=== PATIENT | female | born 1950 | race Caucasian/White ===

== ENCOUNTER → 2018-01-17 10:44 | Outpatient (CLI) | payer MEDICARE, SELFPAY | PROVIDERS: Family Provider Family Medicine; PCP Family Medicine; Visit Provider Family Medicine | DX: R30.0 Dysuria (principal) | CPT/HCPCS: 87086; 87088 ==

== ENCOUNTER → 2018-02-11 16:10 | Outpatient (CLI) | payer MEDICARE, SELFPAY ==
[2018-02-18 12:17] LABS: HPV APTIMA, High Risk Negative (Negative)
== END ==
PROVIDERS: Family Provider Family Medicine; PCP Family Medicine; Visit Provider Obstetrics & Gynecology
DX: Z12.4 Encounter for screening for malignant neoplasm of cervix (principal)
CPT/HCPCS: 88175; G0145

== ENCOUNTER 2018-02-24 09:36 | Emergency (ER) | payer MEDICARE, SELFPAY ==
[2018-02-24 09:37] VITALS: BP 155/86; PULSE 50; RESP 18; TEMP 36.2; O2SAT 97; BMI 33.0
--- NOTE | 2018-02-24 09:58 | ED.DCSUM_ITS ---
- ER Visit Summary Date of Service: 02/24/18 Chief Complaint: Left breast abscess History of Present Illness: The patient is a 67 F presents with abscess to the left breast. First episode occurred November. She states she was able to treat the infection on her own. She states there is been no improvement with this episode. This is the third incident. She has had prior abscesses of the breast requiring I&D. She denies fever, chills night sweats. Denies weight gain or weight loss. She denies elevated blood sugar. She states her last A1c was less than 6. She denies polyuria, polydipsia, polyphagia or nocturia. There is no history of trauma. She has no other complaints please read written note. Physical Examination: Vital signs are noted. HEENT exam is unremarkable. Heart is regular without murmur, gallop or rub. S1 and S2 are normal. Lungs are clear to auscultation with good movement of air bilaterally. There is erythema with fluctuance and spontaneous drainage of brown thick purulent fluid inferior outer quadrant of the left breast. There is no lymphangitis. There is no axillary lymphadenopathy. There is no dimpling of the areola or nipple. Test Results: None were obtained Emergency Department Course and Treatment: Since this is a recurrent problem concerned she may have MRSA. And the fact that she is diabetic we will treat with cephalexin and Bactrim DS. The abscess will require incision and drainage. Since he has never seen a surgeon she was referred to Dr. Norm Red. Treatment Plan: Patient was referred to Dr. Red for wound check and wick removal in 2-3 days. She was placed on Bactrim DS and cephalexin. She received her first dose in the emergency department. Disposition: Discharged home with appropriate home-going instructions Impression: Left breast abscess with cellulitis This note was generated with [employer] dictation software. It may contain incorrect words, spelling, and punctuation that were not noted in review of the chart prior to signing ED Disposition - Plan for ED Patient: Disposition: Home or Assisted Living Chief Complaint: Abscess Instructions: ED Abscess IandD, ED Infec Skin Cellulitis Prescriptions: Smz/Tmp Ds [Bactrim Ds] 1 tab PO BID #14 tab Cephalexin 500 mg PO 4X/DAY #30 cap Referrals: Rolf Cook MD [Primary Care Provider] - Sergey Red MD [STAFF PHYSICIAN] - 2 Days for wound check
[2018-02-24] MEDS: Smz/Tmp Ds Tablet 1 TABLET PO (11:28)
[2018-02-24] MEDS: Cephalexin 250 MG Capsule 500 MG PO (11:28)
[2018-02-24 11:33] VITALS: BP 142/79; PULSE 84; RESP 22; O2SAT 97
--- NOTE | 2018-02-24 11:33 | ED.RN ---
THIS NURSE REVIEWED D/C INSTRUCTIONS WITH PT. PT VERBALIZED UNDERSTANDING OF INSTRUCTIONS. PT DENIES FURTHER NEEDS OR QUESTIONS AT THIS TIME. PT AMBULATES FROM ROOM ON OWN WITHOUT ASSISTANCE FROM STAFF
== END 2018-02-24 11:35 | disposition home or self-care (01) ==
PROVIDERS: Emergency Provider Emergency Medicine; Family Provider Family Medicine; PCP Family Medicine
DX: N61.1 Abscess of the breast and nipple (principal); E11.9 Type 2 diabetes mellitus without complications; I10 Essential (primary) hypertension; E78.00 Pure hypercholesterolemia, unspecified; E03.9 Hypothyroidism, unspecified; Z72.0 Tobacco use; Z79.84 Long term (current) use of oral hypoglycemic drugs; Z79.891 Long term (current) use of opiate analgesic; Z79.899 Other long term (current) drug therapy
CPT/HCPCS: 10060; 99283

== ENCOUNTER → 2018-05-05 12:36 | Outpatient (CLI) | payer MEDICARE, SELFPAY ==
--- NOTE | 2018-05-05 12:47 | BI_ITS ---
MAMMOGRAPHY - BILATERAL SCREENING REASON FOR EXAM: Female, 67 years old. Routine annual screening examination. PERTINENT HISTORY: Mother with breast cancer. TECHNIQUE: Digital bilateral breast boni (3D mammographic acquisition) in the CC and MLO projections. 2-D mediolateral oblique (MLO) and craniocaudad (CC) views of both breasts were obtained. CAD: Full Field Digital Mammography with Computer Added Detection was performed. COMPARISON: Comparison is made with prior study dated May 02, 2017. FINDINGS: Breast Composition: There are scattered areas of fibroglandular density. There are no dominant masses or suspicious calcifications. Stable appearance of the benign-appearing bilateral axillary lymph nodes. No other significant abnormalities are identified. There has been no significant change since the prior study. BI/SCREENING MAMM (CAD), BILAT IMPRESSION: Stable bilateral screening mammogram. Yearly follow-up mammogram recommended. (A) ASSESSMENT CATEGORY: BIRADS Category 1: Negative. A letter regarding these results will be sent to the patient by the facility within 30 days. Approximately 10% of breast cancers are not detected by mammography. A normal mammogram should not delay biopsy of a clinically suspicious abnormality. [id number] Electronically Signed: Erik Tavera MD at 8:00 EDT Tel [phone], Service support ,
== END ==
PROVIDERS: Family Provider Family Medicine; PCP Family Medicine; Visit Provider Obstetrics & Gynecology
DX: Z12.31 Encounter for screening mammogram for malignant neoplasm of breast (principal)
CPT/HCPCS: 77063; 77067

== ENCOUNTER → 2018-05-27 11:37 | Outpatient (CLI) | payer OTHER, MEDICARE, SELFPAY ==
--- NOTE | 2018-05-27 11:44 | RAD_ITS ---
STUDY: X-RAY - LUMBAR SPINE REASON FOR EXAM: Female, 67 years old. Low back pain. TECHNIQUE: 4 view(s) of the lumbar spine were obtained. COMPARISON: None FINDINGS: The patient has undergone prior L5 laminectomies, L5-S1 discectomy, and posterior lumbosacral fusion with metal hardware. A disc prosthesis is present. Bilateral transpedicular screws at L5-S1 are connected on either side but longitudinal metal rods. The generator of an epidural stimulator is seen in the soft tissues of the right buttock. Its leads enter the spinal canal at T11-12, the lead tips residing at T9-10. Normal lumbar lordosis. There is a 7.65 degree there is a scoliosis centered at L1, and 4.85 degree levoscoliosis centered at L4. There is slight spondylolisthesis of L3 on L4. There is multilevel endplate spondylosis of the visualized thoracolumbar vertebrae. There is multi-level degenerative disc disease with multi-level disc space narrowing. There is no demonstrated osseous destructive lesion or fracture. There are multilevel degenerative arthroses of the facet articulations. The soft tissue structures are unremarkable. RAD/L/S Spine Min 4 Views IMPRESSION: 1. Prior L5 laminectomies, L5-S1 discectomy with placement of disc prosthesis, and posterior bilateral lumbar sacral fusion with metal hardware. 2. Degenerative changes of the spine, as detailed above. 3. Epidural stimulator leads entering the T11-12, the tips residing at T9-10. Electronically Signed: Stephen Mclaughlin MD at 12:23 EDT , Service support ,
== END ==
PROVIDERS: Family Provider Family Medicine; PCP Family Medicine; Visit Provider Nurse Practitioner Family
DX: M51.36 Other intervertebral disc degeneration, lumbar region (principal); M53.80 Other specified dorsopathies, site unspecified
CPT/HCPCS: 72110

== ENCOUNTER → 2018-09-15 12:29 | Outpatient (CLI) | payer MEDICARE, SELFPAY ==
--- NOTE | 2018-09-21 21:59 | LEAS ---
Arterial Study - Arterial Study Arterial Study: This is a 67-year-old female with a history of diabetes mellitus, hyperlipidemia, and smoking. She presents with physical findings consistent with peripheral arterial occlusive disease. She is brought to the noninvasive vascular laboratory at this time for the purpose of bilateral noninvasive lower extremity arterial assessment. Doppler signal assessment was used to evaluate the pulses at ankle level bilaterally. The posterior tibial and dorsalis pedis pulses were triphasic bilaterally. Segmental limb pressures were obtained bilaterally. The right ankle pressure, as determined by posterior tibial pulse, was measured at 182 mmHg. The right ankle pressure, as determined by dorsalis pedis pulse, was measured at 152 mmHg. The right digital pressure was measured at 116 mmHg. The left ankle pressure, as determined by posterior tibial pulse, was measured at 165 mmHg. The left ankle pressure, as determined by dorsalis pedis pulse, was measured at 159 mmHg. The left digital pressure was measured at 119 mmHg. Pulse?volume recordings were obtained bilaterally and segmentally. Waveform amplitudes appeared to be satisfactory at low thigh, calf, and ankle levels bilaterally, though slightly diminished at digital levels bilaterally. Resting ankle?brachial indices were calculated bilaterally. The resting right ankle?brachial index was calculated to be 1.31. The resting left ankle?brachial index was calculated to be 1.19. Digital?brachial indices were calculated bilaterally. The right digital-brachial index was calculated to be 0.83. The left digital-brachial index was calculated to be 0.86. Impression: Based upon the findings of this resting noninvasive lower extremity arterial study, there is no evidence of significant atherosclerotic peripheral arterial occlusive disease in the lower extremities bilaterally. Triphasic waveforms are noted at ankle level bilaterally. Resting ankle?brachial indices were bilaterally normal. Digital-brachial indices were also normal bilaterally. In summary, this represents a normal resting noninvasive lower extremity arterial study bilaterally.
--- NOTE | 2018-09-21 22:04 | LEAS_ITS ---
Arterial Study - Arterial Study Arterial Study: This is a 67-year-old female with a history of diabetes mellitus, hyper lipidemia, and smoking. She presents with physical findings consistent with peripheral arterial occlusive disease. She is brought to the noninvasive vascular laboratory at this time for the purpose of bilateral noninvasive lower extremity arterial assessment. Doppler signal assessment was used to evaluate the pulses at ankle level bilaterally. The posterior tibial and dorsalis pedis pulses were triphasic bilaterally. Segmental limb pressures were obtained bilaterally. The right ankle pressure, as determined by posterior tibial pulse, was measured at 182 mmHg. The right ankle pressure, as determined by dorsalis pedis pulse, was measured at 152 mmHg. The right digital pressure was measured at 116 mmHg. The left ankle pressure, as determined by posterior tibial pulse, was measured at 165 mmHg. The left ankle pressure, as determined by dorsalis pedis pulse, was measured at 159 mmHg. The left digital pressure was measured at 119 mmHg. Pulse?volume recordings were obtained bilaterally and segmentally. Waveform amplitudes appeared to be satisfactory at low thigh, calf, and ankle levels bilaterally, though slightly diminished at digital levels bilaterally. Resting ankle?brachial indices were calculated bilaterally. The resting right ankle?brachial index was calculated to be 1.31. The resting left ankle?brachial index was calculated to be 1.19. Digital?brachial indices were calculated bilaterally. The right digital- brachial index was calculated to be 0.83. The left digital-brachial index was calculated to be 0.86. Impression: Based upon the findings of this resting noninvasive lower extremity arterial study, there is no evidence of significant atherosclerotic peripheral arterial occlusive disease in the lower extremities bilaterally. Triphasic waveforms are noted at ankle level bilaterally. Resting ankle?brachial indices were bilaterally normal. Digital-brachial indices were also normal bilaterally. In summary, this represents a normal resting noninvasive lower extremity arterial study bilaterally.
== END ==
PROVIDERS: Family Provider Family Medicine; PCP Family Medicine; Referring Provider Family Medicine; Visit Provider Family Medicine
DX: R09.89 Other specified symptoms and signs involving the circulatory and respiratory systems (principal); R20.9 Unspecified disturbances of skin sensation
CPT/HCPCS: 93923

== ENCOUNTER 2018-10-22 14:13 | Emergency (ER) | payer MEDICARE, SELFPAY ==
[2018-10-22 14:15] VITALS: BP 143/105; PULSE 72; RESP 18; TEMP 36.7; O2SAT 95; BMI 32.5
--- NOTE | 2018-10-22 14:37 | VDLE_ITS ---
Reason For Study: LLE pain RIGHT LEFT CFV is compressible, spontaneous, phasic, GSV is normal. competent and demonstrates normal CFV is compressible, spontaneous, phasic, augmentation. competent, and demonstrates normal Procedure augmentation. Exam performed portable in ED. FV is compressible, spontaneous, phasic, The exam was diagnostic. competent and demonstrates normal A preliminary report was called and/or faxed augmentation. to ED. POP V is compressible, spontaneous, phasic, competent and demonstrates normal augmentation. T/P Trunk is compressible. PTV is compressible. LT PerV is compressible. Interpretation Summary Deep veins of the left lower extremity are patent and compressible segmentally. There is no evidence of left lower extremity deep vein thrombosis. Valvular competence appears intact within the proximal deep venous system on the left . The left greater saphenous vein appears patent and compressible segmentally. Ordering Physician: Sergey Weir Referring Physician: Rolf Cook Performed By: Ingrid Morales, KELLI, RVT
[2018-10-22] MEDS: HYDROcodone Bitartrate/Apap 5/325 Tablet PO (14:54)
--- NOTE | 2018-10-22 15:14 | ED.VISSUMM ---
- ER Visit Summary Date of Service: 10/22/18 Chief Complaint: Left leg pain History of Present Illness: The patient is a 67 F with left leg pain that started yesterday and was worse today. Worse with weightbearing. She has a hard time ambulating and called EMS to bring her to the hospital. She said she never had this pain before. Nothing seemed to bring it on. The pain starts in her left foot and ankle and radiates up her lateral left leg up into her thigh. Denies back pain or back injury. Denies any history of regular pain in this leg. Denies any history of circulatory issues. Denies any history of DVT. Denies trauma. Physical Examination: Afebrile and vital signs unremarkable. Patient is tearful and appears uncomfortable. Heart regular. Lungs clear. Abdomen soft. Back is nontender. Left leg is diffusely tender with light touch. No focal tenderness. No deformities. Good range of motion. Strength is limited by pain. Normal sensation. Good pulses. Good capillary refill. Skin appears normal. Test Results: Ultrasound is pending. Emergency Department Course and Treatment: Patient has atraumatic leg pain. Ultrasound was ordered. Arterial circulation seems to be normal. Her exam is unremarkable except for tenderness. She denies trauma. No focal tenderness. Good range of motion. Back unremarkable. Patient treated with [place] while awaiting results. After the ultrasound, the patient notified nursing that she had not been truthful. Her pain started after sexual intercourse with her ex-. Patient denies dislocation or joint pain or problems. Denies any specific injury. I reexamined the patient. She has diffuse tenderness. Good range of motion. No laxity or deformity. Pain is all over and I cannot find a focal location of pain to x-ray. Ultrasound was negative. Patient treated with a walker and pain medicine. Rest ice and elevate the leg. Treatment Plan: As above Disposition: Discharge Impression: 1. Left leg pain This note was generated with [employer] dictation software. It may contain incorrect words, spelling, and punctuation that were not noted in review of the chart prior to signing ED Disposition - Plan for ED Patient: Chief Complaint: Lower Extremity Injury Instructions: ED RICE Prescriptions: Hydrocodone Bitart/Apap 5-325 [[place] 5MG-325MG] 1 tab PO Q6H PRN PRN 3 Days #10 tab PRN Reason: Pain Referrals: Rolf Cook MD [Primary Care Provider] -
--- NOTE | 2018-10-22 15:18 | ED.DCSUM_ITS ---
- ER Visit Summary Date of Service: 10/22/18 Chief Complaint: Left leg pain History of Present Illness: The patient is a 67 F with left leg pain that started yesterday and was worse today. Worse with weightbearing. She has a hard time ambulating and called EMS to bring her to the hospital. She said she never had this pain before. Nothing seemed to bring it on. The pain starts in her left foot and ankle and radiates up her lateral left leg up into her thigh. Denies back pain or back injury. Denies any history of regular pain in this leg. Denies any history of circulatory issues. Denies any history of DVT. Denies trauma. Physical Examination: Afebrile and vital signs unremarkable. Patient is tearful and appears uncomfortable. Heart regular. Lungs clear. Abdomen soft. Back is nontender. Left leg is diffusely tender with light touch. No focal tenderness. No deformities. Good range of motion. Strength is limited by pain. Normal sensation. Good pulses. Good capillary refill. Skin appears normal. Test Results: Ultrasound is pending. Emergency Department Course and Treatment: Patient has atraumatic leg pain. Ultrasound was ordered. Arterial circulation seems to be normal. Her exam is unremarkable except for tenderness. She denies trauma. No focal tenderness. Good range of motion. Back unremarkable. Patient treated with [place] while awaiting results. After the ultrasound, the patient notified nursing that she had not been truthful. Her pain started after sexual intercourse with her ex-. Patient denies dislocation or joint pain or problems. Denies any specific in jury. I reexamined the patient. She has diffuse tenderness. Good range of motion. No laxity or deformity. Pain is all over and I cannot find a focal location of pain to x-ray. Ultrasound was negative. Patient treated with a walker and pain medicine. Rest ice and elevate the leg. Treatment Plan: As above Disposition: Discharge Impression: 1. Left leg pain This note was generated with [employer] dictation software. It may contain incorrect words, spelling, and punctuation that were not noted in review of the chart prior to signing ED Disposition - Plan for ED Patient: Chief Complaint: Lower Extremity Injury Instructions: ED RICE Prescriptions: Hydrocodone Bitart/Apap 5-325 [[place] 5MG-325MG] 1 tab PO Q6H PRN PRN 3 Days #10 tab PRN Reason: Pain Referrals: Rolf Cook MD [Primary Care Provider] -
--- NOTE | 2018-10-22 15:20 | ED.DEP ---
ED Disposition - Plan for ED Patient: Chief Complaint: Lower Extremity Injury Instructions: ED RICE Prescriptions: Hydrocodone Bitart/Apap 5-325 [[place] 5MG-325MG] 1 tab PO Q6H PRN PRN 3 Days #10 tab PRN Reason: Pain Referrals: Rolf Cook MD [Primary Care Provider] -
[2018-10-22 15:34] VITALS: BP 153/74; PULSE 71; RESP 16; O2SAT 97
== END 2018-10-22 16:09 | disposition home or self-care (01) ==
PROVIDERS: Emergency Provider Emergency Medicine; Family Provider Family Medicine; PCP Family Medicine
DX: M79.605 Pain in left leg (principal); E11.9 Type 2 diabetes mellitus without complications; I10 Essential (primary) hypertension; E78.00 Pure hypercholesterolemia, unspecified; Z72.0 Tobacco use; Z79.84 Long term (current) use of oral hypoglycemic drugs; Z79.2 Long term (current) use of antibiotics; Z79.891 Long term (current) use of opiate analgesic; Z79.899 Other long term (current) drug therapy
CPT/HCPCS: 93971; 99284

== ENCOUNTER → 2018-12-03 15:18 | Outpatient (CLI) | payer MEDICARE, SELFPAY ==
--- NOTE | 2018-12-03 15:24 | CT_ITS ---
STUDY: CT LEFT KNEE WITHOUT CONTRAST REASON FOR EXAM: Female, 67 years old. Left knee pain. Nondisplaced fracture lateral tibial condyle on office x-ray. History of osteoarthritis. History of hypertension and diabetes controlled with medication. RADIATION DOSAGE (If Supplied By Facility): CTDIvol = ( 15.35 ) mGy, DLP = ( 392.14 ) mGycm TECHNIQUE: Transaxial CT imaging of the knee was performed. Coronal and sagittal images were reformatted. Individualized dose optimization techniques were used for this CT. COMPARISON: None. FINDINGS: There is mixed lucent and sclerotic density in the posterior subarticular margin of the medial femoral condyle that raises question of avascular necrotic change or other chronic injury without associated fracture. Mild degenerative subcortical sclerosis of the medial femoral condyle and medial tibial plateau. There is spurring of the medial tibial spine. There is moderate narrowing of the articular joint space of the medial knee compartment. There is mixed lucent and sclerotic density in the posterior subarticular margin of the lateral femoral condyle raises question of avascular necrotic change or other chronic injury without associated fracture. Normal lateral tibial plateau. There is preservation of the articular joint space of the lateral knee compartment. Normal proximal tibiofibular articulation. Normal visualized proximal fibula. There is a minimal suprapatellar joint effusion. The quadriceps tendon is grossly normal. There is mild cortical spurring at the patellar insertion of the quadriceps tendon. The patellar tendon is grossly normal. Normal Hoffa's fat pad. The soft tissues are unremarkable. CT/Extremity Lower without Contra IMPRESSION: 1. No acute fracture of the left knee. 2. Subcortical mixed density in the posterior margins of the bilateral femoral condyles raising question of avascular necrotic change or other chronic injury without associated fracture. 3. Moderate degenerative narrowing of the medial femorotibial joint compartment. 4. Very small suprapatellar joint effusion. Electronically Signed: Stephen Mclaughlin MD at 20:04 EST , Service support ,
== END ==
PROVIDERS: Family Provider Family Medicine; PCP Family Medicine; Referring Provider Specialist; Visit Provider Specialist
DX: S82.125A Nondisplaced fracture of lateral condyle of left tibia, initial encounter for closed fracture (principal)
CPT/HCPCS: 73700

== ENCOUNTER → 2019-04-24 | Outpatient (CLI) | payer MEDICARE, SELFPAY | END | disposition home or self-care (01) | LOC: BFHLAB 13:00 | PROVIDERS: Family Provider Family Medicine; PCP Family Medicine; Visit Provider Family Medicine | DX: R31.9 Hematuria, unspecified (principal) | CPT/HCPCS: 87077; 87086; 87088 ==

== ENCOUNTER → 2019-05-01 | Outpatient (CLI) | payer MEDICARE, SELFPAY ==
--- NOTE | 2019-05-01 13:40 | US_ITS ---
STUDY: RENAL ULTRASOUND - COMPLETE REASON FOR EXAM: Female, 68 years old. Hematuria. TECHNIQUE: Ultrasound evaluation of the kidneys was performed with real-time and static paige-scale imaging. COMPARISON: None available. FINDINGS: RIGHT KIDNEY: Normal location of the right kidney, which is normal in size. The right kidney measures 10.4 cm. There is a normal cortex of the right kidney. There is no right renal mass or cyst. There are no right renal calculi. There is no right hydronephrosis. DISTAL RIGHT URETER: There is non-visualization of the distal right ureter. There is no demonstrated right ureterovesical junction calculus. There is a visualized right ureteral jet. LEFT KIDNEY: Normal location of the left kidney, which is normal in size. The left kidney measures 11.5 cm. There is a normal cortex of the left kidney. There is no left renal mass or cyst. There are no left renal calculi. There is no left hydronephrosis. DISTAL LEFT URETER: There is non-visualization of the distal left ureter. There is no demonstrated left ureterovesical junction calculus. There is a visualized left ureteral jet. BLADDER: The urinary bladder is partially distended and appears unremarkable. There is a postvoid residual of 60 cc. US/Kidney and Bladder IMPRESSION: Normal kidneys. No hydronephrosis. Postvoid residual of 60 cc. Electronically Signed: Rene Cook, at 20:39 EDT Tel , Service support ,
== END | disposition home or self-care (01) ==
LOC: US 13:36
PROVIDERS: Family Provider Family Medicine; PCP Family Medicine; Referring Provider Family Medicine; Visit Provider Family Medicine
DX: R31.9 Hematuria, unspecified (principal); Z72.0 Tobacco use
CPT/HCPCS: 76770

== ENCOUNTER 2019-05-04 06:53 | Day surgery (SDC) | payer MEDICARE, SELFPAY ==
[2019-05-04 07:26] VITALS: BP 129/64; PULSE 64; RESP 16; TEMP 36.8; O2SAT 94; BMI 32.3
[2019-05-04 07:46] LABS: Bedside Glucose 146 mg/dL (70-110)
[2019-05-04] MEDS: Bupivacaine 0.25% 30 ML Vial (08:21)
[2019-05-04] MEDS: MethylPREDNISolone Acetate 80 MG/ML Vial (08:21)
[2019-05-04 08:30] VITALS: BP 124/70; BP 129/64; PULSE 63; RESP 16; TEMP 36.3; O2SAT 92
--- NOTE | 2019-05-04 08:30 | RAD_ITS ---
STUDY: X-RAY - RIGHT KNEE REASON FOR EXAM: Female, 68 years old. RIGHT KNEE NERVE BLOCK TECHNIQUE: 3 C-arm views, 10.2 seconds fluoroscopy time. COMPARISON: None. FINDINGS: 3 C-arm views show needle placements along the medial and lateral aspects of the distal femoral metaphysis and the medial tibial metaphysis. Correlate with procedure note. Electronically Signed: Saad Vines MD at 22:29 EDT , Service support , RAD/Fluoro Guided Needle Placement
--- NOTE | 2019-05-04 08:33 | PCM.OPRPT ---
Problem List (1) Primary osteoarthritis of right knee Status: Chronic (2) Chronic post-operative pain Status: Chronic Report of Operation Date of Procedure: 05/04/19 Pre-Operative Diagnosis: Chronic postoperative knee pain, osteoarthritis of the right knee Post-Operative Diagnosis: Chronic postoperative knee pain, osteoarthritis of the right knee Surgery/Procedure Performed:: Right knee superior medial, superior lateral, inferior medial genicular nerve steroid injection under fluoroscopic guidance Description of Surgical Findings:: PROCEDURE: Right knee superior medial, superior lateral, inferior medial genicular nerve steroid injection under fluoroscopic guidance PREOPERATIVE DIAGNOSIS: Osteoarthritis of the right knee, chronic postoperative knee pain status post right total knee arthroplasty POSTOPERATIVE DIAGNOSIS: Osteoarthritis of the right knee, chronic postoperative knee pain status post right total knee arthroplasty ANESTHESIA: MAC COMPLICATIONS: None BLOOD LOSS: Minimal PROCEDURE IN DETAIL: History and physical today was reviewed. Risks and benefits of the procedure were explained. The patient understood, agreed to our procedure, and informed consent was obtained. IV inserted per routine protocol. The patient was taken to the operating room, placed in a supine position the right knee area was prepped and draped in a sterile fashion using iodine x3 under fluoroscopy guidance AP view the right knee joint was visualized skin and subcutaneous tissue were anesthetized with approximately 5 cc of 1% lidocaine using a 25-gauge regular needle at the facility of the superior medial superior lateral inferior medial genicular nerves. Starting on the right superior medial ending on the right inferior medial passing through the right superior lateral genicular nerves the needle passed through the skin the tip of the needle was maneuvered and directed towards the diaphyseal junction of each corresponding once the tip of the needle was at the vicinity of the each corresponding nerve after confirmation of AP as well as lateral view and repeated negative aspiration a total of 11 cc of preservative-free 0.25% Marcaine with 80 mg of Depo-Medrol were injected in divided doses between those 3 levels, the needles were then removed intact. The patient experienced no signs or symptoms intravascular injection. The patient experienced no paraesthesia. The procedure was completed without any apparent difficult, any complication. The patient appeared to tolerate well. ASSESSMENT AND PLAN: This is a 68-year-old female with osteoarthritis of the right knee, chronic postoperative knee pain status post right total knee arthroplasty status post right knee superior medial, superior lateral, inferior medial, genicular nerve steroid injection under fluoroscopic guidance the patient will continue her current medications. The patient will follow in approximately 2 weeks for reevaluation.
[2019-05-04 08:35] VITALS: BP 116/72; BP 129/64; PULSE 62; RESP 18; O2SAT 92
[2019-05-04 08:39] VITALS: BP 119/74; BP 129/64; PULSE 61; RESP 18; O2SAT 94
[2019-05-04 09:17] VITALS: BP 129/64
== END 2019-05-04 09:18 | disposition home or self-care (01) ==
LOC: SDC 06:53 → AC 06:54
PROVIDERS: Family Provider Family Medicine; PCP Family Medicine; Referring Provider Anesthesiology Pain Medicine; Visit Provider Anesthesiology Pain Medicine
PROC: 3E0U3GC Introduction of Other Therapeutic Substance into Joints, Percutaneous Approach (ICD-10-PCS; CPT 20610; principal; 2019-05-04 08:25)
DX: M17.11 Unilateral primary osteoarthritis, right knee (principal); G89.28 Other chronic postprocedural pain; I10 Essential (primary) hypertension; E11.9 Type 2 diabetes mellitus without complications; F17.210 Nicotine dependence, cigarettes, uncomplicated; E78.00 Pure hypercholesterolemia, unspecified; E07.9 Disorder of thyroid, unspecified; K21.9 Gastro-esophageal reflux disease without esophagitis; F41.9 Anxiety disorder, unspecified; F32.9 Major depressive disorder, single episode, unspecified; Z96.651 Presence of right artificial knee joint; Z79.84 Long term (current) use of oral hypoglycemic drugs; Z79.899 Other long term (current) drug therapy; Z79.891 Long term (current) use of opiate analgesic
CPT/HCPCS: 20610; 76000; 77002; 82962; J7120

== ENCOUNTER → 2019-05-11 | Outpatient (CLI) | payer MEDICARE, SELFPAY ==
[2019-05-04 07:26] VITALS: BMI 32.3
--- NOTE | 2019-05-11 13:19 | BI_ITS ---
MAMMOGRAPHY - BILATERAL SCREENING REASON FOR EXAM: Female, 68 years old. Routine annual screening examination. PERTINENT HISTORY: Mother with breast cancer. TECHNIQUE: Digital bilateral breast alcon (3D mammographic acquisition) in the CC and MLO projections. 2-D mediolateral oblique (MLO) and craniocaudad (CC) views of both breasts were obtained. CAD: Full Field Digital Mammography with Computer Added Detection was performed. COMPARISON: Comparison is made with prior study dated May 05, 2018 and May 02, 2017. FINDINGS: Breast Composition: There are scattered areas of fibroglandular density. New 8.4 mm well-defined nodule in the medial aspect of the right breast. This is not well-seen on the medial lateral oblique view. I suspect this to be inferior. This may represent a skin lesion. Clinical correlation is recommended. Stable appearance of the bilateral axillary lymph nodes. No other significant abnormalities are identified. BI/SCREEN MAMM (CAD) W/ALCON BILAT IMPRESSION: 8.4 mm well-defined nodule seen in the medial aspect of the right breast inferiorly. This may represent a skin lesion. Clinical correlation is recommended. If there is no skin lesion, ultrasound is recommended. ASSESSMENT CATEGORY: BIRADS Category 2: Benign. A letter regarding these results will be sent to the patient by the facility within 30 days. Approximately 10% of breast cancers are not detected by mammography. A normal mammogram should not delay biopsy of a clinically suspicious abnormality. [id number] Electronically Signed: Erik Tavera, at 15:52 EDT , Service support ,
== END | disposition home or self-care (01) ==
LOC: OPBI 13:16
PROVIDERS: Family Provider Family Medicine; PCP Family Medicine; Referring Provider Obstetrics & Gynecology; Visit Provider Obstetrics & Gynecology
DX: Z12.31 Encounter for screening mammogram for malignant neoplasm of breast (principal)
CPT/HCPCS: 77063; 77067

== ENCOUNTER 2019-07-02 05:45 | Emergency (ER) | payer MEDICARE, SELFPAY ==
[2019-07-02 05:46] VITALS: PULSE 65; RESP 16; TEMP 36.7; O2SAT 99; BMI 34.2
[2019-07-02 05:49] VITALS: BP 167/78; PULSE 63; RESP 16; O2SAT 98
[2019-07-02 06:08] LABS: Bacteria 0 SEEN /hpf (None Seen); Mucous, Urine 0 SEEN /hpf (<or=2+)
[2019-07-02 06:09] LABS: Color, Urine Yellow (Yellow); Glucose, Dipstick Normal (Normal); Ketone-Dipstick Negative (Negative); Leukocyte Esterase-Dipstick 500 /ul (Negative); Nitrite-Dipstick Negative (Negative); Occult Blood-Urine 250 /ul (Negative); Protein-Dipstick 15 mg/dl (Negative); Urine Bilirubin Dipstick Negative (Negative); Urine Clarity Sl. Cloudy (Clear); Urine Urobilinogen Normal (Normal); Urine pH 6.5 (5.0 - 8.0)
[2019-07-02 06:18] LABS: Red Blood Cells-Urine 5-10 SEEN /hpf (0-5); Squamous Epithelial Cells - UA 5-10 SEEN /hpf (5-10); White Blood Cells >100 SEEN /hpf (0-5)
[2019-07-02] MEDS: HYDROcodone Bitartrate/Apap 5/325 Tablet PO (06:25)
--- NOTE | 2019-07-02 06:25 | ED.VISSUMM ---
- ER Visit Summary Date of Service: 07/02/19 Chief Complaint: Pelvic pain History of Present Illness: The patient is a 68 F the pain started after vaginal intercourse with sex toy insertion. Patient also reports vaginal spotting and dysuria. Denies fever or other associated symptoms. Physical Examination: Afebrile and vital signs are unremarkable. Alert and oriented. Appears uncomfortable but in no acute distress. Normal gait. Abdomen soft and nontender. No distention. No guarding or rebound. Pelvic exam was chaperoned by Socorro Bronson RN. This showed scant discharge at the cervix. She had diffuse tenderness. She had 2 spots, one on each lateral vaginal wall that appeared to be slightly friable and were oozing blood after speculum exam. I did not appreciate any laceration, fistula, or other pathology. External exam was normal. No lesions. Test Results: Urinalysis showed signs of infection. Culture is pending. Gonorrhea and Chlamydia testing is pending. Wet prep was negative. Emergency Department Course and Treatment: Patient treated with [place] while awaiting results. She had findings concerning for UTI. She had scant discharge. STD is thought to be less likely, but gonorrhea and Chlamydia testing are pending. Wet prep was negative. Patient was treated with Rocephin and doxycycline to cover for STDs as well as UTIs. It appears that she does have some vaginal wall trauma. This appears to be minor. I do not appreciate any perforations or more serious injuries. Abdominal exam is reassuring. Vital signs are reassuring. I believe this will heal well without any further intervention. I do recommend that she follows up with her PRODUCE INSPECTOR to make sure she is healing well and not having any problems. She will call this morning for a follow-up appointment. She will also be able to follow-up with her test results. Patient can continue her home pain medication. Return for any new or worsening issues. Treatment Plan: As above Disposition: Discharge Impression: 1. UTI 2. Vaginal abrasions This note was generated with [employer] dictation software. It may contain incorrect words, spelling, and punctuation that were not noted in review of the chart prior to signing ED Disposition - Plan for ED Patient: Instructions: Understanding Urinary Tract Infections (UTIs) Prescriptions: Doxycycline 100 mg PO BID #28 cap Prescription Printed Referrals: Kitty Berrios MD [STAFF PHYSICIAN] -
[2019-07-02] MEDS: Doxycycline 100 MG CAPSULE PO (06:28)
[2019-07-02] MEDS: Ceftriaxone 500 MG Vial 250 MG IM (06:47)
[2019-07-02 06:50] VITALS: BP 148/77; PULSE 81; RESP 16; O2SAT 98
[2019-07-02 07:46] LABS: Chlamydia Trachomatis by PCR Negative (Negative); Neisserai gonorrhoeae by PCR Negative (Negative); Probe Check PASS; Sample Adequacy Control PASS; Specimen Processing Control PASS
== END 2019-07-02 07:01 | disposition home or self-care (01) ==
LOC: ED 06:25
PROVIDERS: Emergency Provider Emergency Medicine; Family Provider Family Medicine; PCP Family Medicine
DX: N39.0 Urinary tract infection, site not specified (principal); S30.814A Abrasion of vagina and vulva, initial encounter; R10.2 Pelvic and perineal pain; E11.9 Type 2 diabetes mellitus without complications; I10 Essential (primary) hypertension; E03.9 Hypothyroidism, unspecified; E78.00 Pure hypercholesterolemia, unspecified; Z72.0 Tobacco use; Z79.84 Long term (current) use of oral hypoglycemic drugs; Z79.899 Other long term (current) drug therapy; X58.XXXA Exposure to other specified factors, initial encounter; Y93.89 Activity, other specified; Y92.009 Unspecified place in unspecified non-institutional (private) residence as the place of occurrence of the external cause; Y99.8 Other external cause status
CPT/HCPCS: 81001; 87077; 87086; 87088; 87186; 87210; 87491; 87591; 96372; 99283

== ENCOUNTER 2019-09-21 07:59 | Day surgery (SDC) | payer MEDICARE, SELFPAY ==
[2019-09-21 08:18] VITALS: BP 132/62; PULSE 62; RESP 16; TEMP 36.7; O2SAT 97; BMI 34.1
[2019-09-21] MEDS: Lactated Ringers 1,000 ML 100 ML IV (08:37)
[2019-09-21 08:45] LABS: Bedside Glucose 155 mg/dL (70-110)
--- NOTE | 2019-09-21 09:00 | RAD_ITS ---
STUDY: Fluoroscopically guided right knee steroid injection/genicular nerve. REASON FOR EXAM: Female, 68 years old. Pain. COMPARISON: None. FINDINGS: Fluoroscopically guided right knee injection performed for right genicular nerve. The radiologist was not present in the room. Fluoroscopy time is unavailable. 3 images were obtained during the exam. The total knee prostheses is seen in place with visualization of radiopaque needles. RAD/Fluoro Guided Needle Placement IMPRESSION: Fluoroscopically guided steroid injection of the right knee as described above. For details see operative report. Electronically Signed: Nallely Portillo MD at 2:04 EST , Service support ,
[2019-09-21] MEDS: Bupivacaine 0.25% 30 ML Vial (09:37)
[2019-09-21] MEDS: MethylPREDNISolone Acetate 80 MG/ML Vial (09:37)
[2019-09-21 09:46] VITALS: BP 109/74; BP 132/62; PULSE 64; RESP 16; TEMP 36.6; O2SAT 95
[2019-09-21 09:50] VITALS: BP 132/62; BP 95/75; PULSE 58; RESP 16; O2SAT 94
[2019-09-21 09:55] VITALS: BP 116/63; BP 132/62; PULSE 58; RESP 16; O2SAT 95
[2019-09-21 10:00] VITALS: BP 104/65; BP 132/62; PULSE 59; RESP 16; TEMP 36.7; O2SAT 95
--- NOTE | 2019-09-21 10:01 | PCM.OPRPT ---
Report of Operation Date of Procedure: 09/21/19 Description of Surgical Findings:: PROCEDURE: Right knee superior medial, superior lateral, inferior medial genicular nerve steroid injection under fluoroscopic guidance PREOPERATIVE DIAGNOSIS: Osteoarthritis of the right knee, chronic postoperative knee pain status post right total knee arthroplasty POSTOPERATIVE DIAGNOSIS: Osteoarthritis of the right knee, chronic postoperative knee pain status post right total knee arthroplasty ANESTHESIA: MAC COMPLICATIONS: None BLOOD LOSS: Minimal PROCEDURE IN DETAIL: History and physical today was reviewed. Risks and benefits of the procedure were explained. The patient understood, agreed to our procedure, and informed consent was obtained. IV inserted per routine protocol. The patient was taken to the operating room, placed in a supine position the right knee area was prepped and draped in a sterile fashion using iodine x3 under fluoroscopy guidance AP view the right knee joint was visualized skin and subcutaneous tissue were anesthetized with approximately 5 cc of 1% lidocaine using a 25-gauge regular needle at the facility of the superior medial superior lateral inferior medial genicular nerves. Starting on the right superior medial ending on the right inferior medial passing through the right superior lateral genicular nerves the needle passed through the skin the tip of the needle was maneuvered and directed towards the diaphyseal junction of each corresponding once the tip of the needle was at the vicinity of the each corresponding nerve after confirmation of AP as well as lateral view and repeated negative aspiration a total of 11 cc of preservative-free 0.25% Marcaine with 80 mg of Depo-Medrol were injected in divided doses between those 3 levels, the needles were then removed intact. The patient experienced no signs or symptoms intravascular injection. The patient experienced no paraesthesia. The procedure was completed without any apparent difficult, any complication. The patient appeared to tolerate well. ASSESSMENT AND PLAN: This is a 68-year-old female with osteoarthritis of the right knee, chronic postoperative knee pain status post right total knee arthroplasty status post right knee superior medial, superior lateral, inferior medial, genicular nerve steroid injection under fluoroscopic guidance the patient will continue her current medications. The patient will follow in approximately 2 weeks for reevaluation.
[2019-09-21 10:20] VITALS: BP 132/62
== END 2019-09-21 10:31 | disposition home or self-care (01) ==
LOC: SDC 08:00 → AC 08:01
PROVIDERS: Family Provider Family Medicine; PCP Family Medicine; Referring Provider Anesthesiology Pain Medicine; Visit Provider Anesthesiology Pain Medicine
PROC: 3E0U3GC Introduction of Other Therapeutic Substance into Joints, Percutaneous Approach (ICD-10-PCS; CPT 20610; principal; 2019-09-21 09:35)
DX: M17.11 Unilateral primary osteoarthritis, right knee (principal); G89.28 Other chronic postprocedural pain; I10 Essential (primary) hypertension; F17.200 Nicotine dependence, unspecified, uncomplicated; E78.00 Pure hypercholesterolemia, unspecified; E11.9 Type 2 diabetes mellitus without complications; F41.9 Anxiety disorder, unspecified; F32.9 Major depressive disorder, single episode, unspecified; E06.9 Thyroiditis, unspecified; Z96.651 Presence of right artificial knee joint; Z79.84 Long term (current) use of oral hypoglycemic drugs; Z79.899 Other long term (current) drug therapy; Z79.891 Long term (current) use of opiate analgesic
CPT/HCPCS: 64450; 76000; 77002; 82962; J7120

== ENCOUNTER → 2019-10-19 08:03 | Outpatient (CLI) | payer MEDICARE, SELFPAY ==
[2019-09-21 08:18] VITALS: BMI 34.1
--- NOTE | 2019-10-19 08:06 | CT_ITS ---
STUDY: CT BRAIN WITH AND WITHOUT CONTRAST REASON FOR EXAM: Female, 68 years old. Headaches. Hypertension. RADIATION DOSAGE (If Supplied By Facility): CTDIvol = ( 44.99 ) mGy, DLP = ( 1547.23 ) mGycm TECHNIQUE: Transaxial CT imaging of the brain was performed pre and post contrast administration. The examination was performed with intravenous administration of [id number] 50ML. Individualized dose optimization techniques were used for this CT. COMPARISON: None. FINDINGS: Normal soft tissue structures. Normal calvarium. Normal size ventricles and extra-axial spaces for the patient''s age. Normal white matter tracts of the cerebral hemispheres. Normal basal ganglia and thalami. Normal brainstem. Normal cerebellum. There is no intracranial hemorrhage. There are no findings of an acute ischemic infarction. Normal visualized paranasal sinuses. CT/Brain/Head W/WO Contrast IMPRESSION: Normal unenhanced and enhanced CT scan of the brain. Electronically Signed: Erik Tavera, at 15:39 EST , Service support ,
[2019-10-19 08:36] LABS: CREATININE FINGERSTICK 1.3 mg/dL (0.55-1.02)
== END ==
PROVIDERS: Family Provider Family Medicine; PCP Family Medicine; Referring Provider Psychiatry & Neurology Neurology; Visit Provider Psychiatry & Neurology Neurology
DX: Z01.812 Encounter for preprocedural laboratory examination (principal); R27.0 Ataxia, unspecified
CPT/HCPCS: 70470; Q9967

== ENCOUNTER 2019-11-09 05:50 | Day surgery (SDC) | payer MEDICARE, SELFPAY ==
[2019-11-09 06:15] VITALS: BP 130/55; PULSE 65; RESP 18; TEMP 36.6; O2SAT 95; BMI 34.7
[2019-11-09] MEDS: Lactated Ringers 1,000 ML 100 ML IV (06:22)
[2019-11-09 06:35] LABS: Bedside Glucose 167 mg/dL (70-110)
--- NOTE | 2019-11-09 07:30 | RAD_ITS ---
STUDY: X-RAY - RIGHT KNEE REASON FOR EXAM: Female, 68 years old. RADIO FREQ ABLATION TECHNIQUE: For coned-down intraoperative view(s) of the knee. COMPARISON: None. FINDINGS: Intraoperative imaging provided for radiofrequency ablation. RAD/Knee 1 or 2 Views IMPRESSION: Intraoperative imaging provided for radiofrequency ablation. Electronically Signed: Erik Tavera, at 9:29 EST , Service support ,
[2019-11-09] MEDS: MethylPREDNISolone Acetate 80 MG/ML Vial (07:41)
[2019-11-09] MEDS: Bupivacaine 0.25% 30 ML Vial (07:41)
[2019-11-09 07:55] VITALS: BP 105/65; BP 130/55; PULSE 58; RESP 16; TEMP 37.4; O2SAT 92
[2019-11-09 08:00] VITALS: BP 113/77; BP 130/55; PULSE 62; RESP 16; O2SAT 93
[2019-11-09 08:05] VITALS: BP 115/73; BP 130/55; PULSE 58; RESP 16; O2SAT 93
[2019-11-09 08:11] VITALS: BP 116/69; BP 130/55; PULSE 56; RESP 16; TEMP 37.4; O2SAT 94
[2019-11-09 08:28] VITALS: BP 130/55
--- NOTE | 2019-11-09 08:36 | OP.PCM_ITS ---
Report of Operation Date of Procedure: 11/09/19 Description of Surgical Findings:: PREOPERATIVE DIAGNOSIS: Osteoarthritis of the right knee, chronic postoperative knee pain POSTOPERATIVE DIAGNOSIS: Osteoarthritis of the right knee, chronic postoperative knee pain PROCEDURE PERFORMED: Right knee radiofrequency ablation of superomedial, superolateral, and inferomedial genicular nerves under fluoroscopy guidance. ANESTHESIA: MAC. BLOOD LOSS: Minimal. COMPLICATIONS: None. DESCRIPTION OF PROCEDURE: History and physical of today was reviewed. Risks and benefits of the procedure were explained. The patient understood and agreed to proceed. Informed consent was obtained. IV inserted per routine protocol. The patient was taken to the operating room and placed in the supine position. The right knee was prepped and draped in a sterile fashion using iodine x3. Under fluoroscopy guidance on AP view, the right knee was visualized. The skin and subcutaneous tissue was anesthetized with approximately 15 mL of 1% li docaine using a 22-gauge 10 cm with a 10 mm curved active tip radiofrequency ablation needle at the vicinity of the superomedial, superolateral, and inferomedial genicular nerves. Under direct visualization of fluoroscopy on AP view as well as lateral view, starting on the right superomedial, ending on the right inferomedial, passing through the right superolateral genicular nerves, the needle was passed through the skin. The tip of the needle was maneuvered and directed towards the diaphyseal junction of each corresponding nerve. Once tip of the needle was in the vicinity of the diaphysis and in contact with the bone, after confirmation on AP as well as lateral view and repeated negative aspiration for blood the radiofrequency ablation probe was inserted at each level impedance was recorded at the superior medial 326 oh at the superior lateral 249 at the inferior medial 342, motor evoked potential was then initiated to 1.5 V without any motor response at each corresponding level the probes were then removed intact and after negative aspiration for blood a total of 6 cc of preservative-free 1% lidocaine were injected in divided doses between those 3 levels the radiofrequency ablation probe was then reinserted after repeated confirmation AP as well as lateral view radiofrequency ablation was then initiated to 80 ?C for 90 seconds at each level, a total of 3 mL of preservative-free 0.25% Marcaine with 40 mg of Depo-Medrol was injected in divided doses between those three levels. The needles were then removed intact. The patient experienced no sign or symptoms of intravascular injection. The patient experienced no paresthesia. The procedure was completed without any apparent difficulty or any complications. The patient appeared to tolerate it well. ASSESSMENT AND PLAN: This is a 68-year-old female with osteoarthritis of the right knee, chronic postoperative knee pain status post right knee radiofrequency ablation of the superior medial, superior lateral, inferior medial genicular nerve under fluoroscopic guidance patient will continue her current medications patient found approximately 2 weeks for reevaluation.
== END 2019-11-09 08:41 | disposition home or self-care (01) ==
LOC: SDC 05:50 → AC 05:51
PROVIDERS: Family Provider Family Medicine; PCP Family Medicine; Referring Provider Anesthesiology Pain Medicine; Visit Provider Anesthesiology Pain Medicine
PROC: (CPT 64624; principal; 2019-11-09 07:15)
DX: M17.11 Unilateral primary osteoarthritis, right knee (principal); G89.28 Other chronic postprocedural pain; I10 Essential (primary) hypertension; E03.9 Hypothyroidism, unspecified; E78.00 Pure hypercholesterolemia, unspecified; E11.9 Type 2 diabetes mellitus without complications; F17.200 Nicotine dependence, unspecified, uncomplicated; Z96.651 Presence of right artificial knee joint; Z79.84 Long term (current) use of oral hypoglycemic drugs; Z79.891 Long term (current) use of opiate analgesic; Z79.899 Other long term (current) drug therapy
CPT/HCPCS: 01991; 64624; 73560; 76000; 82962; J7120

== ENCOUNTER → 2020-08-24 15:45 | Outpatient (CLI) | payer MEDICARE, SELFPAY ==
[2020-07-27 13:35] VITALS: BMI 34.7
== END ==
PROVIDERS: PCP Family Medicine; Referring Provider Dermatology; Visit Provider Dermatology
DX: N61.1 Abscess of the breast and nipple (principal); L73.2 Hidradenitis suppurativa
CPT/HCPCS: 87070; 87186; 87205

== ENCOUNTER 2021-03-21 15:43 | Outpatient (RCR) | payer OTHER, MEDICARE, SELFPAY ==
[2020-07-27 13:35] VITALS: BMI 34.7
--- NOTE | 2021-03-21 16:50 | HP.PTEVAL ---
Patient's Visit Information TISHA HOFFMANN is a 70 year old F referred to Physical Therapy by KRISTINE Cordero with a diagnosis of IDD, DDD. Date of Evaluation: 03/21/21 Physical Therapist: Luther Contreras, KARLYT, OCS, CSCS - Visit Plan Frequency: 2x /Week Duration: 4-6 Weeks Plan: 2x/week for 4-6 weeks for ...(only 3 visits approved right now). 1. sart with quad, IT rollout and teach stretches. 2. NS strength Mat. 3. progress to leg press, back extension, pull down, row and HSC in gym based on tolerance. - Subjective Sees Dr. Cox in pain management for back pain. Told her that her hips start burning when she walks short distances. Get intermittent epidurals. Has h/o 3 back surgeries and has spinal cord stimulator. 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 Has had burning in hips for a while, that is in the side of the hips when she walks. Pain in LB up to 7-9/10 with on feet alot, dishes, vaccuum. Ok sitting for the most part. Burning in hips is 10/10 burning on fire after about 300+feet. It calms down when she sits down. Nothing further down leg but has tingling down R leg and has for long time. Has had TKA R. Is diabetic and has some neuropathy. Sleep is not interrupted. Not employed. Not since 2002 due to back, total disability. Spends day not doing much this past year. Has friends that she talks to on phone. No exercises. Enjoys knitting adn crocheting. Basic aDLs are gettign done slowly, lives alone without steps. - Pain LBP Pain Intensity (Out of 10): 1 Pain Intensity Range: 0, 9 Burning hips Pain Intensity (Out of 10): 0 Pain Intensity Range: 0, 10 - Objective Walks slow and labored, short steps, hesitant. Fair balance. Has walker and cane but does nto need them, No falls. Tender on GT B, tightness in quads and ITB B. l/S AROM ext mod limited and painful centrally, flexion slow and mod limtied, SB mod limited. reflexes 2/3 B patella and achilles. Sensation WNL to gross light touch B LE. - slump and SLR. Hip IR painful otherwise WNL PROM, weakness in hip rotators and abductors and extensors at 3+. , hip flexion 3+ shaky. Knee ext 3+ adn HSC 4- B. shaky with ext. Ankles 4- B. - Balance Scores Functional Gait Assessment Score: 22 % Disability: 26.6700 - Goals Goal 1:: LB AROM increased to min deficits and painfree. Goal Time Frame: 4-6 Weeks Goal 2:: Pt hip burning abolished and LBP to 5.10 at worst, 50% better overall. Goal Time Frame: 4-6 Weeks Goal 3:: LB oswestry 15 or less Goal Time Frame: 4-6 Weeks Goal 4:: I approp HEP to minimze future problems Goal Time Frame: 4-6 Weeks - Rehabilitation Potential Physical Therapy Diagnosis: LBP and hip burning likely from LB degeneration Rehabilitation Potential: Fair - Anticipated Interventions Thank you for the opportunity to evaluate your patient. For Medicare and Medicare HMO plans, please review the plan of care and approve it. It will need to be FAXED BACK to us at [phone] for Medicare purposes. For Medicare only, by signing this I certify the plan of care. Please let me know if there are questions or concerns regarding this plan of care. Physician Signature: Date:
--- NOTE | 2021-05-30 11:13 | HP.PT.NRP ---
TISHA HOFFMANN was seen in my office for initial evaluation on 03/21/21. The following Plan of Care was established for this patient: Initial Frequency: 2x /Week Initial Duration: 4-6 Weeks This patient was last seen in our office 03/21/21. Pertinent comments regarding their Physical therapy will appear below: Pt seen for evaluationa dn POC established. She neglected to schedule or attend any further visits. at this point, it has been over two months and I will discontinue due to nonattendance. At this point I will be discontinuing this patient from physical therapy. I would be happy to see this patient again in the future if found appropriate by the physician. Thank you! Luther Contreras, DPT, OCS, CSCS Balance/Gait/Functional tests - Balance/Special Test Scores Functional Gait Assessment Score: 22 % Disability: 26.6700 Oswestry Low Back Score: 20
== END 2021-03-21 19:00 | disposition home or self-care (01) ==
LOC: PT 15:43
PROVIDERS: PCP Family Medicine; Referring Provider Nurse Practitioner Family; Visit Provider Nurse Practitioner Family
DX: M53.80 Other specified dorsopathies, site unspecified (principal); M51.36 Other intervertebral disc degeneration, lumbar region; M51.37 Other intervertebral disc degeneration, lumbosacral region
CPT/HCPCS: 97110; 97162

== ENCOUNTER → 2021-07-25 08:49 | Outpatient (CLI) | payer MEDICARE, SELFPAY ==
--- NOTE | 2021-07-25 08:53 | RAD_ITS ---
STUDY: X-RAY CHEST REASON FOR EXAM: Female, 70 years old. Chest pain, history of smoking TECHNIQUE: PA and lateral views of the chest. COMPARISON: None. FINDINGS: Neurostimulator leads noted over the lower thoracic spine. The lungs are clear and expanded. There is no demonstrated pleural abnormality. Normal size heart. Normal mediastinum and jose. Normal visualized pulmonary arteries. Normal visualized aortic arch and descending thoracic aorta. There are diffuse degenerative changes of the visualized thoracic spine. Normal visualized ribs, clavicles, and shoulders. There is no demonstrated abnormality of the visualized soft tissue structures of the upper abdomen. RAD/Chest PA and Lateral IMPRESSION: No acute pulmonary process Electronically Signed: Stephen Chapman MD at 17:12 EDT , Service support ,
== END ==
PROVIDERS: PCP Family Medicine; Referring Provider Family Medicine; Visit Provider Family Medicine
DX: R60.0 Localized edema (principal)
CPT/HCPCS: 71046

== ENCOUNTER → 2021-08-22 12:59 | Outpatient (CLI) | payer MEDICARE, SELFPAY ==
--- NOTE | 2021-08-22 13:01 | BI_ITS ---
MAMMOGRAPHY - BILATERAL SCREENING REASON FOR EXAM: Female, 70 years old. Routine annual screening examination. PERTINENT HISTORY: Mother with breast cancer. TECHNIQUE: Digital bilateral breast alcon (3D mammographic acquisition) in the CC and MLO projections. 2-D mediolateral oblique (MLO) and craniocaudad (CC) views of both breasts were obtained. CAD: Full Field Digital Mammography with Computer Added Detection was performed. COMPARISON: Comparison is made with prior study dated 05/11/2019 and 05/05/2008. FINDINGS: Breast Composition: There are scattered areas of fibroglandular density. There are no dominant masses or suspicious calcifications. Stable benign-appearing bilateral axillary lymph nodes. No other significant abnormalities are identified. There has been no significant change since the prior study. BI/SCRN MAMM (CAD)W/ALCON BILAT IMPRESSION: Stable bilateral screening mammogram. Yearly follow-up mammogram recommended. (A) ASSESSMENT CATEGORY: BIRADS Category 2: Benign. A letter regarding these results will be sent to the patient by the facility within 30 days. Approximately 10% of breast cancers are not detected by mammography. A normal mammogram should not delay biopsy of a clinically suspicious abnormality. [id number] Electronically Signed: Erik Tavera MD at 14:54 EDT , Service support ,
== END ==
PROVIDERS: PCP Family Medicine; Referring Provider Obstetrics & Gynecology; Visit Provider Obstetrics & Gynecology
DX: Z12.31 Encounter for screening mammogram for malignant neoplasm of breast (principal)
CPT/HCPCS: 77063; 77067

== ENCOUNTER 2021-10-15 07:11 | Inpatient (IN) | payer MEDICARE, SELFPAY ==
[2021-10-15] VITALS (16 sets, daily range): BP systolic 109–154; BP diastolic 62–83; PULSE 61–80; RESP 14–20; TEMP 36.6–37.1; O2SAT 90–99; BMI 34.0; BMI 34.2
--- NOTE | 2021-10-15 07:12 | RAD_ITS ---
STUDY: X-RAY CHEST REASON FOR EXAM: Female, 70 years old. Neuro deficit, acute, stroke suspected TECHNIQUE: Single AP portable view of the chest. COMPARISON: 07/25/2021 FINDINGS: Dorsal column spinal stimulator in the lower thoracic spine. The lungs are clear and expanded. There is no demonstrated pleural abnormality. Normal size heart. Normal mediastinum and jose. Normal visualized pulmonary arteries. Normal visualized aortic arch and descending thoracic aorta. Normal visualized thoracic spine. Normal visualized ribs, clavicles, and shoulders. There is no demonstrated abnormality of the visualized soft tissue structures of the upper abdomen. RAD/Chest 1 View IMPRESSION: No active disease. Electronically Signed: John Maria MD at 8:15 EST Tel , Service support ,
--- NOTE | 2021-10-15 07:12 | CT_ITS ---
We are attempting to reach an attending provider to discuss findings. An addendum with communication details will be sent when the communication is complete. STUDY: CT HEAD STROKE PROTOCOL W/O CONTRAST INJECTION REASON FOR EXAM: Female, 70 years old. Neuro deficit, acute, stroke suspected RADIATION DOSAGE (If Supplied By Facility): CTDIvol = ( ) mGy, DLP = ( ) mGycm TECHNIQUE: Transaxial CT imaging of the brain was performed without administration of intravenous contrast material. Individualized dose optimization techniques were used for this CT. COMPARISON: 10/19/2019 FINDINGS: Normal soft tissue structures. Normal calvarium. Normal size ventricles and extra-axial spaces for the patient''s age. Normal white matter tracts of the cerebral hemispheres. Normal basal ganglia and thalami. Normal brainstem. Normal cerebellum. There is no intracranial hemorrhage. There are no findings of an acute ischemic infarction. Normal visualized paranasal sinuses. ASPECT score: CT/STROKE Brain/Head without Cont IMPRESSION: Normal unenhanced CT scan of the brain. Electronically Signed: John Maria MD at 7:31 EST Tel , Service support ,
--- NOTE | 2021-10-15 07:12 | EKG12_ITS ---
Test Reason : STROKE Blood Pressure : / mmHG Vent. Rate : 077 BPM Atrial Rate : 077 BPM P-R Int : 162 ms QRS Dur : 088 ms QT Int : 400 ms P-R-T Axes : 079 010 148 degrees QTc Int : 452 ms Normal sinus rhythm ST & T wave abnormality, consider lateral ischemia Low voltage QRS Abnormal ECG Confirmed by JANE SPENCER, TYLER ([id number]), editor magazine JUAN DUNCAN ([id number]) on 10/18/2021 10:37:42 AM Referred By: MALLORY Confirmed By:TYLER LARA MD
--- NOTE | 2021-10-15 07:13 | CT_ITS ---
STUDY: CTA HEAD AND NECK WITH CONTRAST REASON FOR EXAM: Female, 70 years old. Neuro deficit, acute, stroke suspected RADIATION DOSAGE (If Supplied By Facility): CTDIvol = ( 16.67 ) mGy, DLP = ( 561.95 ) mGycm TECHNIQUE: CT angiography was performed with a multi-detector CT scanner. Data acquisition was obtained from the skull base through the vertex following intravenous administration of IV 100mL [id number]-370. MIP images were reconstructed from the axial data set. Post-processing of the angiographic images was performed, with multiplanar reformation and 3D reconstruction. Individualized dose optimization techniques were used for this CT. COMPARISON: No relevant priors. FINDINGS: Normal bilateral petrous carotid arteries. Normal right cavernous carotid artery with a normal supraclinoid bifurcation. Normal left cavernous carotid artery with a normal supraclinoid bifurcation. Normal right A1 segments of the anterior cerebral artery. Normal left A1 segments of the anterior cerebral artery. Normal intact anterior communicating artery (ACOM). Normal bilateral A2 segments of the anterior cerebral arteries. Normal right M1 and M2 segments of the middle cerebral arteries, with a normal M1 bifurcation. Normal left M1 and M2 segments of the middle cerebral arteries, with a normal M1 bifurcation. Normal right posterior communicating artery (PCOM). Normal left posterior communicating artery (PCOM). There is a small atretic right vertebral artery with a dominant left vertebral artery. Normal basilar artery with a normal basilar bifurcation. The visualized bilateral superior cerebellar (SCA) arteries are normal. Normal bilateral P1, P2 and visualized P3 segments of the posterior cerebral arteries. There is no demonstrated aneurysm of the [place]. There is no demonstrated abnormality of the visualized brain. AORTIC ARCH: Normal visualized aortic arch. Normal origins of the brachiocephalic, left common carotid, and left subclavian arteries. RIGHT CAROTID ARTERIES: Normal right common carotid artery (CCA). Normal right common carotid bulb. Normal origin of the right internal carotid (ICA) artery without a hemodynamically significant stenosis. Normal visualized cervical portion of the right internal carotid artery. Normal origin of the right external carotid artery (ECA). LEFT CAROTID ARTERIES: Normal left common carotid artery (CCA). There is mild atherosclerotic plaque formation with minimal narrowing of the left carotid bulb. There is mild atherosclerotic plaque formation of the origin of the left internal carotid artery with less than 50% cross sectional diameter stenosis. Normal visualized cervical portion of the left internal carotid artery. Normal origin of the left external carotid artery (ECA). VERTEBRAL ARTERIES: There is enhancement within the bilateral vertebral arteries with a small right vertebral artery, and a dominant left vertebral artery. CT/STROKE CTA Head AND Neck W/Con IMPRESSION: 1. Normal CTA Head with contrast. 2. No right carotid stenosis. 3. Mild (20%) (left carotid stenosis. 4. Patent vertebral arteries bilaterally. The left vertebral artery dominant. N.B. : The above Results were Read Back by John Maria MD to Kash Daniel DO, and understanding confirmed on 10/15/2021 08:01:00 (ET). Electronically Signed: John Maria MD at 8:02 EST Tel , Service support ,
--- NOTE | 2021-10-15 07:14 | EDS_ITS ---
HPI History of Present Illness Chief Complaint: Neuro S/Sx Narrative Narrative: 70-year-old female presenting with strokelike symptoms. Patient denies history of TIA or stroke. Patient states that yesterday about [id number] she noticed that she had some slurred speech and some numbness and tingling in her left arm and fingers as well as left leg. She felt as if she was falling to the left. Patient has not fallen or hit her head. She is not on any blood thinners. The patient's neighbor states that she is not a drinker and that she definitely has slurred speech. She appears to have a facial droop as well. Patient denies headache or visual complaints. She denies chest pain, p alpitations, shortness of breath. Is not had fever or chills. No nausea or vomiting. Patient with significant history of hypertension, hypothyroidism, diabetes, hyperlipidemia. [facility] Medical History Abscess of left breast Arthritis Constipation Depression Diabetes Epigastric fullness Fatigue Hypertension Screen for colon cancer Thyroid disease Home Medications clonidine HCl 0.1 mg PO QHS 01/11/17 [History Last Taken Unknown] gabapentin 300 mg PO BID 01/11/17 [History Last Taken Unknown] levothyroxine 100 mcg PO DAILY 01/11/17 [History Last Taken 11/09/19] melatonin 5 mg PO QHS 01/11/17 [History Last Taken Unknown] metformin 500 mg PO BIDCM 01/11/17 [History Last Taken Unknown] pravastatin 40 mg PO QHS 01/11/17 [History Last Taken Unknown] venlafaxine 187.5 mg PO DAILY 01/11/17 [History Last Taken Unknown] acetaminophen 1,000 mg PO Q8 PRN 05/20/17 [History Last Taken Unknown] hydrocodone-acetaminophen 1 ea PO BID PRN PRN 05/01/19 [History Last Taken Unknown] primidone 2 tab PO BID 05/01/19 [History Last Taken Unknown] doxycycline monohydrate 100 mg PO BID #28 cap 07/02/19 [Rx Last Taken Unknown] famotidine 20 mg PO DAILY 09/21/19 [History Last Taken Unknown] Allergy/AdvReac Type Severity Reaction Status Date / Time bupropion [From Wellbutrin] Allergy Other Verified 10/15/21 07:29 celecoxib [From Celebrex] Allergy Hives Verified 10/15/21 07:29 erythromycin lactobionate AdvReac Nausea/Vom/ Verified 10/15/21 07:29 [From Erythrocin] Diarrhea rosuvastatin calcium AdvReac Other Verified 10/15/21 07:29 [From Crestor] zolpidem [From Ambien] AdvReac Other Verified 10/15/21 07:29 Family History Mother Breast cancer Brother Diabetes Father Heart disease Surgical History History of back surgery History of carpal tunnel release of both wrists Hx of section Hx of colonoscopy Hx of tonsillectomy S/P insertion of spinal cord stimulator S/P tubal ligation Status post right knee replacement Social History Smoking Status: Current every day smoker tobacco type: cigarettes quit status: has quit before alcohol intake: never substance use type: does not use caffeine: No seatbelt use: always ROS ROS ED Constitutional Constitutional ED: Denies chills or fever(s) Eyes Eyes: Denies blurry vision or diplopia ENT ENT ED: Denies rhinorrhea or sore throat Cardiovascular Cardiovascular: Denies chest pain or palpitations Respiratory/Chest Respiratory/Chest: Denies cough, dyspnea or sputum Gastrointestinal Gastrointestinal: Denies abdominal pain, nausea or vomiting Genitourinary Genitourinary ED: Denies dysuria or hematuria Musculoskeletal Musculoskeletal: Denies arthralgias or myalgias Integumentary Denies Abrasions or rash Neurologic Neurologic: Reports paresthesias LUE and LLE and other Details: Weakness of the left arm and left leg. ; Denies headache(s) Psychiatric Psychiatric: Denies anxiety or depression EXAM Physical Exam Const Vital Signs: 10/15/21 07:12 10/15/21 07:19 10/15/21 07:27 Temperature 98.1 F 98.1 F 98.1 F Temperature Source Temporal Temporal Temporal Pulse Rate 66 80 80 Respiratory Rate 20 H 16 16 Blood Pressure 130/63 H 154/70 H 154/70 H Blood Pressure Mean 85 98 98 Pulse Ox 98 96 96 Oxygen Delivery Method Nasal Cannula Room Air Room Air Oxygen Flow Rate (L/min) 2 10/15/21 07:30 10/15/21 07:42 10/15/21 08:12 Temperature Temperature Source Pulse Rate 71 63 Respiratory Rate 16 18 Blood Pressure 134/68 H 122/72 H Blood Pressure Mean 90 88 Pulse Ox 90 98 Oxygen Delivery Method Room Air Room Air Nasal Cannula Oxygen Flow Rate (L/min) 10/15/21 08:30 Temperature 98.1 F Temperature Source Temporal Pulse Rate 61 Respiratory Rate 20 H Blood Pressure 140/67 H Blood Pressure Mean 91 Pulse Ox 99 Oxygen Delivery Method Nasal Cannula Oxygen Flow Rate (L/min) 2 Positive obese General Appearance ED: NAD Nutritional Appearance: obese HEENT Reports moist mucous membranes atraumatic Eyes PERRL and EOMs intact bilaterally Neck no lymphadenopathy and supple Resp normal respiratory effort and clear to auscultation bilaterally Cardio Rate: regular rate Rhythm: regular rhythm Extremity normal to inspection General Extremety ED: Negative for deformity, edema or tenderness General Extremity: Negative for deformity or edema Neuro oriented x3 Neuro Narrative: NIH Stroke Scale Score=6 Sensorium / Orientation: alert; Negative for confused Psych mental status grossly normal Skin No no wounds General Skin Exam: Negative for jaundice STROKE Vital Signs/Narrative: Vital Signs Temp Pulse Resp BP Pulse Ox 10/15/21 08:30 98.1 F 61 20 H 140/67 H 99 10/15/21 08:12 63 18 122/72 H 98 10/15/21 07:42 71 16 134/68 H 90 10/15/21 07:27 98.1 F 80 16 154/70 H 96 10/15/21 07:19 98.1 F 80 16 154/70 H 96 10/15/21 07:12 98.1 F 66 20 H 130/63 H 98 Inital Vital Signs reviewed: Yes MDM MDM MDM Narrative Medical decision making narrative: Patient presenting with strokelike symptoms. On examination she has a facial droop which is slight at the nasolabial fold, slight drift of the left arm and left leg but does not hit the bed, slurred speech which is mild. There is a partial gaze deficit upward without visual disturbance. And limb ataxia on the left arm and leg. This gives urinary stroke scale score of 7. Patient outside the window for TPA. CT brain and CTA of the head and neck are negative. 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 She has a CBC shows a slight leukocytosis of 12.5. Hemoglobin hematocrit are stable. Platelets are elevated at 489. PT/INR normal. Renal function electrolytes are normal. Glucose slightly elevated at 186. TSH is 6.62 he has with a free T4 1.26. Eyes patient will be admitted for further treatment. She is having some swallowing issues but states that she has had these long-term and they do not appear to be new. Patient was given aspirin 25 mg. Impression: 1. Posterior circulation CVA Lab Data Labs: Laboratory Results - last 24 hr 10/15/21 10/15/21 10/15/21 07:20 07:20 07:20 WBC 12.5 H RBC 3.96 L Hgb 13.6 Hct 39.4 MCV 99.5 H MCH 34.3 H MCHC 34.5 RDW Std Deviation 51.3 H RDW Coeff of Zafar 14.0 Plt Count 489 H MPV 8.8 Immature Gran % (Auto) 1.000 H Neut % (Auto) 70.6 H Lymph % (Auto) 18.6 L [place] % (Auto) 8.8 Eos % (Auto) 0.6 Baso % (Auto) 0.4 Absolute Neuts (auto) 8.8 H Absolute Lymphs (auto) 2.32 Nucleated RBC % 0 PT 11.7 INR 0.9 APTT 25.0 Sodium 141 Potassium 3.5 Chloride 104 Carbon Dioxide 30.0 Anion Gap 7 BUN 7 Creatinine 0.93 Estim Creat Clear Calc 45.15 Est GFR (MDRD) Af Amer 76 Est GFR (MDRD) Non-Af 63 BUN/Creatinine Ratio 7.5 L Glucose 186 H Calcium 9.0 Troponin I High Sens 4 TSH 6.62 H Free T4 1.26 Radiography Diagnostic Testing: Clinical Impression(s) from Imaging Studies Brain CT 10/15/21 07:12 IMPRESSION: Normal unenhanced CT scan of the brain. Electronically Signed: John Maria MD at 7:31 EST Tel , Service support , ADDENDUM: 10/15/21 [id number] IMPRESSION: Normal unenhanced CT scan of the brain. N.B. : The above Results were Read Back by John Maria MD to Dr. Fredy DO, and understanding confirmed on 10/15/2021 07:32:40 (ET). Electronically Signed: John Maria MD at 7:31 EST Tel , Service support , Chest X-Ray 10/15/21 07:12 IMPRESSION: No active disease. Electronically Signed: John Maria MD at 8:15 EST Tel , Service support , Head/Neck CTA 10/15/21 07:13 IMPRESSION: 1. Normal CTA Head with contrast. 2. No right carotid stenosis. 3. Mild (20%) (left carotid stenosis. 4. Patent vertebral arteries bilaterally. The left vertebral artery dominant. N.B. : The above Results were Read Back by John Maria MD to Kash Daniel DO, and understanding confirmed on 10/15/2021 08:01:00 (ET). Electronically Signed: John Maria MD at 8:02 EST Tel , Service support , ADDENDUM: 10/15/21 [id number] IMPRESSION: 1. Normal CTA Head with contrast. 2. No right carotid stenosis. 3. Mild (20%) (left carotid stenosis. 4. Patent vertebral arteries bilaterally. The left vertebral artery dominant. N.B. : The above Results were Read Back by John Maria MD to Kash Daniel DO, and understanding confirmed on 10/15/2021 08:01:00 (ET). Electronically Signed: John Maria MD at 8:02 EST Tel , Service support , Discharge Plan Triage Chief Complaint: Neuro S/Sx ED Provider: Kash Daniel Dx/Rx/DC Orders Prescriptions: No Action metformin 500 MG tablet 500 mg PO BIDCM RF: 0 clonidine HCl 0.1 MG tablet 0.1 mg PO QHS RF: 0 pravastatin 40 MG tablet 40 mg PO QHS RF: 0 gabapentin 300 MG capsule 300 mg PO BID RF: 0 levothyroxine 112 MCG tablet 100 mcg PO DAILY RF: 0 melatonin 5 MG tablet 5 mg PO QHS RF: 0 venlafaxine 150 MG tablet extended release 24hr 187.5 mg PO DAILY RF: 0 acetaminophen 500 MG tablet 1,000 mg PO Q8 PRN (Reason: Pain) RF: 0 primidone 50 MG tablet 2 tab PO BID RF: 0 hydrocodone-acetaminophen 1 EACH tablet 1 ea PO BID PRN PRN (Reason: Pain) RF: 0 doxycycline monohydrate 100 MG capsule 100 mg PO BID Qty: 28 RF: 0 famotidine 20 MG tablet 20 mg PO DAILY RF: 0 Primary Care Provider: Rolf Cook
[2021-10-15 07:47] LABS: Absolute Lymphocyte Count 2.32 X10^3/uL (0.83-4.51); Absolute Neutrophil Count 8.8 X10^3/uL (2.0-7.7); Basophil# 0.05 X10^3/uL; Basophil% 0.4 % (0-1); Eosinophil# 0.07 X10^3/uL; Eosinophils% 0.6 % (0-5); Hematocrit 39.4 % (37-47); Hemoglobin 13.6 g/dL (12.0-15.0); Lymphocyte # 2.32 X10^3/ul (0.83-4.51); Lymphocyte % 18.6 % (19-41); Mean Corp Hgb Conc 34.5 g/dL (32-36); Mean Corpuscular Hgb 34.3 pg (27.0-32.0); Mean Corpuscular Volume 99.5 fL (81-99); Mean Platelet Vol. 8.8 fl (6.2-12.0); Monocyte% 8.8 % (0-10); NRBC Flagged by Analyzer 0 % (0-5); Neutrophil # 8.84 X10^3/uL (2.7-7.7); Neutrophil % 70.6 % (47-70); Platelet Count 489 K/mm3 (150-450); RBC Distribution Width SD 51.3 fl (35.1-43.9); Red Blood Count 3.96 M/mm3 (4.2-5.4); White Blood Count 12.5 K/mm3 (4.4-11.0)
[2021-10-15 08:00] LABS: International Normalized Ratio 0.9; Prothrombin Time (Protime)PT. 11.7 SECONDS (11.7-14.9)
[2021-10-15 08:06] LABS: Anion Gap 7 (5-15); BUN 7 mg/dL (7-18); BUN/Creat Ratio 7.5 RATIO (10-20); Chloride 104 mmol/L (98-107); Creatinine, Serum 0.93 mg/dL (0.55-1.02); EST Glomerular Filtration Rate 63 mL/min (>60); Est Glom Filt Rate - Afr Amer 76 mL/min (>60); Estimated Creatinine Clearance 45.15 ml/min; Glucose 186 mg/dL (74-106); Potassium 3.5 mmol/L (3.5-5.1); Sodium Level 141 mmol/L (136-145); T4 Free Direct 1.26 ng/dL (0.76-1.46); Thyroid Stim Hormone (TSH) 6.62 uIU/mL (0.358-3.74); Troponin-I HS 4 pg/mL (3.0-54.0)
--- NOTE | 2021-10-15 08:09 | ED.RN ---
TALKED WITH DR SAMAYOA. PT REPORTS HAVING DIFFICULTY SWALLOWING FOR PAST 2 MONTHS. STATES IT ALWAYS FEEL LIKE IT GOES DOWN THE WRONG WAY. PT STATES DOES BETTER WITH THICK. PER , 1 TEASPOON APPLESAUCE GIVEN. PT TOLERATED WELL. WILL ATTEMPT ASPIRIN IN APPLESAUCE
[2021-10-15] MEDS: Aspirin 325 MG Tablet PO (08:13)
--- NOTE | 2021-10-15 08:13 | ED.RN ---
PT ABLE TO TAKE ASPIRIN WITHOUT DIFFICULTY USING ASPIRIN
--- NOTE | 2021-10-15 08:21 | NURSING ---
DR QUAN IN ER
--- NOTE | 2021-10-15 08:40 | NURSING ---
PCU TERELETSKY STROKE
--- NOTE | 2021-10-15 09:58 | HP.PCM.HOS_ITS ---
HPI - General General Date of Admission: 10/15/21 Date of Service: 10/15/21 Chief Complaint: Left-sided weakness, speech difficulty HPI Narrative TISHA HOFFMANN, is a 70 F who presents the emergency room at [facility] with complaints of left upper and lower extremity weakness along with some speech difficulty that started yesterday afternoon approximately 5 PM. Patient did not seek medical attention. Patient denies any visual disturbances, she denies any right-sided weakness. Patient has a history of diabetic neurop athy, chronic pain, and type 2 diabetes. Patient does smoke. A stroke team was called, upon arrival to the emergency room, patient had a CTA of the head and neck and a CT of the brain. No abnormalities were noted on these imaging studies. Patient was not a candidate for TPA due to the length of time of her symptoms. It was recommended that the patient receive an MRI if possible-patient however has a spinal cord stimulator which could cause a problem doing any MRIs. Patient states that she was told never to get an MRI- some spinal cord stimulators however are compatible with a brain MRI, patient does not have her medical card with her describing her device-it is at home, I have asked her friend who is present at the time of my examination to retrieve her card and bring her to the hospital. Patient's chest x-ray was unremarkable. Lab work revealed a elevated white blood cell count of 12.5, history panel was remarkable for a glucose of 186, patient's TSH was elevated but her free T4 was normal. Patient's NIH stroke score was 8 according to the emergency room physician. I talked at length with the patient and her friend who was in the room at the time of my examination, patient has agreed to admission to the hospital for further work-up, patient has been having swallowing difficulties for many months, she will be seen by speech therapy. [facility] Medical History (Updated 10/15/21 @ 10:[address] Damion Mosley, ) Abscess of left breast Arthritis Constipation Depression Diabetes Epigastric fullness Fatigue Hypertension Screen for colon cancer Thyroid disease Home Medications clonidine HCl 0.1 mg PO QHS 01/11/17 [History Last Taken Unknown] gabapentin 300 mg PO BID 01/11/17 [History Last Taken Unknown] levothyroxine 100 mcg PO DAILY 01/11/17 [History Last Taken 11/09/19] melatonin 5 mg PO QHS 01/11/17 [History Last Taken Unknown] metformin 500 mg PO BIDCM 01/11/17 [History Last Taken Unknown] pravastatin 40 mg PO QHS 01/11/17 [History Last Taken Unknown] venlafaxine 187.5 mg PO DAILY 01/11/17 [History Last Taken Unknown] acetaminophen 1,000 mg PO Q8 PRN 05/20/17 [History Last Taken Unknown] hydrocodone-acetaminophen 1 ea PO BID PRN PRN 05/01/19 [History Last Taken Unknown] primidone 2 tab PO BID 05/01/19 [History Last Taken Unknown] doxycycline monohydrate 100 mg PO BID #28 cap 07/02/19 [Rx Last Taken Unknown] famotidine 20 mg PO DAILY 09/21/19 [History Last Taken Unknown] Allergy/AdvReac Type Severity Reaction Status Date / Time bupropion [From Wellbutrin] Allergy Other Verified 10/15/21 07:29 celecoxib [From Celebrex] Allergy Hives Verified 10/15/21 07:29 erythromycin lactobionate AdvReac Nausea/Vom/ Verified 10/15/21 07:29 [From Erythrocin] Diarrhea rosuvastatin calcium AdvReac Other Verified 10/15/21 07:29 [From Crestor] zolpidem [From Ambien] AdvReac Other Verified 10/15/21 07:29 Family History Mother Breast cancer Brother Diabetes Father Heart disease Surgical History History of back surgery History of carpal tunnel release of both wrists Hx of section Hx of colonoscopy Hx of tonsillectomy S/P insertion of spinal cord stimulator S/P tubal ligation Status post right knee replacement Social History housing: apartment number of children: 2 Smoking Status: Current every day smoker tobacco type: cigarettes quit status: has quit before alcohol intake: never substance use type: does not use caffeine: No seatbelt use: always ROS Constitutional Constitutional: Reports weakness; Denies anorexia, change in weight, chills, fatigue, fever(s) or night sweats Eyes Eyes: Denies blurry vision, change in vision, discharge from eye(s) or eye pain ENT HEENT: Reports dysphagia and other Details: Patient admits to swallowing diff iculties over the past few months, these have not been further investigated ; Denies abnormal hearing or ear pain Cardiovascular Cardiovascular: Denies chest pain, claudication, dyspnea on exertion, edema, lightheadedness, orthopnea or palpitations Respiratory/Chest Respiratory/Chest: Denies cough, dyspnea, excessive phlegm production, hemoptysis, shortness of breath at rest or shortness of breath with exertion Gastrointestinal Gastrointestinal: Denies abdominal pain, constipation, diarrhea, hematemesis, hematochezia, melena, nausea or vomiting Genitourinary Genitourinary: Denies dysuria, hematuria, urinary frequency, urinary hesitancy, urinary incontinence or urinary urgency Musculoskeletal Musculoskeletal: Reports back pain, joint pain and other Details: Patient has a history of chronic pain and she is being seen by pain management ; Denies joint stiffness, joint swelling, myalgias or neck pain Neurologic Neurologic: Reports abnormal gait and focal weakness; Denies abnormal speech, dizziness, headache(s), loss of vision, numbness, other visual disturbances, paresthesias, syncope or tingling Psychiatric Psychiatric: Denies anxiety, cognitive impairment, depression, irritability, mood swings or suicidal ideation Endocrine Endocrinology: Denies change in body appearance, cold intolerance, excessive s weating, heat intolerance, polydipsia or polyuria Hematologic/Lymphatic Hematologic/Lymphatic: Denies none, anemia, easy bleeding, easy bruising or lymphadenopathy Allergic/Immunologic Allergic/Immunologic: Denies rhinitis, urticaria, eczemia or asthma Vital Signs Vital Signs Vital Signs: 10/15/21 07:12 10/15/21 07:19 10/15/21 07:27 Temperature 98.1 F 98.1 F 98.1 F Temperature Source Temporal Temporal Temporal Pulse Rate 66 80 80 Respiratory Rate 20 H 16 16 Blood Pressure 130/63 H 154/70 H 154/70 H Blood Pressure Mean 85 98 98 Pulse Ox 98 96 96 Oxygen Delivery Method Nasal Cannula Room Air Room Air Oxygen Flow Rate (L/min) 2 10/15/21 07:30 10/15/21 07:42 10/15/21 08:12 Temperature Temperature Source Pulse Rate 71 63 Respiratory Rate 16 18 Blood Pressure 134/68 H 122/72 H Blood Pressure Mean 90 88 Pulse Ox 90 98 Oxygen Delivery Method Room Air Room Air Nasal Cannula Oxygen Flow Rate (L/min) 10/15/21 08:30 10/15/21 09:00 Temperature 98.1 F 98.1 F Temperature Source Temporal Temporal Pulse Rate 61 61 Respiratory Rate 20 H 18 Blood Pressure 140/67 H 140/67 H Blood Pressure Mean 91 91 Pulse Ox 99 99 Oxygen Delivery Method Nasal Cannula Nasal Cannula Oxygen Flow Rate (L/min) 2 2 Weight Weight: 84.4 kg Body Mass Index (BMI) 34.0 Physical Exam Const alert, oriented x3, no apparent distress and healthy appearing General Appearance: cooperative, well kempt and well developed Orientation / Consciousness: awake, oriented to person, oriented to place and oriented to time HEENT normocephalic and moist oral mucous membranes Eyes PERRL, EOMs intact bilaterally and conjunctivae normal Neck nuchal rigidity, supple, no JVD, thyroid normal and no carotid bruits General: trachea midline Resp normal respiratory effort, no retractions, no use of accessory muscles and clear to auscultation bilaterally Auscultation: Negative for rales, rhonchi or wheezes Cardio regular rate, regular rhythm, S1 normal heart sound, S2 normal heart sound, no murmurs, no rub and no gallops GI normal to inspection, nondistended, normoactive bowel sounds, soft to palpation, non-tender and non-distended Extremity no clubbing, cyanosis or edema Skin no rashes or lesions noted General Skin Exam: no breakdown Neuro oriented x3, CN's II-XII intact bilaterally and no sensory deficits noted Neuro Narrative: Patient has evidence of some drift on the left side on examination, patient has some mild slurring of her speech on examination, she has some left-sided facial droop Sensorium / Orientation: awake and alert Psych thought process normal and affect normal Results Lab / Micro Data Result Diagrams: 10/15/21 07:20 10/15/21 07:20 Labs: Laboratory Results - last 24 hr 10/15/21 07:20: WBC 12.5 H, RBC 3.96 L, Hgb 13.6, Hct 39.4, MCV 99.5 H, MCH 34.3 H, MCHC 34.5, RDW Std Deviation 51.3 H, RDW Coeff of Zafar 14.0, Plt Count 489 H, MPV 8.8, Immature Gran % (Auto) 1.000 H, Neut % (Auto) 70.6 H, Lymph % (Auto) 18.6 L, [place] % (Auto) 8.8, Eos % (Auto) 0.6, Baso % (Auto) 0.4, Absolute Neuts (auto) 8.8 H, Absolute Lymphs (auto) 2.32, Nucleated RBC % 0 10/15/21 07:20: PT 11.7, INR 0.9, APTT 25.0 10/15/21 07:20: Sodium 141, Potassium 3.5, Chloride 104, Carbon Dioxide 30.0, An ion Gap 7, BUN 7, Creatinine 0.93, Estim Creat Clear Calc 45.15, Est GFR (MDRD) Af Amer 76, Est GFR (MDRD) Non-Af 63, BUN/Creatinine Ratio 7.5 L, Glucose 186 H, Calcium 9.0, Troponin I High Sens 4, TSH 6.62 H, Free T4 1.[address] 10/15/21 07:12 IMPRESSION: Normal unenhanced CT scan of the brain. Electronically Signed: John Maria MD at 7:31 EST Tel , Service support , ADDENDUM: 10/15/21 0739 IMPRESSION: Normal unenhanced CT scan of the brain. N.B. : The above Results were Read Back by John Maria MD to Dr. Fredy DO, and understanding confirmed on 10/15/2021 07:32:40 (ET). Electronically Signed: John Maria MD at 7:31 EST Tel , Service support , Chest X-Ray 10/15/21 07:12 IMPRESSION: No active disease. Electronically Signed: John Maria MD at 8:15 EST Tel , Service support , Head/Neck CTA 10/15/21 07:13 IMPRESSION: 1. Normal CTA Head with contrast. 2. No right carotid stenosis. 3. Mild (20%) (left carotid stenosis. 4. Patent vertebral arteries bilaterally. The left vertebral artery dominant. N.B. : The above Results were Read Back by John Maria MD to Kash Daniel DO, and understanding confirmed on 10/15/2021 08:01:00 (ET). Electronically Signed: John Maria MD at 8:02 EST Tel , Service support , ADDENDUM: 10/15/21 0809 IMPRESSION: 1. Normal CTA Head with contrast. 2. No right carotid stenosis. 3. Mild (20%) (left carotid stenosis. 4. Patent vertebral arteries bilaterally. The left vertebral artery dominant. N.B. : The above Results were Read Back by John Maria MD to Kash Daniel DO, and understanding confirmed on 10/15/2021 08:01:00 (ET). Electronically Signed: John Maria MD at 8:02 EST Tel , Service support , Assessment & Plan Assessment/Plan (1) Hemiparesis of left dominant side: PLAN: 1. Left-sided hemiparesis-patient will be admitted to PCU, she will be seen by PT, OT and speech therapy, patient will need to supply information concerning her spinal cord stimulator in order to have an MRI, I have not ordered an MRI at this time. I am not absolutely sure the patient has had an ischemic stroke, I have not ordered an echocardiogram at this time. Patient wi ll be given aspirin and Plavix. #2 mild dysarthria-again I am not sure if the patient has had an ischemic stroke, patient will be maintained on aspirin and Plavix, speech therapy will see the patient #3 oropharyngeal dysphagia-patient is unable to swallow thin liquids in the emergency room without a choking sensation, I have elected to place her on nectar thickened mechanical soft diet for now, she will be seen by speech therapy. It appears that the patient's swallowing difficulties are ongoing times several months. #3 chronic pain syndrome from multiple back surgeries #4 type 2 diabetes-blood sugars will need to be monitored, patient is on oral medication for diabetes #5 diabetic neuropathy of the lower extremities #6 osteoarthritis #7 hypothyroidism Charges/Coding Visit Charges Inpatient E&M: 13551 Init Hosp L3
[2021-10-15] MEDS: Clopidogrel Bisulfate 75 MG Tablet PO (11:05)
[2021-10-15] MEDS: Enoxaparin 40 MG/0.4 ML Syringe SC (11:05)
--- NOTE | 2021-10-15 11:36 | NURSING ---
pt put house kee in zipper pocket of wallet
[2021-10-15] MEDS: 0.9% Saline Lock 10 ML Syringe IV (18:06)
[2021-10-15] MEDS: MELATONIN 10 MG TABLET 5 MG PO (21:02)
[2021-10-15] MEDS: Primidone 50 MG Tablet 150 MG PO (21:03)
[2021-10-15] MEDS: Gabapentin 400 MG Capsule PO (21:04)
[2021-10-15] MEDS: cloNIDine HCl 0.1 MG Tablet PO (21:05)
[2021-10-15] MEDS: Atorvastatin Calcium 80 MG Tablet PO (21:05)
[2021-10-15] MEDS: Insulin Lispro 100 UNIT/ML INSULN.PEN SC (21:49)
[2021-10-15 23:41] LABS: Bedside Glucose 221 mg/dL (70-110)
[2021-10-16] VITALS (13 sets, daily range): BP systolic 117–138; BP diastolic 53–71; PULSE 61–78; RESP 15–18; TEMP 36.4–37.2; O2SAT 91–97
[2021-10-16] MEDS: Levothyroxine 100 MCG Tablet PO (06:25)
[2021-10-16] MEDS: Gabapentin 400 MG Capsule PO ×3 (06:26→20:49)
[2021-10-16 06:56] LABS: Cholesterol 151 mg/dL (200); High Density Lipoprotein 48 mg/dL; Triglycerides 100 mg/dL; Very Low Density Lipoprotein 20 mg/dL (5-40)
[2021-10-16] MEDS: Insulin Lispro 100 UNIT/ML INSULN.PEN SC ×4 (07:12→20:49)
[2021-10-16 07:16] LABS: Bedside Glucose 227 mg/dL (70-110)
[2021-10-16] MEDS: Pantoprazole Sodium 40 MG Tablet PO (08:51)
[2021-10-16] MEDS: Venlafaxine XR 37.5 MG Capsule 187.5 MG PO (08:52)
[2021-10-16] MEDS: Clopidogrel Bisulfate 75 MG Tablet PO (08:52)
[2021-10-16] MEDS: Aspirin 81 MG TAB.CHEW PO (08:52)
[2021-10-16] MEDS: ARIPiprazole 2 MG Tablet PO (08:53)
[2021-10-16] MEDS: metFORMIN HCl 1,000 MG Tablet 1000 MG PO ×2 (08:53→16:06)
[2021-10-16] MEDS: Primidone 50 MG Tablet 150 MG PO ×2 (08:53→20:48)
--- NOTE | 2021-10-16 09:48 | TELEMED_ITS ---
SOC Telemed has confirmed receipt of a request for visit. This document confirms receipt of the order initiating the consult. To find the results of the consultation, please view the patient's reports for the scanned Telemed Consult.
--- NOTE | 2021-10-16 10:37 | CASEMGMT ---
YOSEF noted patient was interested in TCU at discharge. YOSEF met with patient. Introduced self and role at [facility]. YOSEF asked patient how she was feeling and what she thought she would like to do at discharge. She said she thinks she probably should go to TCU. YOSEF let her know that she will stay here until her insurance gives the okay for TCU. YOSEF told her SW will work on this. YOSEF called Elisa in TCU and left her a voice mail. Fariba DRIVER
--- NOTE | 2021-10-16 10:52 | ECHOD_ITS ---
Version 2 Reason For Study: TIA/CVA Procedure This was a 2D Doppler, Color Flow transthoracic echocardiogram. Exam performed portable in patient room. Left Ventricle Normal LV size. Left ventricular systolic function is normal. The estimated ejection fraction is 60 %. Stage 1 diastolic dysfunction. No regional wall motion abnormalities noted. Right Ventricle Normal RV size. Normal systolic function. Atria Normal left atrium. Normal right atrium. Bubble contrast study negative for right to left interatrial shunt. Mitral Valve Anterior leaflet diffuse mitral valve thickening. Mild (1+) eccentric mitral valve insufficiency. Tricuspid Valve Normal tricuspid valve. Mild (1+) tricuspid valve insufficiency. Aortic Valve Normal aortic valve. Trisinus/trileaflet aortic valve. Pulmonic Valve Normal pulmonic valve. Great Vessels Normal aortic root. The pulmonary artery is normal size. Normal inferior vena cava. Pericardium/Pleural No pericardial effusion. Medication Performed a rapid injection of agitated mix of 9 cc saline and 1cc air to assess for atrial septal defect. MMode/2D Measurements & Calculations LVIDd: 4.4 cm IVSd: 1.0 cm Ao root diam: 3.2 cm LVIDs: 2.5 cm LVPWd: 1.1 cm RVDd: 3.3 cm FS: 42.9 % LAV(MOD-bp): 44.8 ml LVAd ap4: 22.8 cm2 LVAd ap2: 18.8 cm2 LAV(MOD-bp) Indexed: 24.2 ml/m2 LVLd ap4: 6.9 cm LVLd ap2: 6.2 cm LAV(MOD-sp2): 36.7 ml EDV(MOD-sp4): 64.7 ml EDV(MOD-sp2): 49.2 ml LAV(MOD-sp4): 47.2 ml EDV(sp4-el): 64.2 ml EDV(sp2-el): 48.0 ml LVAs ap4: 10.4 cm2 LVAs ap2: 10.7 cm2 LVLs ap4: 5.8 cm LVLs ap2: 5.8 cm ESV(MOD-sp4): 17.1 ml ESV(MOD-sp2): 18.1 ml ESV(sp4-el): 15.9 ml ESV(sp2-el): 16.8 ml EF(MOD-sp4): 73.5 % EF(MOD-sp2): 63.3 % EF(sp4-el): 75.3 % SV(MOD-sp4): 47.5 ml SV(MOD-sp2): 31.1 ml SV(sp4-el): 48.4 ml LA A4 area: 18.6 cm2 LA dimension(2D): 3.5 cm RA A4 area: 13.4 cm2 Doppler Measurements & Calculations MV E max gilbert: 77.0 cm/sec Lat Peak E' Gilbert: 5.9 cm/sec Med Peak E' Gilbert: 6.3 cm/sec MV A max gilbert: 93.4 cm/sec E/E' lat: 13.1 E/E' med: 12.2 MV E/A: 0.82 Ao V2 max: 151.2 cm/sec LV V1 max: 110.7 cm/sec PA V2 max: 82.9 cm/sec Ao max P.1 mmHg LV V1 max P.9 mmHg TR max gilbert: 289.9 cm/sec TR max P.6 mmHg ECHO/Echo Complete Interpretation Summary Normal LV size. Left ventricular systolic function is normal. The estimated ejection fraction is 60 %. Stage 1 diastolic dysfunction. Bubble contrast study negative for right to left interatrial shunt. Anterior leaflet diffuse mitral valve thickening. Mild (1+) eccentric mitral valve insufficiency. Ordering Physician: Elier Gar Referring Physician: Rolf Cook Performed By: Chyna Beckwith RDCS
--- NOTE | 2021-10-16 10:56 | PN.HOSP_ITS ---
Documented by User: Elier CEDENO 10/16/21 11:09 Subjective Subjective Patient is a 70-year-old female comfortably resting in bed, alert and orient x3. Patient still with ongoing left-sided weakness which is demonstrated by left- sided facial droop and upper/lower extremity weakness. Denies development of any new symptoms overnight. Does not appear in acute distress. Objective Data Objective Data Vital Signs: Vital Signs Temp Pulse Resp BP Pulse Ox 98.2 F 65 18 119/61 95 10/16/21 08:42 10/16/21 08:42 10/16/21 08:42 10/16/21 08:42 10/16/21 08:42 Oxygen Flow Rate (L/min) 2 Oxygen Delivery Method Room Air Weight: 186 lb 15.232 oz Body Mass Index (BMI) 34.2 Intake & Output: Intake and Output for Last 24 Hours 10/14/21 10/15/21 10/16/21 23:59 23:59 23:59 Intake Total 960 / 1060 200 / 200 Balance 960 / 1060 200 / 200 Lab / Micro Data Result Diagrams: 10/15/21 07:20 10/15/21 07:20 Labs: Laboratory Results - last 24 hr 10/15/21 21:40: POC Glucose 221 H 10/16/21 05:38: Triglycerides 100, Cholesterol 151, LDL Cholesterol 83, VLDL Cholesterol 20, HDL Cholesterol 48 10/16/21 07:11: POC Glucose 227 H Physical Exam Const alert and no apparent distress HEENT head/scalp atraumatic and moist oral mucous membranes Head and Scalp: normocephalic Eyes PERRL, EOMs intact bilaterally and conjunctivae normal Neck no lymphadenopathy, supple and no JVD Resp normal respiratory effort, no retractions, no use of accessory muscles and clear to auscultation bilaterally Cardio regular rate, regular rhythm, no murmurs and no JVD GI normal to inspection, nondistended, normoactive bowel sounds, soft to palpation and non-tender Extremity normal to inspection, full ROM and no clubbing, cyanosis or edema Skin no rashes or lesions noted, no wounds, skin turgor normal and no jaundice Neuro CN's II-XII intact bilaterally Psych affect normal Assessment & Plan Assessment/Plan (1) Hemiparesis of left dominant side: PLAN: Day 1 Discharge planning: To be determined, PT/OT eval ordered. Case management consult ordered. 1) strokelike symptoms Patient still presents today with ongoing left-sided facial weakness with upper and lower extremity weakness on the ipsilateral side. MRI was not ordered on admission due to presence of spinal stimulator, medical records ordered/pending. SOC consult ordered, echocardiogram ordered, hemoglobin A1c ordered, continue aspirin, high intensity statin and Plavix, continue NIH stroke scale. 2) oropharyngeal dysphagia Patient was observed to have a choking sensation while swallowing thin liquids in the ED. Continue nectar thickened mechanical soft diet for now, speech therapy eval ordered. 3) DM2 with neuropathy Continue home diabetic regimen, hemoglobin A1c ordered, continue Accu-Cheks with sliding scale insulin. Continue gabapentin. 4) depression/anxiety Continue Effexor and Abilify. 5) hypothyroidism Continue Synthroid. 6) GERD Continue PPI. DVT prophylaxis - low risk, not indicated. Patient seen by Elier Gar PA-C, under the supervision of Dr. Fuentes. Documented by User: Dr. Buzz Fuentes MD 10/16/21 18:27 Subjective Subjective Patient alert awake oriented x3. She does not have weakness in upper extremities. Left knee is weak and he states is chronic because of severe ongoing arthritis. Mild left foot drop. Patient is spinal stimulator unclear other type and make-up of device. Objective Data Lab / Micro Data Result Diagrams: 10/15/21 07:20 10/15/21 07:20 Physical Exam Narrative General: Alert, Oriented x3, Cooperative HEENT: Atraumatic, PERRLA, EOMI, Normocephalic Oral: No Gingival or Mucosal Lesions/ Ulcerations Neck: Supple, No JVD, Negative Carotid Bruits Lungs: Air entry diminished in bilateral lung bases. No crepitation/rhonchi Cardiovascular: Regular rate, Regular Rhythm, Normal S1, Normal S2, No murmurs Abdomen: Bowel Sounds Present, Soft, Non Tender, Non-Distended : No renal angle tenderness. No suprapubic tenderness. Extremities: Weakness at left knee, 4/5 in left foot dorsiflexion. Right knee TKR. Skin: No rashes, No breakdown Musculoskeletal: Severe chronic left knee arthritis with mild tenderness on deep pressing. Neurological: No language deficit or dysarthria, DTR 2+/4. Mild left facial droop. Psych/Mental Status: Normal Affect, Appropriate. Assessment & Plan Assessment/Plan (1) CVA (cerebral vascular accident): PLAN: This patient was seen in conjunction with PAO Ngo. I have independently interviewed and examined the patient and reviewed pertinent history, examination findings, laboratory and plan of management. I have reviewed the note and agree with the documented findings with the few additional points. In brief, patient is admitted for left-sided facial droop and mild left knee joint weakness and foot drop. MRI ordered to interrogate its visibility depending on the make of the device of his spinal stimulator. At most SOC consult was ordered along with echo. Continue aspirin Plavix and high intensity statin. Currently patient on mechanical soft diet nectar thick. Denies any dysphagia. Had oropharyngeal dysphagia/choking sensation with thin liquid in ED. Rest as documented above. I have discussed my assessment with PAO Ngo and orders have been reviewed. Charges/Coding Visit Charges Inpatient E&M: 29767 Subs Hosp L2
--- NOTE | 2021-10-16 11:04 | CASEMGMT ---
YOSEF was told by SENIOR UI UX DESIGNER that patient now wants to go home at discharge. YOSEF spoke with patient and she confirmed she would like to go home. She is interested in home health. YOSEF notified RN SURESH. Fariba DRIVRE
--- NOTE | 2021-10-16 11:40 | CASEMGMT ---
DERIK PRINCE assessment: Face to face with pt for initial transition planning/care coordination assessment. DERIK PRINCE introduced self and role at [facility], pt voices understanding and consents to assessment. Pt is sitting up in chair in no distress on room air. Pt is A/Ox4 and answers all questions appropriately. Care providers, pharmacy, and demographics verified. Presentation: Pt presented as stroke alert with left sided weakness since night before Admitting dx: CVA PCP: Joyce Specialists: CATRACHITA Tate; psychiatrist at [facility] Preferred Pharmacy: [facility] Insurance: [facility] Prescription Benefit: [facility] Living Will/HPOA: Pt does have LW/HPOA and is aware that they are on file at [facility]. Pt's daughter, Micha Quick, is HPOA. LNOK: Micha Quick, daughter/HPOA Living Arrangements: Pt lives alone in 1 story apt with no steps and states no concerns at home. Pt is normally independent with ADL's. Transportation: Pt states normally drives self and states no transportation concerns. DME/HHC: Pt states has a walker at home and declines need for any further DME. Therapy is recommending SNF/rehab at discharge and initially pt was agreeable to TCU but pt is now refusing. Pt is agreeable to HHC and states would like [facility] HHC at discharge as her brother had them in the past. Pt states no hx of HHC or SNF. Pt states no concerns with going home at time of discharge. Pt is retired. Pt states does smoke pack cigarettes daily but does not drink ETOH. Pt voices no further concerns/needs. CM to follow for further therapy recommendations and any further discharge planning/needs. Advised pt to ask for CM if any further questions/concerns/needs arise, voices understanding. Pt Goal: Home Plan: [place] DERIK PRINCE
[2021-10-16 11:50] LABS: Hemoglobin A1c 7.2 % (3.8-5.6)
[2021-10-16 12:10] LABS: Bedside Glucose 248 mg/dL (70-110)
[2021-10-16] MEDS: Enoxaparin 40 MG/0.4 ML Syringe SC (13:05)
--- NOTE | 2021-10-16 14:23 | CASEMGMT ---
YOSEF did not complete PHQ 9 with patient as she politely declined. YOSEF spoke with patient some more about going to TCU. SW told her therapy feels it would be best if she went somewhere for rehab. She said she wants to go home. Patient said someone told her that they make you get up and get washed up every morning in TCU. She said she doesn't like that, she isn't an early riser. She feels more comfortable in her home. She would like home health and she is going to see if someone can stay with her for a couple nights to make sure she is okay. Speech therapy then walked into the room to see patient so YOSEF stepped out. YOSEF updated RN CM that patient still wants to go home with home health. Fariba DRIVER
--- NOTE | 2021-10-16 14:43 | CASEMGMT ---
Addendum entered by Sabina Heath 10/16/21 15:20: Speech and SW added to C order and call back from Marlen at [facility] stating they can accept pt with SOC 10/18/21. Rob MORE CM Original Note: Order placed for SN, PT/OT, aide and call to Marlen at [facility] with referral for pt. [facility] will call this RN SURESH back. CM to follow. Rob MORE CM
[2021-10-16 16:56] LABS: Bedside Glucose 152 mg/dL (70-110)
[2021-10-16] MEDS: MELATONIN 10 MG TABLET 5 MG PO (20:49)
[2021-10-16] MEDS: cloNIDine HCl 0.1 MG Tablet PO (20:49)
[2021-10-16] MEDS: Atorvastatin Calcium 80 MG Tablet PO (20:49)
[2021-10-16 22:51] LABS: Bedside Glucose 160 mg/dL (70-110)
[2021-10-17 01:21] VITALS: BP 117/67; PULSE 64; RESP 16; TEMP 36.8; O2SAT 95
[2021-10-17] MEDS: HYDROcodone Bitartrate/Apap 5/325 Tablet PO (02:34)
[2021-10-17 03:00] VITALS: PULSE 60
[2021-10-17 05:20] VITALS: BP 120/69; PULSE 18; PULSE 57; RESP 18; TEMP 36.5; O2SAT 96
[2021-10-17 06:06] LABS: Absolute Lymphocyte Count 2.79 X10^3/uL (0.83-4.51); Absolute Neutrophil Count 6.9 X10^3/uL (2.0-7.7); Basophil# 0.04 X10^3/uL; Basophil% 0.4 % (0-1); Eosinophil# 0.09 X10^3/uL; Eosinophils% 0.8 % (0-5); Hematocrit 35.1 % (37-47); Hemoglobin 11.6 g/dL (12.0-15.0); Lymphocyte # 2.79 X10^3/ul (0.83-4.51); Lymphocyte % 25.3 % (19-41); Mean Corpuscular Hgb 33.5 pg (27.0-32.0); Mean Corpuscular Volume 101.4 fL (81-99); Mean Platelet Vol. 8.9 fl (6.2-12.0); Monocyte# 1.08 X10^3/uL; Monocyte% 9.8 % (0-10); NRBC Flagged by Analyzer 0 % (0-5); Neutrophil # 6.94 X10^3/uL (2.7-7.7); Neutrophil % 63.1 % (47-70); Platelet Count 425 K/mm3 (150-450); RBC Distribution Width CV 14.1 % (11.6-14.6); Red Blood Count 3.46 M/mm3 (4.2-5.4)
[2021-10-17] MEDS: Levothyroxine 100 MCG Tablet PO (06:25)
[2021-10-17] MEDS: Insulin Lispro 100 UNIT/ML INSULN.PEN SC ×2 (06:25→11:23)
[2021-10-17] MEDS: Gabapentin 400 MG Capsule PO (06:25)
[2021-10-17 06:40] LABS: Bedside Glucose 163 mg/dL (70-110)
[2021-10-17 07:00] VITALS: PULSE 72; PULSE 92
[2021-10-17 08:10] VITALS: BP 141/74; PULSE 64; RESP 18; TEMP 36.4; O2SAT 92
[2021-10-17] MEDS: Pantoprazole Sodium 40 MG Tablet PO (08:18)
[2021-10-17] MEDS: Clopidogrel Bisulfate 75 MG Tablet PO (08:19)
[2021-10-17] MEDS: Primidone 50 MG Tablet 150 MG PO (08:19)
[2021-10-17] MEDS: ARIPiprazole 2 MG Tablet PO (08:19)
[2021-10-17] MEDS: Venlafaxine XR 37.5 MG Capsule 187.5 MG PO (08:19)
[2021-10-17] MEDS: metFORMIN HCl 1,000 MG Tablet 1000 MG PO (08:19)
[2021-10-17] MEDS: Aspirin 81 MG TAB.CHEW PO (08:19)
[2021-10-17] MEDS: Enoxaparin 40 MG/0.4 ML Syringe SC (08:20)
[2021-10-17 08:40] VITALS: O2SAT 93
--- NOTE | 2021-10-17 09:01 | CT_ITS ---
STUDY: CT BRAIN WITHOUT CONTRAST REASON FOR EXAM: Female, 70 years old. Stroke -- Cannot get MRI, repeating Brain CT per Neuro rec''s RADIATION DOSAGE (If Supplied By Facility): CTDIvol = ( 47.06 ) mGy, DLP = ( 837.39 ) mGycm TECHNIQUE: Transaxial CT imaging of the brain was performed without administration of intravenous contrast material. Individualized dose optimization techniques were used for this CT. COMPARISON: Comparison is made with prior examination dated 10/15/2021. FINDINGS: Normal soft tissue structures. Normal calvarium. There is mild cerebral atrophy with widening of the extra-axial spaces and ventricular dilatation. There are areas of decreased attenuation within the white matter tracts of the supratentorial brain, consistent with microvascular disease changes. There is now evidence of a focal lucency in the posterior limb of the internal capsule on the right side as well as the anterior aspect of the thalamus. Normal brainstem. Normal cerebellum. There is no intracranial hemorrhage. There are no findings of an acute ischemic infarction. Normal visualized paranasal sinuses. CT/Brain/Head without Contrast IMPRESSION: Chronic involutional changes of the brain. Findings suggestive of ischemic change in the posterior limb of the right internal capsule as well as the anterior aspect of the right thalamus. Electronically Signed: Erik Tavera MD at 10:27 EST , Service support ,
--- NOTE | 2021-10-17 10:52 | PCM.DC ---
Discharge Instructions Diet Discharge Diet: No restrictions Activity Discharge Activity: Return to Normal Activity Weight Bearing Status: Weight bearing as tolerated Dressing / Incision Call your doctor if you observe: Fever of 101 or Higher, Numbness or Tingling, Shortness of breath, Dizziness, Chest pain, Increased palpitations (irregular heartbeat) and Calf discomfort Follow Up Care Please Follow Up With: Primary care provider When: Within the next two weeks. Test Results: Test results from this visit will be discussed in further detail at your follow-up appointment, if applicable. Discharge Plan Admission Admit Date/Time: 10/15/21 08:47 Primary Reason for Your Visit: Stroke life symptoms. Attending Provider: Buzz Fuentes Primary Care Provider: Rolf Cook Discharge Orders/Prescriptions Prescriptions: New aspirin 81 mg tablet,chewable 81 mg PO DAILY Qty: 30 RF: 0 clopidogrel [Plavix] 75 mg tablet 75 mg PO DAILY Qty: 21 RF: 0 Continued clonidine HCl 0.1 MG tablet 0.1 mg PO QHS RF: 0 pravastatin 40 MG tablet 40 mg PO QHS RF: 0 melatonin 5 MG tablet 5 mg PO QHS RF: 0 venlafaxine 150 MG tablet extended release 24hr 187.5 mg PO DAILY RF: 0 acetaminophen 500 MG tablet 1,000 mg PO Q8 PRN (Reason: Pain) RF: 0 primidone 50 MG tablet 3 tab PO BID RF: 0 hydrocodone-acetaminophen 1 EACH tablet 1 ea PO BID PRN PRN (Reason: Pain) RF: 0 levothyroxine 100 mcg tablet 100 mcg PO DAILY RF: 0 pantoprazole 40 mg Tablet,Delayed Release (Dr/Ec) 40 mg PO DAILY RF: 0 aripiprazole 2 mg tablet 2 mg PO DAILY RF: 0 gabapentin 400 mg capsule 400 mg PO TID RF: 0 furosemide 20 mg tablet 20 mg PO BID PRN (Reason: swelling) RF: 0 potassium chloride 20 mEq tablet extended release 20 meq PO DAILY PRN (Reason: if take a lasix ) RF: 0 metformin 1,000 mg tablet 1,000 mg PO BID RF: 0 Referrals / Follow Up: Rolf Cook MD [Primary Care Provider] - Within 2 Weeks Disposition Disposition (needs filled in before D/C Order can be placed): Home, Self Care
--- NOTE | 2021-10-17 11:28 | CASEMGMT ---
Pt states still plans to go home with [facility] and states has a WW at home. Pt does inquire about [facility] and this DERIK PRINCE offers to fax a script but [facility] Pt states preference for [facility] and script faxed at this time. Pt voices no further questions/concerns/needs. Marlen at [facility] aware of pt d/c today, voices understanding. Rob MORE CM
[2021-10-17 12:36] LABS: Bedside Glucose 212 mg/dL (70-110)
--- NOTE | 2021-10-17 14:43 | DS.PCM_ITS ---
Documented by User: Elier CEDENO 10/17/21 14:52 Providers Date of Admission: 10/15/21 Primary Care Physician: Dr. Rolf Cook MD Reason For Visit: CVA Diagnosis Discharge Diagnosis (1) CVA (cerebral vascular accident): Status: Acute Code(s): I63.9 - Cerebral infarction, unspecified Medications at Discharge Home Medications clonidine HCl 0.1 mg PO QHS 01/11/17 melatonin 5 mg PO QHS 01/11/17 venlafaxine 187.5 mg PO DAILY 01/11/17 acetaminophen 1,000 mg PO Q8 PRN 05/20/17 hydrocodone-acetaminophen 1 ea PO BID PRN PRN 05/01/19 primidone 3 tab PO BID 05/01/19 aripiprazole 2 mg PO DAILY 10/15/21 furosemide 20 mg PO BID PRN 10/15/21 gabapentin 400 mg PO TID 10/15/21 levothyroxine 100 mcg PO DAILY 10/15/21 metformin 1,000 mg PO BID 10/15/21 pantoprazole 40 mg PO DAILY 10/15/21 potassium chloride 20 meq PO DAILY PRN 10/15/21 aspirin 81 mg PO DAILY #30 tab 10/17/21 atorvastatin [Lipitor] 80 mg PO QHS #30 tab 10/17/21 clopidogrel [Plavix] 75 mg PO DAILY #21 tab 10/17/21 Hospital Course Summary of Care Provided Minutes Spent on Discharge: 35 Hospital Course: Disposition: Patient to discharge home. 1) Acute CVA Patient was admitted for left-sided facial weakness with upper and lower extremity weakness on the ipsilateral side. Brain MRI could not be obtained due to presence of spinal stimulator. SOC telemetry neurology consult obtained and recommended that patient receive repeat brain CT, along with standard stroke work-up in addition of aspirin and high intensity statin to patient's home medication regimen. Echocardiogram demonstrated normal LV size and systolic function with an EF of 60% and stage I diastolic dysfunction. Repeat brain CT noted chronic involutional changes of the brain and as well as signs of ischemic change in the posterior limb of the right internal capsule as well as the anterior aspect of the right thalamus. The ischemic findings were not noted on initial exam. Patient will receive dual antiplatelet therapy for 21 days with aspirin and Plavix and then discontinue Plavix after 21-day period, continue with aspirin thereafter. PT/OT recommended ongoing therapy, home health care was established. Hemoglobin A1c was 7.2, recommend that patient follow-up with her primary care provider for ongoing diabetic care. Patient is to follow-up with her primary care provider within the next 2 weeks. 2) oropharyngeal dysphagia Speech therapy evaluation conducted while admitted, patient to go home with home health care. 3) DM2 with neuropathy Continue home diabetic regimen. Patient is to follow-up with her primary care provider for ongoing diabetic care and further correction of her hemoglobin A1c as noted above. 4) depression/anxiety Continue Effexor and Abilify. 5) hypothyroidism Continue Synthroid. 6) GERD Continue PPI. Patient seen by Elier Gar PA-C, under the supervision of Dr. Fuentes. Physical Exam Narrative Patient is a 70-year-old female comfortably lying in bed, alert and orient x3. Patient reports significant improvement in her left-sided weakness. Denies development of any new symptoms overnight. Does not appear in acute distress. Const alert, oriented x3 and no apparent distress HEENT normocephalic, head/scalp atraumatic, hearing grossly normal bilaterally and moist oral mucous membranes Eyes PERRL, EOMs intact bilaterally and conjunctivae normal Neck no lymphadenopathy, supple and no JVD Resp normal respiratory effort, no retractions, no use of accessory muscles and clear to auscultation bilaterally Cardio regular rate, regular rhythm, no murmurs and no JVD GI normal to inspection, nondistended, normoactive bowel sounds, soft to palpation and non-tender Extremity normal to inspection, full ROM and no clubbing, cyanosis or edema Skin no rashes or lesions noted, no wounds and skin turgor normal Neuro CN's II-XII intact bilaterally Psych affect normal Weight / BMI Weight Weight: 186 lb 15.232 oz Body Mass Index (BMI) 34.2 ABG / Lab / Microbiology Data Result Diagrams: 10/17/21 05:10 10/15/21 07:20 Laboratory: Laboratory Results - last 24 hr 10/16/21 16:04: POC Glucose 152 H 10/16/21 20:42: POC Glucose 160 H 10/17/21 05:10: WBC 11.0, RBC 3.46 L, Hgb 11.6 L, Hct 35.1 L, MCV 101.4 H, MCH 33.5 H, MCHC 33.0, RDW Std Deviation 52.0 H, RDW Coeff of Zafar 14.1, Plt Count 425, MPV 8.9, Immature Gran % (Auto) 0.600, Neut % (Auto) 63.1, Lymph % (Auto) 25.3, Sierra % (Auto) 9.8, Eos % (Auto) 0.8, Baso % (Auto) 0.4, Absolute Neuts (auto) 6.9, Absolute Lymphs (auto) 2.79, Nucleated RBC % 0 10/17/21 06:23: POC Glucose 163 H 10/17/21 11:22: POC Glucose 212 H Radiography Diagnostic Testing: Radiology Impression Echocardiogram 10/16/21 10:52 Interpretation Summary Normal LV size. Left ventricular systolic function is normal. The estimated ejection fraction is 60 %. Stage 1 diastolic dysfunction. Bubble contrast study negative for right to left interatrial shunt. Anterior leaflet diffuse mitral valve thickening. Mild (1+) eccentric mitral valve insufficiency. Ordering Physician: Elier Gar Referring Physician: Rolf Cook Performed By: Chyna Beckwith RDCS Brain CT 10/17/21 09:01 IMPRESSION: Chronic involutional changes of the brain. Findings suggestive of ischemic change in the posterior limb of the right internal capsule as well as the anterior aspect of the right thalamus. Electronically Signed: Erik Tavera MD at 10:27 EST , Service support , D/C Instructions Discharge Diet: No restrictions Weight Bearing Status: Weight bearing as tolerated Call your doctor if you observe: Fever of 101 or Higher, Numbness or Tingling, Shortness of breath, Dizziness, Chest pain, Increased palpitations (irregular heartbeat) and Calf discomfort Please Follow Up With: Primary care provider When: Within the next two weeks. Meaningful Use Info Meaningful Use Diagnoses (Choose all that apply): Ischemic CVA CVA Therapy Assessed for PT,OT and/or ST?: Yes Ischemic Stroke Antithrombotic order at d/c?: Yes Dx of Atrial fib/flutter?: No Statins at discharge?: Yes Primary Dx Acute Ischemic CVA?: Yes IV tPA ordered during stay?: No Reason IV t-PA not ordered: Treatment not Indicated Discharge Plan Admission Admit Date/Time: 10/15/21 08:47 Primary Reason for Your Visit: Stroke life symptoms. Attending Provider: Buzz Fuentes Primary Care Provider: Rolf Cook Discharge Orders/Prescriptions Prescriptions: New aspirin 81 mg tablet,chewable 81 mg PO DAILY Qty: 30 RF: 0 clopidogrel [Plavix] 75 mg tablet 75 mg PO DAILY Qty: 21 RF: 0 atorvastatin [Lipitor] 80 mg tablet 80 mg PO QHS Qty: 30 RF: 0 Continued clonidine HCl 0.1 MG tablet 0.1 mg PO QHS RF: 0 melatonin 5 MG tablet 5 mg PO QHS RF: 0 venlafaxine 150 MG tablet extended release 24hr 187.5 mg PO DAILY RF: 0 acetaminophen 500 MG tablet 1,000 mg PO Q8 PRN (Reason: Pain) RF: 0 primidone 50 MG tablet 3 tab PO BID RF: 0 hydrocodone-acetaminophen 1 EACH tablet 1 ea PO BID PRN PRN (Reason: Pain) RF: 0 levothyroxine 100 mcg tablet 100 mcg PO DAILY RF: 0 pantoprazole 40 mg Tablet,Delayed Release (Dr/Ec) 40 mg PO DAILY RF: 0 aripiprazole 2 mg tablet 2 mg PO DAILY RF: 0 gabapentin 400 mg capsule 400 mg PO TID RF: 0 furosemide 20 mg tablet 20 mg PO BID PRN (Reason: swelling) RF: 0 potassium chloride 20 mEq tablet extended release 20 meq PO DAILY PRN (Reason: if take a lasix ) RF: 0 metformin 1,000 mg tablet 1,000 mg PO BID RF: 0 Discontinued pravastatin 40 MG tablet 40 mg PO QHS RF: 0 Other Ambulatory Orders: 30-Day Event Recorder (Routine) Location: None Selected Ordered By: Dr. Buzz Fuentes Referrals / Follow Up: Rolf Cook MD [Primary Care Provider] - Within 2 Weeks Disposition Disposition (needs filled in before D/C Order can be placed): Home, Self Care Documented by User: Dr. Buzz Fuentes MD 10/17/21 16:24 Providers Date of Admission: 10/15/21 Reason For Visit: CVA Medications at Discharge Home Medications clonidine HCl 0.1 mg PO QHS 01/11/17 melatonin 5 mg PO QHS 01/11/17 venlafaxine 187.5 mg PO DAILY 01/11/17 acetaminophen 1,000 mg PO Q8 PRN 05/20/17 hydrocodone-acetaminophen 1 ea PO BID PRN PRN 05/01/19 primidone 3 tab PO BID 05/01/19 aripiprazole 2 mg PO DAILY 10/15/21 furosemide 20 mg PO BID PRN 10/15/21 gabapentin 400 mg PO TID 10/15/21 levothyroxine 100 mcg PO DAILY 10/15/21 metformin 1,000 mg PO BID 10/15/21 pantoprazole 40 mg PO DAILY 10/15/21 potassium chloride 20 meq PO DAILY PRN 10/15/21 aspirin 81 mg PO DAILY #30 tab 10/17/21 atorvastatin [Lipitor] 80 mg PO QHS #30 tab 10/17/21 clopidogrel [Plavix] 75 mg PO DAILY #21 tab 10/17/21 Hospital Course Summary of Care Provided Hospital Course: This patient was seen in conjunction with PAO Ngo. I have independently interviewed and examined the patient and reviewed pertinent history, examination findings, laboratory and plan of management. I have reviewed the note and agree with the documented findings with the few additional points. In brief, patient is admitted for left-sided facial droop and mild left knee joint weakness and foot drop. MRI ordered to interrogate its visibility depending on the make of the device of his spinal stimulator. Continue aspirin, Plavix and high intensity statin. Repeat CT scan showed ischemic changes in posterior limb of right internal capsule and anterior aspect of right thalamus. Recommended to continue aspirin Plavix and high intensity statin. 30-day event monitor approved by Dr. Giordano. Hemoglobin A1c 7.2. Currently patient on mechanical soft diet nectar thick. Denies any dysphagia. Had oropharyngeal dysphagia/choking sensation with thin liquid in ED. an ou tpatient speech therapy. Rest as documented above. Discharge medication reconciliation done. Discharge follow-up instructions completed. Discharge process discussed with the patient and all questions were answered to patient's satisfaction. Total time spent, exact 35 minutes on discharge meds reconciliation, examination, coordination of care with nurses and ancillary staff, review of imaging and blood test and discussion with the patient on follow-up instructions I have discussed my assessment with PAO Ngo and orders have been reviewed. Physical Exam Narrative Seen and examined. Patient not short of breath or in respiratory distress. Mild weakness on left leg. General: Alert, Oriented x3, Cooperative HEENT: Atraumatic, PERRLA, EOMI, Normocephalic Oral: No Gingival or Mucosal Lesions/ Ulcerations Neck: Supple, No JVD, Negative Carotid Bruits Lungs: Air entry diminished in bilateral lung bases. No crepitation/rhonchi Cardiovascular: Regular rate, Regular Rhythm, Normal S1, Normal S2, No murmurs Abdomen: Bowel Sounds Present, Soft, Non Tender, Non-Distended : No renal angle tenderness. No suprapubic tenderness. Extremities: Weakness at left knee, 4/5 in left foot dorsiflexion. Right knee TKR. Skin: No rashes, No breakdown Musculoskeletal: Severe chronic left knee arthritis with mild tenderness on deep pressing. Neurological: No language deficit or dysarthria, DTR 2+/4. Mild left facial droop. Psych/Mental Status: Normal Affect, Appropriate. ABG / Lab / Microbiology Data Result Diagrams: 10/17/21 05:10 10/15/21 07:20 Discharge Plan Admission Admit Date/Time: 10/15/21 08:47 Primary Reason for Your Visit: Stroke life symptoms. Attending Provider: Buzz Fuentes Primary Care Provider: Rolf Cook Discharge Orders/Prescriptions Prescriptions: New aspirin 81 mg tablet,chewable 81 mg PO DAILY Qty: 30 RF: 0 clopidogrel [Plavix] 75 mg tablet 75 mg PO DAILY Qty: 21 RF: 0 atorvastatin [Lipitor] 80 mg tablet 80 mg PO QHS Qty: 30 RF: 0 Continued clonidine HCl 0.1 MG tablet 0.1 mg PO QHS RF: 0 melatonin 5 MG tablet 5 mg PO QHS RF: 0 venlafaxine 150 MG tablet extended release 24hr 187.5 mg PO DAILY RF: 0 acetaminophen 500 MG tablet 1,000 mg PO Q8 PRN (Reason: Pain) RF: 0 primidone 50 MG tablet 3 tab PO BID RF: 0 hydrocodone-acetaminophen 1 EACH tablet 1 ea PO BID PRN PRN (Reason: Pain) RF: 0 levothyroxine 100 mcg tablet 100 mcg PO DAILY RF: 0 pantoprazole 40 mg Tablet,Delayed Release (Dr/Ec) 40 mg PO DAILY RF: 0 aripiprazole 2 mg tablet 2 mg PO DAILY RF: 0 gabapentin 400 mg capsule 400 mg PO TID RF: 0 furosemide 20 mg tablet 20 mg PO BID PRN (Reason: swelling) RF: 0 potassium chloride 20 mEq tablet extended release 20 meq PO DAILY PRN (Reason: if take a lasix ) RF: 0 metformin 1,000 mg tablet 1,000 mg PO BID RF: 0 Discontinued pravastatin 40 MG tablet 40 mg PO QHS RF: 0 Other Ambulatory Orders: 30-Day Event Recorder (Routine) Location: None Selected Ordered By: Dr. Buzz Fuentes Referrals / Follow Up: Rolf Cook MD [Primary Care Provider] - Within 2 Weeks Disposition Disposition (needs filled in before D/C Order can be placed): Home, Self Care Charges/Coding Visit Charges Inpatient E&M: 95701 Disch Hosp
== END 2021-10-17 13:25 | disposition home health service (06) | DRG 65 ==
LOC: ED 08:36 → PCU 09:13
PROVIDERS: Physician Assistant; Admitting Provider Internal Medicine; Emergency Provider Student in an Organized Health Care Education/Training Program; PCP Family Medicine; Visit Provider Internal Medicine
DX: I63.9 Cerebral infarction, unspecified (principal); G81.92 Hemiplegia, unspecified affecting left dominant side; R29.810 Facial weakness; R13.12 Dysphagia, oropharyngeal phase; E11.40 Type 2 diabetes mellitus with diabetic neuropathy, unspecified; F32.A Depression, unspecified; F41.9 Anxiety disorder, unspecified; E03.9 Hypothyroidism, unspecified; R47.81 Slurred speech; I10 Essential (primary) hypertension; E78.5 Hyperlipidemia, unspecified; R29.706 NIHSS score 6; F17.210 Nicotine dependence, cigarettes, uncomplicated; M19.90 Unspecified osteoarthritis, unspecified site; R47.1 Dysarthria and anarthria; G89.4 Chronic pain syndrome; M21.372 Foot drop, left foot; K21.9 Gastro-esophageal reflux disease without esophagitis; Z79.899 Other long term (current) drug therapy; Z79.890 Hormone replacement therapy; Z79.84 Long term (current) use of oral hypoglycemic drugs
CPT/HCPCS: 36415; 70450; 70496; 70498; 71045; 80048; 80061; 82962; 83036; 84439; 84443; 84484; 85025; 85610; 85730; 92610; 93005; 93306; 94762; 97162; 97165; 97530; 97802; 99285; Q9967; A4216

== ENCOUNTER 2021-12-08 14:13 | Emergency (ER) | payer MEDICARE, SELFPAY ==
[2021-12-08 14:14] VITALS: BP 113/92; PULSE 66; RESP 15; TEMP 36.2; O2SAT 100; BMI 33.5
--- NOTE | 2021-12-08 14:59 | RAD_ITS ---
STUDY: X-RAY - RIGHT SHOULDER REASON FOR EXAM: Female, 70 years old. Injury/Pain following a fall. TECHNIQUE: 4 view(s) of the shoulder. COMPARISON: None. FINDINGS: Normal glenohumeral articulation. Normal acromioclavicular joint. Normal acromion. Normal humeral head and visualized proximal humerus. The soft tissue structures are unremarkable. Normal visualized pulmonary apex. RAD/Shoulder min 2 Views IMPRESSION: Normal x-ray examination of the shoulder. Electronically Signed: Erik Tavera MD at 15:49 EST ,
--- NOTE | 2021-12-08 14:59 | EX.ED.UPPERE ---
HPI History of Present Illness Chief Complaint: Upper Extremity Injury Informant: patient Occured/Mechanism Mechanism/Context: Yes blunt trauma, Yes fall and Yes same level fall Onset/Context/Timing Onset: Days (Patient fell on December 06) Context: Sudden Onset Timing: Continuous Quality of Pain: Dull and Aching Location: Shoulder region Current Severity: Mild Maximum Severity: Moderate Worsened by: Movement Relieved by: Internally rotated and adducted Associated Symptoms Associated Symptoms: Negative for Parasthesia, Weakness and Loss of Funtion Narrative Narrative: Patient is an elderly [id number] woman who presents because of shoulder pain status post fall December 06. She localizes the pain to the proximal humerus/shoulder area and over the distal clavicular area. She denies paresthesia, anesthesia or motor weakness. She denied head trauma. Denies neck pain. She denies chest pain or shortness of breath. Tetanus Immunization: 5-10 years Prior similar symptoms: No Recent Illness/Hospitalization: No [facility] Medical History (Updated 12/08/21 @ 15:[address] Karson Dalton MD) Abscess of left breast Arthritis Constipation CVA (cerebral vascular accident) Depression Diabetes Epigastric fullness Fatigue Hemiparesis of left dominant side Hypertension Screen for colon cancer Thyroid disease Home Medications clonidine HCl 0.1 mg PO QHS 01/11/17 [History Last Taken 10/14/21 22:00] melatonin 5 mg PO QHS 01/11/17 [History Last Taken 10/14/21 22:00] venlafaxine 187.5 mg PO DAILY 01/11/17 [History Last Taken 10/14/21 22:00] acetaminophen 1,000 mg PO Q8 PRN 05/20/17 [History Last Taken Unknown] hydrocodone-acetaminophen 1 ea PO BID PRN PRN 05/01/19 [History Last Taken Unknown] primidone 3 tab PO BID 05/01/19 [History Last Taken 10/14/21 22:00] aripiprazole 2 mg PO DAILY 10/15/21 [History Last Taken 10/14/21 08:00] furosemide 20 mg PO BID PRN 10/15/21 [History Last Taken Unknown] gabapentin 400 mg PO TID 10/15/21 [History Last Taken 10/14/21 08:00] levothyroxine 100 mcg PO DAILY 10/15/21 [History Last Taken 10/14/21 08:00] metformin 1,000 mg PO BID 10/15/21 [History Last Taken Unknown] pantoprazole 40 mg PO DAILY 10/15/21 [History Last Taken 10/14/21 08:00] potassium chloride 20 meq PO DAILY PRN 10/15/21 [History Last Taken Unknown] aspirin 81 mg PO DAILY #30 tab 10/17/21 [Rx Last Taken Unknown] Allergy/AdvReac Type Severity Reaction Status Date / Time bupropion [From Wellbutrin] Allergy Other Verified 12/08/21 14:15 celecoxib [From Celebrex] Allergy Hives Verified 12/08/21 14:15 erythromycin lactobionate AdvReac Nausea/Vom/ Verified 12/08/21 14:15 [From Erythrocin] Diarrhea rosuvastatin calcium AdvReac Other Verified 12/08/21 14:15 [From Crestor] zolpidem [From Ambien] AdvReac Other Verified 12/08/21 14:15 Family History Mother Breast cancer Brother Diabetes Father Heart disease Surgical History History of back surgery History of carpal tunnel release of both wrists Hx of section Hx of colonoscopy Hx of tonsillectomy S/P insertion of spinal cord stimulator S/P tubal ligation Status post right knee replacement Social History (Updated 12/08/21 @ 15:[address] Karson Dalton MD) household members: none housing: apartment number of children: 2 Smoking Status: Current every day smoker tobacco type: cigarettes quit status: has quit before alcohol intake: never substance use type: does not use caffeine: No seatbelt use: always ROS ROS ED Constitutional Constitutional ED: Denies chills, fever(s), subjective, sweats or weight loss Eyes Eyes: Denies blurry vision, change in vision or diplopia Cardiovascular Cardiovascular: Denies chest pain Respiratory/Chest Respiratory/Chest: Denies dyspnea or dyspnea on exertion Gastrointestinal Gastrointestinal: Denies nausea or vomiting Integumentary Reports other Details: Large contused area proximal volar side of the right arm ; Denies abscess, Abrasions or rash Neurologic Neurologic: Denies paresthesias or weakness Hematologic/Lymphatic Hematologic/Lymphatic: Denies easy bleeding or easy bruising EXAM Physical Exam Const Vital Signs: 12/08/21 14:14 Temperature 97.2 F L Temperature Source Temporal Pulse Rate 66 Respiratory Rate 15 Blood Pressure 113/92 H Blood Pressure Mean 99 Pulse Ox 100 Oxygen Delivery Method Room Air Positive well nourished, well developed and obese; Negative for cachectic, contractures or unkempt General Appearance ED: well developed and NAD; Negative for unkempt, cachectic, contractures, cyanotic or diaphoretic Nutritional Appearance: obese; Negative for cachectic HEENT Denies moist mucous membranes HEENT Narrative: There is patent. No septal deviation hematoma. No clinical findings of basal skull fracture. normocephalic and atraumatic; Negative for trauma or tenderness Eyes PERRL and EOMs intact bilaterally General Eye ED: Yes other Other Details: There is no subconjunctival hemorrhage. Neck full ROM and supple Chest Wall inspection of chest normal and palpation of chest normal Resp normal respiratory effort and clear to auscultation bilaterally Effort and Inspection: pain with movement Cardio regular rate, regular rhythm, S1 normal heart sound, S2 normal heart sound and no murmurs GI non-tender, non-distended and no masses Auscultation: normoactive bowel sounds Palpation: soft Back/Spine no CVA tenderness Cervical Spine: Negative for cervical spine tenderness Thoracic Spine / Upper Back: Negative for thoracic spinal tenderness Extremity Negative for normal to inspection or full ROM Extremity Narrative: There is soft tissue swelling ecchymosis proximal medial right arm. There is pain no patient over the insertion site of the supraspinatus tendon. There is minimal if any discomfort over the AC joint and lateral third of the clavicle. There is no discoloration. She is able to AB duct to 90 degrees. Drop test is equivocal. Axillary, median, radial and ulnar function intact. Radial pulses palpable. There is no pain ovation of the medial lateral epicondyle. Is no pain the patient over the olecranon process or radial head. There is no pain the patient with distal radius or ulna. There is no pain the patient metacarpal bones, metacarpal bones or phalanges. General Extremety ED: Negative for edema General Extremity: Negative for edema Neuro oriented x3 and CN's II-XII intact bilaterally Sensorium / Orientation: alert Psych mental status grossly normal Appearance: Negative for unkempt Skin Lesions: no lesions Rashes: no rashes Trauma: no lacerations or abrasions and other Bruising as previously described MDM MDM MDM Narrative Medical decision making narrative: Concern patient may have rotator cuff and associated patella fracture. X-ray was obtained. Since patient drove herself and has history of diabetes and renal disease pain medicine was not administered in the emergency department. Three-view x-ray of the right shoulder reveals no acute process. There may be minimal degenerative changes noted. There is no poor fracture. There is no fracture of the humerus. There is no fracture of the clavicle and the AC joint does not appear abnormal. Patient was treated with pain medicine and referred to orthopedics since she has limited abduction and which may be due to pain. This may also represent a partial rotator cuff tear. Patient states she has seen Dr. Dawson Hines in the past. She was referred to him. Since she is in pain management she understands that she will not get a prescription for pain medicine to go home with. She does have Holt tablets at home. She was instructed to take the Holt tablets for her pain. Discharge Plan Triage Chief Complaint: Upper Extremity Injury ED Provider: Karson Dalton Dx/Rx/DC Orders Clinical Impression: Injury due to fall, Contusion of right shoulder region, Rotator cuff injury Instructions: ED Shoulder Contusion Prescriptions: No Action clonidine HCl 0.1 MG tablet 0.1 mg PO QHS RF: 0 melatonin 5 MG tablet 5 mg PO QHS RF: 0 venlafaxine 150 MG tablet extended release 24hr 187.5 mg PO DAILY RF: 0 acetaminophen 500 MG tablet 1,000 mg PO Q8 PRN (Reason: Pain) RF: 0 primidone 50 MG tablet 3 tab PO BID RF: 0 hydrocodone-acetaminophen 1 EACH tablet 1 ea PO BID PRN PRN (Reason: Pain) RF: 0 levothyroxine 100 mcg tablet 100 mcg PO DAILY RF: 0 pantoprazole 40 mg Tablet,Delayed Release (Dr/Ec) 40 mg PO DAILY RF: 0 aripiprazole 2 mg tablet 2 mg PO DAILY RF: 0 gabapentin 400 mg capsule 400 mg PO TID RF: 0 furosemide 20 mg tablet 20 mg PO BID PRN (Reason: swelling) RF: 0 potassium chloride 20 mEq tablet extended release 20 meq PO DAILY PRN (Reason: if take a lasix ) RF: 0 metformin 1,000 mg tablet 1,000 mg PO BID RF: 0 aspirin 81 mg tablet,chewable 81 mg PO DAILY Qty: 30 RF: 0 Primary Care Provider: Rolf Cook Referrals: Rolf Cook MD [Primary Care Provider] - Rene Hines MD [STAFF PHYSICIAN] - 5-7 Days Activity Restrictions/Additional Instructions: 1. Apply ice to shoulder area 6-8 times a day 2. Wear sling for comfort. Remove your arm from the sling every 1-2 hours and do pendulum exercises Disposition Disposition: Home, Self Care
== END 2021-12-08 16:18 | disposition home or self-care (01) ==
PROVIDERS: Emergency Provider Emergency Medicine; PCP Family Medicine; Visit Provider Emergency Medicine
DX: S40.011A Contusion of right shoulder, initial encounter (principal); E11.9 Type 2 diabetes mellitus without complications; S46.001A Unspecified injury of muscle(s) and tendon(s) of the rotator cuff of right shoulder, initial encounter; F17.210 Nicotine dependence, cigarettes, uncomplicated; E66.9 Obesity, unspecified; F32.A Depression, unspecified; I10 Essential (primary) hypertension; Z96.651 Presence of right artificial knee joint; W19.XXXA Unspecified fall, initial encounter; Z79.82 Long term (current) use of aspirin; Z79.899 Other long term (current) drug therapy; Z79.84 Long term (current) use of oral hypoglycemic drugs
CPT/HCPCS: 73030; 99283

== ENCOUNTER 2021-12-27 09:33 | Outpatient (CLI) | payer MEDICARE, SELFPAY ==
--- NOTE | 2021-12-27 09:38 | RAD_ITS ---
CLINICAL HISTORY: Female, 71 years old. Chronic right shoulder pain. PROCEDURE: ARTHROGRAM - RIGHT SHOULDER CONSENT: The procedure as well as the benefits and possible complications including infection and bleeding were explained to the patient. Informed consent was obtained. FLUOROSCOPY TIME (if supplied): (33 seconds) minutes/seconds Injection Information: 10 cc of dilute MR contrast Number of images obtained: 4 TECHNIQUE: (All elements of maximal sterile barrier technique followed, including US elements as applicable) The patient was in the supine position. The overlying skin was prepped and draped in the usual sterile fashion. Following local anesthetic application and direct fluoroscopic guidance, a 22-gauge spinal needle was placed into the shoulder joint. 2 cc of ISOVUE 300 was injected for confirmation. Following this, 10 cc of dilute MRI contrast was injected. The patient tolerated the procedure well. RAD/Arthrogram Shoulder IMPRESSION: Successful right shoulder arthrogram. CT scan will follow. The patient tolerated the procedure well. Electronically Signed: Erik Tavera MD at 11:18 EST ,
--- NOTE | 2021-12-27 09:39 | CT_ITS ---
STUDY: CT right SHOULDER REASON FOR EXAM: Female, 71 years old. STRAIN RADIATION DOSAGE (If Supplied By Facility): CTDIvol = ( 25.81 ) mGy, DLP = ( 446.66 ) mGycm TECHNIQUE: The patient was scanned in a multi detector CT scanner. High resolution transaxial imaging was performed following administration of 10 cc of dilute intra-articular contrast material. Sagittal and coronal images were reconstructed. Individualized dose optimization techniques were used for this CT. COMPARISON: Comparison is made with prior arthrogram done earlier today. FINDINGS: There is moderate osteoarthritis, with moderate articular joint space narrowing and moderate osteoarthritic spurring. Normal glenoid rim, neck and visualized scapula. Normal humeral head, neck and tuberosities. Normal coracoid process. Normal visualized lateral clavicle. There is mild osteoarthritis with articular joint space narrowing. There is a Type II morphology (curved), with a neutral orientation. Normal visualized muscles and soft tissue structures. CT/Extremity Upper WITH Contrast IMPRESSION: Moderate osteoarthritis of the glenohumeral joint as well as the acromioclavicular joint. Electronically Signed: Erik Tavera MD at 12:05 EST ,
[2021-12-27] MEDS: Lidocaine 2% (5ml sdv) 5 ML VIAL.MPF INFILT (10:23)
[2021-12-27] MEDS: Iopamidol 10 ML in Syringe 1 EACH 600 ML INTRAARTIC (10:25)
== END 2021-12-27 23:59 | disposition home or self-care (01) ==
LOC: CT 09:35
PROVIDERS: PCP Family Medicine; Referring Provider Specialist; Visit Provider Specialist
DX: S46.011A Strain of muscle(s) and tendon(s) of the rotator cuff of right shoulder, initial encounter (principal)
CPT/HCPCS: 23350; 73040; 73201; A9575; Q9967

== ENCOUNTER 2022-02-01 13:46 | Emergency (ER) | payer MEDICARE, SELFPAY ==
[2022-02-01 13:49] VITALS: BP 148/69; PULSE 54; RESP 14; TEMP 36.2; O2SAT 96; BMI 33.8
--- NOTE | 2022-02-01 15:03 | EDS_ITS ---
HPI History of Present Illness Chief Complaint: Fall Informant: patient Onset/Context/Timing Onset: Today Narrative Narrative: Patient presents after a fall at home this morning. Patient states she was leaning over to get into a cabinet when she lost her balance and hit her forehead against a countertop. She then went to her pain management appointment and the nurse practitioner there did not feel comfortable letting her drive with a head injury. They called EMS to have her transported here. She denies loss of consciousness or headache. No vision change. Patient states she has had frequent falls since having a stroke in October. She has had problems with her balance since that time. [facility] Medical History Abscess of left breast Arthritis Chronic post-operative pain Contusion of right shoulder region Depression Essential hypertension Hemiparesis of left dominant side History of CVA (cerebrovascular accident) (10/15/21) Hyperlipidemia Hypothyroidism Injury due to fall Obesity Primary osteoarthritis of right knee Rotator cuff injury Tobacco abuse Type 2 diabetes mellitus Home Medications clonidine HCl 0.1 mg PO QHS 01/11/17 [History Last Taken 10/14/21 22:00] melatonin 5 mg PO QHS 01/11/17 [History Last Taken 10/14/21 22:00] venlafaxine 187.5 mg PO DAILY 01/11/17 [History Last Taken 10/14/21 22:00] acetaminophen 1,000 mg PO Q8 PRN 05/20/17 [History Last Taken Unknown] hydrocodone-acetaminophen 1 ea PO BID PRN PRN 05/01/19 [History Last Taken Unknown] primidone 3 tab PO BID 05/01/19 [History Last Taken 10/14/21 22:00] aripiprazole 2 mg PO DAILY 10/15/21 [History Last Taken 10/14/21 08:00] furosemide 20 mg PO BID PRN 10/15/21 [History Last Taken Unknown] gabapentin 400 mg PO TID 10/15/21 [History Last Taken 10/14/21 08:00] levothyroxine 100 mcg PO DAILY 10/15/21 [History Last Taken 10/14/21 08:00] metformin 1,000 mg PO BID 10/15/21 [History Last Taken Unknown] pantoprazole 40 mg PO DAILY 10/15/21 [History Last Taken 10/14/21 08:00] potassium chloride 20 meq PO DAILY PRN 10/15/21 [History Last Taken Unknown] aspirin 81 mg PO DAILY #30 tab 10/17/21 [Rx Last Taken Unknown] pravastatin 40 mg tablet 40 mg PO DAILY tab 12/13/21 [History Last Taken Unknown] Allergy/AdvReac Type Severity Reaction Status Date / Time bupropion [From Wellbutrin] Allergy Other Verified 02/01/22 13:51 celecoxib [From Celebrex] Allergy Hives Verified 02/01/22 13:51 atorvastatin AdvReac GI upset Verified 02/01/22 13:51 erythromycin lactobionate AdvReac Nausea/Vom/ Verified 02/01/22 13:51 [From Erythrocin] Diarrhea rosuvastatin calcium AdvReac Other Verified 02/01/22 13:51 [From Crestor] zolpidem [From Ambien] AdvReac Other Verified 02/01/22 13:51 Family History Mother Breast cancer Brother Diabetes Father Heart disease Surgical History H/O arthroscopic knee surgery History of back surgery History of carpal tunnel release of both wrists History of tubal ligation Hx of section Hx of colonoscopy Hx of tonsillectomy S/P insertion of spinal cord stimulator Social History household members: none housing: apartment number of children: 2 Smoking Status: Current every day smoker tobacco type: cigarettes quit status: has quit before alcohol intake: never substance use type: does not use caffeine: No seatbelt use: always ROS ROS ED Constitutional Constitutional ED: Denies chills or fever(s) Eyes Eyes: Denies change in vision ENT ENT ED: Denies sore throat Cardiovascular Cardiovascular: Denies chest pain Respiratory/Chest Respiratory/Chest: Denies cough or dyspnea Gastrointestinal Gastrointestinal: Denies abdominal pain, nausea or vomiting Musculoskeletal Musculoskeletal: Denies back pain or neck pain Integumentary Denies rash Neurologic Neurologic: Denies headache(s) Allergic/Immunologic Allergic/Immunologic ED: Denies urticaria EXAM Physical Exam Const Vital Signs: 02/01/22 13:49 02/01/22 14:44 Temperature 97.1 F L Temperature Source Temporal Pulse Rate 54 L Respiratory Rate 14 Respiratory Effort Normal Respiratory Depth Normal Respiratory Pattern Normal Blood Pressure 148/69 H Blood Pressure Mean 95 Pulse Ox 96 Oxygen Delivery Method Room Air Room Air Positive well nourished and well developed General Appearance ED: well developed HEENT Reports moist mucous membranes HEENT Narrative: Mild ecchymosis to the left forehead. No laceration. No bony tenderness. Eyes PERRL and EOMs intact bilaterally Neck supple Chest Wall inspection of chest normal and palpation of chest normal Resp normal respiratory effort and clear to auscultation bilaterally Cardio regular rate and regular rhythm GI non-tender and non-distended Palpation: soft Extremity Extremity Narrative: Moves all extremities without difficulty. Neuro oriented x3 Sensorium / Orientation: alert Psych mental status grossly normal Skin Skin Narrative: Old appearing ecchymosis noted on the left upper arm and left lateral abdominal wall. MDM MDM Radiography Diagnostic Testing: Clinical Impression(s) from Imaging Studies Brain CT 02/01/22 15:10 IMPRESSION: Chronic involutional changes of the brain. Small scalp hematoma overlying the left frontal bone. Electronically Signed: Erik Tavera MD at 15:34 EDT , Treatment and Re-Evaluation Narrative: Patient sent for CT head. Head CT reveals chronic evolutional changes. Small scalp hematoma overlying the left frontal bone. I did discuss with her potential balance training which I believe they have available [facility]. I will speak with her PCP to see if they can refer her for this. Her balance problems and frequent falls of been ongoing since her stroke in October I do not feel we need other further work-up at this time. Discharge Plan Triage Chief Complaint: Fall ED Provider: Lauren Pierson Dx/Rx/DC Orders Clinical Impression: Fall, Forehead contusion Instructions: ED Facial Contusion, ED Fall Prevention Prescriptions: No Action pravastatin 40 mg tablet 40 mg PO DAILY RF: 0 clonidine HCl 0.1 MG tablet 0.1 mg PO QHS RF: 0 melatonin 5 MG tablet 5 mg PO QHS RF: 0 venlafaxine 150 MG tablet extended release 24hr 187.5 mg PO DAILY RF: 0 acetaminophen 500 MG tablet 1,000 mg PO Q8 PRN (Reason: Pain) RF: 0 primidone 50 MG tablet 3 tab PO BID RF: 0 hydrocodone-acetaminophen 1 EACH tablet 1 ea PO BID PRN PRN (Reason: Pain) RF: 0 levothyroxine 100 mcg tablet 100 mcg PO DAILY RF: 0 pantoprazole 40 mg Tablet,Delayed Release (Dr/Ec) 40 mg PO DAILY RF: 0 aripiprazole 2 mg tablet 2 mg PO DAILY RF: 0 gabapentin 400 mg capsule 400 mg PO TID RF: 0 furosemide 20 mg tablet 20 mg PO BID PRN (Reason: swelling) RF: 0 potassium chloride 20 mEq tablet extended release 20 meq PO DAILY PRN (Reason: if take a lasix ) RF: 0 metformin 1,000 mg tablet 1,000 mg PO BID RF: 0 aspirin 81 mg tablet,chewable 81 mg PO DAILY Qty: 30 RF: 0 Primary Care Provider: Rolf Cook Referrals: Rolf Cook MD [Primary Care Provider] - 1 Week Disposition Disposition: Home, Self Care
--- NOTE | 2022-02-01 15:10 | CT_ITS ---
STUDY: CT BRAIN WITHOUT CONTRAST REASON FOR EXAM: Female, 71 years old. Head injury due to a fall. RADIATION DOSAGE (If Supplied By Facility): CTDIvol = ( 44.99 ) mGy, DLP = ( 812.98 ) mGycm TECHNIQUE: Transaxial CT imaging of the brain was performed without administration of intravenous contrast material. Individualized dose optimization techniques were used for this CT. COMPARISON: No relevant priors. FINDINGS: Small scalp hematoma overlying the left frontal bone. There is hyperostosis frontalis internus. There is mild cerebral atrophy with widening of the extra-axial spaces and ventricular dilatation. Normal white matter tracts of the cerebral hemispheres. Old lacunar infarct in the posterior limb of the right internal capsule. Normal brainstem. Normal cerebellum. There is no intracranial hemorrhage. There are no findings of an acute ischemic infarction. Normal visualized paranasal sinuses. CT/Brain/Head without Contrast IMPRESSION: Chronic involutional changes of the brain. Small scalp hematoma overlying the left frontal bone. Electronically Signed: Erik Tavera MD at 15:34 EDT ,
[2022-02-01 15:58] VITALS: PULSE 62; RESP 16; O2SAT 96
--- NOTE | 2022-02-06 17:59 | CM.ED ---
ER RNCM DC F/u Call: Seen in ER 02/01/2022 for fall Called listed number and answered by patient. This health technical writer introduced self and role. Patient states has still fallen at home and has bruising from knee up but able to ambulate after with walker and denies any feeling of pain/injury to bring her back to hospital at this current time. Has a dtr but busy with her family, her friend Estefani is supportive and does help her. Starts [facility] therapy in approx one week. States carries her phone with her at all times so she has access to medical attention should she need it, has been taking her time walking/moving and using her walker. States that she feels like it is a body momentum issue that is causing her falls. Denies any concerns, issues or needs from this health technical writer at this time. Teresita Bella RNCM
== END 2022-02-01 16:00 | disposition home or self-care (01) ==
PROVIDERS: Emergency Provider Emergency Medicine; PCP Family Medicine; Visit Provider Emergency Medicine
DX: S00.03XA Contusion of scalp, initial encounter (principal); F17.210 Nicotine dependence, cigarettes, uncomplicated; W19.XXXA Unspecified fall, initial encounter; Z86.73 Personal history of transient ischemic attack (TIA), and cerebral infarction without residual deficits
CPT/HCPCS: 70450; 99284

== ENCOUNTER 2022-02-14 09:50 | Outpatient (CLI) | payer MEDICARE, SELFPAY ==
--- NOTE | 2022-02-14 09:57 | RAD_ITS ---
STUDY: X-RAY - RIGHT HAND REASON FOR EXAM: Female, 71 years old. Pain. TECHNIQUE: 4 view(s) of the hand. COMPARISON: None. FINDINGS: Osteopenia. Mild arthrosis of the radioulnar articulation. Mild arthrosis of the radiocarpal articulation. Mild arthrosis of the radial carpal row. Mild arthrosis of the first CMC joint. Mild arthrosis of the MCP and IP joints. The soft tissue structures are unremarkable. RAD/Hand Min 3 Views IMPRESSION: Osteopenia with diffuse osteoarthritic changes as described. No acute abnormality, chondrocalcinosis, erosive changes or periostitis. Electronically Signed: Vitaly Sharma MD at 10:46 EDT ,
--- NOTE | 2022-02-14 10:00 | RAD_ITS ---
STUDY: X-RAY - RIGHT WRIST REASON FOR EXAM: Female, 71 years old. Pain. TECHNIQUE: 4 view(s) of the hand. COMPARISON: None. FINDINGS: Osteopenia. Mild arthrosis of the radioulnar articulation. Mild arthrosis of the radiocarpal articulation. Mild arthrosis of the radial carpal row. Mild arthrosis of the first CMC joint. The soft tissue structures are unremarkable. RAD/Wrist min 3 Views IMPRESSION: Osteopenia with diffuse osteoarthritic changes as described. No acute abnormality, chondrocalcinosis, erosive changes or periostitis. Electronically Signed: Vitaly Sharma MD at 10:46 EDT ,
== END 2022-02-14 23:59 | disposition home or self-care (01) ==
LOC: MTRAD 09:53
PROVIDERS: PCP Family Medicine; Referring Provider Family Medicine; Visit Provider Family Medicine
DX: M25.531 Pain in right wrist (principal); M79.641 Pain in right hand
CPT/HCPCS: 73110; 73130

== ENCOUNTER → 2022-06-19 | Outpatient (CLI) | payer MEDICARE, SELFPAY ==
--- NOTE | 2022-06-19 12:40 | CT_ITS ---
STUDY: LOW DOSE CT LUNG CANCER SCREENING REASON FOR EXAM: Female, 71 years old. Lung cancer screening -- 48 pk yr hx;asymptomatic; current smoker RADIATION DOSAGE (If Supplied By Facility): CTDIvol = ( 3.02 ) mGy, DLP = ( 94.40 ) mGycm TECHNIQUE: No contrast was administered. Low dose technique was utilized (average mAS-38 and kVp 120). 1.25 mm axial source images with a slice interval of 1.25-mm were reconstructed in lung windows. 2.5 mm axial source images with a slice interval of 2.5-mm were reconstructed in lung windows. 5.0 mm axial source images with a slice interval of 5.0-mm were reconstructed in soft tissue windows. COMPARISON: Chest x-ray obtained 10/15/2021.. NODULES: Nodule #: 1 Density: Homogenous isodense Lung location: Right lower lobe lobe: 2 cm from posterior pleura Location in series: Series Number: 601 Image: 72 Size - 5 x 4 mm: mm: 5 average diameter Margin: Smoothl Shape: Oval: Calcification: None Fat: None Nodule #: 2 Density: Homogeneous isodense Lung location: Right lower lobe lobe: 2.6 cm from inferior pleura Location in series: Series Number: 601 Image: 72 Size - 3 x 3 mm: mm: 3 average diameter Margin: Smoothl Shape: Round Calcification: None Fat: None A 0.4 cm calcified granulomas visualized in the right upper lobe seen on axial series 2 image 33. Total lung aortic arch, no evidence of aneurysmal dilatation or arterial dissection is visualized. CORONARY ARTERIES: Coronary artery calcification subtle calcifications less than 1 cm visualized within the left anterior descending, minimal calcification visualized in the left circumflex and left main coronary arteries. Subtle scattered calcifications visualized within the right coronary artery. Heart: No evidence of cardiomegaly, no evidence of pericardial effusion is seen. Pulmonary artery: The pulmonary artery is unremarkable in size and contour. Mediastinal nodes: The largest suggestive of lymph nodes visualized in the prevascular space measuring 1.5 x 0.7 cm. Other chest and abdominal findings: No evidence of focal lung infiltrates or consolidations. No evidence of pneumothorax or pleural effusion. CT/Low Dose CT Lung Screening IMPRESSION: 2 nodules visualized in the right lower lobe measuring 5 and 3 mm, lung RADS category 2, less than 1% probability of malignancy if there is a high-level of suspicion would recommend a follow-up low dose CT scan in 12 months. IMPORTANT NOTES FOR USE: ACR Lung-RADS Version 1.1 Assessment Categories Release Date: 2018 Category: Coded 0-4 bases on nodule(s) with highest degree of suspicion. Negative screen is defined as categories 1 and 2; a positive screen is defined as categories 3 and 4. Category 3 and 4A nodules that are unchanged on interval CT should be coded as category 2, and individuals returned to screening in 12 months. Category 4X: Category 3 or 4 nodules with additional imaging findings that increase the suspicion of lung cancer, such as spiculation, GGN that doubles in size in 1 year, enlarged lymph notes, etc. Category Modifiers: S (significant finding unrelated to lung cancer) Electronically Signed: Sergio Garza MD at 13:38 EDT ,
== END | disposition home or self-care (01) ==
LOC: CT 12:40
PROVIDERS: PCP Family Medicine; Referring Provider Nurse Practitioner Family; Visit Provider Nurse Practitioner Family
DX: Z87.891 Personal history of nicotine dependence (principal)
CPT/HCPCS: 71271

== ENCOUNTER 2022-06-22 00:20 | Emergency (ER) | payer MEDICARE, SELFPAY ==
[2022-06-22 00:20] VITALS: BP 148/72; PULSE 54; RESP 18; TEMP 36.1; O2SAT 97; BMI 35.0
--- NOTE | 2022-06-22 00:32 | EKG12_ITS ---
Test Reason : WEAKNESS Blood Pressure : / mmHG Vent. Rate : 053 BPM Atrial Rate : 053 BPM P-R Int : 154 ms QRS Dur : 082 ms QT Int : 466 ms P-R-T Axes : 089 -03 119 degrees QTc Int : [address] & T wave abnormality, consider anterolateral ischemia Abnormal ECG Confirmed by JANE SPENCER, TYLER ([id number]), news videotape editor JUAN DUNCAN ([id number]) on 06/22/2022 9:49:47 AM Referred By: Confirmed By:TYLER LARA MD
--- NOTE | 2022-06-22 00:32 | RAD_ITS ---
EXAM: XR CHEST, 1 VIEW CLINICAL INDICATION: chest pain TECHNIQUE: Frontal view of the chest. This report was created using [employer] report generation technology. COMPARISON: 10/15/2021 and 07/25/2021. FINDINGS: LUNGS AND PLEURAL SPACES: Unremarkable. No consolidation or edema. No pneumothorax. No effusion. HEART: Unremarkable. Cardiac silhouette not enlarged. MEDIASTINUM: Central airways and mediastinal contour are unremarkable. BONES/JOINTS: Unremarkable. SOFT TISSUES: Unremarkable. TUBES, LINES AND DEVICES: Dorsal column spinal stimulator in the lower thoracic spine unchanged. RAD/Chest 1 View (Portable) IMPRESSION: No acute cardiopulmonary abnormality. Electronically Signed: Ld Coleman MD at 1:13 EDT ,
--- NOTE | 2022-06-22 00:39 | EX.ED.DYSGE1 ---
HPI History of Present Illness Chief Complaint: General Illness Narrative Narrative: Patient presenting at 12:45 AM for symptoms that occurred 3 hours ago and resolved. She states that she was getting ready for bed at home and she felt hot, nauseous, sweaty, and lightheaded. She states she fell and slightly hit her head but did not lose consciousness. Patient states that she did not have any chest pain, shortness of breath. She has not had any fever or chills. She states that she does note that she has not been eating well for the last month or so. She has not been evaluated for this. She states her last meal was at 5 PM yesterday. She states that [employer] brought something for her but she does not know what she ate. She does not have any nausea usually she just does not have an appetite. She not complaining of abdominal pain, constipation, diarrhea. She is not vomiting except for late last evening. No urinary symptoms or vaginal complaints. No known sick contacts. She does state that after she sat and thought about it for a while she was concerned she might of had a stroke although she does not say that she had any trouble speaking, numbness, paresthesias, difficulty moving her extremities. No visual complaints. [facility] Medical History Abscess of left breast Arthritis Chronic post-operative pain Contusion of right shoulder region Depression Encounter for screening for malignant neoplasm of lung Essential hypertension Hemiparesis of left dominant side History of CVA (cerebrovascular accident) (10/15/21) Hyperlipidemia Hypothyroidism Injury due to fall Obesity Primary osteoarthritis of right knee Rotator cuff injury Tobacco abuse Type 2 diabetes mellitus Home Medications clonidine HCl 0.1 mg tablet 0.1 mg PO QHS HTN 01/11/17 [History Last Taken 10/14/21 22:00] melatonin 5 mg tablet 5 mg PO QHS SLEEP 01/11/17 [History Last Taken 10/14/21 22:00] venlafaxine 150 mg tablet,extended release 24 hr 187.5 mg PO DAILY DEPRESSION 01/11/17 [History Last Taken 10/14/21 22:00] acetaminophen 500 mg tablet 1,000 mg PO Q8 PRN Pain 05/20/17 [History Last Taken Unknown] hydrocodone-acetaminophen 5-325mg 5mg-325mg 1 ea PO BID PRN PRN Pain 05/01/19 [History Last Taken Unknown] primidone 50 mg tablet 3 tab PO BID ESSENTIAL TREMORS 05/01/19 [History Last Taken 10/14/21 22:00] aripiprazole 2 mg tablet 2 mg PO DAILY mental health 10/15/21 [History Last Taken 10/14/21 08:00] furosemide 20 mg tablet 20 mg PO BID PRN swelling 10/15/21 [History Last Taken Unknown] gabapentin 400 mg capsule 400 mg PO TID nerve pain 10/15/21 [History Last Taken 10/14/21 08:00] levothyroxine 100 mcg tablet 100 mcg PO DAILY thyroid 10/15/21 [History Last Taken 10/14/21 08:00] metformin 1,000 mg tablet 1,000 mg PO BID diabetes 10/15/21 [History Last Taken Unknown] pantoprazole 40 mg tablet,delayed release 40 mg PO DAILY reflux 10/15/21 [History Last Taken 10/14/21 08:00] potassium chloride 20 mEq tablet,extended release 20 meq PO DAILY PRN if take a lasix 10/15/21 [History Last Taken Unknown] aspirin 81 mg chewable tablet 81 mg PO DAILY #30 tabs 10/17/21 [Rx Last Taken Unknown] pravastatin 40 mg tablet 40 mg PO DAILY 12/13/21 [History Last Taken Unknown] prednisolone acetate 1 % eye drops,suspension drp ophthalmic (eye) 06/19/22 [History Last Taken Unknown] Allergy/AdvReac Type Severity Reaction Status Date / Time bupropion [From Wellbutrin] Allergy Other Verified 02/01/22 13:51 celecoxib [From Celebrex] Allergy Hives Verified 02/01/22 13:51 atorvastatin AdvReac GI upset Verified 02/01/22 13:51 erythromycin lactobionate AdvReac Nausea/Vom/ Verified 02/01/22 13:51 [From Erythrocin] Diarrhea rosuvastatin calcium AdvReac Other Verified 02/01/22 13:51 [From Crestor] zolpidem [From Ambien] AdvReac Other Verified 02/01/22 13:51 Family History Mother Breast cancer Brother Diabetes Father Heart disease Surgical History H/O arthroscopic knee surgery History of back surgery History of carpal tunnel release of both wrists History of tubal ligation Hx of section Hx of colonoscopy Hx of tonsillectomy S/P insertion of spinal cord stimulator Social History household members: none housing: apartment number of children: 2 Smoking Status: Current every day smoker tobacco type: cigarettes quit status: has quit before alcohol intake: never substance use type: does not use caffeine: No seatbelt use: always ROS ROS ED Review of Systems ROS Unobtainable: Denies due to encephalopathy Constitutional Constitutional ED: Reports sweats; Denies chills or fever(s) Eyes Eyes: Denies change in vision or diplopia ENT ENT ED: Denies rhinorrhea or sore throat Cardiovascular Cardiovascular: Denies chest pain Respiratory/Chest Respiratory/Chest: Denies cough or dyspnea Gastrointestinal Gastrointestinal: Reports nausea and vomiting; Denies abdominal pain Genitourinary Genitourinary ED: Denies dysuria or hematuria Musculoskeletal Musculoskeletal: Denies arthralgias, back pain or myalgias Integumentary Denies abscess Neurologic Neurologic: Denies headache(s), paresthesias or weakness Psychiatric Psychiatric: Denies anxiety or depression EXAM Physical Exam Const Vital Signs: 06/22/22 00:20 06/22/22 00:52 06/22/22 01:54 Temperature 96.9 F L Temperature Source Temporal Pulse Rate 54 L 58 L Respiratory Rate 18 21 H Blood Pressure 148/72 H 134/60 H Blood Pressure Mean 97 84 Pulse Ox 97 Oxygen Delivery Method Room Air Room Air Room Air 06/22/22 03:12 Temperature Temperature Source Pulse Rate 54 L Respiratory Rate 18 Blood Pressure 142/62 H Blood Pressure Mean 88 Pulse Ox 96 Oxygen Delivery Method Room Air Positive well nourished General Appearance ED: NAD; Negative for pallor HEENT Reports moist mucous membranes Negative for trauma Eyes PERRL and EOMs intact bilaterally General Eye ED: Negative for pale conjunctiva or scleral icterus Chest Wall inspection of chest normal and palpation of chest normal Resp normal respiratory effort and clear to auscultation bilaterally Cardio regular rate and regular rhythm GI normal to inspection, nondistended, normoactive bowel sounds Auscultation: normoactive bowel sounds Neuro oriented x3 and CN's II-XII intact bilaterally Sensorium / Orientation: alert Motor Exam: strength 5/5 throughout Psych mental status grossly normal Skin no rashes or lesions noted, no wounds and skin turgor normal General Skin Exam: Negative for jaundice or pallor MDM MDM MDM Narrative Medical decision making narrative: Patient presenting with symptoms of what sounds like a near syncopal event. She became hot and flushed and sweaty. She states she fell and slightly hit her head. She did have concern for stroke although her NIH stroke scale score here is 0 and she does not appear to have any stroke symptoms. Since she hit her head I did obtain a CT of the brain which is negative for acute findings and does show an old infarct. EKG on my interpretation shows a normal sinus rhythm with a ventricular rate of 53 bpm without significant interval change from her previous EKG 15 October 2021 on my interpretation. Chest x-ray on my interpretation shows no acute cardiopulmonary process and the radiologist agree. Rapid COVID is negative. CBC is within normal limits. BMP shows a slight increase in her creatinine to 1.08 and her GFR slightly decreased. Patient was given a liter of IV fluids. Reevaluation at 0200 hrs. patient is doing well. We discussed her lab work and we will check a 2-hour troponin. Delta troponin is 5 and there is no significant interval changes. After IV fluids patient feels well. I asked if she followed up to go home and she states that she does feel well enough to go home. Feel patient stable for discharge at this time. Impression: 1. Near syncope 2. Lightheadedness 3. Nausea 4. Elevated creatinine Lab Data Labs: Laboratory Results - last 24 hr 06/22/22 06/22/22 06/22/22 00:35 00:35 01:00 WBC 10.7 RBC 4.04 L Hgb 13.4 Hct 40.3 MCV 99.8 H MCH 33.2 H MCHC 33.3 RDW Std Deviation 50.6 H RDW Coeff of Zafar 13.9 Plt Count 476 H MPV 8.6 Immature Gran % (Auto) 0.500 Neut % (Auto) 61.4 Lymph % (Auto) 28.3 [place] % (Auto) 8.5 Eos % (Auto) 0.8 Baso % (Auto) 0.5 Absolute Neuts (auto) 6.6 Absolute Lymphs (auto) 3.03 Nucleated RBC % 0 Sodium 141 Potassium 3.7 Chloride 109 H Carbon Dioxide 28.0 Anion Gap 4 L BUN 15 Creatinine 1.18 H Estim Creat Clear Calc 33.48 Est GFR (MDRD) Af Amer 58 L Est GFR (MDRD) Non-Af 48 L BUN/Creatinine Ratio 12.7 Glucose 166 H Calcium 8.9 Troponin I High Sens 6 Urine Color Yellow Urine Clarity Clear Urine pH 5.0 Ur Specific [place] 1.030 Urine Protein 15 H Urine Glucose (UA) Normal Urine Ketones Negative Urine Occult Blood 10 H Urine Nitrite Negative Urine Bilirubin Negative Urine Urobilinogen Normal Ur Leukocyte Esterase 100 H Urine RBC 0-5 SEEN Urine WBC 10-25 SEEN Ur Squamous Epith Cells 5-10 SEEN Urine Bacteria 2+ Urine Mucus RARE 06/22/22 02:50 WBC RBC Hgb Hct MCV MCH MCHC RDW Std Deviation RDW Coeff of Zafar Plt Count MPV Immature Gran % (Auto) Neut % (Auto) Lymph % (Auto) [place] % (Auto) Eos % (Auto) Baso % (Auto) Absolute Neuts (auto) Absolute Lymphs (auto) Nucleated RBC % Sodium Potassium Chloride Carbon Dioxide Anion Gap BUN Creatinine Estim Creat Clear Calc Est GFR (MDRD) Af Amer Est GFR (MDRD) Non-Af BUN/Creatinine Ratio Glucose Calcium Troponin I High Sens 5 Urine Color Urine Clarity Urine pH Ur Specific [place] Urine Protein Urine Glucose (UA) Urine Ketones Urine Occult Blood Urine Nitrite Urine Bilirubin Urine Urobilinogen Ur Leukocyte Esterase Urine RBC Urine WBC Ur Squamous Epith Cells Urine Bacteria Urine Mucus Radiography Diagnostic Testing: Clinical Impression(s) from Imaging Studies Chest X-Ray 06/22/22 00:32 IMPRESSION: No acute cardiopulmonary abnormality. Electronically Signed: Ld Coleman MD at 1:13 EDT , Brain CT 06/22/22 00:48 IMPRESSION: 1. Mild generalized atrophy. Mild low density bilaterally in the deep white matter. This likely represents small vessel ischemic changes in the deep white matter. 2. Small old right capsuloganglionic lacunar infarct. Electronically Signed: Ld Coleman MD at 1:51 EDT , Discharge Plan Triage Chief Complaint: General Illness ED Provider: Kash Daniel Dx/Rx/DC Orders Instructions: ED Dizziness, Uncertain Cause, ED Head Injury (Adult), ED Near-Fainting, Uncertain Cause Prescriptions: No Action pravastatin 40 mg tablet 40 mg PO DAILY prednisolone acetate 1 % drops,suspension ophthalmic (eye) clonidine HCl 0.1 MG tablet 0.1 mg PO QHS melatonin 5 MG tablet 5 mg PO QHS venlafaxine 150 MG tablet extended release 24hr 187.5 mg PO DAILY acetaminophen 500 MG tablet 1,000 mg PO Q8 PRN (Reason: Pain) primidone 50 MG tablet 3 tab PO BID hydrocodone-acetaminophen 1 EACH tablet 1 ea PO BID PRN PRN (Reason: Pain) levothyroxine 100 mcg tablet 100 mcg PO DAILY pantoprazole 40 mg Tablet,Delayed Release (Dr/Ec) 40 mg PO DAILY aripiprazole 2 mg tablet 2 mg PO DAILY Label Comments: take 1 tablet by mouth once daily gabapentin 400 mg capsule 400 mg PO TID Label Comments: take 1 capsule by mouth three times a day furosemide 20 mg tablet 20 mg PO BID PRN (Reason: swelling) potassium chloride 20 mEq tablet extended release 20 meq PO DAILY PRN (Reason: if take a lasix ) Label Comments: take 1 tablet by mouth once daily with food WHILE ON FUROSEMIDE metformin 1,000 mg tablet 1,000 mg PO BID aspirin 81 mg tablet,chewable 81 mg PO DAILY Qty: 30 0RF Primary Care Provider: Rolf Cook Referrals: Rolf Cook MD [Primary Care Provider] - Disposition Disposition: Home, Self Care
[2022-06-22 00:42] LABS: Absolute Lymphocyte Count 3.03 X10^3/uL (0.83-4.51); Absolute Neutrophil Count 6.6 X10^3/uL (2.0-7.7); Basophil# 0.05 X10^3/uL; Basophil% 0.5 % (0-1); Eosinophil# 0.09 X10^3/uL; Eosinophils% 0.8 % (0-5); Hematocrit 40.3 % (37-47); Hemoglobin 13.4 g/dL (12.0-15.0); Lymphocyte # 3.03 X10^3/ul (0.83-4.51); Lymphocyte % 28.3 % (19-41); Mean Corp Hgb Conc 33.3 g/dL (32-36); Mean Corpuscular Hgb 33.2 pg (27.0-32.0); Mean Corpuscular Volume 99.8 fL (81-99); Mean Platelet Vol. 8.6 fl (6.2-12.0); Monocyte# 0.91 X10^3/uL; Monocyte% 8.5 % (0-10); NRBC Flagged by Analyzer 0 % (0-5); Neutrophil # 6.57 X10^3/uL (2.7-7.7); Neutrophil % 61.4 % (47-70); Platelet Count 476 K/mm3 (150-450); RBC Distribution Width CV 13.9 % (11.6-14.6); RBC Distribution Width SD 50.6 fl (35.1-43.9); Red Blood Count 4.04 M/mm3 (4.2-5.4); White Blood Count 10.7 K/mm3 (4.4-11.0)
--- NOTE | 2022-06-22 00:48 | CT_ITS ---
EXAM: CT HEAD WITHOUT INTRAVENOUS CONTRAST CLINICAL INDICATION: head injury TECHNIQUE: Multiple axial images were obtained of the head without intravenous contrast. This CT exam was performed using one or more of the following dose reduction techniques: automated exposure control, adjustment of the mA and/or kV according to patient size, and/or use of iterative reconstruction technique. This report was created using [employer] report generation technology. RADIATION DOSE: CTDIvol = 45 mGy, DLP = 779.24 mGy-cm. COMPARISON: 02/01/2022. FINDINGS: BRAIN AND EXTRA-AXIAL SPACES: Mild generalized atrophy. Mild low density bilaterally in the deep white matter. Small old right capsuloganglionic lacunar infarct. No intra- or extra-axial hemorrhage. No intracranial mass or mass effect. Posterior fossa structures are unremarkable. No hydrocephalus. Basal cisterns are patent. BONES/JOINTS: Unremarkable. No discrete lytic or blastic abnormalities. SINUSES: Unremarkable as visualized. Clear. MASTOID AIR CELLS: Unremarkable. Clear. ORBITS: Visualized globes, extraocular muscles, optic nerves and retrobulbar fat appear unremarkable. CT/Brain/Head without Contrast IMPRESSION: 1. Mild generalized atrophy. Mild low density bilaterally in the deep white matter. This likely represents small vessel ischemic changes in the deep white matter. 2. Small old right capsuloganglionic lacunar infarct. Electronically Signed: Ld Coleman MD at 1:51 EDT ,
[2022-06-22 01:01] LABS: Anion Gap 4 (5-15); BUN 15 mg/dL (7-18); BUN/Creat Ratio 12.7 RATIO (10-20); Calcium,Total 8.9 mg/dL (8.5-10.1); Chloride 109 mmol/L (98-107); Creatinine, Serum 1.18 mg/dL (0.55-1.02); EST Glomerular Filtration Rate 48 mL/min (>60); Est Glom Filt Rate - Afr Amer 58 mL/min (>60); Estimated Creatinine Clearance 33.48 ml/min; Glucose 166 mg/dL (74-106); Potassium 3.7 mmol/L (3.5-5.1); Sodium Level 141 mmol/L (136-145); Troponin-I HS (w/2H Reflex) 6 pg/mL (3.0-54.0)
[2022-06-22 01:08] LABS: Color, Urine Yellow (Yellow); Glucose, Dipstick Normal (Normal); Ketone-Dipstick Negative (Negative); Leukocyte Esterase-Dipstick 100 /ul (Negative); Nitrite-Dipstick Negative (Negative); Occult Blood-Urine 10 /ul (Negative); Protein-Dipstick 15 mg/dl (Negative); Urine Bilirubin Dipstick Negative (Negative); Urine Clarity Clear (Clear); Urine Urobilinogen Normal (Normal)
[2022-06-22 01:14] LABS: Bacteria 2+ /hpf (None Seen); Mucous, Urine RARE /hpf (<or=2+); Red Blood Cells-Urine 0-5 SEEN /hpf (0-5); Squamous Epithelial Cells - UA 5-10 SEEN /hpf (5-10); White Blood Cells 10-25 SEEN /hpf (0-5)
[2022-06-22 01:54] VITALS: BP 134/60; PULSE 58; RESP 21
[2022-06-22] MEDS: 0.9% Normal Saline 1,000 ML 999 ML IV (01:56)
[2022-06-22 02:40] LABS: Reflex Troponin-HS? (from REC) Y
[2022-06-22 03:12] VITALS: BP 142/62; PULSE 54; RESP 18; O2SAT 96
[2022-06-22 03:15] LABS: Troponin-I HS 5 pg/mL (3.0-54.0)
[2022-06-22 03:55] VITALS: BP 129/64; PULSE 63; RESP 23; O2SAT 96
== END 2022-06-22 04:02 | disposition home or self-care (01) ==
PROVIDERS: Emergency Provider Student in an Organized Health Care Education/Training Program; PCP Family Medicine; Visit Provider Student in an Organized Health Care Education/Training Program
DX: R55 Syncope and collapse (principal); E11.9 Type 2 diabetes mellitus without complications; R79.89 Other specified abnormal findings of blood chemistry; Z86.73 Personal history of transient ischemic attack (TIA), and cerebral infarction without residual deficits; E03.9 Hypothyroidism, unspecified; E78.5 Hyperlipidemia, unspecified; F32.A Depression, unspecified; I10 Essential (primary) hypertension; Z79.84 Long term (current) use of oral hypoglycemic drugs; Z79.82 Long term (current) use of aspirin; Z79.899 Other long term (current) drug therapy; F17.210 Nicotine dependence, cigarettes, uncomplicated
CPT/HCPCS: 70450; 71045; 80048; 81001; 84484; 85025; 87811; 93005; 96360; 99285; J7030

== ENCOUNTER 2022-07-05 11:41 | Outpatient (RCR) | payer MEDICARE, SELFPAY ==
--- NOTE | 2022-07-10 10:25 | HP.PTEVAL_ITS ---
Patient's Visit Information TISHA HOFFMANN is a 71 year old F referred to Physical Therapy by Dr. Rolf Cook MD with a diagnosis of CVA, Gait abnormality, instanbility. Date of Evaluation: 07/05/22 Physical Therapist: Kiko Diamond DPT - Visit Plan Frequency: 2x /Week Duration: 6 Weeks Plan: Start with static and dynamic balance activities, progress strengthening and gait activities to promote independence. - Subjective Pt. is here today for her initial evaluation with diagnosis of CVA and abnormalities with gait and mobility. Pt. reports having CVA in October. with L sided weakness. Pt. reports early this year falling 5 times in a month, but has not fallen in 1.5 times[address] She reports doing well with sitting, but standing she feels unbalanced. She recently went to ED due to passing out with dehydration. She reports getting around the house well a FWW and doing well. No stairs noted. Has hand rails in bathroom. No issues with bed mobility. She reports wanting to work on balance in order to be safer at home. No dizziness noted currently. 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 - Objective POSTURE: Pt. sauceda slight FH posture. Wide TRUNG with stance. PALPATION: Pt. has normal sensation in BLEs, slight reduction distally. No pain in BLEs. NEURO: Pt. has normal sensation, slight reduction distally. Patient has normal DTR in BLEs. ROM: Pt. has normal ROM of BLEs, except L ankle DF to 8 deg. Pt. has tight B hamstrings. She does have loss of knee flexion on the R side (0-0-108deg). MMT: RLE: ankle 5-/5 throughout; knee: ext 4+/5, flexion 4/5; hip: flexion 4/5, abd 4/5. LLE: ankle DF 4/5, PF 4+/5; knee: flexion 4+/5, ext 5-/5; hip: flexion 4/5, adb 4/5. Core strength- poor. GAIT: Pt. ambulates without AD. She has B step length loss, She does have appropriate foot clearance. She has a more guarded posture with limited arm swing noted with all gait. She also has increased lateral sway with gait. STAIRS: Pt. is able to negotiate with use of BHR with step to pattern, loading LLE only. - Balance/Special Test Scores Functional Gait Assessment Score: 12 % Disability: 60.0000 Lower Extremity Functional Score: 10 TUG Test Time Seconds: 46 30 Second Chair Rise Test Seconds: 8 - Goals Goal 1:: LTG: Pt. to be I with HEP for balance and LE strengthening. Goal Time Frame: 4-6 Weeks Goal 2:: LTG: pt. to complete TUG with time of less than 20seconds indicating improved stability. Goal Time Frame: 4-6 Weeks Goal 3:: LTG: Pt. to have increased BLE strength by 1/2 grade throughout effected musculature. Goal Time Frame: 4-6 Weeks Goal 4:: LTG: Pt. to complete FGA with score of at least 20/30 indicating increased stability with dynamic mobilty. Goal Time Frame: 4-6 Weeks Goal 5:: LTG: Pt. to complete 6 min walk test with distance of at least 350' Goal Time Frame: 4-6 Weeks - Rehabilitation Potential Physical Therapy Diagnosis: Pt. has signs and symptoms consistent with CVA with BLE weakness L worse than R. Pt. has marked imbalance with gait and functional mobility. She has decreased functional limitations with her gait and balance as well. She would benefit from PT to address the above limitations. Rehabilitation Potential: Good - Anticipated Interventions Patient/Client Instruction: Educate patient on: Condition, Plan of Care, Risk Factors, Benefits of Fitness Program For the Purpose of:: To improve decision making, To facilitate caregiver knowledge, To improve self management, To prevent re-injury, To improve ability to perform tasks related to life management Therapeutic Exercise to Include: Strength training, Balance training, Coordination, Body mechanics, Postural training, Flexibilty training, Dynamic Lumbar Stabilization For the Purpose of:: To decrease pain, To decrease swelling/inflammation, To increase ROM, To improve nutrient delivery to tissue, To increase oxygenation perfusion, To improve muscle performance and motor function, To improve gait and locomotor functions, To improve health of tissue, To improve balance Thank you for the opportunity to evaluate your patient. For Medicare and Medicare HMO plans, please review the plan of care and approve it. It will need to be FAXED BACK to us at [phone] for Medicare purposes. For Medicare only, by signing this I certify the plan of care. Please let me know if there are questions or concerns regarding this plan of care. Physician Signature: Date:
--- NOTE | 2022-07-18 11:06 | HP.PT.NRP ---
TISHA HOFFMANN was seen in my office for initial evaluation on 07/05/22. The following Plan of Care was established for this patient: Initial Frequency: 2x /Week Initial Duration: 6 Weeks Patient/Client Instruction: Educate patient on: Condition, Plan of Care, Risk Factors, Benefits of Fitness Program For the Purpose of:: To improve decision making, To facilitate caregiver knowledge, To improve self management, To prevent re-injury, To improve ability to perform tasks related to life management Therapeutic Exercise to Include: Strength training, Balance training, Coordination, Body mechanics, Postural training, Flexibilty training, Dynamic Lumbar Stabilization For the Purpose of:: To decrease pain, To decrease swelling/inflammation, To increase ROM, To improve nutrient delivery to tissue, To increase oxygenation perfusion, To improve muscle performance and motor function, To improve gait and locomotor functions, To improve health of tissue, To improve balance This patient was last seen in our office 07/05/22. Pertinent comments regarding their Physical therapy will appear below: Pt. called in today to say she would not be able to pay her copay and will not be able to complete therapy. I talked to her about staying active and continuing with her exercises at home. Pt. to be DC from PT this date. At this point I will be discontinuing this patient from physical therapy. I would be happy to see this patient again in the future if found appropriate by the physician. Thank you! Kiko Diamond, DPT Balance/Gait/Functional tests - Balance/Special Test Scores Functional Gait Assessment Score: 12 % Disability: 60.0000 Lower Extremity Functional Score: 10 TUG Test Time Seconds: 46 Tug Test: >30sec.=impaired mobility 30 Second Chair Rise Test Seconds: 8
== END 2022-07-05 19:00 | disposition home or self-care (01) ==
LOC: PT 11:41
PROVIDERS: PCP Family Medicine; Referring Provider Family Medicine; Visit Provider Family Medicine
DX: R26.9 Unspecified abnormalities of gait and mobility (principal); Z86.73 Personal history of transient ischemic attack (TIA), and cerebral infarction without residual deficits
CPT/HCPCS: 97161

== ENCOUNTER 2022-07-26 07:42 | Outpatient (RCR) | payer MEDICARE, SELFPAY | END 2022-07-26 07:43 | disposition home or self-care (01) | LOC: PT 07:42 | PROVIDERS: PCP Family Medicine; Referring Provider Specialist; Visit Provider Specialist | DX: R69 Illness, unspecified (principal) ==

== ENCOUNTER → 2022-10-02 | Outpatient (CLI) | payer MEDICARE, SELFPAY ==
[2022-10-02 13:13] LABS: T4 Free Direct 1.86 ng/dL (0.76-1.46); Thyroid Stim Hormone (TSH) 0.39 uIU/mL (0.358-3.74)
== END | disposition home or self-care (01) ==
LOC: BFHLAB 09:33
PROVIDERS: PCP Family Medicine; Visit Provider Family Medicine
DX: E03.9 Hypothyroidism, unspecified (principal)
CPT/HCPCS: 36415; 84439; 84443

== ENCOUNTER → 2022-11-13 | Outpatient (CLI) | payer MEDICARE, SELFPAY ==
--- NOTE | 2022-11-13 12:19 | BI_ITS ---
MAMMOGRAPHY - BILATERAL SCREENING REASON FOR EXAM: Female, 71 years old. Routine annual screening examination. PERTINENT HISTORY: Mother with breast cancer. TECHNIQUE: Digital bilateral breast alcon (3D mammographic acquisition) in the CC and MLO projections. 2-D mediolateral oblique (MLO) and craniocaudad (CC) views of both breasts were obtained. CAD: Full Field Digital Mammography with Computer Added Detection was performed. COMPARISON: Comparison is made with prior study dated 08/22/2021 and 05/11/2019. FINDINGS: Breast Composition: There are scattered areas of fibroglandular density. There are no dominant masses or suspicious calcifications. Stable fat-containing bilateral axillary lymph nodes. No other significant abnormalities are identified. There has been no significant change since the prior study. BI/SCRN MAMM (CAD)W/ALCON BILAT IMPRESSION: Stable bilateral screening mammogram. Yearly follow-up mammogram recommended. (A) ASSESSMENT CATEGORY: BIRADS Category 2: Benign. A letter regarding these results will be sent to the patient by the facility within 30 days. Approximately 10% of breast cancers are not detected by mammography. A normal mammogram should not delay biopsy of a clinically suspicious abnormality. [id number] Electronically Signed: Erik Tavera MD at 13:45 EST ,
--- NOTE | 2022-11-13 12:26 | BD_ITS ---
STUDY: DUAL ENERGY X-RAY ABSORPTIOMETRY / DXA REASON FOR EXAM: Female, 71 years old. [id number] TECHNIQUE: Bone Mineral Density (BMD) measurements of lumbar spine and bilateral hips were obtained. COMPARISON: Comparison is made with prior study dated 11/07/2017. FINDINGS: Lumbar Spine (L1-L4): g/cm2 (0.966) / T-score (-0.7) / Z-score (1.4) Findings are suggestive of normal bone density with a low fracture risk. Left Femur Total: g/cm2 (0.823) / T-score (-1.0) / Z-score (0.6) Left Femoral Neck: g/cm2 (0.642) / T-score (-1.9) / Z-score (0.0) Right Femur Total: g/cm2 (0.875) / T-score (-0.6) / Z-score (1.0) Right Femoral Neck: g/cm2 (0.698) / T-score (-1.4) / Z-score (0.5) The T-Scores on the most recent prior examination were: Lumbar Spine (L1-L4): There has been worsening of bone density since the previous examination. Left Femur Total: which represents a worsening of 5.4%. Right Femur Total: which represents an improvement of 1.8%. BD/Dexa Bone Density Study IMPRESSION: The patient is considered osteopenic as outlined below according to World Dave Organization (WHO) criteria with a moderate fracture risk. There has been worsening of bone density since the previous examination. Reference Information: The T-score is the number of standard deviations above or below the standard which is normal for young adults at their peak bone mineral density. The World Health Organization (WHO) interprets the T-scores as follows: Above -1 Normal bone density Between -1 and -2.5 Osteopenia Equal to / or below -2.5 Osteoporosis As a practical clinical guideline, osteopenia may be graded as follows: Mild -1 through -1.5 Moderate -1.6 through -2.0 Severe -2.1 through -2.4 The Z-score is the number of standard deviations above or below age-matched controls. A Z-score of less than -1.5 would be considered abnormal. References: 1. NIH Osteoporosis and Related Bone Diseases www osteo.org 2. International Society for Clinical Densitometry www iscd.org 3. National Osteoporosis Foundation www nof.org Electronically Signed: Erik Tavera MD at 16:52 EST ,
== END | disposition home or self-care (01) ==
LOC: OPBD 12:17
PROVIDERS: PCP Family Medicine; Visit Provider Student in an Organized Health Care Education/Training Program
DX: Z13.820 Encounter for screening for osteoporosis (principal); Z78.0 Asymptomatic menopausal state; Z12.31 Encounter for screening mammogram for malignant neoplasm of breast; Z80.3 Family history of malignant neoplasm of breast
CPT/HCPCS: 77063; 77067; 77080

== ENCOUNTER 2022-12-26 14:23 | Emergency (ER) | payer MEDICARE, SELFPAY ==
[2022-12-26 14:25] VITALS: BP 153/139; PULSE 102; RESP 16; TEMP 35.5; O2SAT 98
[2022-12-26 14:29] VITALS: BMI 31.9
--- NOTE | 2022-12-26 14:33 | EX.ED.DYSGE1 ---
HPI History of Present Illness Chief Complaint: Other, Pain/Inj Detail of Chief Complaint: Right rib pain Informant: patient Onset/Context/Timing Onset: Weeks Context: Gradual Onset Timing: Waxes and wanes Current Severity: Moderate Maximum Severity: Moderate Narrative Narrative: Patient presents secondary to right rib pain. She states she initially felt a pulling sensation when she was reaching for something. She has also had multiple falls over the last month. She states she has problems with her balance after having a stroke a year ago. [facility] Medical History Abscess of left breast Arthritis Chronic post-operative pain Contusion of right shoulder region Depression Encounter for screening for malignant neoplasm of lung Essential hypertension Hemiparesis of left dominant side History of CVA (cerebrovascular accident) (10/15/21) Hyperlipidemia Hypothyroidism Injury due to fall Obesity Primary osteoarthritis of right knee Rotator cuff injury Tobacco abuse Type 2 diabetes mellitus Home Medications clonidine HCl 0.1 mg tablet 0.1 mg PO QHS HTN 01/11/17 [History Last Taken 10/14/21 22:00] hydrocodone-acetaminophen 5-325mg 5mg-325mg 1 ea PO BID PRN PRN Pain 05/01/19 [History Last Taken Unknown] aripiprazole 2 mg tablet 2 mg PO DAILY mental health 10/15/21 [History Last Taken 10/14/21 08:00] furosemide 20 mg tablet 20 mg PO BID PRN swelling 10/15/21 [History Last Taken Unknown] levothyroxine 100 mcg tablet 100 mcg PO DAILY thyroid 10/15/21 [History Last Taken 10/14/21 08:00] metformin 1,000 mg tablet 1,000 mg PO BID diabetes 10/15/21 [History Last Taken Unknown] pantoprazole 40 mg tablet,delayed release 40 mg PO DAILY reflux 10/15/21 [History Last Taken 10/14/21 08:00] potassium chloride 20 mEq tablet,extended release 20 meq PO DAILY PRN if take a lasix 10/15/21 [History Last Taken Unknown] aspirin 81 mg chewable tablet 81 mg PO DAILY #30 tabs 10/17/21 [Rx Last Taken Unknown] pravastatin 40 mg tablet 40 mg PO DAILY 12/13/21 [History Last Taken Unknown] benztropine 0.5 mg tablet 0.5 mg PO DAILY 10/18/22 [History Last Taken Unknown] Allergy/AdvReac Type Severity Reaction Status Date / Time bupropion [From Wellbutrin] Allergy Other Verified 12/26/22 14:26 celecoxib [From Celebrex] Allergy Hives Verified 12/26/22 14:26 erythromycin lactobionate AdvReac Nausea/Vom/ Verified 12/26/22 14:26 [From Erythrocin] Diarrhea rosuvastatin calcium AdvReac Other Verified 12/26/22 14:26 [From Crestor] zolpidem [From Ambien] AdvReac Other Verified 12/26/22 14:26 Family History Mother Breast cancer Brother Diabetes Father Heart disease Surgical History H/O arthroscopic knee surgery History of back surgery History of carpal tunnel release of both wrists History of tubal ligation Hx of section Hx of colonoscopy Hx of tonsillectomy S/P insertion of spinal cord stimulator Social History household members: none housing: apartment number of children: 2 Smoking Status: Current every day smoker tobacco type: cigarettes quit status: has quit before alcohol intake: never substance use type: does not use caffeine: No seatbelt use: always ROS ROS ED Constitutional Constitutional ED: Denies chills or fever(s) Eyes Eyes: Denies change in vision or discharge from eye(s) ENT ENT ED: Denies discharge from eye(s), rhinorrhea or sore throat Cardiovascular Cardiovascular: Reports chest pain; Denies palpitations Respiratory/Chest Respiratory/Chest: Denies cough or dyspnea Gastrointestinal Gastrointestinal: Denies abdominal pain, diarrhea, nausea or vomiting Genitourinary Genitourinary ED: Denies dysuria Musculoskeletal Musculoskeletal: Denies back pain or extremity pain Integumentary Denies Abrasions or rash Neurologic Neurologic: Denies headache(s) or weakness Psychiatric Psychiatric: Denies anxiety or depression Allergic/Immunologic Allergic/Immunologic ED: Denies lip swelling or urticaria EXAM Physical Exam Const Vital Signs: 12/26/22 14:25 12/26/22 14:30 Temperature 96 F L Temperature Source Temporal Pulse Rate 102 H Respiratory Rate 16 Respiratory Effort Normal Non-Labored Respiratory Pattern Normal Blood Pressure 153/139 H Blood Pressure Mean 143 Pulse Ox 98 Oxygen Delivery Method Room Air Positive well nourished and well developed General Appearance ED: well developed HEENT Reports normocephalic and head/scalp atraumatic Eyes PERRL and EOMs intact bilaterally Neck supple Chest Wall inspection of chest normal Chest Narrative: Reproducible tenderness to palpation of the right anterior lower ribs with palpable click with palpation. No crepitus. Resp normal respiratory effort and clear to auscultation bilaterally Cardio regular rate and regular rhythm GI normal to inspection, nondistended, normoactive bowel sounds Palpation: soft Extremity normal to inspection Neuro oriented x3 and no sensory deficits noted Sensorium / Orientation: alert Motor Exam: strength 5/5 throughout Psych mental status grossly normal Skin no rashes or lesions noted MDM MDM MDM Narrative Medical decision making narrative: Rib series with chest x-ray obtained to evaluate for rib fracture, pneumothorax. Patient given a dose of Sanford for pain along with Lidoderm patch to the area of interest. Patient does report that she has Sanford at home that she could use. She gets this from her pain management doctor for her back. She has not been using this and only taking Tylenol intermittently. Radiography Diagnostic Testing: Clinical Impression(s) from Imaging Studies Ribs w/Chest X-Ray 12/26/22 14:45 IMPRESSION: RIBS: Normal x-ray examination of the ribs. CHEST: Stable examination. Mild scarring at the lung bases. Electronically Signed: Erik Tavera MD at 15:03 EST , Treatment and Re-Evaluation Narrative: Rib series with chest x-ray per my interpretation reveals no acute abnormalities. Chronic changes are noted. Radiology interpretation is reviewed and agrees. Test results are discussed with the patient. She has Sanford at home that she can use for pain if her Tylenol is not sufficient. She will monitor her symptoms to see if she feels that she got benefit from the Lidoderm patch. If she does she will pick some up [id number]. No further prescriptions needed today. Return instructions given. Discharge Plan Triage Chief Complaint: Other, Pain/Inj ED Provider: Lauren Pierson Dx/Rx/DC Orders Clinical Impression: Contusion of rib on right side Instructions: ED Rib Contusion or Minor Fracture Prescriptions: No Action pravastatin 40 mg tablet 40 mg PO DAILY benztropine 0.5 mg tablet 0.5 mg PO DAILY clonidine HCl 0.1 MG tablet 0.1 mg PO QHS hydrocodone-acetaminophen 1 EACH tablet 1 ea PO BID PRN PRN (Reason: Pain) levothyroxine 100 mcg tablet 100 mcg PO DAILY pantoprazole 40 mg Tablet,Delayed Release (Dr/Ec) 40 mg PO DAILY aripiprazole 2 mg tablet 2 mg PO DAILY Label Comments: take 1 tablet by mouth once daily furosemide 20 mg tablet 20 mg PO BID PRN (Reason: swelling) potassium chloride 20 mEq tablet extended release 20 meq PO DAILY PRN (Reason: if take a lasix ) Label Comments: take 1 tablet by mouth once daily with food WHILE ON FUROSEMIDE metformin 1,000 mg tablet 1,000 mg PO BID aspirin 81 mg tablet,chewable 81 mg PO DAILY Qty: 30 0RF Primary Care Provider: Cassia Dupont Referrals: Cassia Dupont, [Primary Care Provider] - 1-2 Weeks Disposition Disposition: Home, Self Care
[2022-12-26] MEDS: Lidocaine 5% Patch 1 PATCH TOPICAL (14:37)
[2022-12-26] MEDS: HYDROcodone Bitartrate/Apap 5/325 Tablet PO (14:38)
--- NOTE | 2022-12-26 14:45 | RAD_ITS ---
STUDY: X-RAY - UNILATERAL RIBS ( RIGHT ) WITH CHEST REASON FOR EXAM: Female, 72 years old. History of multiple falls. Right rib pain. TECHNIQUE - RIBS: 4 view(s) of the ribs. TECHNIQUE - CHEST: Single PA view of the chest. COMPARISON: Comparison is made with prior chest radiograph dated 06/22/2022. FINDINGS - RIBS: Normal visualized ribs without a demonstrated fracture. FINDINGS - CHEST: Hyperinflation. Stable mild scarring at the lung bases in the lingular segment of the left upper lobe. There is no demonstrated pleural abnormality. Normal size heart. Normal mediastinum and jose. Normal visualized pulmonary arteries. There is atherosclerotic calcification of the aortic arch with tortuosity. There are diffuse degenerative changes of the visualized thoracic spine. Electrodes from a spinal cord stimulator device are seen at the T8-T9 level. Normal visualized ribs, clavicles, and shoulders. There is no demonstrated abnormality of the visualized soft tissue structures of the upper abdomen. RAD/Ribs Uni Min 3V w/PA Chest IMPRESSION: RIBS: Normal x-ray examination of the ribs. CHEST: Stable examination. Mild scarring at the lung bases. Electronically Signed: Erik Tavera MD at 15:03 [facility] ,
== END 2022-12-26 15:27 | disposition home or self-care (01) ==
PROVIDERS: Emergency Provider Emergency Medicine; PCP Family Medicine; Visit Provider Emergency Medicine
DX: S20.211A Contusion of right front wall of thorax, initial encounter (principal); F17.210 Nicotine dependence, cigarettes, uncomplicated; Z86.73 Personal history of transient ischemic attack (TIA), and cerebral infarction without residual deficits; X58.XXXA Exposure to other specified factors, initial encounter
CPT/HCPCS: 71101; 99282

== ENCOUNTER 2023-02-25 08:36 | Emergency (ER) | payer MEDICARE, SELFPAY ==
[2023-02-25 08:38] VITALS: BP 129/64; PULSE 63; RESP 16; TEMP 36.4; O2SAT 97; BMI 32.5
--- NOTE | 2023-02-25 08:41 | ED.VIS.FALL ---
HPI HPI - Fall History of Present Illness Chief Complaint: Fall Narrative Narrative: 72-year-old female here for fall. Patient states she suffered mechanical fall from standing prior to arrival. She further states she had no chest pain, palpitations, shortness of breath, lightheadedness, dizziness, fatigue or syncope. Denies any new focal numbness weakness or loss sensation. Endorses pain to the right side of the head and mild neck pain. Notes she took aspirin this morning. Denies any other blood thinner use such as Eliquis, Xarelto or Pradaxa or warfarin. Patient denies any nausea or vomiting. Denies any extremity, thoracic, abdominal tenderness or pain at this time. [facility] Medical History Abscess of left breast Arthritis Chronic post-operative pain Contusion of right shoulder region Depression Encounter for screening for malignant neoplasm of lung Essential hypertension Hemiparesis of left dominant side History of CVA (cerebrovascular accident) (10/15/21) Hyperlipidemia Hypothyroidism Injury due to fall Obesity Primary osteoarthritis of right knee Rotator cuff injury Tobacco abuse Type 2 diabetes mellitus Home Medications clonidine HCl 0.1 mg tablet 0.1 mg PO QHS HTN 01/11/17 [History Last Taken 10/14/21 22:00] hydrocodone-acetaminophen 5-325mg 5mg-325mg 1 ea PO BID PRN PRN Pain 05/01/19 [History Last Taken Unknown] aripiprazole 2 mg tablet 2 mg PO DAILY mental health 10/15/21 [History Last Taken 10/14/21 08:00] furosemide 20 mg tablet 20 mg PO BID PRN swelling 10/15/21 [History Last Taken Unknown] levothyroxine 100 mcg tablet 100 mcg PO DAILY thyroid 10/15/21 [History Last Taken 10/14/21 08:00] metformin 1,000 mg tablet 1,000 mg PO BID diabetes 10/15/21 [History Last Taken Unknown] pantoprazole 40 mg tablet,delayed release 40 mg PO DAILY reflux 10/15/21 [History Last Taken 10/14/21 08:00] potassium chloride 20 mEq tablet,extended release 20 meq PO DAILY PRN if take a lasix 10/15/21 [History Last Taken Unknown] aspirin 81 mg chewable tablet 81 mg PO DAILY #30 tabs 10/17/21 [Rx Last Taken Unknown] pravastatin 40 mg tablet 40 mg PO DAILY 12/13/21 [History Last Taken Unknown] benztropine 0.5 mg tablet 0.5 mg PO DAILY 10/18/22 [History Last Taken Unknown] Allergy/AdvReac Type Severity Reaction Status Date / Time bupropion [From Wellbutrin] Allergy Other Verified 12/26/22 14:26 celecoxib [From Celebrex] Allergy Hives Verified 12/26/22 14:26 erythromycin lactobionate AdvReac Nausea/Vom/ Verified 12/26/22 14:26 [From Erythrocin] Diarrhea rosuvastatin calcium AdvReac Other Verified 12/26/22 14:26 [From Crestor] zolpidem [From Ambien] AdvReac Other Verified 12/26/22 14:26 Family History Mother Breast cancer Brother Diabetes Father Heart disease Surgical History H/O arthroscopic knee surgery History of back surgery History of carpal tunnel release of both wrists History of tubal ligation Hx of section Hx of colonoscopy Hx of tonsillectomy S/P insertion of spinal cord stimulator Social History household members: none housing: apartment number of children: 2 Smoking Status: Current every day smoker tobacco type: cigarettes quit status: has quit before alcohol intake: never substance use type: does not use caffeine: No seatbelt use: always ROS ROS ED ROS Narrative Constitutional: Denies fever HEENT: Denies sore throat Neck: Denies neck pain Cardiovascular: Denies chest pain, syncope Respiratory: Denies shortness of breath GI: Denies nausea vomiting or abdominal pain : Denies changes in urinary habits Musculoskeletal: Denies muscle or joint pain Neurologic: Denies numbness weakness or loss of sensation, emdprses ABREU Skin denies rash EXAM Physical Exam Narrative Exam Narrative: Primary Survey Airway: Intact Breathing: Bilateral breath sounds Circulation: Palpable bilateral femorals, Palpable bilateral radial, Palpable bilateral DP and Palpable bilateral PT Disability / Spine precautions GCS Score: Eye Openin Verbal Response: 5 Motor Response: 6 Secondary Survey Constitutional: Please see MDM Head: Atraumatic, Midface stable, NO jaw malocclusion, No Cephalohematoma, and No Lacerations noted Eye: Pupils equal round and reactive to light, Extraocular muscles intact and No periorbital ecchymosis or stepoff, no evidence of entrapment ENT: Oropharynx clear, no lacerations, no hemotympanum, no raccoon eyes or mckeon sign Cervical spine / Neck: No cervical spine bony tenderness, crepitance, or stepoff deformity Trachea midline Lungs: Clear to auscultation, No asymmetric rise and No crepitus, no flail chest Cardiac: Regular rate and rhythm and No murmurs Abdomen: Soft, Nontender and No rebound Pelvis: Pelvis stable to compression : No evidence of genital injury Back: No midline bony tenderness to thoracic/lumbar/sacral spines Neuro: At baseline, intact strength and sensation in bilateral upper and lower extremities. 2+ patellar reflexes bilaterally. Extremities: NO gross Deformities Psych: Normal affect Nursing triage notes reviewed, Vital signs reviewed Const Vital Signs: 02/25/23 08:38 02/25/23 08:45 02/25/23 08:45 Temperature 97.5 F L Temperature Source Oral Pulse Rate 63 Respiratory Rate 16 Respiratory Effort Normal Non-Labored Respiratory Depth Normal Respiratory Pattern Normal Blood Pressure 129/64 H Blood Pressure Mean 85 Pulse Ox 97 Oxygen Delivery Method Room Air Room Air Room Air MDM MDM MDM Narrative Medical decision making narrative: Chief Complaint: Fall head trauma External records reviewed: Brain CT from June 2022 shows the following: IMPRESSION: ? 1.? Mild generalized atrophy.? Mild low density bilaterally in the deep white matter.? This likely represents small vessel ischemic changes in the deep white matter. ? 2.? Small old right capsuloganglionic lacunar infarct. MDM: The patient was hemodynamically stable, afebrile, nontoxic-appearing. Primary secondary trauma surveys were concerning for the following I considered the following differential diagnosis: Concussion, ICH, traumatic subarachnoid, cervical spine injury Given the patient's advanced age was concerned about intracranial hemorrhage specifically. I obtained a CT scan of the head and cervical spine to rule out acute traumatic injuries of the head and neck. Imaging showed no acute traumatic injuries. Tertiary exam without new traumatic injuries. The patient is appropriate discharge home. Factors affecting care: Patient is on aspirin no other blood thinners or anticoagulation noted Social determinants of health: Current every day smoker History obtained from others: Shared decision making: I will have a discussion with the patient and or visitors regarding risk/benefits of further testing or admission. They will be made aware of of the risk/benefits inherent in this decision they will be given the opportunity to voice understanding. Consults: None Radiography Diagnostic Testing: Clinical Impression(s) from Imaging Studies Brain CT 02/25/23 08:52 IMPRESSION: Chronic involutional changes of the brain. Electronically Signed: Erik Tavera MD at 9:41 EDT , Cervical Spine CT 02/25/23 08:52 IMPRESSION: Multilevel degenerative changes, as described above. Electronically Signed: Erik Tavera MD at 9:44 EDT , Discharge Plan Triage Chief Complaint: Fall ED Provider: Joe Mistry Dx/Rx/DC Orders Clinical Impression: CHI (closed head injury), Fall Instructions: Concussion Dc, ED Fall Prevention Prescriptions: No Action pravastatin 40 mg tablet 40 mg PO DAILY benztropine 0.5 mg tablet 0.5 mg PO DAILY clonidine HCl 0.1 MG tablet 0.1 mg PO QHS hydrocodone-acetaminophen 1 EACH tablet 1 ea PO BID PRN PRN (Reason: Pain) levothyroxine 100 mcg tablet 100 mcg PO DAILY pantoprazole 40 mg Tablet,Delayed Release (Dr/Ec) 40 mg PO DAILY aripiprazole 2 mg tablet 2 mg PO DAILY Label Comments: take 1 tablet by mouth once daily furosemide 20 mg tablet 20 mg PO BID PRN (Reason: swelling) potassium chloride 20 mEq tablet extended release 20 meq PO DAILY PRN (Reason: if take a lasix ) Label Comments: take 1 tablet by mouth once daily with food WHILE ON FUROSEMIDE metformin 1,000 mg tablet 1,000 mg PO BID aspirin 81 mg tablet,chewable 81 mg PO DAILY Qty: 30 0RF Primary Care Provider: Cassia Dupont Referrals: Cassia Dupont, DO [Primary Care Provider] - Activity Restrictions/Additional Instructions: Thank you for trusting us with your care today! Please take Tylenol (2 pills, 650 mg), ibuprofen (2 pills, 400 mg) every 6 hours as needed for pain and fever control. Please return to the emergency department if your symptoms change or worsen. Specifically return if you develop worsening headache that is not controlled by the above medicines, focal weakness or loss of sensation in your extremities, slurred speech, facial drooping, bowel or bladder incontinence. Please follow with your primary care physician for further outpatient evaluation and management. Disposition Disposition: Home, Self Care
--- NOTE | 2023-02-25 08:52 | CT_ITS ---
STUDY: CT CERVICAL SPINE WITHOUT CONTRAST REASON FOR EXAM: Female, 72 years old. Fall, neck pain RADIATION DOSAGE (If Supplied By Facility): CTDIvol = ( 19.69 ) mGy, DLP = ( 397.00 ) mGycm TECHNIQUE: High resolution transaxial imaging was performed without contrast material. Sagittal and coronal images were reconstructed. Individualized dose optimization techniques were used for this CT. COMPARISON: None FINDINGS: Normal craniovertebral junction. There are degenerative changes of the anterior atlantoaxial articulation. Normal odontoid process. Normal cervical lordosis. Mucosal thickening of the visualized portions of the right mastoid air cells. C2-3: Normal endplates. Normal disc height and morphology. Normal central canal and intervertebral neuroforamina. C3-4: Moderate degree of this space narrowing. Spondylosis. Uncovertebral arthrosis. Mild degree of bilateral neural foraminal stenosis slightly worse on the left side. C4-5: Marked degree of disc space narrowing. Spondylosis. Uncovertebral arthrosis. Moderate degree of bilateral neural foraminal stenosis. C5-6: Marked degree of disc space narrowing. Spondylosis. Uncovertebral arthrosis worse on the left side. Mild degree of left neural foraminal stenosis. C6-7: Moderate degree of disc space narrowing. Spondylosis. Facet joint osteoarthritis and hypertrophy. Mild degree of neural foraminal stenosis. C7-T1: Normal endplates. Normal disc height and morphology. Normal central canal and intervertebral neuroforamina. Atherosclerotic calcific plaques of the carotid bifurcations. CT/Spine Cervical without Contras IMPRESSION: Multilevel degenerative changes, as described above. Electronically Signed: Erik Tavera MD at 9:44 EDT ,
--- NOTE | 2023-02-25 08:52 | CT_ITS ---
STUDY: CT BRAIN WITHOUT CONTRAST REASON FOR EXAM: Female, 72 years old. Fall, head trauma to the right side of the head. RADIATION DOSAGE (If Supplied By Facility): CTDIvol = ( 44.99 ) mGy, DLP = ( 745.49 ) mGycm TECHNIQUE: Transaxial CT imaging of the brain was performed without administration of intravenous contrast material. Individualized dose optimization techniques were used for this CT. COMPARISON: Comparison is made with prior study dated June 22, 2022. FINDINGS: Normal soft tissue structures. There is hyperostosis frontalis internus. There is mild cerebral atrophy with widening of the extra-axial spaces and ventricular dilatation. There are areas of decreased attenuation within the white matter tracts of the supratentorial brain, consistent with microvascular disease changes. Stable small old lacunar infarct in the right thalamus. Normal brainstem. Normal cerebellum. There is no intracranial hemorrhage. There are no findings of an acute ischemic infarction. Atherosclerotic plaque calcification of the cavernous portions of the internal carotid arteries bilaterally. Normal visualized paranasal sinuses. CT/Brain/Head without Contrast IMPRESSION: Chronic involutional changes of the brain. Electronically Signed: Erik Tavera MD at 9:41 EDT ,
[2023-02-25 10:14] VITALS: BP 144/93; PULSE 61; RESP 16; O2SAT 95
== END 2023-02-25 10:20 | disposition home or self-care (01) ==
PROVIDERS: Emergency Provider Emergency Medicine; PCP Family Medicine; Visit Provider Emergency Medicine
DX: S09.90XA Unspecified injury of head, initial encounter (principal); F17.210 Nicotine dependence, cigarettes, uncomplicated; Z86.73 Personal history of transient ischemic attack (TIA), and cerebral infarction without residual deficits; W19.XXXA Unspecified fall, initial encounter
CPT/HCPCS: 70450; 72125; 99284

== ENCOUNTER → 2023-07-16 | Outpatient (CLI) | payer MEDICARE, SELFPAY ==
--- NOTE | 2023-07-16 13:15 | CT_ITS ---
STUDY: LOW DOSE CT LUNG CANCER SCREENING REASON FOR EXAM: Female, 72 years old. Lung cancer screening -- 49 pk yr hx;current smoker;asymptomatic RADIATION DOSAGE (If Supplied By Facility): CTDIvol = ( 2.39 ) mGy, DLP = ( 76.53 ) mGycm TECHNIQUE: No contrast was administered. Low dose technique was utilized (average mAS-38 and kVp 120). 1.25 mm axial source images with a slice interval of 1.25-mm were reconstructed in lung windows. 2.5 mm axial source images with a slice interval of 2.5-mm were reconstructed in lung windows. 5.0 mm axial source images with a slice interval of 5.0-mm were reconstructed in soft tissue windows. COMPARISON: Comparison is made with prior study June 19, 2022. NODULES: Stable 4 mm x 5 mm noncalcified nodule in the posterior lateral aspect of the right lower lobe. Stable 3 mm x 3 mm noncalcified nodule in the medial aspect of the right lower lobe. Emphysema: Scarring in the lingular segment of the left upper lobe as well as in the anterior medial aspect of the right middle lobe. Endobronchial lesion: Unremarkable Aorta: Atherosclerotic plaque formation. CORONARY ARTERIES: Coronary artery calcification is seen. Heart: Unremarkable Pulmonary artery: Unremarkable Mediastinal nodes: Small benign-appearing mediastinal lymph nodes. Other chest and abdominal findings: Degenerative changes of the thoracic spine. Epidural electrodes are seen. CT/Low Dose CT Lung Screening IMPRESSION: Lung-RADS category 2 - Continue annual screening with LDCT in 12 months. IMPORTANT NOTES FOR USE: ACR Lung-RADS Version 1.1 Assessment Categories Release Date: 2018 Category: Coded 0-4 bases on nodule(s) with highest degree of suspicion. Negative screen is defined as categories 1 and 2; a positive screen is defined as categories 3 and 4. Category 3 and 4A nodules that are unchanged on interval CT should be coded as category 2, and individuals returned to screening in 12 months. Category 4X: Category 3 or 4 nodules with additional imaging findings that increase the suspicion of lung cancer, such as spiculation, GGN that doubles in size in 1 year, enlarged lymph notes, etc. Category Modifiers: S (significant finding unrelated to lung cancer) Electronically Signed: Erik Tavera MD at 14:44 EDT ,
== END | disposition home or self-care (01) ==
PROVIDERS: PCP Family Medicine; Referring Provider Nurse Practitioner Family; Visit Provider Nurse Practitioner Family
DX: Z12.2 Encounter for screening for malignant neoplasm of respiratory organs (principal); Z87.891 Personal history of nicotine dependence
CPT/HCPCS: 71271

== ENCOUNTER 2023-09-04 17:25 | Observation (INO) | payer MEDICARE, SELFPAY ==
[2023-08-20 14:51] LABS: Hematocrit 44.2 % (37-47); Hemoglobin 14.6 g/dL (12.0-15.0); Mean Corpuscular Hgb 31.7 pg (27.0-32.0); Mean Corpuscular Volume 96.1 fL (81-99); Platelet Count 429 K/mm3 (150-450); RBC Distribution Width CV 13.2 % (11.6-14.6); RBC Distribution Width SD 46.8 fl (35.1-43.9); White Blood Count 12.5 K/mm3 (4.4-11.0)
[2023-08-20 15:03] LABS: Anion Gap 3 (5-15); BUN 6 mg/dL (7-18); BUN/Creat Ratio 7.6 RATIO (10-20); Calcium,Total 9.3 mg/dL (8.5-10.1); Chloride 108 mmol/L (98-107); Creatinine, Serum 0.79 mg/dL (0.55-1.02); EST Glomerular Filtration Rate 76 mL/min (>60); Est Glom Filt Rate - Afr Amer 92 mL/min (>60); Glucose 173 mg/dL (74-106); Potassium 4.2 mmol/L (3.5-5.1); Sodium Level 141 mmol/L (136-145)
[2023-08-20 19:38] LABS: Hemoglobin A1c 7.8 % (3.8-5.6)
[2023-08-30 13:29] LABS: Magnesium 1.8 mg/dL (1.6-2.6); Thyroid Stim Hormone (TSH) 0.62 uIU/mL (0.358-3.74)
--- NOTE | 2023-09-03 20:14 | PCM.HP.BLA ---
History and Physical Date of Admission: 09/04/23 HISTORY OF PRESENT ILLNESS 72 year old woman presents with complaints of bilateral macromastia as well as associated painful symptomatology of neck pain, thoracic back pain, bilateral shoulder pain from shoulder grooving from the weight of her breasts on her bra straps, and inframammary intertrigo for which she uses powders with minimal relief and without resolution of her symptomatology over the past 6 months. She denies any trauma to her breasts.? Denies any nipple discharge.? She has difficulty with activities of daily living especially chores around the house because of her painful symptomatology. She has had cervical spine surgery and 3 lumbar spine surgeries and still has painful symptomatology. Her last mammogram was on November 13, 2022 at [facility]. The mammogram showed breast composition made up of scattered areas of fibroglandular density. There are no dominant masses or suspicious calcifications. Stable fat-containing bilateral axillary lymph nodes. No other significant abnormalities are identified. There has been no significant change since the prior study. She has seen a Chiropractor in the past without resolution of her painful symptomatology.? She also had a 12 lb weight loss over he past year without resolution of her painful symptomatology. Patient had a stroke in October, with some residual left sided weakness. She takes a baby aspirin daily after the stroke. She has diabetes mellitus and her most recent HgbA1c was 7.8 on August 20, 2023. For elective surgeries, the HgbA1c needs to be less than 8. We have received medical approval for her bilateral breast reduction surgery. It is scheduled on September 04, 2023. She comes in today for a preop visit to go over the surgery and to answer any last minute questions she may have. Also she will sign the office consent. PAST MEDICAL HISTORY Abscess of left breast Arthritis Carpal tunnel syndrome Cataracts, bilateral Chronic neck pain Chronic post-operative pain Chronic thoracic back pain Contusion of right shoulder region Depression DM type 2, goal HbA1c < 7% DM type 2, goal HbA1c < 8% Encounter for screening for malignant neoplasm of lung Essential hypertension Family history of breast cancer Hemiparesis of left dominant side History of CVA (cerebrovascular accident) (10/15/21) Hyperlipidemia Hypothyroidism Injury due to fall Intertrigo Left shoulder pain Macromastia Neuropathy Obesity Primary osteoarthritis of right knee Recent weight loss Right shoulder pain Rotator cuff injury Smoker Tobacco abuse Type 2 diabetes mellitus Vitamin D deficiency PAST SURGICAL HISTORY H/O arthroscopic knee surgery History of back surgery History of carpal tunnel release of both wrists History of cataract surgery History of tubal ligation Hx of section Hx of colonoscopy Hx of tonsillectomy S/P insertion of spinal cord stimulator ALLERGIES bupropion [From Wellbutrin] celecoxib [From Celebrex] erythromycin lactobionate [From Erythrocin] rosuvastatin calcium [From Crestor] zolpidem [From Ambien] MEDICATIONS clonidine HCl hydrocodone-acetaminophen aripiprazole furosemide levothyroxine metformin pantoprazole aspirin pravastatin D1 benztropine diazepam (Valium) FAMILY HISTORY Mother - Breast cancer, Depression Brother - Diabetes, Hypertension Father - Heart disease, Myocardial infarction Brother - Diabetes SOCIAL HISTORY Smoking Status: Current every day smoker tobacco type: cigarettes alcohol intake: never substance use type: does not use caffeine: No REVIEW OF SYSTEMS General - Denies fever.? Has fatigue. Had 12 lb weight loss over past year.? Eyes - Denies cataracts and glaucoma. ENT - Denies nasal congestion and sore throat.? Endocrine - Has excessive thirst and urination. Has thyroid disease. Has diabetes mellitus. Skin - Denies suspicious lesions and skin cancer.? Has inframammary intertrigo.? Musculoskeletal - Has joint pain, joint stiffness, weakness of muscles and joints, and neck pain and back pain.? ? Her neck and back pain involve cervical and thoracic area.? Denies arthritis.? Has bilateral shoulder pain from shoulder grooving from the weight of her breasts on her bra straps. Neuro - Denies headaches. Some residual left sided weakness after her stroke. Cardiovascular - Denies chest pain.?? Has fatigue.? Denies shortness of breath with exertion. Had a stroke in October,. Psych - Denies anxiety. Has depression. Respiratory - Denies shortness of breath.? Denies chronic cough.? Patient is a smoker. Gastrointestinal - Denies nausea, vomiting, diarrhea, and constipation. Hematologic - Denies abnormal bruising and bleeding. Genitourinary - Denies hematuria. Has urinary frequency. PHYSICAL EXAMINATION General - Alert and oriented. Patient's bra size is DD.? Her height is 62 inches.? Her weight is 1lbs.?79 Her BMI is 32.7%. ? Her BSA is 1.82m2. HEENT - PERRL. EOMI. Throat is clear. Neck - Supple.? No bony tenderness.? There is some pericervical soft tissue tenderness. Lungs- Clear to auscultation. Heart - Regular rate and rhythm. Breasts - Patient has bilateral macromastia.? No breast masses palpable. No axillary adenopathy noted.? Distance from midclavicular line on the left to the nipple is 36 cm and from the nipple to the inframammary fold is 16 cm. Distance from midclavicular line on the right to the nipple is 36 cm and from nipple to the inframammary fold is 16 cm. Nipple areolar complex diameter is 7 cm bilaterally.? No active inframammary intertrigo noted at this time. Abdomen - Soft and non distended. Back - No bony tenderness noted.? There is perivertebral soft tissue tenderness in the upper thoracic area. Extremities - FROM.? No axillary adenopathy.? Radial pulses are palpable. There is some bilateral shoulder tenderness with shoulder grooving from the weight of her breasts on her bra straps. Neuro - CN II-XII grossly intact. Psych - Normal and mood and affect. ASSESSMENT 1.? Bilateral macromastia. 2.? Neck pain. 3.? Thoracic back pain. 4.? Bilateral shoulder pain from shoulder grooving from the weight of the breasts on her bra straps. 5.? Inframammary intertrigo. 6. Family history of breast cancer. 7. Diabetes mellitus with HgbA1c 7.8 on 08/20/23. 8. Recent weight loss. 9. Smoker. PLAN Discussed with the patient the procedure of breast reduction mammoplasty.? I feel this procedure would be beneficial in this patient as it would help relieve her painful symptomatology. Her last mammogram was on November 13, 2022 at [facility]. The mammogram showed breast composition made up of scattered areas of fibroglandular density. There are no dominant masses or suspicious calcifications. Stable fat-containing bilateral axillary lymph nodes. No other significant abnormalities are identified. There has been no significant change since the prior study. Based on the Schnur Sliding Scale, I would remove approximately 457 grams of breast tissue per side.? We will send the tissue to pathology for analysis to rule out carcinoma. This sliding scale helps to determine the minimum required amount of tissue that needs to be removed from each breast in order for it to be considered a medical need.? Her BSA is 1.82m2 which corresponded to the 457 grams of breast tissue needed to be removed from each breast. Patient has a lot of loose skin in the breast. They don't weigh that much. With a goal of 457 grams, realistically she would probably be a B cup. Patient voiced understanding and would be happy with a B cup. We have receive medical approval for bilateral breast reduction surgery. It is scheduled on September 04, 2023. Discussed with patient the extent of scarring for this procedure.? The biggest risk for wound healing problems is the T-zone area.? Usually wound care and sometimes antibiotics are necessary for healing in this area. ? She would have drains in for a few days depending on the amount of tissue that is removed.? She will be on antibiotics until the drains are removed. She is a smoker which has an increased risk of wound healing problems. She states she has tried stopping smoking in the past and was not successful. Surgery will be done under general anesthesia with a surgical observation overnight stay in the hospital. Patient was informed of the risks and complications of the procedure including alternatives to surgery.? These were discussed with her personally.? She voices understanding and wishes to proceed. Some of the risks and complications were included in a form from the [employer]. Potential risks and complications included but not inclusive of bleeding, infection, seroma, hematoma, bruising, swelling, prolonged need for drains, loss of sensation to skin, partial or complete loss of skin flap and/or nipple, wound breakdown, need for wound care, poor scarring, poor aesthetic outcome, intra operative cardiac or neurologic events, DVT, PE, and reaction to anesthesia. Encouraged patient to stop smoking as it may have deleterious effects on wound healing. She had some preop questions that were answered personally and to her satisfaction. The office consent was signed. Patient has diabetes mellitus and her last HgbA1c in her chart was 7.8 on 08/20/23. For elective surgeries, the HgbA1c needs to be less than 8. She states she gets nervous before surgery. Will send in a script for Valium to be taken at night starting 3 days before surgery. Assessment & Plan Assessment/Plan (1) Macromastia: (2) Chronic thoracic back pain: (3) Chronic neck pain: (4) Right shoulder pain: (5) Left shoulder pain: (6) Intertrigo: (7) Family history of breast cancer: (8) DM type 2, goal HbA1c < 8%: (9) Recent weight loss: (10) Smoker:
[2023-09-04] VITALS (14 sets, daily range): BP systolic 107–149; BP diastolic 63–89; PULSE 68–114; RESP 14–18; TEMP 36.1–37.7; O2SAT 8–97; BMI 33.5; BMI 33.6
--- NOTE | 2023-09-04 | IMM_PTH ---
PATIENT: TISHA HOFFMANN LOC: MS3 U#:[id number] AGE/SX: 72/F ROOM: KS320 RE09/04/[address]: Dr. Damion Mosley, : 1950 BED: 1 DIS: 09/10/2023 SPEC #: [id number] RECD: 09/09/23 12:49 STATUS: SOUT REQ #: [id number] CAMERON: 09/04/23 00:[address]: Rigoberto Lebron DEPT: IMMUNOHISTOCHEMISTRY RECD BY: Amanda Jeff ENTERED: 09/09/23 12:51 SP TYPE: IMMUNO OTHR DR: MD Dr. Santosh Chu, MD Dr. Irene Singer Dr., MD Dr. Achintya Singh, MD Dr. Autumn L White, MD Dr. Mary Catherine Sementi, DO Dr. Miguel Angel Basurto, DO MD Sergey Pereyra MD Dr. Eric Jopperi, DO MD Dr. Pillo Douglas MD Dr. James Mooney, MD Dr. Jonathan Vogt, DO Dr. Keri Morrison, DO Cassia Dupont, DO Dr. Damion Mosley, MD Dr. Jose Velazco Dr., MD Dr. Prakash Chand, MD Dr. Paul Nielsen, MD Dr. Paige Pierce, MD Dr. Ryan Burkholder, MD Jessica Franklin, LOADING DOCK HAND-C Roselyn Carmichael, LOADING DOCK HAND-C PAO Estrada Tissues: B - Right breast, NOS Procedures: E-CAD (initial) CK8 (add) [facility]YSIC[facility] [address] [address] SPECIMEN INFORMATION: Tissue Source: Right breast tissue, breast reduction mammoplasty Clinical Info: Bilateral macromastia, neck pain, thoracic back pain, bilateral shoulder pain Specimen Number: [id number] CPT code: 76557, 25814 METHODOLOGY: Deparaffinized sections of prefer/formalin-fixed tissue or PAP/DQ stained slides are incubated with monoclonal/polyclonal antibodies/oligonucleotide probes. Localization is made via biotin free immunoperoxidase method. Appropriate controls are performed and reacted as expected. Results on target cell population are indicated in the following table: RESULTS: ANTIBODY / CLONE RESULT Block B E-Cad (ECH-6) negative CK8 (86poyaB23) positive These tests were developed and their performance characteristics determined by [facility]. They may not have been cleared or approved by the U.S. Food and Drug Administration. The FDA has determined that such clearance or approval is not necessary. The above immunohistochemical/dualISH markers are ordered and reviewed by the Pathologist. INTERPRETATION: Right breast tissue, breast reduction mammoplasty: Focal atypical lobular hyperplasia SJ:daily 09/10/23
[2023-09-04] MEDS: Lactated Ringers 1,000 ML 40 ML IV ×3 (06:02→12:45)
[2023-09-04] MEDS: Scopolamine 1mg/72hr Patch 1 PATCH TD (06:08)
[2023-09-04] MEDS: Acetaminophen 500 MG Tablet 1000 MG PO ×2 (06:08→18:42)
[2023-09-04] MEDS: Magnesium 2 GM for ERAS IV (06:08)
[2023-09-04] MEDS: Gabapentin 600 MG Tablet PO (06:09)
[2023-09-04] MEDS: Insulin Lispro 100 UNIT/ML INSULN.PEN SC ×5 (06:39→22:41)
[2023-09-04 06:42] LABS: Bedside Glucose 218 mg/dL (74-106)
--- NOTE | 2023-09-04 07:30 | BR_PTH ---
PATIENT: TISHA HOFFMANN LOC: MS3 U#:[id number] AGE/SX: 72/F ROOM: IA320 RE09/04/[address]: Dr. Damion Mosley DO : 1950 BED: 1 DIS: 09/10/2023 SPEC #: [id number] RECD: 09/04/23 15:29 STATUS: JOSE REQ #: [id number] CAMERON: 09/04/23 07:[address]: Rigoberto Lebron DEPT: SURGICAL PATHOLOGY RECD BY: Sabina Rosales ENTERED: 09/05/23 09:14 SP TYPE: MAMOPLASTY OTHR DR: MD Dr. Santosh Chu, MD Dr. Irene Singer Dr., MD Dr. Achintya Singh, MD Dr. Autumn L White, MD Dr. Mary Catherine Sementi, DO Dr. Miguel Angel Basurto, MD Sergey Hardwick Dr., MD Dr. Eric Jopperi, DO MD Dr. Pillo Douglas MD Dr. James Mooney, MD Dr. James A Slaby, MD Dr. Jonathan Vogt, DO Dr. Keri Morrison, DO Cassia Dupont, DO Dr. Damion Mosley, DO MD Dr. Jose Sparks MD Dr. Prakash Chand, MD Dr. Paul Nielsen, MD Dr. Paige Pierce, MD Dr. Ryan Burkholder, MD Jessica Franklin, NUNO-C Roselyn Carmichael, NUNO-PAO Forte Tissues: A - Left breast, NOS B - Right breast, NOS Procedures: Surgery Specimen Level IV Comments: @ Ordering doctor for TOBI edited from to @ by RGOOD at 09/05/23 1534 @ Submitting doctor edited from to @ by RGOOD at 09/05/23 1535 HEADER OPERATION: ERAS, bilateral breast reduction mammoplasty PRE-OP DIAGNOSIS: Bilateral macromastia, neck pain, thoracic back pain, bilateral shoulder pain TISSUE SUBMITTED: A - Left breast tissue, B - Right breast tissue MICROSCOPIC DIAGNOSIS A. Left breast tissue, breast reduction mammoplasty: Fragments of benign breast tissue (655 gm). Focal fibrocystic changes and mild intraductal hyperplasia without atypia. Focal dense fibrosis. A fragment of benign lymph node tissue. Negative for malignancy. Skin, no pathologic diagnosis. B. Right breast tissue, breast reduction mammoplasty: Fragments of breast tissue (770 gm). Fibrocystic changes and focal intraductal hyperplasia with atypia. Focal atypical lobular hyperplasia. See comment. Focal dense fibrosis. Focal microcalcifications. Negative for malignancy. Skin, no pathologic diagnosis. JOSE DE JESUS:fidencio 09/06/2023 COMMENT B. Atypia is not noted at the margins of sections examined. Immunohistochemistry ([id number]) supports the above diagnosis. Case is discussed with Dr. Rizo 09/24/[address] Arzola. Case has been reviewed in consultation with Dr. Arzola who concurs with the above diagnosis. IDC:AM MICROSCOPIC DESCRIPTION Slides are reviewed. GROSS DESCRIPTION A - Received in fixative is one container designated left breast tissue. The specimen consists of multiple irregular fragments of yellow-dewey fibrofatty tissue. Several of the larger fragments contain adherent pink-dewey skin with no skin lesions. The fragments range in size from 1.5 to 19.0 cm and in aggregate weigh 655 gm. Serial sections reveal yellow fatty tissue interrupted occasionally by dense white fibrous streaks. No distinct mass lesions are identified. Yeast Fermentation Attendant sections are submitted in five cassettes. / AM:fidencio 09/05/2023 More sections are submitted in five more cassettes, 6-10. / SJ:fidencio 09/06/2023 B - Received in fixative is one container designated right breast tissue. The specimen consists of multiple irregular fragments of yellow-dewey fibrofatty tissue. Several of the larger fragments contain adherent pink-dewey skin with no skin lesions. The fragments range in size from 1.0 to 20.0 cm and in aggregate weigh 770 gm. Serial sections reveal yellow fatty tissue interrupted occasionally by dense white fibrous streaks. No distinct mass lesions are identified. Yeast Fermentation Attendant sections are submitted in five cassettes. / AM:fidencio 09/05/2023 More sections are submitted in five more cassettes, 6-10. / SJ:fidencio 09/06/2023 TC:5 CPT: 99223 x2
[2023-09-04] MEDS: Cefazolin 2 GM in 0.9% Normal Saline (100mL Bag) 100 ML IV (07:50)
[2023-09-04] MEDS: Lidocaine 1% /Epi 1:100 (20ml) 20 ML Vial (08:40)
[2023-09-04 11:03] LABS: Bedside Glucose 259 mg/dL (74-106)
[2023-09-04] MEDS: Cefazolin 1 GM/50 ML BAG IV ×2 (11:58→22:28)
[2023-09-04 12:58] LABS: Bedside Glucose 224 mg/dL (74-106)
[2023-09-04 14:59] LABS: Bedside Glucose 310 mg/dL (74-106)
[2023-09-04 16:15] LABS: Bedside Glucose 309 mg/dL (74-106)
--- NOTE | 2023-09-04 17:08 | SUR.PHASEI ---
PAGED DR GTZ AT 1708 THAT ACCUCHECK STILL > 300 AFTER INSULIN GIVEN PER PROTOCOL, VERBAL ORDER TO GIVE ADDITIONAL SSI PER PROTOCOL AND HE WILL ORDER HOSPITALIST FOR DIABETES MANAGEMENT WHEN HE RETURNED PAGE AT [phone]. ALSO NOTIFIED THAT ADMITTING ORDERS NEEDED, HE STATES HE IS ENTERING ORDERS NOW.
--- NOTE | 2023-09-04 17:23 | PCM.OPRPT ---
Problems Associated Problem List Diagnoses (1) Chronic thoracic back pain: (2) Macromastia: (3) Chronic neck pain: (4) Right shoulder pain: (5) Left shoulder pain: (6) Intertrigo: (7) Family history of breast cancer: (8) DM type 2, goal HbA1c < 7%: (9) Recent weight loss: (10) Smoker: Report of Operation Date of Procedure: 09/04/23 Pre-Operative Diagnosis: 1. Bilateral macromastia. 2. Neck pain. 3. Thoracic back pain. 4. Bilateral shoulder pain from shoulder grooving from the weight of the breasts on her bra straps. 5. Inframammary intertrigo. 6. Family history of breast cancer. 7. Diabetes mellitus with HgbA1c 7.8 on 08/20/23. 8. Recent weight loss. 9. Smoker. Post-Operative Diagnosis: Same. Surgery/Procedure Performed:: Bilateral breast reduction mammaplasty. Description of Surgical Findings:: 72 year old woman presents with complaints of bilateral macromastia as well as associated painful symptomatology of neck pain, thoracic back pain, bilateral shoulder pain from shoulder grooving from the weight of her breasts on her bra straps, and inframammary intertrigo for which she uses powders with minimal relief and without resolution of her symptomatology over the past 6 months. She denies any trauma to her breasts.? Denies any nipple discharge.? She has difficulty with activities of daily living especially chores around the house because of her painful symptomatology. She has had cervical spine surgery and 3 lumbar spine surgeries and still has painful symptomatology. Her last mammogram was on November 13, 2022 at [facility]. The mammogram showed breast composition made up of scattered areas of fibroglandular density. There are no dominant masses or suspicious calcifications. Stable fat-containing bilateral axillary lymph nodes. No other significant abnormalities are identified. There has been no significant change since the prior study. She has seen a Chiropractor in the past without resolution of her painful symptomatology.? She also had a 12 lb weight loss over he past year without resolution of her painful symptomatology. Patient had a stroke in October, with some residual left sided weakness. She takes a baby aspirin daily after the stroke. She has diabetes mellitus and her most recent HgbA1c was 7.8 on August 20, 2023. For elective surgeries, the HgbA1c needs to be less than 8. We have received medical approval for her bilateral breast reduction surgery. It is scheduled on September 04, 2023. Patient was informed of the risks and complications of the procedure including alternatives to surgery. These were discussed with the patient personally. Patient voices understanding and wishes to proceed. Some of the risks and complications were included in a form from the [employer]. Potential risks and complications included but not inclusive of bleeding, infection, seroma, hematoma, bruising, swelling, prolonged need for drains, loss of sensation to skin, partial or complete loss of skin flap and/or nipple, wound breakdown, need for wound care, poor scarring, poor aesthetic outcome, intra operative cardiac or neurologic events, DVT, PE, and reaction to anesthesia. Encouraged patient to stop smoking as it may have deleterious effects on wound healing. IV Fluids - 3000 ml. Urine Output - 395 ml. Tissue removed from the left breast - 610 grams. Tissue removed from the right breast - 708 grams. I used Interfyl Placental Connective Tissue Matrix, (0.6 ml, I injected 2 vials, one in each breast). Catalog Number - [id number]. Lot Number - [id number]. Device ID Number - [id number]. Expiration - September 13, 2031, (Left Breast). Catalog Number - [id number]. Lot Number - [id number]. Device ID Number - [id number]. Expiration - September 24, 2031, (Right Breast). I used Junior absorbable hemostat, (I used 6 vials, 3 in each breast). Reference Number - [id number]. Lot Number - [id number]. Device ID Number - [id number]. Expiration - March 01, 2028. Surgeon: Rigoberto Leborn MD entry level finance: Norm Abebe RNFA Type of Anesthesia: General Anesthesiologist: Chalo Gutierrez MD and Luther Ulloa MD and Taylor Tim CRNA and Ammy Lyon CRNA Specimen's removed: 1. Left breast tissue to Pathology. 2. Right breast tissue to Pathology. Drains: José Luis x2 (one in each breast). Estimated Blood Loss (mL): 150 Fluids Replaced: 3395 ml, (IV Fluids 3000 ml, Urine Output 395 ml) Description of Procedure: In the preop area, the patient was placed in the sitting position and preoperative markings were made.? The sternum midline was marked down to the umbilicus.? The inframammary folds were marked bilaterally.? The midclavicular line was then marked down to the nipple, then from the nipple to the inframammary fold.? The inframammary fold was then superimposed on the midclavicular line and I made a point 1 cm below that to be the new position of the nipple-areolar complex.? 7 cm lines were then drawn divergent from that point to encompass the nipple-areolar complex.? The distance between the divergent lines was 10 cm.? The patient was then placed in the supine position and taken to the operating room and placed under general anesthesia and her breasts were prepped and draped in usual fashion.? Ioban draping was also used.? SCDs were placed for DVT prophylaxis.? Perioperative antibiotics were given intravenously.? A Uctler catheter was also placed. ? I then tamiko straight lines down from the lines drawn divergent around the nipple-areolar complex down to the inframammary fold.? The width of the pedicle is 10 cm.? I then used a 45 mm circular template for a new size of the nipple-areolar complex.? The central markings were infiltrated with Xylocaine and epinephrine.? The central skin was then deepithelialized.? I started on the left side first and then went to the right side.? I then mobilized medial and lateral breast flaps at the level of Daisy's fascia down to about 1-2 cm from the chest wall.? This was met in the midline of the breast with dissection at the level of Daisy's fascia down to about 1-2 cm from the chest wall.? Once the central breast mound pedicle was from the skin envelope, the reduction was then begun.? Most of the tissue was removed from the superior aspect of the breast and the lateral aspect of the breast.? I then sutured the leading edge of the medial and lateral breast flaps to the midline of the inframammary fold with 2-0 Vicryl suture.? The vertical incision was approximated using surgical clips.? The excess tissue from the medial and lateral breast flaps were excised and the horizontal incision was approximated using surgical clips.? The patient was then placed in a sitting position.? Using a vertical limb length of 5 cm, I tamiko the new position of the nipple-areolar complexes on both breasts.? They were in good position on the central aspect of the breast mound.? Good symmetry was noted between the left breast and the right breast.? Good shape and contour and projection were noted and appeared clinically to be a low C cup.? The patient was then placed back in the supine position and the surgical clips were removed.? The breast wounds were then irrigated with Irrisept 0.05% Chlorhexidine solution which was followed by saline irrigation.? Hemostasis was obtained using electrocautery.? The tissue removed from the left breast was 610 grams.? The tissue removed from the right breast was 708 grams.? The tissue that was removed from the breasts was sent to Pathology for analysis to rule out carcinoma. ? After hemostasis was obtained using electrocautery, I then sprayed Junior absorbable hemostat into both breast wounds to minimize seroma formation.? I used three vials for each side.? I then placed a size 15 José Luis drain into each breast wound to be brought through the lateral aspect of the horizontal incision.? I then closed the breast wounds by first approximating the leading edge of the medial and lateral breast flaps to the midline of the inframammary fold with 2-0 Vicryl suture.? I then injected Interfyl placental connective tissue matrix (0.6 ml each syringe) into both wounds at the level of the Tzone to help with the healing process. The deep dermis and subcutaneous tissue of the vertical incision and the horizontal incisions were approximated using 3-0 Monocryl interrupted sutures.? ? The horizontal incision was then approximated using 3-0 Stratafix monofilament unidirectional barbed running subcuticular suture.? I also placed a few 4-0 Prolene vertical mattress interrupted sutures at the level of the Tzone.? The vertical incision was then closed on the skin with 4-0 Prolene interrupted sutures.? With a vertical limb length of 5 cm, I tamiko a circular incision where the nipple-areolar complex would be brought through this keyhole incision.? Incisions were made and the nipple areolar complex was brought through the keyhole incision.? The nipple-areolar complex was secured to the breast skin using 3-0 Monocryl interrupted sutures for deep dermis and subcutaneous tissue.? The skin was approximated using 4-0 Prolene simple interrupted sutures.? This was then covered with Histoacryl skin tissue adhesive.? I sutured the drains to the skin using 3-0 nylon pursestring suture.? At the end of the procedure, the breasts were soft with no evidence of vascular compromise.? No evidence of hematomas were noted.? The nipples were viable.? I then dressed the breasts with a Kerlix gauze and a compression surgical bra.? The patient tolerated the procedure well and will be sent to the recovery room in satisfactory condition.? She will be admitted for surgical observation overnight stay.? She will go home tomorrow once she is tolerating oral pain medication.? I will remove the drains in a few days.? She will keep her head elevated during the initial postoperative period.? She will be maintained on a lifting restriction. The operative blood loss was about 150 ml.? Post-discharge, she may get a compression sports bra as well.? She will have the Cutler removed in the morning.? She will be sent home on antibiotics and pain medicine.? Sutures will be removed in 1-2 weeks. Grafts/Implants Used: Interfyl Placental Connective Tissue Matrix x2, Junior Procedure Start Time: 08:37 Procedure Stop Time: 15:50 Complications None. Admit VTE Documentation VTE Present on Admission: No VTE Mechan Device Prophylaxis: SCD's VTE Pharm Prophylaxis ordered?: Yes Addendum Addendum: Surgery Charges CPT - 91515-48 ICD-10 - N62, M54.2, M54.6, M25.511, M25.512, L30.4, Z80.3, E11.9, R63.4, F17.200 97133 N62, M54.2, M54.6, M25.511, M25.512, L30.4, Z80.3, E11.9, R63.4, F17.200
[2023-09-04 17:26] LABS: Bedside Glucose 311 mg/dL (74-106)
--- NOTE | 2023-09-04 19:45 | PN.HOSP_ITS ---
Reason for Visit Reason for Visit: Diagnoses Type 2 diabetes mellitus without complications (09/04/23) Essential (primary) hypertension (09/04/23) Encounter for other preprocedural examination (09/04/23) Subjective Subjective Patient recent and postoperative intervention per Dr. Lebron status post bilateral breast reduction. Patient does awaken but is very fatigued and lethargic, quickly falling back asleep but stable otherwise. When she is a wakened she denies any specific pain at this time. Compression bra and dressings in place with no drainage and Cutler catheter also still in place. Patient denies fevers, chills, nausea, emesis, abdominal pain, chest pain or dyspnea. Objective Data Objective Data Vital Signs: Vital Signs Temp Pulse Resp BP Pulse Ox O2 Del Method O2 Flow Rate 98.8 F 104 H 16 109/64 97 Nasal Cannula 3 09/04/23 18:48 09/04/23 18:48 09/04/23 18:48 09/04/23 18:48 09/04/23 18:48 09/04/23 18:48 09/04/23 18:48 Oxygen Flow Rate (L/min) 3 Oxygen Delivery Method Nasal Cannula Weight: 182 lb 15.739 oz Body Mass Index (BMI) 33.6 Intake & Output: Intake and Output for Last 24 Hours 09/02/23 09/03/23 09/04/23 23:59 23:59 23:59 Intake Total 2517.33 / 2517.33 Output Total 615 / 615 Balance 1902.33 / 1902.33 Lab / Micro Data 08/20/23 14:41 08/20/23 14:41 Labs: Laboratory Results - last 24 hr 09/04/23 06:15: POC Glucose 218 H 09/04/23 10:42: POC Glucose 259 H 09/04/23 12:39: POC Glucose 224 H 09/04/23 14:40: POC Glucose 310 H 09/04/23 15:58: POC Glucose 309 H 09/04/23 17:07: POC Glucose 311 H Physical Exam Narrative Physical Examination: General: Awakens to stimuli, alert momentarily but falls back asleep quickly, able to answer orientation questions but again very fatigued likely secondary recent anesthetics and pain regimen, remains cooperative, seated upright in the bed, no acute distress, denies any pain. Skin: Normal color, normal turgor, no icterus, no cyanosis except for recent OR with breast reduction with compression bra and dressings in place with no drainage noted. HEENT: AT/NC, EOMI, PERRLA, mildly dry MM, no carotid bruits or JVD noted. Lungs: Mildly diminished, greater bases, referred sounds from snoring when she falls back asleep otherwise no appreciated rales, ronchi or wheezing. Heart: Regular rate and rhythm; no gallop, rub audible. Abdomen: Soft, obese, NTTP, ND, mildly hyperactive BS, no appreciated HSM. Extremities: No cyanosis, no clubbing, mild peripheral ankle edema not markedly pitting. Neurological: Awakens to stimuli, alert momentarily but falls back asleep quickly, able to answer orientation questions but again very fatigued likely secondary recent anesthetics and pain regimen, remains cooperative, seated upright in the bed, no acute distress, denies any pain, cognitive function decreased from baseline secondary to recent anesthetics and pain medication but likely improving; pupils equally reactive to light and accommodation, cranial nerves grossly normal but difficult assessment given recent postop with lethargy, does have history with a CVA with chronic left-sided hemiparesis but difficult assessment for testing given sedation currently, strength severely global decrease secondary recent OR and sedation. Psychiatric: Affect appears flat, fatigued, no acute evidence of depressive or anxiety feelings. Assessment & Plan Assessment/Plan (1) Macromastia: PLAN: Plan The patient is a 72 y/o F w/ PMHx: Obesity, Anxiety and Depression, Diabetes mellitus type II with chronic neuropathy, Chronic back pain s/p spinal cord stimuli, OA, Hx CVA with L sided hemiparesis, HTN, HLD, Hypothyroidism, Tobacco use who presents to the [facility] for planned BL breast reduction per Dr. Lebron. #1. Bilateral macromastia with painful symptomatology including neck pain, thoracic back pain, bilateral shoulder pain as well as inflammatory intertrigo issues: Patient admitted per Dr. Lebron, status post bilateral breast reduction, dressing changes as well as skin care per Dr. Lebron discretion, post-operative pain management, bowel regimen, DVT Prophylaxis, PT/OT/CM per Plastic surgery discretion. #2. Diabetes mellitus type II with chronic neuropathy: Recommend holding oral regimen in case of any imaging with contrast needs while hospitalized with resumption upon discharge, ADA diet, accu checks w/ ISS, continue patient home Gabapentin regimen. #3. Hypertension: Continue home regimen including clonidine, Lasix, PRN hydralazine. #4. Hyperlipidemia: We will continue patient on statin therapy. #5. Tobacco Abuse: Encouraged cessation, inpatient consultation per RT, NR if desired. #6. Anxiety depression: We will continue patient venlafaxine, aripiprazole, diazepam, benztropine chronic home regimen. #7. Hypothyroidism: We will continue patient on levothyroxine regimen. #8. Obesity: Weight loss and lifestyle changes encouraged. #9. GERD: We will continue patient on PPI. #10. History CVA: Patient with left-sided chronic per record, difficult to patient is extremely sedated, once appropriate per surgery would can you add aspirin, statin, hypertensive regimen and diabetic regimen with adjustments as noted. #11. DVT prophylaxis: SCDs, chemoprophylaxis per surgery discretion given recent OR. Charges/Coding Visit Charges Inpatient E&M: 36457 Subs Hosp L3
[2023-09-04] MEDS: Gabapentin 400 MG Capsule PO (20:24)
[2023-09-04] MEDS: Lactated Ringers 1,000 ML 60 ML IV (20:26)
[2023-09-04] MEDS: Docusate Sodium 100 MG Capsule PO (22:30)
[2023-09-04] MEDS: Benztropine Mesylate 0.5 MG TABLET PO (22:30)
[2023-09-04] MEDS: Venlafaxine HCl 75 MG Tablet 150 MG PO (22:32)
[2023-09-04] MEDS: Pravastatin 40 MG Tablet PO ×2 (22:32→22:33)
[2023-09-04] MEDS: Heparin Injection (Vial) 5,000 UNIT/ML VIAL 5000 UNIT SC (22:34)
[2023-09-04 23:12] LABS: Bedside Glucose 246 mg/dL (74-106)
[2023-09-05] VITALS (12 sets, daily range): BP systolic 110–132; BP diastolic 56–70; PULSE 89–112; RESP 18–24; TEMP 36.8–38.1; O2SAT 80–97; BMI 33.5
[2023-09-05] MEDS: oxyCODONE 5 MG Tablet PO ×4 (02:49→22:39)
[2023-09-05] MEDS: Acetaminophen 500 MG Tablet 1000 MG PO ×4 (02:49→18:50)
[2023-09-05] MEDS: Gabapentin 400 MG Capsule PO ×3 (06:42→22:39)
[2023-09-05] MEDS: Insulin Lispro 100 UNIT/ML INSULN.PEN SC ×4 (06:43→22:38)
[2023-09-05] MEDS: Levothyroxine 125 MCG Tablet PO (06:43)
[2023-09-05] MEDS: Cefazolin 1 GM/50 ML BAG IV ×3 (07:00→22:36)
[2023-09-05 07:22] LABS: Bedside Glucose 191 mg/dL (74-106)
[2023-09-05 07:40] LABS: Hematocrit 33.1 % (37-47); Hemoglobin 11.1 g/dL (12.0-15.0); Mean Corp Hgb Conc 33.5 g/dL (32-36); Mean Corpuscular Hgb 32.6 pg (27.0-32.0); Mean Corpuscular Volume 97.4 fL (81-99); Mean Platelet Vol. 9.3 fl (6.2-12.0); Platelet Count 396 K/mm3 (150-450); RBC Distribution Width CV 13.4 % (11.6-14.6); RBC Distribution Width SD 47.8 fl (35.1-43.9); White Blood Count 17.3 K/mm3 (4.4-11.0)
[2023-09-05] MEDS: Ensure Surgery 237 ML LIQUID PO (07:57)
[2023-09-05] MEDS: Ascorbic Acid 500 MG Tablet PO (07:58)
[2023-09-05] MEDS: Cholecalciferol (VIT D3) 25 MCG TABLET (1,000 UNITS) PO (07:58)
[2023-09-05] MEDS: Pantoprazole Sodium 40 MG Tablet PO (07:58)
[2023-09-05] MEDS: Magnesium Chloride 64 MG Delay Rel.Tablet 128 MG PO (07:58)
[2023-09-05] MEDS: metFORMIN HCl 1,000 MG Tablet 1000 MG PO ×2 (07:59→16:36)
[2023-09-05] MEDS: Venlafaxine HCl 75 MG Tablet 150 MG PO ×2 (07:59→22:36)
[2023-09-05] MEDS: Docusate Sodium 100 MG Capsule PO ×2 (07:59→22:32)
[2023-09-05] MEDS: Benztropine Mesylate 0.5 MG TABLET PO ×2 (07:59→22:35)
[2023-09-05] MEDS: ARIPiprazole 2 MG Tablet PO (07:59)
[2023-09-05] MEDS: Heparin Injection (Vial) 5,000 UNIT/ML VIAL 5000 UNIT SC ×2 (08:00→22:36)
[2023-09-05 08:17] LABS: Anion Gap 6 (5-15); BUN 16 mg/dL (7-18); BUN/Creat Ratio 12.8 RATIO (10-20); Calcium,Total 8.2 mg/dL (8.5-10.1); Chloride 106 mmol/L (98-107); Creatinine, Serum 1.25 mg/dL (0.55-1.02); EST Glomerular Filtration Rate 45 mL/min (>60); Est Glom Filt Rate - Afr Amer 54 mL/min (>60); Estimated Creatinine Clearance 31.15 ml/min; Glucose 218 mg/dL (74-106); Potassium 4.5 mmol/L (3.5-5.1); Prealbumin 18.7 mg/dL (20.0-40.0); Sodium Level 139 mmol/L (136-145)
--- NOTE | 2023-09-05 09:25 | PCM.PN.HOSP ---
Reason for Visit Reason for Visit: Diagnoses Type 2 diabetes mellitus without complications (09/04/23) Essential (primary) hypertension (09/04/23) Hypertrophy of breast (09/04/23) Encounter for other preprocedural examination (09/04/23) Subjective Subjective Patient is a 72-year-old lady who underwent bilateral breast reduction on account of bilateral macromastia. Procedure performed by Dr. Lebron on 09/04/2023 Objective Data Objective Data Vital Signs: Vital Signs Temp Pulse Resp BP Pulse Ox O2 Del Method O2 Flow Rate 98.4 F 90 18 118/69 95 Nasal Cannula 2 09/05/23 08:00 09/05/23 08:00 09/05/23 08:00 09/05/23 08:00 09/05/23 08:00 09/05/23 08:00 09/05/23 08:00 Oxygen Flow Rate (L/min) 2 Oxygen Delivery Method Nasal Cannula Weight: 83 kg Body Mass Index (BMI) 33.6 Intake & Output: Intake and Output for Last 24 Hours 09/03/23 09/04/23 09/05/23 23:59 23:59 23:59 Intake Total 2567.33 / 2567.33 50 / 50 Output Total 615 / 615 450 / 450 Balance 1952.33 / 1952.33 -400 / -400 Lab / Micro Data 09/05/23 07:20 09/05/23 07:20 Labs: Laboratory Results - last 24 hr 09/04/23 10:42: POC Glucose 259 H 09/04/23 12:39: POC Glucose 224 H 09/04/23 14:40: POC Glucose 310 H 09/04/23 15:58: POC Glucose 309 H 09/04/23 17:07: POC Glucose 311 H 09/04/23 22:41: POC Glucose 246 H 09/05/23 06:34: POC Glucose 191 H 09/05/23 07:20: WBC 17.3 H, RBC 3.40 L, Hgb 11.1 L, Hct 33.1 L, MCV 97.4, MCH 32.6 H, MCHC 33.5, RDW Std Deviation 47.8 H, RDW Coeff of Zafar 13.4, Plt Count 396, MPV 9.3, Sodium 139, Potassium 4.5, Chloride 106, Carbon Dioxide 27.0, Anion Gap 6, BUN 16, Creatinine 1.25 H, Estim Creat Clear Calc 31.15, Est GFR (MDRD) Af Amer 54 L, Est GFR (MDRD) Non-Af 45 L, BUN/Creatinine Ratio 12.8, Glucose 218 H, Calcium 8.2 L, Prealbumin 18.7 L Physical Exam Narrative GENERAL: cooperative HEENT: Atraumatic; normocephalic EYES; Anicteric, Normal Conjunctiva NECK; supple, normal thyroid, RESPIRATORY: Diminished to auscultation CARDIOVASCULAR: Regular S1 S2, GI: soft, normoactive bowel sounds, : No Renal angle tenderness; EXTREMITIES: No edema, no clubbing, MUSCULOSKELETAL: no muscle wasting NEURO: Awake; no lateralizing signs. SKIN: No Rash PSYCH; Flat affect Assessment & Plan Assessment/Plan (1) Macromastia: PLAN: Plan Patient is a 72-year-old lady who underwent bilateral breast reduction on account of bilateral macromastia. Procedure performed by Dr. Lebron on 09/04/2023. The hospitalist service consulted to assist with management of patient medical comorbidities 1. Status post bilateral breast reduction on account of bilateral macromastia. Procedure performed by Dr. Lebron on 09/04/2023. Postoperative orders regarding pain management and DVT prophylaxis deferred to primary service 2. Diabetes mellitus type 2 ? Patient oral hypoglycemic agent held please on Accu-Cheks before meals and at bedtime with sliding scale coverage 3. Dyslipidemia -Patient is on statin therapy, continued at home dose 4. GERD ? Patient is on PPI continue 5. Dyslipidemia -Patient is on statin therapy, continued at home dose 6. Class I obesity with BMI of 33.7 ? Weight loss advised 7. Depression with anxiety ? Patient is on SSRI in addition to benzos as needed continue 8. Tobacco dependence - Counseled on cessation, offered nicotine patch for tobacco cravings 9. Chronic back pain s/p spinal cord stimuli, 1. Generalized osteoarthritis ? Pain meds as needed 11. 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 Patient is on guideline directed medical therapy continue 12. DVT prophylaxis ? We will recommend low molecular weight if no contraindication decision deferred to primary service Time spent in the patient's overall evaluation,decision-making process, review of diagnostic data, adjustment of management, discussion with other providers, nursing nursing and ancillary staff involved in patient's care documentation, 40 Minutes Charges/Coding Visit Charges Inpatient E&M: 88019 Subs Hosp L2
[2023-09-05] MEDS: Lactated Ringers 1,000 ML 60 ML IV (11:12)
[2023-09-05 11:20] LABS: Bedside Glucose 191 mg/dL (74-106)
[2023-09-05 16:46] LABS: Bedside Glucose 240 mg/dL (74-106)
--- NOTE | 2023-09-05 19:00 | PCM.PN.SRG ---
Subjective Subjective Postop #1 Patient has some incisional pain. Had some trouble with ambulation. She was unsteady on her feet. She has dropped her cup when trying to drink at times. Objective Data Objective Data Vital Signs: Vital Signs Temp Pulse Resp BP Pulse Ox O2 Del Method O2 Flow Rate 98.7 F 91 16 123/63 H 87 Room Air 2 09/06/23 08:58 09/06/23 08:58 09/06/23 08:58 09/06/23 08:58 09/06/23 09:02 09/06/23 09:02 09/06/23 08:58 Oxygen Flow Rate (L/min) 2 Oxygen Delivery Method Room Air Weight: 182 lb 15.739 oz Body Mass Index (BMI) 33.6 Intake & Output: Intake and Output for Last 24 Hours 09/04/23 09/05/23 09/06/23 23:59 23:59 23:59 Intake Total 2567.33 / 2567.33 986 / 986 1100 / 1100 Output Total 615 / 615 1130 / 1130 Balance 1952.33 / 1952.33 -144 / -144 1100 / 1100 Drainage 130 ml yestersay Prealbumin was 18.7. Encourage nutritional supplementation with protein to help the healing process. Lab / Micro Data Attestation: I reviewed the patient's lab results. 09/05/23 07:20 09/05/23 07:20 Labs: Laboratory Results - last 24 hr 09/05/23 11:00: POC Glucose 191 H 09/05/23 16:28: POC Glucose 240 H 09/05/23 22:10: POC Glucose 224 H 09/06/23 07:02: POC Glucose 221 H Physical Exam Narrative General - Alert and Oriented HEENT - PERRL. EOMI. Neck - Supple and nontender. Breasts - soft and symmetrical. Incisions are dry and intact. Good breast contour noted. Nipples are viable. No clinical evidence of hematoma. Abdomen - Soft and nondistended. Neuro - CN II-XII grossly intact. Psych - Normal mood and affect. Assessment & Plan Assessment/Plan (1) Macromastia: (2) Chronic thoracic back pain: (3) Chronic neck pain: (4) Right shoulder pain: (5) Left shoulder pain: (6) Intertrigo: (7) Family history of breast cancer: (8) Recent weight loss: (9) DM type 2, goal HbA1c < 8%: (10) Unsteady gait: (11) Smoker: PLAN: Plan Patient has incisional pain. She is having trouble with coordination as she is dropping cups when she is drinking. She is also unsteady on her feet with ambulation. Has needed 2 people to help with assist. OT has evaluated her and recommend additional therapy. Hopefully this is anesthesia related with effect on the nervous system. Sometimes patients feel off for weeks before feeling back to their preop state. Will see how she does over night. She may need evaluation for a short term stay at a facility. In the meantime, keep head elevated. Continue lifting restriction (10 lbs). Continue breast compression to minimize swelling which can affect the healing process. Her drains will be removed next week. Will keep her overnight. If she gets more steady on her feet with ambulation, then will consider discharge home.
[2023-09-05] MEDS: cloNIDine HCl 0.1 MG Tablet PO (22:35)
[2023-09-05 23:21] LABS: Bedside Glucose 224 mg/dL (74-106)
[2023-09-06] VITALS (7 sets, daily range): BP systolic 92–123; BP diastolic 63–80; PULSE 80–100; RESP 16–18; TEMP 36.6–37.1; O2SAT 87–97
[2023-09-06] MEDS: oxyCODONE 5 MG Tablet PO (07:06)
[2023-09-06] MEDS: Gabapentin 400 MG Capsule PO ×3 (07:06→20:33)
[2023-09-06] MEDS: Levothyroxine 125 MCG Tablet PO (07:06)
[2023-09-06] MEDS: Insulin Lispro 100 UNIT/ML INSULN.PEN SC ×4 (07:07→20:33)
[2023-09-06] MEDS: Cefazolin 1 GM/50 ML BAG IV ×3 (07:18→20:32)
--- NOTE | 2023-09-06 07:26 | PN.HOSP_ITS ---
Reason for Visit Reason for Visit: Diagnoses Type 2 diabetes mellitus without complications (09/04/23) Nicotine dependence, unspecified, uncomplicated (09/04/23) Other chronic pain (09/04/23) Essential (primary) hypertension (09/04/23) Erythema intertrigo (09/04/23) Pain in right shoulder (09/04/23) Pain in left shoulder (09/04/23) Cervicalgia (09/04/23) Pain in thoracic spine (09/04/23) Hypertrophy of breast (09/04/23) Abnormal weight loss (09/04/23) Encounter for other preprocedural examination (09/04/23) Family history of malignant neoplasm of breast (09/04/23) Subjective Subjective Postoperative day 2. Patient seen pain is tolerable. Objective Data Objective Data Vital Signs: Vital Signs Temp Pulse Resp BP Pulse Ox O2 Del Method O2 Flow Rate 98.5 F 98 18 120/68 95 Nasal Cannula 2 09/06/23 03:45 09/06/23 03:45 09/06/23 03:45 09/06/23 03:45 09/06/23 03:45 09/06/23 03:45 09/06/23 03:45 Oxygen Flow Rate (L/min) 2 Oxygen Delivery Method Nasal Cannula Weight: 83 kg Body Mass Index (BMI) 33.6 Intake & Output: Intake and Output for Last 24 Hours 09/04/23 09/05/23 09/06/23 23:59 23:59 23:59 Intake Total 2567.33 / 2567.33 986 / 986 1050 / 1050 Output Total 615 / 615 1130 / 1130 Balance 2.33 / 2.33 -144 / -144 1050 / 1050 Lab / Micro Data 09/05/23 07:20 09/05/23 07:20 Labs: Laboratory Results - last 24 hr 09/05/23 07:20: WBC 17.3 H, RBC 3.40 L, Hgb 11.1 L, Hct 33.1 L, MCV 97.4, MCH 32.6 H, MCHC 33.5, RDW Std Deviation 47.8 H, RDW Coeff of Zafar 13.4, Plt Count 396, MPV 9.3, Sodium 139, Potassium 4.5, Chloride 106, Carbon Dioxide 27.0, Anion Gap 6, BUN 16, Creatinine 1.25 H, Estim Creat Clear Calc 31.15, Est GFR (MDRD) Af Amer 54 L, Est GFR (MDRD) Non-Af 45 L, BUN/Creatinine Ratio 12.8, Gl ucose 218 H, Calcium 8.2 L, Prealbumin 18.7 L 09/05/23 11:00: POC Glucose 191 H 09/05/23 16:28: POC Glucose 240 H 09/05/23 22:10: POC Glucose 224 H Physical Exam Narrative GENERAL: cooperative HEENT: Atraumatic; normocephalic EYES; Anicteric, Normal Conjunctiva NECK; supple, normal thyroid, RESPIRATORY: Diminished to auscultation CARDIOVASCULAR: Regular S1 S2, GI: soft, normoactive bowel sounds, : No Renal angle tenderness; EXTREMITIES: No edema, no clubbing, MUSCULOSKELETAL: no muscle wasting NEURO: Awake; no lateralizing signs. SKIN: No Rash PSYCH; Flat affect Assessment & Plan Assessment/Plan (1) Macromastia: PLAN: Plan Patient is a 72-year-old lady who underwent bilateral breast reduction on account of bilateral macromastia. Procedure performed by Dr. Lebron on 09/04/2023. The hospitalist service consulted to assist with management of patient medical comorbidities 1. Status post bilateral breast reduction on account of bilateral macromastia. Procedure performed by Dr. Lebron on 09/04/2023. Postoperative orders regarding pain management and DVT prophylaxis deferred to primary service ? Postoperative day 2; pain is tolerable 2. Diabetes mellitus type 2 ? Patient oral hypoglycemic agent held please on Accu-Cheks before meals and at bedtime with sliding scale coverage 3. Dyslipidemia -Patient is on statin therapy, continued at home dose 4. GERD ? Patient is on PPI continue 5. Dyslipidemia -Patient is on statin therapy, continued at home dose 6. Class I obesity with BMI of 33.7 ? Weight loss advised 7. Depression with anxiety ? Patient is on SSRI in addition to benzos as needed continue 8. Tobacco dependence - Counseled on cessation, offered nicotine patch for tobacco cravings 9. Chronic back pain s/p spinal cord stimuli, 1. Generalized osteoarthritis ? Pain meds as needed 11. 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 Patient is on guideline directed medical therapy continue 12. DVT prophylaxis ? SC SC heparin Time spent in the patient's overall evaluation,decision-making process, review of diagnostic data, adjustment of management, discussion with other providers, nursing nursing and ancillary staff involved in patient's care documentation, 35 Minutes
[2023-09-06 07:36] LABS: Bedside Glucose 221 mg/dL (74-106)
[2023-09-06] MEDS: Acetaminophen 500 MG Tablet 1000 MG PO ×3 (07:43→18:23)
[2023-09-06] MEDS: Magnesium Chloride 64 MG Delay Rel.Tablet 128 MG PO (08:13)
[2023-09-06] MEDS: Docusate Sodium 100 MG Capsule PO ×2 (08:13→20:33)
[2023-09-06] MEDS: Venlafaxine HCl 75 MG Tablet 150 MG PO ×2 (08:13→20:33)
[2023-09-06] MEDS: Benztropine Mesylate 0.5 MG TABLET PO ×2 (08:13→20:32)
[2023-09-06] MEDS: Pantoprazole Sodium 40 MG Tablet PO (08:14)
[2023-09-06] MEDS: Cholecalciferol (VIT D3) 25 MCG TABLET (1,000 UNITS) PO (08:14)
[2023-09-06] MEDS: metFORMIN HCl 1,000 MG Tablet 1000 MG PO ×2 (08:14→17:47)
[2023-09-06] MEDS: Ascorbic Acid 500 MG Tablet PO (08:14)
[2023-09-06] MEDS: Heparin Injection (Vial) 5,000 UNIT/ML VIAL 5000 UNIT SC ×2 (08:15→20:33)
[2023-09-06] MEDS: Ensure Surgery 237 ML LIQUID PO ×3 (08:18→17:51)
--- NOTE | 2023-09-06 08:21 | CASEMGMT ---
Met with patient on 09/05/23 to complete [employer] form. [employer] form explained to patient who voiced understanding and signed form. Original form placed in pt?s chart and copy provided to patient.? Kenzie Mendez, Discharge Planning Asst
[2023-09-06] MEDS: ARIPiprazole 2 MG Tablet PO (10:02)
--- NOTE | 2023-09-06 12:55 | PCM.PN.SRG ---
Subjective Subjective Postop #2 She is still unsteady on her feet when the nurses get her up. When she tries to drink something, sometimes the cup would fall to the ground. Objective Data Objective Data Vital Signs: Vital Signs Temp Pulse Resp BP Pulse Ox O2 Del Method O2 Flow Rate 98.2 F 94 18 92/80 95 Nasal Cannula 2 09/06/23 11:32 09/06/23 11:32 09/06/23 11:32 09/06/23 11:32 09/06/23 11:32 09/06/23 11:32 09/06/23 11:32 Oxygen Flow Rate (L/min) 2 Oxygen Delivery Method Nasal Cannula Weight: 182 lb 15.739 oz Body Mass Index (BMI) 33.6 Intake & Output: Intake and Output for Last 24 Hours 09/04/23 09/05/23 09/06/23 23:59 23:59 23:59 Intake Total 2567.33 / 2567.33 986 / 986 1550 / 1550 Output Total 615 / 615 1130 / 1130 380 / 380 Balance 1952.33 / 1951.33 -144 / -144 1170 / 1170 [id number] ml yesterday Prealbumin was 18.7. Encourage nutritional supplementation with protein to help the healing process. Lab / Micro Data Attestation: I reviewed the patient's lab results. Lab results narrative: Hgb today was lower at 9.3 as it was 11.1 yesterday. There is no clinical evidence of hematoma. Operative blood loss was 150 ml. There can also be IV fluid dilution as her I's/O's are positive about 3000 ml. Will repeat the Hgb tomorrow. Patient states she takes a Multivitamin with Iron at home. If the Hgb continues to drop, will consider PRBC. The added oxygenation should help the healing process and also help her mentation as she feels out of sorts since the surgery. She is also more forgetful than usual since the surgery. 09/08/23 07:00 09/08/23 07:00 Labs: Laboratory Results - last 24 hr 09/05/23 16:28: POC Glucose 240 H 09/05/23 22:10: POC Glucose 224 H 09/06/23 07:02: POC Glucose 221 H Physical Exam Narrative General - Alert and Oriented HEENT - PERRL. EOMI. Neck - Supple and nontender. Breasts - soft and symmetrical. Incisions are dry and intact. Good breast contour noted. Nipples are viable. No clinical evidence of hematoma. Abdomen - Soft and nondistended. Neuro - CN II-XII grossly intact. Psych - Normal mood and affect. Assessment & Plan Assessment/Plan (1) Macromastia: (2) Chronic thoracic back pain: (3) Chronic neck pain: (4) Right shoulder pain: (5) Left shoulder pain: (6) Intertrigo: (7) Family history of breast cancer: (8) Recent weight loss: (9) DM type 2, goal HbA1c < 8%: (10) Unsteady gait: (11) Smoker: PLAN: Plan Patient has incisional pain. She continues to have trouble with coordination as she is dropping cups when she is drinking. She continues to be unsteady on her feet with ambulation. OT has evaluated her and recommend additional therapy. Hgb today was lower at 9.3 as it was 11.1 yesterday. There is no clinical evidence of hematoma. Operative blood loss was 150 ml. There can also be IV fluid dilution as her I's/O's are positive about 3000 ml. Will repeat the Hgb tomorrow. Patient states she takes a Multivitamin with Iron at home. If the Hgb continues to drop, will consider PRBC. The added oxygenation should help the healing process and also help her mentation as she feels out of sorts since the surgery. She is also more forgetful than usual since the surgery. In the meantime, keep head elevated. Continue lifting restriction (10 lbs). Continue breast compression to minimize swelling which can affect the healing process. Her drains will be removed next week. Will have Communications Advisor evaluate for a short term stay at a facility. At this time, she cannot go home safely as she lives alone and is at risk for falling which can cause injury. Encouraged patient to stop smoking as it may have deleterious effects on wound healing.
[2023-09-06 14:11] LABS: Hematocrit 29.8 % (37-47); Hemoglobin 9.3 g/dL (12.0-15.0); Mean Corp Hgb Conc 31.2 g/dL (32-36); Mean Corpuscular Hgb 31.4 pg (27.0-32.0); Mean Corpuscular Volume 100.7 fL (81-99); Mean Platelet Vol. 9.9 fl (6.2-12.0); Platelet Count 352 K/mm3 (150-450); RBC Distribution Width CV 13.5 % (11.6-14.6); RBC Distribution Width SD 49.5 fl (35.1-43.9); Red Blood Count 2.96 M/mm3 (4.2-5.4)
--- NOTE | 2023-09-06 14:30 | CASEMGMT ---
Addendum entered by Cierra Betancur 09/06/23 16:38: Social Work SW received return phone call from pt's dgt Micha Quick. Micha states that pt has cognitive impairment at baseline. Pt does not know day or time and often does not know who family members are. Micha feels pt is not safe to live alone but pt has been unwilling to go to a facility. Pt becomes agitated with family when corrected or if the try to help. SW spoke with Lisa about possible need for SNF from hospital. Annika will be in to speak with pt regarding this. SW met with pt and broached topic of SNF. Pt adamant that she will not go to a SNF and that her friend Claudia Cotto will pick her up and stay with her when she is discharged. A list of SNF providers including quality and resource use data and consistent with the patient?s preferred geographic region, medical needs, and insurance network were provided from the [facility]. SW to followup for discharge planning. TIFF Cantrell Original Note: Social Work SW received referral from physician that pt may need a SNF if pt does not improve over the weekend. SW met with pt and introduced self and role of SW. Pt crying throughout conversation. Pt becoming upset with SW when asked questions and pt is not able to answer questions correctly. Pt is not thinking clearly at this time. SW met with therapy who reports pt is not functioning poorly, but cognitive issues are concerning with return home alone. Phone call to pt's daughter Lisa and VM left requesting return call. TIFF Cantrell
[2023-09-06 14:33] LABS: Anion Gap 5 (5-15); BUN 15 mg/dL (7-18); BUN/Creat Ratio 14.2 RATIO (10-20); Calcium,Total 8.3 mg/dL (8.5-10.1); Chloride 103 mmol/L (98-107); Creatinine, Serum 1.06 mg/dL (0.55-1.02); EST Glomerular Filtration Rate 54 mL/min (>60); Est Glom Filt Rate - Afr Amer 66 mL/min (>60); Estimated Creatinine Clearance 36.73 ml/min; Glucose 218 mg/dL (74-106); Magnesium 2.1 mg/dL (1.6-2.6); Potassium 3.8 mmol/L (3.5-5.1); Sodium Level 136 mmol/L (136-145)
[2023-09-06 14:45] LABS: Bedside Glucose 217 mg/dL (74-106)
[2023-09-06] MEDS: 0.9% Saline Lock 10 ML Syringe IV (14:59)
[2023-09-06] MEDS: cloNIDine HCl 0.1 MG Tablet PO (20:32)
[2023-09-06] MEDS: Pravastatin 40 MG Tablet PO (20:34)
[2023-09-06 21:35] LABS: Bedside Glucose 213 mg/dL (74-106)
--- NOTE | 2023-09-06 22:07 | PCM.HOSP.N ---
Hospitalist Note Patient restless and agitated. Will given low dose seroquel x 1. CBC review with WBC increasing, possibly reactive, currently afebrile. Will order also procalcitonin.
[2023-09-06] MEDS: QUEtiapine 25 MG Tablet PO (22:20)
[2023-09-06 22:38] LABS: Procalcitonin 0.47 ng/mL (0.00-0.09)
[2023-09-06 22:53] LABS: Bedside Glucose 254 mg/dL (74-106)
[2023-09-07] MEDS: Acetaminophen 500 MG Tablet 1000 MG PO ×4 (01:16→22:53)
[2023-09-07 03:00] VITALS: BP 105/54; PULSE 92; RESP 18; TEMP 37; O2SAT 93
[2023-09-07] MEDS: Cefazolin 1 GM/50 ML BAG IV ×3 (06:00→22:53)
[2023-09-07] MEDS: Insulin Lispro 100 UNIT/ML INSULN.PEN SC ×4 (06:02→22:58)
[2023-09-07] MEDS: Levothyroxine 125 MCG Tablet PO (06:02)
[2023-09-07] MEDS: Gabapentin 400 MG Capsule PO ×3 (06:11→22:53)
[2023-09-07 06:46] LABS: Absolute Lymphocyte Count 2.59 X10^3/uL (0.83-4.51); Absolute Neutrophil Count 9.6 X10^3/uL (2.0-7.7); Basophil# 0.05 X10^3/uL; Basophil% 0.3 % (0-1); Eosinophil# 0.08 X10^3/uL; Eosinophils% 0.6 % (0-5); Hematocrit 25.4 % (37-47); Hemoglobin 8.1 g/dL (12.0-15.0); Lymphocyte # 2.59 X10^3/ul (0.83-4.51); Mean Corp Hgb Conc 31.9 g/dL (32-36); Mean Corpuscular Hgb 31.6 pg (27.0-32.0); Mean Corpuscular Volume 99.2 fL (81-99); Mean Platelet Vol. 9.6 fl (6.2-12.0); Monocyte# 1.78 X10^3/uL; Monocyte% 12.4 % (0-10); NRBC Flagged by Analyzer 0 % (0-5); Neutrophil # 9.62 X10^3/uL (2.7-7.7); Neutrophil % 67.1 % (47-70); POSITIVE DIFFERENTIAL YES; Platelet Count 287 K/mm3 (150-450); RBC Distribution Width CV 13.2 % (11.6-14.6); RBC Distribution Width SD 47.5 fl (35.1-43.9); Red Blood Count 2.56 M/mm3 (4.2-5.4); White Blood Count 14.4 K/mm3 (4.4-11.0)
--- NOTE | 2023-09-07 06:55 | PCM.PN.HOSP ---
Reason for Visit Reason for Visit: Diagnoses Type 2 diabetes mellitus without complications (09/04/23) Nicotine dependence, unspecified, uncomplicated (09/04/23) Other chronic pain (09/04/23) Essential (primary) hypertension (09/04/23) Erythema intertrigo (09/04/23) Pain in right shoulder (09/04/23) Pain in left shoulder (09/04/23) Cervicalgia (09/04/23) Pain in thoracic spine (09/04/23) Hypertrophy of breast (09/04/23) Unsteadiness on feet (09/04/23) Abnormal weight loss (09/04/23) Encounter for other preprocedural examination (09/04/23) Family history of malignant neoplasm of breast (09/04/23) Subjective Subjective Patient seen complains of bilateral breast pain. Overall strength improving Objective Data Objective Data Vital Signs: Vital Signs Temp Pulse Resp BP Pulse Ox O2 Del Method O2 Flow Rate 98.6 F 92 18 105/54 L 93 Room Air 2 09/07/23 03:00 09/07/23 03:00 09/07/23 03:00 09/07/23 03:00 09/07/23 03:00 09/07/23 03:00 09/06/23 11:32 Oxygen Flow Rate (L/min) 2 Oxygen Delivery Method Room Air Weight: 83 kg Body Mass Index (BMI) 33.6 Intake & Output: Intake and Output for Last 24 Hours 09/05/23 09/06/23 09/07/23 23:59 23:59 23:59 Intake Total 986 / 986 2200 / 2200 190 / 190 Output Total 1130 / 1130 430 / 490 60 / 60 Balance -144 / -144 1770 / 1710 130 / 130 Lab / Micro Data 09/07/23 06:27 09/07/23 06:27 Labs: Laboratory Results - last 24 hr 09/06/23 07:02: POC Glucose 221 H 09/06/23 10:56: POC Glucose 217 H 09/06/23 12:00: WBC 19.0 H, RBC 2.96 L, Hgb 9.3 L, Hct 29.8 L, MCV 100.7 H, MCH 31.4, MCHC 31.2 L D, RDW Std Deviation 49.5 H, RDW Coeff of Zafar 13.5, Plt Count 352, MPV 9.9, Sodium 136, Potassium 3.8, Chloride 103, Carbon Dioxide 28.0, Anion Gap 5, BUN 15, Creatinine 1.06 H, Estim Creat Clear Calc 36.73, Est GFR (MDRD) Af Amer 66, Est GFR (MDRD) Non-Af 54 L, BUN/Creatinine Ratio 14.2, Glucose 218 H, Calcium 8.3 L, Magnesium 2.1, Procalcitonin 0.47 H 09/06/23 15:50: POC Glucose 213 H 09/06/23 20:28: POC Glucose 254 H Physical Exam Narrative GENERAL: cooperative HEENT: Atraumatic; normocephalic EYES; Anicteric, Normal Conjunctiva NECK; supple, normal thyroid, RESPIRATORY: Diminished to auscultation CARDIOVASCULAR: Regular S1 S2, GI: soft, normoactive bowel sounds, : No Renal angle tenderness; EXTREMITIES: No edema, no clubbing, MUSCULOSKELETAL: no muscle wasting NEURO: Awake; no lateralizing signs. SKIN: No Rash PSYCH; Flat affect Assessment & Plan Assessment/Plan (1) Macromastia: PLAN: Plan Patient is a 72-year-old lady who underwent bilateral breast reduction on account of bilateral macromastia. Procedure performed by Dr. Lebron on 09/04/2023. The hospitalist service consulted to assist with management of patient medical comorbidities 1. Status post bilateral breast reduction on account of bilateral macromastia. Procedure performed by Dr. Lebron on 09/04/2023. Postoperative orders regarding pain management and DVT prophylaxis deferred to primary service ? Postoperative day 2; pain is tolerable 2. Diabetes mellitus type 2 ? Patient oral hypoglycemic agent held please on Accu-Cheks before meals and at bedtime with sliding scale coverage 3. Dyslipidemia -Patient is on statin therapy, continued at home dose 4. GERD ? Patient is on PPI continue 5. Dyslipidemia -Patient is on statin therapy, continued at home dose 6. Class I obesity with BMI of 33.7 ? Weight loss advised 7. Depression with anxiety ? Patient is on SSRI in addition to benzos as needed continue 8. Tobacco dependence - Counseled on cessation, offered nicotine patch for tobacco cravings 9. Chronic back pain s/p spinal cord stimuli, 1. Generalized osteoarthritis ? Pain meds as needed 11. 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 Patient is on guideline directed medical therapy continue 12. DVT prophylaxis ? SC SC heparin 13. Physical deconditioning - Requested for PT OT eval and social research assistant to assist with discharge planning Time spent in the patient's overall evaluation,decision-making process, review of diagnostic data, adjustment of management, discussion with other providers, nursing nursing and ancillary staff involved in patient's care documentation, 35 Minutes Charges/Coding Visit Charges Inpatient E&M: 78446 Subs Hosp L2
[2023-09-07 07:06] LABS: Anion Gap 4 (5-15); BUN 13 mg/dL (7-18); BUN/Creat Ratio 17.2 RATIO (10-20); Calcium,Total 8.1 mg/dL (8.5-10.1); Chloride 106 mmol/L (98-107); Creatinine, Serum 0.76 mg/dL (0.55-1.02); Differential Indicated SCAN CRITERIA MET; EST Glomerular Filtration Rate 80 mL/min (>60); Est Glom Filt Rate - Afr Amer 97 mL/min (>60); Estimated Creatinine Clearance 38.94 ml/min; Glucose 202 mg/dL (74-106); Magnesium 1.8 mg/dL (1.6-2.6); Phosphorus 1.4 mg/dL (2.5-4.9); Potassium 3.5 mmol/L (3.5-5.1); Sodium Level 140 mmol/L (136-145)
[2023-09-07 07:14] LABS: Bedside Glucose 184 mg/dL (74-106)
[2023-09-07 07:15] VITALS: O2SAT 94
[2023-09-07 07:19] LABS: Differential Comment SCANNED
[2023-09-07 07:20] LABS: Hypochromasia 2+
[2023-09-07 08:42] VITALS: BP 112/52; PULSE 84; RESP 16; TEMP 36.9; O2SAT 96
[2023-09-07] MEDS: Ensure Surgery 237 ML LIQUID PO ×3 (08:51→16:56)
[2023-09-07] MEDS: Magnesium Chloride 64 MG Delay Rel.Tablet 128 MG PO (08:52)
[2023-09-07] MEDS: Venlafaxine HCl 75 MG Tablet 150 MG PO ×2 (08:52→22:52)
[2023-09-07] MEDS: Docusate Sodium 100 MG Capsule PO ×2 (08:53→22:53)
[2023-09-07] MEDS: Benztropine Mesylate 0.5 MG TABLET PO ×2 (08:53→23:30)
[2023-09-07] MEDS: ARIPiprazole 2 MG Tablet PO (08:53)
[2023-09-07] MEDS: Heparin Injection (Vial) 5,000 UNIT/ML VIAL 5000 UNIT SC ×2 (08:54→22:54)
[2023-09-07] MEDS: Pantoprazole Sodium 40 MG Tablet PO (08:54)
[2023-09-07] MEDS: metFORMIN HCl 1,000 MG Tablet 1000 MG PO ×2 (08:54→16:57)
[2023-09-07] MEDS: Cholecalciferol (VIT D3) 25 MCG TABLET (1,000 UNITS) PO (08:55)
[2023-09-07] MEDS: Ascorbic Acid 500 MG Tablet PO (08:55)
[2023-09-07 11:45] LABS: Bedside Glucose 267 mg/dL (74-106)
[2023-09-07 15:05] VITALS: BP 101/56; PULSE 83; RESP 16; TEMP 37.1; O2SAT 95
--- NOTE | 2023-09-07 15:17 | CASEMGMT ---
Social Work SW met w/pt in room in regard to discharge plan, and prior level of function. Pt alert and oriented, though did exhibit some forgetfulness. PCP: Cassia Dupont Specialists: Dr. Lebron--plastic surgeon, Dr. Cox--pain management Pharmacy: [facility] in [place] and [employer] [facility] [employer]: [employer] Living arrangements/prior level of function: Pt lives home alone in an apartment, no steps to enter. Pt states is independent with ADLs. She states she does her own cooking, cleaning, med set up. Pt states still drives. Pt states she sets up her medications every day for morning and evening. LNOK: Pt states has two daughters, one here and one in [place]. Pt states her daughter Iza from [place] is coming to visit and to help pt. She told RN she is coming in on Saturday, she told this SW she will be here this evening at 11:30pm. Pt states if her daughter is not here and she is discharged, her friend Claudia Cotto will stay w/her. LW/POA: Pt states has POA for healthcare, it's her daughter Micha DME: [facility]HC: Pt has had HHC before. She states it was with [facility]. SW spoke w/pt about discharge plan. Pt states plans to return home. She is politely declining a [facility] referral. Pt did not remember speaking w/the SW yesterday about this, but still is stating does not want to go to a [facility]. SW did mention to pt his daughter has concerns about her going home, and that she has some memory issues. Pt states that everybody has memory issues when they get older. She does not want to go to a [facility] for rehab. She is agreeable to home health. Pt declined a list for home health, would like a referral to [facility]. Pt states she just wants to get home to her cat, Carmen. She states her friend is feeding her cat while she is here. SW spoke w/CM, she will make a referral to [facility]--for both nursing and SW. SW called daughter Micha in regard to discharge plan. She confirmed that pt's daughter Iza is coming in from [place] today, and Micha is at the airport now to pick her up. SW spoke w/her about discharge plan. SW explained pt is not agreeable to a [facility] for rehab, and likely would not qualify anyway. SW explained that pt is agreeable to home health, and would like [facility]. SW explained the geriatric case manager will make a referral to [facility] for nursing and social work. Daughter is concerned about pt's ability to be at home fdc given her memory issues. Today however, pt's memory is better it seems than yesterday. Daughter did mention whether or not pt was getting her thyroid medication, as one other time pt was not taking her thyroid medication and she got more confused. SW stated would ask the RN. SW did ask RN, pt is getting her thryoid medication. Plan will be for pt to return home, CM making referral to [facility]. KRAL Gaona
--- NOTE | 2023-09-07 16:31 | CASEMGMT ---
RN CM NOTE: Per YOSEF Peres, family would like [facility]. Order placed for SN and SW. PT/OT also added, as per therapy notes, additional therapy is recommended. Call placed to [facility] and left w/them re:referral. E-mail sent to Kenzie, shoe lay out planner, for her to f/u re: referral on Saturday. Dylon ESCALANTE RNCM
[2023-09-07 17:16] LABS: Bedside Glucose 150 mg/dL (74-106)
--- NOTE | 2023-09-07 20:00 | PN.SURG_ITS ---
Subjective Subjective Postop #3 Patient has incisional pain. Patient is anxious to go home but still has some coordination issues and ment ation issues. Objective Data Objective Data Vital Signs: Vital Signs Temp Pulse Resp BP Pulse Ox O2 Del Method O2 Flow Rate 98.7 F 83 16 101/56 L 95 Room Air 2 09/07/23 15:05 09/07/23 15:05 09/07/23 15:05 09/07/23 15:05 09/07/23 15:05 09/07/23 15:05 09/06/23 11:32 Oxygen Flow Rate (L/min) 2 Oxygen Delivery Method Room Air Weight: 182 lb 15.739 oz Body Mass Index (BMI) 33.6 Intake & Output: Intake and Output for Last 24 Hours 09/05/23 09/06/23 09/07/23 23:59 23:59 23:59 Intake Total 986 / 986 2200 / 2200 240 / 240 Output Total 1130 / 1130 430 / 490 130 / 130 Balance -144 / -144 1770 / 1710 110 / 110 Drainage 130 ml yesterday. Prealbumin was 18.7. Encourage nutritional supplementation with protein to help the healing process. Lab / Micro Data Attestation: I reviewed the patient's lab results. Lab results narrative: Hgb today was lower at 8.1 which is down from 9.3 drawn yesterday. Her Hgb the first postop day was 11.1. There is no clinical evidence of hematoma. Operative blood loss was 150 ml. Patient has acute postoperative anemia due to expected blood loss. There can also be IV fluid dilution as her I's/O's are positive about 3600 ml. Will repeat the Hgb tomorrow. Patient states she takes a Multivitamin with Iron at home. If it continues to drop, she will need PRBC to improve the oxygenation to help the healing process and should help with her mentation. 09/08/23 07:00 09/08/23 07:00 Labs: Laboratory Results - last 24 hr 09/06/23 12:00: Procalcitonin 0.47 H 09/06/23 15:50: POC Glucose 213 H 09/06/23 20:28: POC Glucose 254 H 09/07/23 06:01: POC Glucose 184 H 09/07/23 06:27: WBC 14.4 H, RBC 2.56 L, Hgb 8.1 L, Hct 25.4 L, MCV 99.2 H, MCH 31.6, MCHC 31.9 L, RDW Std Deviation 47.5 H, RDW Coeff of Zafar 13.2, Plt Count 287, MPV 9.6, Immature Gran % (Auto) 1.600 H, Neut % (Auto) 67.1, Lymph % (Auto) 18.0 L, Mcdowell % (Auto) 12.4 H, Eos % (Auto) 0.6, Baso % (Auto) 0.3, Absolute Neuts (auto) 9.6 H, Absolute Lymphs (auto) 2.59, Nucleated RBC % 0, Differential Comment SCANNED, Diff Path Review May foll, Hypochromasia 2+, Sodium 140, Potassium 3.5, Chloride 106, Carbon Dioxide 30.0, Anion Gap 4 L, BUN 13, Creatinine 0.76, Estim Creat Clear Calc 38.94, Est GFR (MDRD) Af Amer 97, Est GFR (MDRD) Non-Af 80, BUN/Creatinine Ratio 17.2, Glucose 202 H, Calcium 8.1 L, Phosphorus 1.4 L, Magnesium 1.8 09/07/23 11:09: POC Glucose 267 H 09/07/23 16:58: POC Glucose 150 H Physical Exam Narrative General - Alert and Oriented HEENT - PERRL. EOMI. Neck - Supple and nontender. Breasts - soft and symmetrical. Incisions are dry and intact. Good breast contour noted. Nipples are viable. No clinical evidence of hematoma. Abdomen - Soft and nondistended. Neuro - CN II-XII grossly intact. Psych - Normal mood and affect. Assessment & Plan Assessment/Plan (1) Macromastia: (2) Chronic thoracic back pain: (3) Chronic neck pain: (4) Right shoulder pain: (5) Left shoulder pain: (6) Intertrigo: (7) Family history of breast cancer: (8) Recent weight loss: (9) DM type 2, goal HbA1c < 8%: (10) Acute postoperative anemia due to expected blood loss: (11) Unsteady gait: (12) Smoker: PLAN: Plan Patient has incisional pain. From reports, her hand coordination is slightly improving, but she is still dropping things. She is still unsteady on her feet with ambulation. OT has evaluated her and recommend additional therapy. Hgb today was lower at 8.1 which is down from 9.3 drawn yesterday. Her Hgb the first postop day was 11.1. There is no clinical evidence of hematoma. Operative blood loss was 150 ml. Patient has acute postoperative anemia due to expected blood loss. There can also be IV fluid dilution as her I's/O's are positive about 3600 ml. Will repeat the Hgb tomorrow. Patient states she takes a Multivitamin with Iron at home. If it continues to drop, she will need PRBC to improve the oxygenation to help the healing process and should help with her mentation. In the meantime, keep head elevated. Continue lifting restriction (10 lbs). C ontinue breast compression to minimize swelling which can affect the healing process. Her drains will be removed next week. Evaluation for an ECF is process as she is still dropping things and still u nsteady on her feet with ambulation. Encouraged patient to stop smoking as it may have deleterious effects on wound healing.
[2023-09-07 20:10] VITALS: BP 117/49; PULSE 80; RESP 18; TEMP 37.4; O2SAT 96
[2023-09-07] MEDS: oxyCODONE 5 MG Tablet PO (20:23)
[2023-09-07] MEDS: cloNIDine HCl 0.1 MG Tablet PO (22:53)
[2023-09-07] MEDS: Pravastatin 40 MG Tablet PO (22:53)
[2023-09-07 23:27] LABS: Bedside Glucose 202 mg/dL (74-106)
[2023-09-08] VITALS (14 sets, daily range): BP systolic 110–143; BP diastolic 48–97; PULSE 70–88; RESP 16–18; TEMP 36.6–37.2; O2SAT 90–98
[2023-09-08] MEDS: Insulin Lispro 100 UNIT/ML INSULN.PEN SC ×2 (06:01→11:43)
[2023-09-08] MEDS: Acetaminophen 500 MG Tablet 1000 MG PO ×3 (06:02→17:20)
[2023-09-08] MEDS: Levothyroxine 125 MCG Tablet PO (06:03)
[2023-09-08] MEDS: Cefazolin 1 GM/50 ML BAG IV ×3 (06:03→21:34)
[2023-09-08] MEDS: Gabapentin 400 MG Capsule PO ×3 (06:03→21:33)
[2023-09-08 06:34] LABS: Bedside Glucose 181 mg/dL (74-106)
--- NOTE | 2023-09-08 07:26 | PCM.PN.HOSP ---
Reason for Visit Reason for Visit: Diagnoses Type 2 diabetes mellitus without complications (09/04/23) Nicotine dependence, unspecified, uncomplicated (09/04/23) Other chronic pain (09/04/23) Essential (primary) hypertension (09/04/23) Erythema intertrigo (09/04/23) Pain in right shoulder (09/04/23) Pain in left shoulder (09/04/23) Cervicalgia (09/04/23) Pain in thoracic spine (09/04/23) Hypertrophy of breast (09/04/23) Unsteadiness on feet (09/04/23) Abnormal weight loss (09/04/23) Encounter for other preprocedural examination (09/04/23) Family history of malignant neoplasm of breast (09/04/23) Subjective Subjective Since seen had a relatively uneventful night. Patient hemoglobin low at 8.3. Also remains deconditioned. Objective Data Objective Data Vital Signs: Vital Signs Temp Pulse Resp BP Pulse Ox O2 Del Method O2 Flow Rate 98.3 F 81 18 113/63 94 Room Air 2 09/08/23 02:00 09/08/23 02:00 09/08/23 02:00 09/08/23 02:00 09/08/23 02:05 09/08/23 02:05 09/06/23 11:32 Oxygen Flow Rate (L/min) 2 Oxygen Delivery Method Room Air Weight: 83 kg Body Mass Index (BMI) 33.6 Intake & Output: Intake and Output for Last 24 Hours 09/06/23 09/07/23 09/08/23 23:59 23:59 22:59 Intake Total 2200 / 2200 240 / 640 900 / 900 Output Total 430 / 490 130 / 130 50 / 50 Balance 1770 / 1710 110 / 510 850 / 850 Lab / Micro Data 09/08/23 07:00 09/08/23 07:00 Labs: Laboratory Results - last 24 hr 09/07/23 11:09: POC Glucose 267 H 09/07/23 16:58: POC Glucose 150 H 09/07/23 22:56: POC Glucose 202 H 09/08/23 05:59: POC Glucose 181 H Physical Exam Narrative GENERAL: cooperative HEENT: Atraumatic; normocephalic EYES; Anicteric, Normal Conjunctiva NECK; supple, normal thyroid, RESPIRATORY: Diminished to auscultation CARDIOVASCULAR: Regular S1 S2, GI: soft, normoactive bowel sounds, : No Renal angle tenderness; EXTREMITIES: No edema, no clubbing, MUSCULOSKELETAL: no muscle wasting NEURO: Awake; no lateralizing signs. SKIN: No Rash PSYCH; Flat affect Assessment & Plan Assessment/Plan (1) Macromastia: PLAN: Plan Patient is a 72-year-old lady who underwent bilateral breast reduction on account of bilateral macromastia. Procedure performed by Dr. Lebron on 09/04/2023. The hospitalist service consulted to assist with management of patient medical comorbidities 1. Status post bilateral breast reduction on account of bilateral macromastia. Procedure performed by Dr. Lebron on 09/04/2023. Postoperative orders regarding pain management and DVT prophylaxis deferred to primary service ? Postoperative day 2; pain is tolerable 2. Diabetes mellitus type 2 ? Patient oral hypoglycemic agent held please on Accu-Cheks before meals and at bedtime with sliding scale coverage 3. Dyslipidemia -Patient is on statin therapy, continued at home dose 4. GERD ? Patient is on PPI continue 5. Dyslipidemia -Patient is on statin therapy, continued at home dose 6. Class I obesity with BMI of 33.7 ? Weight loss advised 7. Depression with anxiety ? Patient is on SSRI in addition to benzos as needed continue 8. Tobacco dependence - Counseled on cessation, offered nicotine patch for tobacco cravings 9. Chronic back pain s/p spinal cord stimuli, 1. Generalized osteoarthritis ? Pain meds as needed 11. 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 Patient is on guideline directed medical therapy continue 12. DVT prophylaxis ? SC SC heparin 13. Physical deconditioning - Requested for PT OT eval and executive secretary social welfare to assist with discharge planning 14. Anemia - Secondary to chronic disorder monitoring H&H and transfuse if patient becomes symptomatic or hemoglobin falls below 7 Time spent in the patient's overall evaluation,decision-making process, review of diagnostic data, adjustment of management, discussion with other providers, nursing nursing and ancillary staff involved in patient's care documentation, 35 Minutes Charges/Coding Visit Charges Inpatient E&M: 92916 Subs Hosp L2
[2023-09-08 08:07] LABS: Absolute Lymphocyte Count 2.07 X10^3/uL (0.83-4.51); Absolute Neutrophil Count 9.2 X10^3/uL (2.0-7.7); Basophil# 0.05 X10^3/uL; Basophil% 0.4 % (0-1); Eosinophil# 0.27 X10^3/uL; Hemoglobin 8.3 g/dL (12.0-15.0); Lymphocyte # 2.07 X10^3/ul (0.83-4.51); Mean Corp Hgb Conc 31.9 g/dL (32-36); Mean Corpuscular Hgb 31.6 pg (27.0-32.0); Mean Corpuscular Volume 98.9 fL (81-99); Mean Platelet Vol. 9.9 fl (6.2-12.0); Monocyte# 1.82 X10^3/uL; Monocyte% 13.2 % (0-10); NRBC Flagged by Analyzer 0 % (0-5); Neutrophil # 9.22 X10^3/uL (2.7-7.7); Neutrophil % 66.9 % (47-70); POSITIVE DIFFERENTIAL YES; Platelet Count 381 K/mm3 (150-450); RBC Distribution Width CV 13.5 % (11.6-14.6); RBC Distribution Width SD 48.2 fl (35.1-43.9); Red Blood Count 2.63 M/mm3 (4.2-5.4); White Blood Count 13.8 K/mm3 (4.4-11.0)
[2023-09-08 08:12] LABS: Differential Indicated SCAN CRITERIA MET
[2023-09-08 08:26] LABS: Anion Gap 5 (5-15); BUN 11 mg/dL (7-18); BUN/Creat Ratio 12.7 RATIO (10-20); Calcium,Total 8.5 mg/dL (8.5-10.1); Chloride 105 mmol/L (98-107); Creatinine, Serum 0.87 mg/dL (0.55-1.02); EST Glomerular Filtration Rate 68 mL/min (>60); Est Glom Filt Rate - Afr Amer 83 mL/min (>60); Estimated Creatinine Clearance 44.76 ml/min; Glucose 186 mg/dL (74-106); Potassium 3.6 mmol/L (3.5-5.1); Sodium Level 140 mmol/L (136-145)
[2023-09-08 08:27] LABS: Differential Comment SCANNED
[2023-09-08] MEDS: metFORMIN HCl 1,000 MG Tablet 1000 MG PO ×2 (09:50→17:20)
[2023-09-08] MEDS: ARIPiprazole 2 MG Tablet PO (09:50)
[2023-09-08] MEDS: Docusate Sodium 100 MG Capsule PO ×2 (09:50→21:34)
[2023-09-08] MEDS: Benztropine Mesylate 0.5 MG TABLET PO ×2 (09:51→21:34)
[2023-09-08] MEDS: Heparin Injection (Vial) 5,000 UNIT/ML VIAL 5000 UNIT SC ×2 (09:51→21:32)
[2023-09-08] MEDS: Magnesium Chloride 64 MG Delay Rel.Tablet 128 MG PO (09:51)
[2023-09-08] MEDS: Ascorbic Acid 500 MG Tablet PO (09:51)
[2023-09-08] MEDS: Pantoprazole Sodium 40 MG Tablet PO (09:52)
[2023-09-08] MEDS: Cholecalciferol (VIT D3) 25 MCG TABLET (1,000 UNITS) PO (09:52)
[2023-09-08] MEDS: Venlafaxine HCl 75 MG Tablet 150 MG PO ×2 (09:52→21:33)
[2023-09-08] MEDS: 0.9% Saline Lock 10 ML Syringe IV (14:07)
[2023-09-08 17:42] LABS: Bedside Glucose 125 mg/dL (74-106)
[2023-09-08] MEDS: cloNIDine HCl 0.1 MG Tablet PO (21:34)
[2023-09-08] MEDS: Pravastatin 40 MG Tablet PO (21:34)
[2023-09-08 22:08] LABS: Bedside Glucose 146 mg/dL (74-106)
--- NOTE | 2023-09-08 22:15 | PCM.PN.SRG ---
Subjective Subjective Postop #4 Patient has incisional pain. From reports, patient is doing better doing ADL's with OT. Objective Data Objective Data Vital Signs: Vital Signs Temp Pulse Resp BP Pulse Ox O2 Del Method O2 Flow Rate 97.8 F 73 18 134/74 H 96 Room Air 2 09/08/23 21:20 09/08/23 21:20 09/08/23 21:20 09/08/23 21:20 09/08/23 21:20 09/08/23 21:20 09/06/23 11:32 Oxygen Flow Rate (L/min) 2 Oxygen Delivery Method Room Air Weight: 182 lb 15.739 oz Body Mass Index (BMI) 33.6 Intake & Output: Intake and Output for Last 24 Hours 09/06/23 09/07/23 09/08/23 23:59 23:59 22:59 Intake Total 2200 / 2200 240 / 640 952 / 952 Output Total 430 / 490 130 / 130 80 / 80 Balance 1770 / 1710 110 / 510 872 / 872 Drainage 130 ml yesterday Prealbumin was 18.7. Encourage nutritional supplementation with protein to help the healing process. Lab / Micro Data Attestation: I reviewed the patient's lab results. Lab results narrative: Hgb today was lower at 8.3 which is stable from 8.1 drawn yesterday. Her Hgb the first postop day was 11.1.. There is no clinical evidence of hematoma. Operative blood loss was 150 ml. Patient has acute postoperative anemia due to expected blood loss. There can also be IV fluid dilution as her I's/O's are positive about 4500 ml. Will repeat the Hgb tomorrow. Patient states she takes a Multivitamin with Iron at home. The Hgb is still low at 8.3 as compared to 11.1 from her first postop day. Will transfuse 2 units which will help her mentation from the added oxygenation. 09/08/23 07:00 09/08/23 07:00 Labs: Laboratory Results - last 24 hr 09/07/23 22:56: POC Glucose 202 H 09/08/23 05:59: POC Glucose 181 H 09/08/23 07:00: WBC 13.8 H, RBC 2.63 L, Hgb 8.3 L, Hct 26.0 L, MCV 98.9, MCH 31.6, MCHC 31.9 L, RDW Std Deviation 48.2 H, RDW Coeff of Zafar 13.5, Plt Count 381, MPV 9.9, Immature Gran % (Auto) 2.500 H, Neut % (Auto) 66.9, Lymph % (Auto) 15.0 L, [place] % (Auto) 13.2 H, Eos % (Auto) 2.0, Baso % (Auto) 0.4, Absolute Neuts (auto) 9.2 H, Absolute Lymphs (auto) 2.07, Nucleated RBC % 0, Differential Comment SCANNED, Diff Path Review March foll, Sodium 140, Potassium 3.6, Chloride 105, Carbon Dioxide 30.0, Anion Gap 5, BUN 11, Creatinine 0.87, Estim Creat Clear Calc 44.76, Est GFR (MDRD) Af Amer 83, Est GFR (MDRD) Non-Af 68, BUN/Creatinine Ratio 12.7, Glucose 186 H, Calcium 8.5 09/08/23 13:37: Blood Type A NEGATIVE, Antibody Screen NEGATIVE, Crossmatch See Detail 09/08/23 17:18: POC Glucose 125 H 09/08/23 21:29: POC Glucose 146 H Physical Exam Narrative General - Alert and Oriented HEENT - PERRL. EOMI. Neck - Supple and nontender. Breasts - soft and symmetrical. Incisions are dry and intact. Good breast contour noted. Nipples are viable. No clinical evidence of hematoma. Abdomen - Soft and nondistended. Neuro - CN II-XII grossly intact. Psych - Normal mood and affect. Assessment & Plan Assessment/Plan (1) Macromastia: (2) Chronic thoracic back pain: (3) Chronic neck pain: (4) Right shoulder pain: (5) Left shoulder pain: (6) Intertrigo: (7) Family history of breast cancer: (8) Recent weight loss: (9) DM type 2, goal HbA1c < 8%: (10) Acute postoperative anemia due to expected blood loss: (11) Unsteady gait: (12) Smoker: PLAN: Plan Patient has incisional pain. From reports, her hand coordination is improving. She is more steady on her feet with ambulation. OT has evaluated her and recommend additional therapy. Hgb today was lower at 8.3 which is stable from 8.1 drawn yesterday. Her Hgb the first postop day was 11.1.. There is no clinical evidence of hematoma. Operative blood loss was 150 ml. Patient has acute postoperative anemia due to expected blood loss. There can also be IV fluid dilution as her I's/O's are positive about 4500 ml. Will repeat the Hgb tomorrow. Patient states she takes a Multivitamin with Iron at home. The Hgb is still low at 8.3 as compared to 11.1 from her first postop day. Will transfuse 2 units which will help her mentation from the added oxygenation. In the meantime, keep head elevated. Continue lifting restriction (10 lbs). Continue breast compression to minimize swelling which can affect the healing process. Her drains will be removed next week. Initially we were evaluating a short term stay at an ECF. Part of that was predicated on nobody at home to help her initially if she were sent home. Her daughter has flown in from [place] and she will stay with her month for a short while during the initial postoperative period. Since her coordination is improving and she is more steady on her feet with ambulation and she will have someone at home to keep an eye on her during the initial postoperative period, our efforts have changed from a short stay at an ECF to discharge home with home health assistance. Encouraged patient to stop smoking as it may have deleterious effects on wound healing.
[2023-09-09 00:19] LABS: Bedside Glucose 223 mg/dL (74-106)
[2023-09-09] MEDS: Acetaminophen 500 MG Tablet 1000 MG PO ×4 (03:00→16:47)
[2023-09-09 03:05] VITALS: BP 145/71; PULSE 70; RESP 18; TEMP 36.8; O2SAT 94
[2023-09-09] MEDS: Insulin Lispro 100 UNIT/ML INSULN.PEN SC ×3 (06:01→16:48)
[2023-09-09] MEDS: Cefazolin 1 GM/50 ML BAG IV ×3 (06:02→22:02)
[2023-09-09] MEDS: oxyCODONE 5 MG Tablet PO ×2 (06:04→17:52)
[2023-09-09] MEDS: Levothyroxine 125 MCG Tablet PO (06:05)
[2023-09-09] MEDS: Gabapentin 400 MG Capsule PO ×3 (06:05→22:15)
[2023-09-09 06:31] LABS: Bedside Glucose 168 mg/dL (74-106)
[2023-09-09 07:21] LABS: Absolute Lymphocyte Count 2.62 X10^3/uL (0.83-4.51); Absolute Neutrophil Count 7.9 X10^3/uL (2.0-7.7); Basophil# 0.06 X10^3/uL; Basophil% 0.4 % (0-1); Eosinophil# 0.32 X10^3/uL; Eosinophils% 2.4 % (0-5); Hematocrit 31.9 % (37-47); Hemoglobin 10.4 g/dL (12.0-15.0); Lymphocyte # 2.62 X10^3/ul (0.83-4.51); Lymphocyte % 19.6 % (19-41); Mean Corp Hgb Conc 32.6 g/dL (32-36); Mean Corpuscular Hgb 30.9 pg (27.0-32.0); Mean Corpuscular Volume 94.7 fL (81-99); Mean Platelet Vol. 9.5 fl (6.2-12.0); Monocyte# 1.91 X10^3/uL; Monocyte% 14.3 % (0-10); NRBC Flagged by Analyzer 0.1 % (0-5); Neutrophil # 7.88 X10^3/uL (2.7-7.7); POSITIVE DIFFERENTIAL YES; Platelet Count 382 K/mm3 (150-450); RBC Distribution Width CV 15.7 % (11.6-14.6); RBC Distribution Width SD 54.2 fl (35.1-43.9); Red Blood Count 3.37 M/mm3 (4.2-5.4); White Blood Count 13.4 K/mm3 (4.4-11.0)
[2023-09-09 07:30] LABS: Differential Indicated SCAN CRITERIA MET
[2023-09-09 08:06] LABS: Anion Gap 4 (5-15); BUN 11 mg/dL (7-18); BUN/Creat Ratio 14.3 RATIO (10-20); Calcium,Total 8.2 mg/dL (8.5-10.1); Chloride 110 mmol/L (98-107); Creatinine, Serum 0.77 mg/dL (0.55-1.02); EST Glomerular Filtration Rate 78 mL/min (>60); Est Glom Filt Rate - Afr Amer 95 mL/min (>60); Estimated Creatinine Clearance 38.94 ml/min; Glucose 165 mg/dL (74-106); Potassium 3.7 mmol/L (3.5-5.1); Sodium Level 141 mmol/L (136-145)
[2023-09-09 09:00] VITALS: BP 132/72; PULSE 76; RESP 16; TEMP 36.7; O2SAT 95
[2023-09-09 09:20] LABS: Differential Comment SCANNED
[2023-09-09] MEDS: Ascorbic Acid 500 MG Tablet PO (09:33)
[2023-09-09] MEDS: metFORMIN HCl 1,000 MG Tablet 1000 MG PO ×2 (09:33→16:47)
[2023-09-09] MEDS: ARIPiprazole 2 MG Tablet PO (09:34)
[2023-09-09] MEDS: Magnesium Chloride 64 MG Delay Rel.Tablet 128 MG PO (09:34)
[2023-09-09] MEDS: Heparin Injection (Vial) 5,000 UNIT/ML VIAL 5000 UNIT SC ×2 (09:35→22:09)
[2023-09-09] MEDS: Venlafaxine HCl 75 MG Tablet 150 MG PO ×2 (09:35→22:04)
[2023-09-09] MEDS: Docusate Sodium 100 MG Capsule PO ×2 (09:35→22:04)
[2023-09-09] MEDS: Cholecalciferol (VIT D3) 25 MCG TABLET (1,000 UNITS) PO (09:36)
[2023-09-09] MEDS: Pantoprazole Sodium 40 MG Tablet PO (09:36)
[2023-09-09] MEDS: Benztropine Mesylate 0.5 MG TABLET PO ×2 (09:39→22:16)
--- NOTE | 2023-09-09 10:09 | CASEMGMT ---
Addendum entered by Chiara Calvert 09/09/23 13:03: 1155- DERIK PRINCE into pt room, pt aware that [facility] has accepted her for services and will be out tomorrow if pt dc's today. Pt states her dtr flew in from [place] and will be staying with her. She denies any further needs. Original Note: Received tc from Kiko at [facility], they are able to see pt for SOC tomorrow.
[2023-09-09 11:56] LABS: Bedside Glucose 164 mg/dL (74-106)
[2023-09-09 15:00] VITALS: BP 141/71; PULSE 80; RESP 15; TEMP 36.8; O2SAT 96
--- NOTE | 2023-09-09 16:27 | CHAPLAIN ---
Type of Pastoral Visit _x__ Initial Visit ___ Follow-up Visit ___ On-call Visit ___ General Patient Visit ___ Spiritual Assessment ___ Family Conference ___ Bereavement ___ Rapid Response ___ Code Blue ___ Other (describe below) Pastoral Care Referral From _x__ Patient ___ Family ___ Nurse ___ Physician ___ Reverberatory Furnace Operator ___ Light Truck Driver ___ Other (describe below) Sacrament/Intervention _x__ Active listening ___ Anointing ___ Restorationism ___ Bereavement ___ Communion ___ Etta exploration ___ ___ Life review _x__ Prayer ___ Reconciliation ___ Sacrament of Sick _x__ Supportive presence ___ Wedding ___ Other (describe below) Pastoral Comments patient has frustrations at being in the hospital to begin with as family from out of state are here visiting; pt states her immediate need is for quiet and sleep; this instructor bus trolley and taxi offers patient time to rest; pt welcomes a prayer and then visit ends
[2023-09-09 17:07] LABS: Bedside Glucose 211 mg/dL (74-106)
--- NOTE | 2023-09-09 18:55 | PN.HOSP_ITS ---
Reason for Visit Reason for Visit: Diagnoses Acute posthemorrhagic anemia (09/04/23) Type 2 diabetes mellitus without complications (09/04/23) Nicotine dependence, unspecified, uncomplicated (09/04/23) Other chronic pain (09/04/23) Essential (primary) hypertension (09/04/23) Erythema intertrigo (09/04/23) Pain in right shoulder (09/04/23) Pain in left shoulder (09/04/23) Cervicalgia (09/04/23) Pain in thoracic spine (09/04/23) Hypertrophy of breast (09/04/23) Unsteadiness on feet (09/04/23) Abnormal weight loss (09/04/23) Encounter for other preprocedural examination (09/04/23) Family history of malignant neoplasm of breast (09/04/23) Subjective Subjective Patient was seen and examined today, she states she does not want to go to an extended care facility for rehab services now, she would rather be discharged home. Plastic surgery is elected to reevaluate the patient tomorrow morning for discharge. Objective Data Objective Data Vital Signs: Vital Signs Temp Pulse Resp BP Pulse Ox O2 Del Method O2 Flow Rate 98.2 F 80 15 141/71 H 96 Room Air 2 09/09/23 15:00 09/09/23 15:00 09/09/23 15:00 09/09/23 15:00 09/09/23 15:00 09/09/23 15:00 09/06/23 11:32 Oxygen Flow Rate (L/min) 2 Oxygen Delivery Method Room Air Weight: 83 kg Body Mass Index (BMI) 33.6 Intake & Output: Intake and Output for Last 24 Hours 09/08/23 09/08/23 09/09/23 00:59 23:59 23:59 Intake Total 1250 / 1250 Output Total 63 / 63 Balance 1187 / 1187 Lab / Micro Data 09/09/23 06:45 09/09/23 06:45 Labs: Laboratory Results - last 24 hr 09/08/23 11:42: POC Glucose 223 H 09/08/23 13:37: Crossmatch See Detail 09/08/23 21:29: POC Glucose 146 H 09/09/23 05:56: POC Glucose 168 H 09/09/23 06:45: WBC 13.4 H, RBC 3.37 L, Hgb 10.4 L, Hct 31.9 L, MCV 94.7, MCH 30.9, MCHC 32.6, RDW Std Deviation 54.2 H, RDW Coeff of Zafar 15.7 H, Plt Count 382, MPV 9.5, Immature Gran % (Auto) 4.300 H, Neut % (Auto) 59.0, Lymph % (Auto) 19.6, [place] % (Auto) 14.3 H, Eos % (Auto) 2.4, Baso % (Auto) 0.4, Absolute Neuts (auto) 7.9 H, Absolute Lymphs (auto) 2.62, Nucleated RBC % 0.1, Differential Comment SCANNED, Diff Path Review March, Sodium 141, Potassium 3.7, Chloride 110 H, Carbon Dioxide 27.0, Anion Gap 4 L, BUN 11, Creatinine 0.77, Estim Creat Clear Calc 38.94, Est GFR (MDRD) Af Amer 95, Est GFR (MDRD) Non-Af 78, BUN/Creatinine Ratio 14.3, Glucose 165 H, Calcium 8.2 L 09/09/23 11:36: POC Glucose 164 H 09/09/23 16:45: POC Glucose 211 H Physical Exam Const alert, oriented x3, no apparent distress and healthy appearing General Appearance: cooperative, well kempt and well developed Orientation / Consciousness: awake, oriented to person, oriented to place and oriented to time HEENT normocephalic, head/scalp atraumatic and moist oral mucous membranes Eyes PERRL, EOMs intact bilaterally and conjunctivae normal Neck supple, no JVD, thyroid normal and no carotid bruits General: trachea midline Resp normal respiratory effort, no retractions, no use of accessory muscles and clear to auscultation bilaterally Auscultation: Negative for rales, rhonchi or wheezes Cardio regular rate, regular rhythm, S1 normal heart sound, S2 normal heart sound, no murmurs, no rub and no gallops GI normal to inspection, nondistended, normoactive bowel sounds, soft to palpation, non-tender and non-distended Extremity no clubbing, cyanosis or edema Neuro oriented x3, CN's II-XII intact bilaterally, moves all extremities, no focal motor deficits and no sensory deficits noted Sensorium / Orientation: awake and alert Speech: speech normal Psych affect normal Assessment & Plan Assessment/Plan (1) DM type 2, goal HbA1c < 8%: PLAN: Plan 1. Type 2 diabetes-patient remains on Accu-Cheks AC nightly and sliding scale insulin coverage #2 GERD-patient is on a PPI currently #3 hyperlipidemia-patient is on a statin #4 chronic depression/anxiety-patient remains on an SSRI and benzodiazepines as needed #5 status post bilateral breast reduction due to bilateral macromastia-plastic surgery is participating in her care Total clinical time spent by myself addressing the patient's medical issues, re viewing all of her data, and collaborating with patient's care team: 25 minutes Charges/Coding Visit Charges Inpatient E&M: 78516 Subs Hosp L1
[2023-09-09 21:53] VITALS: BP 147/86; PULSE 62; RESP 18; TEMP 37.1; O2SAT 97
[2023-09-09] MEDS: 0.9% Saline Lock 10 ML Syringe IV ×3 (22:02→23:00)
[2023-09-09] MEDS: cloNIDine HCl 0.1 MG Tablet PO (22:04)
[2023-09-09] MEDS: Pravastatin 40 MG Tablet PO (22:04)
[2023-09-09 23:35] LABS: Bedside Glucose 143 mg/dL (74-106)
--- NOTE | 2023-09-09 23:54 | PCM.PN.SRG ---
Subjective Subjective Postop #5 Patient is resting comfortably. She is steady on her feet with ambulation. She is able to hold on to a cup better without dropping it. Her daughter is visiting from [place] to help her at home for the next month. So evaluation for ECF was cancelled and Home Health was arranged. Objective Data Objective Data Vital Signs: Vital Signs Temp Pulse Resp BP Pulse Ox O2 Del Method O2 Flow Rate 98.7 F 62 18 147/86 H 97 Room Air 2 09/09/23 21:53 09/09/23 21:53 09/09/23 21:53 09/09/23 21:53 09/09/23 21:53 09/09/23 21:55 09/06/23 11:32 Oxygen Flow Rate (L/min) 2 Oxygen Delivery Method Room Air Weight: 182 lb 15.739 oz Body Mass Index (BMI) 33.6 Intake & Output: Intake and Output for Last 24 Hours 09/08/23 09/08/23 09/09/23 00:59 23:59 23:59 Intake Total 1300 / 1300 Output Total 63 / 63 Balance 1237 / 1237 Drainage 80 ml yesterday Prealbumin was 18.7. Encourage nutritional supplementation with protein to help the healing process. Lab / Micro Data Attestation: I reviewed the patient's lab results. Lab results narrative: Hgb today improved to 10.4 from a low of 8.3 yesterday. She was given 2 units PRBC. Her Hgb the first postop day was 11.1.. There is no clinical evidence of hematoma. Operative blood loss was 150 ml. Patient has acute postoperative anemia due to expected blood loss. There can also be IV fluid dilution as her I's/O's are positive about 4500 ml. Will repeat the Hgb tomorrow. Will be able to discharge home tomorrow as long as her Hgb remains stable. Patient states she takes a Multivitamin with Iron at home. 09/10/23 10:20 09/09/23 06:45 Labs: Laboratory Results - last 24 hr 09/08/23 11:42: POC Glucose 223 H 09/09/23 05:56: POC Glucose 168 H 09/09/23 06:45: WBC 13.4 H, RBC 3.37 L, Hgb 10.4 L, Hct 31.9 L, MCV 94.7, MCH 30.9, MCHC 32.6, RDW Std Deviation 54.2 H, RDW Coeff of Zafar 15.7 H, Plt Count 382, MPV 9.5, Immature Gran % (Auto) 4.300 H, Neut % (Auto) 59.0, Lymph % (Auto) 19.6, [place] % (Auto) 14.3 H, Eos % (Auto) 2.4, Baso % (Auto) 0.4, Absolute Neuts (auto) 7.9 H, Absolute Lymphs (auto) 2.62, Nucleated RBC % 0.1, Differential Comment SCANNED, Diff Path Review March foll, Sodium 141, Potassium 3.7, Chloride 110 H, Carbon Dioxide 27.0, Anion Gap 4 L, BUN 11, Creatinine 0.77, Estim Creat Clear Calc 38.94, Est GFR (MDRD) Af Amer 95, Est GFR (MDRD) Non-Af 78, BUN/Creatinine Ratio 14.3, Glucose 165 H, Calcium 8.2 L 09/09/23 11:36: POC Glucose 164 H 09/09/23 16:45: POC Glucose 211 H 09/09/23 22:00: POC Glucose 143 H Physical Exam Narrative General - Alert and Oriented HEENT - PERRL. EOMI. Neck - Supple and nontender. Breasts - soft and symmetrical. Incisions are dry and intact. Good breast contour noted. Mild redness around the nipple area. Mild bruising to the skin flaps are common in smokers. Will continue antibiotics upon discharge. Mild redness could be due to fat necrosis that the body is trying to absorb. The goal is for the body to absorb it before it becomes infected. Nipples are viable. No clinical evidence of hematoma. Abdomen - Soft and nondistended. Neuro - CN II-XII grossly intact. Psych - Normal mood and affect. Assessment & Plan Assessment/Plan (1) Macromastia: (2) Chronic thoracic back pain: (3) Chronic neck pain: (4) Right shoulder pain: (5) Left shoulder pain: (6) Intertrigo: (7) Family history of breast cancer: (8) Recent weight loss: (9) DM type 2, goal HbA1c < 8%: (10) Acute postoperative anemia due to expected blood loss: (11) Unsteady gait: (12) Smoker: PLAN: Plan Patient has incisional pain. From reports, her hand coordination is improving. She is more steady on her feet with ambulation. OT has evaluated her and recommend additional therapy. Hgb today improved to 10.4 from a low of 8.3 yesterday. She was given 2 units PRBC. Her Hgb the first postop day was 11.1.. There is no clinical evidence of hematoma. Operative blood loss was 150 ml. Patient has acute postoperative anemia due to expected blood loss. There can also be IV fluid dilution as her I's/O's are positive about 4500 ml. Will repeat the Hgb tomorrow. Will be able to discharge home tomorrow as long as her Hgb remains stable. Patient states she takes a Multivitamin with Iron at home. In the meantime, keep head elevated. Continue lifting restriction (10 lbs). Continue breast compression to minimize swelling which can affect the healing process. Anticipate home tomorrow. Will pull the drains tomorrow before discharge. For the mild redness in the periareolar area, will send her home on Doxycycline. Initially we were evaluating a short term stay at an ECF. Part of that was predicated on nobody at home to help her initially if she were sent home. Her daughter has flown in from [place] and she will stay with her month for a short while during the initial postoperative period. Since her coordination is improving and she is more steady on her feet with ambulation and she will have someone at home to keep an eye on her during the initial postoperative period, our efforts have changed from a short stay at an ECF to discharge home with home health assistance. Encouraged patient to stop smoking as it may have deleterious effects on wound healing.
[2023-09-10 01:36] VITALS: BP 149/81; PULSE 68; RESP 18; TEMP 37.1; O2SAT 94
[2023-09-10] MEDS: 0.9% Saline Lock 10 ML Syringe IV (06:33)
[2023-09-10] MEDS: Cefazolin 1 GM/50 ML BAG IV (06:33)
[2023-09-10 06:36] VITALS: BP 143/86; PULSE 73; RESP 18; TEMP 37.1; O2SAT 94
[2023-09-10] MEDS: Insulin Lispro 100 UNIT/ML INSULN.PEN SC (06:44)
[2023-09-10] MEDS: Acetaminophen 500 MG Tablet 1000 MG PO ×2 (06:45→13:09)
[2023-09-10] MEDS: Gabapentin 400 MG Capsule PO (06:46)
[2023-09-10] MEDS: Levothyroxine 125 MCG Tablet PO (06:46)
[2023-09-10 07:07] LABS: Bedside Glucose 190 mg/dL (74-106)
[2023-09-10] MEDS: Pantoprazole Sodium 40 MG Tablet PO (07:48)
[2023-09-10] MEDS: Ascorbic Acid 500 MG Tablet PO (07:48)
[2023-09-10] MEDS: Magnesium Chloride 64 MG Delay Rel.Tablet 128 MG PO (07:48)
[2023-09-10] MEDS: Cholecalciferol (VIT D3) 25 MCG TABLET (1,000 UNITS) PO (07:48)
[2023-09-10] MEDS: Venlafaxine HCl 75 MG Tablet 150 MG PO (07:48)
[2023-09-10] MEDS: Heparin Injection (Vial) 5,000 UNIT/ML VIAL 5000 UNIT SC (07:49)
[2023-09-10] MEDS: Benztropine Mesylate 0.5 MG TABLET PO (07:49)
[2023-09-10] MEDS: ARIPiprazole 2 MG Tablet PO (07:49)
[2023-09-10] MEDS: metFORMIN HCl 1,000 MG Tablet 1000 MG PO (07:49)
[2023-09-10 08:00] VITALS: BP 146/71; PULSE 64; RESP 18; TEMP 37.1; O2SAT 92
[2023-09-10 08:14] LABS: Pathologist Review Reviewed
[2023-09-10 08:18] LABS: Pathologist Review Reviewed
[2023-09-10 10:33] LABS: Hematocrit 34.1 % (37-47); Hemoglobin 11.1 g/dL (12.0-15.0); Mean Corp Hgb Conc 32.6 g/dL (32-36); Mean Corpuscular Hgb 31.5 pg (27.0-32.0); Mean Corpuscular Volume 96.9 fL (81-99); Mean Platelet Vol. 9.1 fl (6.2-12.0); Platelet Count 421 K/mm3 (150-450); RBC Distribution Width CV 15.3 % (11.6-14.6); RBC Distribution Width SD 52.9 fl (35.1-43.9); Red Blood Count 3.52 M/mm3 (4.2-5.4); White Blood Count 13.7 K/mm3 (4.4-11.0)
--- NOTE | 2023-09-10 11:01 | DCINST_ITS ---
Discharge Instructions Diet Discharge Diet: Carb Control Diet and - (encourage nutritional supplementation with protein to help the healing process.) Activity Discharge Activity: May Not Drive and May Not Shower (for one week.) May shower in (days): 7 May resume sexual activity in: 4-6 weeks Weight Bearing Status: Weight bearing as tolerated Lifting Restrictions: 10 lbs. Keep extremity elevated above heart level: - (elevate head) Dressing / Incision Call your doctor if your incision/area has: Continuous Slow Oozing, Sudden Increased Bleeding, Increased Pain/ Swelling, Increased Redness, Foul Smelling Discharge and Swelling at the incision site Call your doctor if you observe: Fever of 101 or Higher, Coldness, Increased Pain, Shortness of breath, Chest pain, Calf discomfort and Uncontrolled pain Change Dressing in: 2 days (change dressing with dry gauze every other day) Cleanse incision/area with: Do not get Incision Wet, Keep Dressing Clean & Dry and - (patient may get incisions wet in the shower in one week.) Follow Up Care Please Follow Up With: Rigoberto Lebron MD When: one week. call [phone] for appt time Test Results: Test results from this visit will be discussed in further detail at your follow- up appointment, if applicable. Discharge Plan Admission Admit Date/Time: 09/04/23 17:25 Primary Reason for Your Visit: bilateral breast reduction mammaplasty Attending Provider: Damion Mosley Primary Care Provider: Cassia Dupont Consulting Providers: Roselyn Carmichael NP; Norma Emerson; Santosh Craft; Irene Jolly; Irene Levy; Manoj Carlos; Coreen Kidd; Paola Ferreira; Miguel Angel Basurto; Miguel Angel Thomason; Sergey Mratinez; Luther Paniagua; Jaycob Gracia; Pillo Canchola; Rigoberto Pradhan; Carlos Polanco; Keri Morrison; Damion Mosley; Alicia Stephens; Jose Rivera; Buzz Fuentes; Tong Barrett ul; Kristin Conroy; Davide Odonnell; Germania Davidson NP; Elier Gar; Rigoberto Lebron Discharge Orders/Prescriptions Prescriptions: New doxycycline hyclate 100 mg capsule 100 mg PO BID Qty: 14 0RF L.acidoph,saliva-B.bif-S.therm [Acidophilus Probiotic Blend] 175 mg capsule 1 cap PO DAILY Qty: 20 0RF oxycodone-acetaminophen [Percocet] 5-325 mg tablet 1 tab PO Q6H PRN (Reason: pain (scale score 7-10)) 7 Days Qty: 28 0RF Rx Instructions: 28 tabs (twenty-eight) Continued pravastatin 40 mg tablet 40 mg PO DAILY benztropine 0.5 mg tablet 0.5 mg PO BID clonidine HCl 0.1 MG tablet 0.1 mg PO QHS hydrocodone-acetaminophen 1 EACH tablet 1 ea PO BID PRN PRN (Reason: Pain) pantoprazole 40 mg Tablet,Delayed Release (Dr/Ec) 40 mg PO DAILY aripiprazole 2 mg tablet 2 mg PO DAILY Patient Comments: take 1 tablet by mouth once daily furosemide 20 mg tablet 20 mg PO BID PRN (Reason: swelling) potassium chloride 20 mEq tablet extended release 20 meq PO DAILY PRN (Reason: if take a lasix ) Patient Comments: take 1 tablet by mouth once daily with food WHILE ON FUROSEMIDE metformin 1,000 mg tablet 1,000 mg PO BID aspirin 81 mg tablet,chewable 81 mg PO DAILY Qty: 30 0RF levothyroxine 125 mcg tablet 125 mcg PO DAILY gabapentin 400 mg capsule 400 mg PO TID Patient Comments: take 1 capsule by mouth three times a day venlafaxine 100 mg tablet 150 mg PO BID Patient Comments: take 1 and 1/2 tablets by mouth twice a day cholecalciferol (vitamin D3) [Vitamin D3] 25 mcg (1,000 unit) capsule 25 mcg PO DAILY ascorbic acid (vitamin C) [C-500] 500 mg tablet extended release 500 mg PO DAILY magnesium 250 mg tablet 250 mg PO DAILY Discontinued diazepam [Valium] 5 mg tablet 5 mg PO QHS PRN (Reason: sleep) Qty: 3 0RF Rx Instructions: 3 tabs (three) Start taking the medication 3 days before her surgery scheduled on 09/04/23. Referrals / Follow Up: Cassia Dupont DO [Primary Care Provider] - Disposition Disposition (needs filled in before D/C Order can be placed): Home Health Service
--- NOTE | 2023-09-10 11:50 | CASEMGMT ---
TC to [facility], spoke with Vira, she is aware that pt will dc today.
--- NOTE | 2023-09-10 12:08 | PHA.DC.MC.R ---
Pharmacy [facility] has performed discharge medication reconciliation and counseling for this patient. The patient's discharge medication list was reviewed for discrepancies and discrepancies were resolved. The patient was counseled on the following discharge medications and changes in medications for homegoing were reviewed. The Reason for Use, instructions for use, and potential side effects were reviewed for all new medications. The patient's questions regarding all of their medications were answered. 1. Oxycodone/acetaminophen 5/325 mg PO Q6H PRN pain () 2. Doxycycline 100 mg PO BID x 7 days The patient was able to verbally demonstrate an understanding of their discharge medications. Medications at Discharge Home Medications clonidine HCl 0.1 mg tablet 0.1 mg PO QHS HTN 01/11/17 hydrocodone-acetaminophen 5-325mg 5mg-325mg 1 ea PO BID PRN PRN Pain 05/01/19 aripiprazole 2 mg tablet 2 mg PO DAILY mental health 10/15/21 furosemide 20 mg tablet 20 mg PO BID PRN swelling 10/15/21 metformin 1,000 mg tablet 1,000 mg PO BID diabetes 10/15/21 pantoprazole 40 mg tablet,delayed release 40 mg PO DAILY reflux 10/15/21 potassium chloride 20 mEq tablet,extended release 20 meq PO DAILY PRN if take a lasix 10/15/21 aspirin 81 mg chewable tablet 81 mg PO DAILY #30 tabs 10/17/21 pravastatin 40 mg tablet 40 mg PO DAILY 12/13/21 benztropine 0.5 mg tablet 0.5 mg PO BID 10/18/22 ascorbic acid (vitamin C) 500 mg tablet,extended release (C-500) 500 mg PO DAILY 08/27/23 cholecalciferol (vitamin D3) 25 mcg (1,000 unit) capsule (Vitamin D3) 25 mcg PO DAILY 08/27/23 gabapentin 400 mg capsule 400 mg PO TID 08/27/23 levothyroxine 125 mcg tablet 125 mcg PO DAILY 08/27/23 magnesium 250 mg tablet 250 mg PO DAILY 08/27/23 venlafaxine 100 mg tablet 150 mg PO BID 08/27/23 L.acidophil,salivari-Bifido bifidum-Strep thermoph 175 mg capsule (Acidophilus Probiotic Blend) 1 cap PO DAILY #20 caps 09/10/23 doxycycline hyclate 100 mg capsule 100 mg PO BID #14 caps 09/10/23 oxycodone-acetaminophen 5 mg-325 mg tablet (Percocet) 1 tab PO Q6H PRN pain (scale score 7-10) 7 days #28 tabs 09/10/23
[2023-09-10 12:30] VITALS: BP 154/69; PULSE 69; RESP 18; TEMP 36.3; O2SAT 98
[2023-09-10 15:09] LABS: Pathologist Review Reviewed
--- NOTE | 2023-09-10 15:56 | CASEMGMT ---
TC to pt as dc accounts receivable assistant stated pt called in. Pt states she did not receive her meds delivered to her room. She is aware that she will need to come back or have family or friend come back to get medications. Pt agreeable to this and states she lives close to do so. Pt denies any further needs.
--- NOTE | 2023-09-19 09:50 | PCM.DC.SUM ---
Providers Date of Admission: 09/04/23 Date of Discharge: 09/10/23 Primary Care Physician: Cassia Dupont DO Attending Physician: MD Dr. Damion Bhagat DO Dr. David Kittoe, MD Dr. Autumn White, MD Consultations 09/04/23 17:30 Consult: Hospitalist Routine Consulting Provider: [facility] DO Dr. Miguel Angel Terry MD Dr. Autumn White, MD Reason for Consult: medical management - has diabetes EMERGENT Consult: No MD Notified: Yes Date Notified: 09/04/23 Time Notified: 19:43 Method of Notification: Text Method of Consult:: In-Person Reason For Visit: BILATERAL MACROMASTIA Diagnosis Discharge Diagnosis (1) Macromastia: Status: Chronic Code(s): N62 - Hypertrophy of breast (2) Chronic thoracic back pain: Status: Chronic Code(s): M54.6 - Pain in thoracic spine; G89.29 - Other chronic pain (3) Chronic neck pain: Status: Chronic Code(s): M54.2 - Cervicalgia; G89.29 - Other chronic pain (4) Right shoulder pain: Status: Chronic Code(s): M25.511 - Pain in right shoulder (5) Left shoulder pain: Status: Chronic Code(s): M25.512 - Pain in left shoulder (6) Intertrigo: Status: Chronic Code(s): L30.4 - Erythema intertrigo (7) Family history of breast cancer: Status: Chronic Code(s): Z80.3 - Family history of malignant neoplasm of breast (8) Recent weight loss: Status: Chronic Code(s): R63.4 - Abnormal weight loss (9) DM type 2, goal HbA1c < 8%: Status: Chronic Code(s): E11.9 - Type 2 diabetes mellitus without complications (10) Acute postoperative anemia due to expected blood loss: Status: Resolved Code(s): D62 - Acute posthemorrhagic anemia (11) Unsteady gait: Status: Resolved Code(s): R26.81 - Unsteadiness on feet (12) Smoker: Status: Chronic Code(s): F17.200 - Nicotine dependence, unspecified, uncomplicated Plan Medications at Discharge Home Medications clonidine HCl 0.1 mg tablet 0.1 mg PO QHS HTN 01/11/17 hydrocodone-acetaminophen 5-325mg 5mg-325mg 1 ea PO BID PRN PRN Pain 05/01/19 aripiprazole 2 mg tablet 2 mg PO DAILY mental health 10/15/21 furosemide 20 mg tablet 20 mg PO BID PRN swelling 10/15/21 metformin 1,000 mg tablet 1,000 mg PO BID diabetes 10/15/21 pantoprazole 40 mg tablet,delayed release 40 mg PO DAILY reflux 10/15/21 potassium chloride 20 mEq tablet,extended release 20 meq PO DAILY PRN if take a lasix 10/15/21 aspirin 81 mg chewable tablet 81 mg PO DAILY #30 tabs 10/17/21 pravastatin 40 mg tablet 40 mg PO DAILY 12/13/21 benztropine 0.5 mg tablet 0.5 mg PO BID 10/18/22 ascorbic acid (vitamin C) 500 mg tablet,extended release (C-500) 500 mg PO DAILY 08/27/23 cholecalciferol (vitamin D3) 25 mcg (1,000 unit) capsule (Vitamin D3) 25 mcg PO DAILY 08/27/23 gabapentin 400 mg capsule 400 mg PO TID 08/27/23 levothyroxine 125 mcg tablet 125 mcg PO DAILY 08/27/23 magnesium 250 mg tablet 250 mg PO DAILY 08/27/23 venlafaxine 100 mg tablet 150 mg PO BID 08/27/23 L.acidophil,salivari-Bifido bifidum-Strep thermoph 175 mg capsule (Acidophilus Probiotic Blend) 1 cap PO DAILY #20 caps 09/10/23 nystatin 100,000 unit/gram topical powder 1 applic topical BID 14 days #30 grams 10/09/23 fluconazole 150 mg tablet 150 mg PO Q3D 2 doses #2 tabs 10/18/23 Hospital Course Operations - (09/04/23 - Bilateral breast reduction mammaplasty.) Procedures None Summary of Care Provided Minutes Spent on Discharge: 40 Hospital Course: 72 year old woman presented with complaints of bilateral macromastia as well as associated painful symptomatology of neck pain, thoracic back pain, bilateral shoulder pain from shoulder grooving from the weight of her breasts on her bra straps, and inframammary intertrigo for which she uses powders with minimal relief and without resolution of her symptomatology over the past 6 months. She denies any trauma to her breasts.? Denies any nipple discharge.? She has difficulty with activities of daily living especially chores around the house because of her painful symptomatology. She has had cervical spine surgery and 3 lumbar spine surgeries and still has painful symptomatology. Her last mammogram was on November 13, 2022 at [facility]. The mammogram showed breast composition made up of scattered areas of fibroglandular density. There are no dominant masses or suspicious calcifications. Stable fat-containing bilateral axillary lymph nodes. No other significant abnormalities are identified. There has been no significant change since the prior study. She has seen a Chiropractor in the past without resolution of her painful symptomatology.? She also had a 12 lb weight loss over he past year without resolution of her painful symptomatology. Patient had a stroke in October, with some residual left sided weakness. She takes a baby aspirin daily after the stroke. She has diabetes mellitus and her most recent HgbA1c was 7.8 on August 20, 2023. For elective surgeries, the HgbA1c needs to be less than 8. Encouraged patient to stop smoking as it may have deleterious effects on wound healing. We received medical approval for her bilateral breast reduction surgery. It was scheduled on September 04, 2023, and on that day she was taken to the operating room where she underwent bilateral breast reduction mammaplasty. She tolerated the procedure well. The Hospitalist Group was consulted for medical management. Her hospital stay was complicated by the patient having unsteadiness with her gait and having a tendency to drop things. PT was involved, and at the time of discharge her hand coordination was improving as she stopped dropping things. She was more steady on her feet with ambulation. Her initial postop Hgb was 11.1. It dropped down to 8.3 over the next few days. On 09/08/23, she was given 2 units PRBC. Her Hgb improved to 11.1 at discharge. There was no clinical evidence of hematoma during her hospital stay. Operative blood loss was 150 ml. Patient had acute postoperative anemia due to expected blood loss. There was also IV fluid dilution as her I's/O's were positive about 4500 ml. Patient states she takes a Multivitamin with Iron at home. Her operative drains were removed at the time of discharge. The drainage ranged from 305 ml down to 50 ml at discharge. Initially we were evaluating a short term stay at an [facility]. Part of that was predicated on nobody at home to help her initially if she were sent home. Her daughter has flown in from [place] and she will stay with her month for a short while during the initial postoperative period. Since her coordination is improving and she is more steady on her feet with ambulation and she will have someone at home to keep an eye on her during the initial postoperative period, our efforts have changed from a short stay at an [facility] to discharge home with home health assistance. On the 6th postop day she was discharged in satisfactory condition. In the meantime, keep head elevated. Continue lifting restriction (10 lbs). Continue breast compression to minimize swelling which can affect the healing process. For the mild redness in the periareolar area, will send her home on Doxycycline. Will reassess in the office after discharge to determine if additional antibiotics are warranted. Wrote scripts for Doxycycline, Percocet for pain (28 tabs), and Acidophilus probiotic. Encouraged patient to stop smoking as it may have deleterious effects on wound healing. Followup office in a week. Pathology is pending. Will discuss the report in the office when it is available. Will remove the sutures in the next 7-10 days. Physical Exam Narrative PHYSICAL EXAMINATION General - Alert and Oriented HEENT - PERRL. EOMI. Neck - Supple and nontender. Breasts - incisions are dry and intact. Breasts are soft and symmetrical. Good breast contour noted. Nipples are viable. Mild redness noted. Some firmness present indicative of some fat necrosis. No clinical evidence of hematoma. Abdomen - Soft and nondistended. Extremities - FROM. No axillary adenopathy. Radial pulses are palpable. She is more steady on her feet with ambulation. Neuro - CN II-XII grossly intact. Psych - Normal mood and affect. Medical Records Data Attestation: I reviewed the patient's medical records Prealbumin was 18.7. Encourage nutritional supplementation with protein to help the healing process. Weight / BMI Weight Weight: 182 lb 15.739 oz Body Mass Index (BMI) 33.6 ABG / Lab / Microbiology Data Attestation: I reviewed the patient's lab results. Results Narrative: Prealbumin was 18.7. Encourage nutritional supplementation with protein to help the healing process. Lab / Micro Data Attestation: I reviewed the patient's lab results. Lab results narrative: Hgb today improved to 10.4 from a low of 8.3 yesterday. She was given 2 units PRBC. Her Hgb the first postop day was 11.1.. There is no clinical evidence of hematoma. Operative blood loss was 150 ml. Patient has acute postoperative anemia due to expected blood loss. There can also be IV fluid dilution as her I's/O's are positive about 4500 ml. Will repeat the Hgb tomorrow. Will be able to discharge home tomorrow as long as her Hgb remains stable. Patient states she takes a Multivitamin with Iron at home. 09/10/23 10:20 09/09/23 06:45 D/C Instructions Discharge Diet: Carb Control Diet and - (encourage nutritional supplementation with protein to help the healing process.) Discharge Activity: May Not Drive, May Not Shower and - (keep head elevated. No heavy lifting.) May shower in (days): 7 May resume sexual activity in: 4-6 weeks Weight Bearing Status: Weight bearing as tolerated Lifting Restricted to (Lbs): 10 Keep extremity elevated above heart level: - (elevate head) Call your doctor if your incision/area has: Continuous Slow Oozing, Sudden Increased Bleeding, Increased Pain/ Swelling, Increased Redness, Foul Smelling Discharge, Swelling at the incision site and - (nipples turning color) Call your doctor if you observe: Fever of 101 or Higher, Coldness, Increased Pain, Shortness of breath, Chest pain, Calf discomfort and Uncontrolled pain Suture Line Care: - (dry dressing daily. Will start removing the nipple sutures in a week.) Change Dressing in: 1 day (dry dressings daily) Cleanse incision/area with: Do not get Incision Wet, Keep Dressing Clean & Dry and - (patient may get incisions wet in the shower in one week.) Pending Tests Upon Discharge: Will obtain a Hgb in a week. Please Follow Up With: Rigoberto Lebron MD When: one week. call [phone] for appt time Meaningful Use Info Meaningful Use Diagnoses (Choose all that apply): None applicable Discharge Plan Admission Admit Date/Time: 09/04/23 17:25 Primary Reason for Your Visit: bilateral breast reduction mammaplasty Attending Provider: Damion Mosley Primary Care Provider: Cassia Dupont Consulting Providers: Coreen Kidd; Miguel Angel Thomason; Damion Mosley Instructions Additional Instructions / Restrictions: I sent scripts for Doxycycline, Percocet for pain (28 tabs), and Acidophilus Probiotic to her Pharmacy. Discharge Orders/Prescriptions Prescriptions: New Kwesisaliva-BRobyn [Acidophilus Probiotic Blend] 175 mg capsule 1 cap PO DAILY Qty: 20 0RF Continued pravastatin 40 mg tablet 40 mg PO DAILY benztropine 0.5 mg tablet 0.5 mg PO BID clonidine HCl 0.1 MG tablet 0.1 mg PO QHS hydrocodone-acetaminophen 1 EACH tablet 1 ea PO BID PRN PRN (Reason: Pain) pantoprazole 40 mg Tablet,Delayed Release (Dr/Ec) 40 mg PO DAILY aripiprazole 2 mg tablet 2 mg PO DAILY Patient Comments: take 1 tablet by mouth once daily furosemide 20 mg tablet 20 mg PO BID PRN (Reason: swelling) potassium chloride 20 mEq tablet extended release 20 meq PO DAILY PRN (Reason: if take a lasix ) Patient Comments: take 1 tablet by mouth once daily with food WHILE ON FUROSEMIDE metformin 1,000 mg tablet 1,000 mg PO BID aspirin 81 mg tablet,chewable 81 mg PO DAILY Qty: 30 0RF levothyroxine 125 mcg tablet 125 mcg PO DAILY gabapentin 400 mg capsule 400 mg PO TID Patient Comments: take 1 capsule by mouth three times a day venlafaxine 100 mg tablet 150 mg PO BID Patient Comments: take 1 and 1/2 tablets by mouth twice a day cholecalciferol (vitamin D3) [Vitamin D3] 25 mcg (1,000 unit) capsule 25 mcg PO DAILY ascorbic acid (vitamin C) [C-500] 500 mg tablet extended release 500 mg PO DAILY magnesium 250 mg tablet 250 mg PO DAILY Discontinued diazepam [Valium] 5 mg tablet 5 mg PO QHS PRN (Reason: sleep) Qty: 3 0RF Rx Instructions: 3 tabs (three) Start taking the medication 3 days before her surgery scheduled on 09/04/23. No Action fluconazole 150 mg tablet 150 mg PO Q3D Qty: 2 0RF nystatin 100,000 unit/gram powder 1 applic topical BID 14 Days Qty: 30 1RF Referrals / Follow Up: Rigoberto Lebron MD [Med Staff - Active Staff] - (followup one week.) Cassia Dupont DO [Primary Care Provider] - Disposition Disposition (needs filled in before D/C Order can be placed): Home Health Service
== END 2023-09-10 13:40 | disposition home health service (06) ==
LOC: SDC 18:02 → MS3 18:02
PROVIDERS: Anesthesiology; Family Medicine; Internal Medicine; Nurse Practitioner Family; Admitting Provider Surgery; PCP Family Medicine; Referring Provider Surgery; Visit Provider Internal Medicine
PROC: 0H0U0ZZ Alteration of Left Breast, Open Approach (ICD-10-PCS; CPT 19318; principal; 2023-09-04 07:15)
DX: N62 Hypertrophy of breast (principal); I69.354 Hemiplegia and hemiparesis following cerebral infarction affecting left non-dominant side; E11.40 Type 2 diabetes mellitus with diabetic neuropathy, unspecified; D62 Acute posthemorrhagic anemia; E78.5 Hyperlipidemia, unspecified; N64.4 Mastodynia; E66.9 Obesity, unspecified; I10 Essential (primary) hypertension; R26.81 Unsteadiness on feet; Z68.33 Body mass index [BMI] 33.0-33.9, adult; M54.6 Pain in thoracic spine; G89.29 Other chronic pain; M54.2 Cervicalgia; M25.512 Pain in left shoulder; M25.511 Pain in right shoulder; L30.4 Erythema intertrigo; E03.9 Hypothyroidism, unspecified; Z79.899 Other long term (current) drug therapy; Z79.890 Hormone replacement therapy; Z79.82 Long term (current) use of aspirin; Z80.3 Family history of malignant neoplasm of breast; N60.31 Fibrosclerosis of right breast; N60.32 Fibrosclerosis of left breast; N60.91 Unspecified benign mammary dysplasia of right breast; F32.A Depression, unspecified; F41.9 Anxiety disorder, unspecified; F17.210 Nicotine dependence, cigarettes, uncomplicated; Z79.84 Long term (current) use of oral hypoglycemic drugs
CPT/HCPCS: 19318; 00402; 36415; 36430; 80048; 82962; 83036; 83735; 84100; 84134; 84145; 84443; 85025; 85027; 86850; 86900; 86901; 86920; 86922; 88305; 88341; 88342; 93005; 94668; 96365; 96366; 96372; 97110; 97116; 97162; 97166; 97530; 97535; 99221; 99252; 99406; J7120; P9016; A4216; G0378; G0463; J2405; Q9968

== ENCOUNTER → 2023-09-19 | Outpatient (CLI) | payer MEDICARE, SELFPAY ==
[2023-09-19 10:26] LABS: Hematocrit 40.6 % (37-47); Hemoglobin 12.8 g/dL (12.0-15.0); Mean Corp Hgb Conc 31.5 g/dL (32-36); Mean Corpuscular Hgb 30.8 pg (27.0-32.0); Mean Corpuscular Volume 97.8 fL (81-99); Mean Platelet Vol. 8.7 fl (6.2-12.0); Platelet Count 614 K/mm3 (150-450); RBC Distribution Width CV 14.3 % (11.6-14.6); Red Blood Count 4.15 M/mm3 (4.2-5.4); White Blood Count 13.3 K/mm3 (4.4-11.0)
== END | disposition home or self-care (01) ==
PROVIDERS: PCP Family Medicine; Referring Provider Nurse Practitioner Family; Visit Provider Nurse Practitioner Family
DX: D62 Acute posthemorrhagic anemia (principal); I10 Essential (primary) hypertension; Z98.890 Other specified postprocedural states
CPT/HCPCS: 36415; 85027

== ENCOUNTER 2024-01-25 11:40 | Emergency (ER) | payer MEDICARE, SELFPAY ==
[2024-01-25 11:41] VITALS: BP 129/71; PULSE 50; RESP 18; TEMP 36.6; O2SAT 96
[2024-01-25 11:44] VITALS: BP 129/71; PULSE 54; RESP 16; O2SAT 97
[2024-01-25 13:29] LABS: Absolute Lymphocyte Count 2.21 X10^3/uL (0.83-4.51); Basophil# 0.05 X10^3/uL; Basophil% 0.6 % (0-1); Eosinophil# 0.12 X10^3/uL; Eosinophils% 1.4 % (0-5); Hematocrit 37.6 % (37-47); Hemoglobin 12.1 g/dL (12.0-15.0); Lymphocyte # 2.21 X10^3/ul (0.83-4.51); Lymphocyte % 26.5 % (19-41); Mean Corp Hgb Conc 32.2 g/dL (32-36); Mean Corpuscular Hgb 31.7 pg (27.0-32.0); Mean Corpuscular Volume 98.4 fL (81-99); Mean Platelet Vol. 9.8 fl (6.2-12.0); Monocyte# 0.89 X10^3/uL; Monocyte% 10.7 % (0-10); NRBC Flagged by Analyzer 0 % (0-5); Neutrophil # 5.04 X10^3/uL (2.7-7.7); Neutrophil % 60.3 % (47-70); Platelet Count 352 K/mm3 (150-450); RBC Distribution Width CV 16.1 % (11.6-14.6); RBC Distribution Width SD 57.6 fl (35.1-43.9); Red Blood Count 3.82 M/mm3 (4.2-5.4); White Blood Count 8.4 K/mm3 (4.4-11.0)
[2024-01-25 13:41] VITALS: BP 117/65; PULSE 65; RESP 20; O2SAT 95
--- NOTE | 2024-01-25 14:12 | EX.ED.DYSGE1 ---
HPI History of Present Illness Chief Complaint: Fatigue Narrative Narrative: 73-year-old female presenting with mild memory loss, lightheadedness at times, generalized fatigue. Patient states she last saw her primary care physician in March. She was on levothyroxine 125 mcg at that point. Patient states she has not made a follow-up appointment since then. Patient states that Dr. Dupont was supposed to follow-up with her in October when because Dr. Cook is no longer around. Patient Dr. Dupont since she arrived to the practice October 22. Currently she feels to have an appointment in December but Dr. Dupont hurt her leg and was able to make an office appointment. Patient has not had any lab work done or medication for her thyroid since March but she states she had 3 months of medications. Patient is accompanied by her ex- who is trying to help her get lined up with her healthcare. They state they tried to call the insurance company to see if there was a prescription for Synthroid in the pharmacy yesterday but did not call the doctor's office. Apparently there is no prescription. Again the patient has not made any office appointments or had any lab work since March close unclear why she thought she would have a doctor's prescription. 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 Back pain Cancer Cardiology follow-up encounter Carpal tunnel syndrome Cataracts, bilateral Chronic neck pain Chronic post-operative pain Chronic thoracic back pain Contusion of right shoulder region Depression Depression DM type 2, goal HbA1c < 7% DM type 2, goal HbA1c < 8% Encounter for screening for malignant neoplasm of lung Essential hypertension Family history of breast cancer Gastric reflux Hemiparesis of left dominant side High cholesterol History of CVA (cerebrovascular accident) (10/15/21) History of echocardiogram History of edema History of pain when walking History of stress test Hyperlipidemia Hypothyroidism Injury due to fall Injury of back Intertrigo Left shoulder pain Macromastia Neuropathy Obesity Other acute postprocedural pain Post-menopausal Primary osteoarthritis of right knee Recent weight loss Right shoulder pain Rotator cuff injury Smoker Thyroid disease TIA (transient ischemic attack) Tobacco abuse Type 2 diabetes mellitus Unsteady gait Vitamin D deficiency Walker as ambulation aid Wears dentures Wears glasses Home Medications clonidine HCl 0.1 mg tablet 0.1 mg PO QHS HTN 01/11/17 [History Last Taken 10/14/21 22:00] hydrocodone-acetaminophen 5-325mg 5mg-325mg 1 ea PO BID PRN PRN Pain 05/01/19 [History Last Taken Unknown] aripiprazole 2 mg tablet 2 mg PO DAILY mental health 10/15/21 [History Last Taken 09/04/23] furosemide 20 mg tablet 20 mg PO BID PRN swelling 10/15/21 [History Last Taken Unknown] metformin 1,000 mg tablet 1,000 mg PO BID diabetes 10/15/21 [History Last Taken Unknown] pantoprazole 40 mg tablet,delayed release 40 mg PO DAILY reflux 10/15/21 [History Last Taken 09/04/23] potassium chloride 20 mEq tablet,extended release 20 meq PO DAILY PRN if take a lasix 10/15/21 [History Last Taken Unknown] aspirin 81 mg chewable tablet 81 mg PO DAILY #30 tabs 10/17/21 [Rx Last Taken 08/28/23] pravastatin 40 mg tablet 40 mg PO DAILY 12/13/21 [History Last Taken Unknown] benztropine 0.5 mg tablet 0.5 mg PO BID 10/18/22 [History Last Taken Unknown] ascorbic acid (vitamin C) 500 mg tablet,extended release (C-500) 500 mg PO DAILY 08/27/23 [History Last Taken Unknown] cholecalciferol (vitamin D3) 25 mcg (1,000 unit) capsule (Vitamin D3) 25 mcg PO DAILY 08/27/23 [History Last Taken Unknown] gabapentin 400 mg capsule 400 mg PO TID 08/27/23 [History Last Taken Unknown] levothyroxine 125 mcg tablet 125 mcg PO DAILY 08/27/23 [History Last Taken 09/04/23] magnesium 250 mg tablet 250 mg PO DAILY 08/27/23 [History Last Taken Unknown] venlafaxine 100 mg tablet 150 mg PO BID 08/27/23 [History Last Taken 09/04/23] nystatin 100,000 unit/gram topical powder 1 applic topical BID 14 days #30 grams 10/09/23 [Rx Last Taken Unknown] fluconazole 150 mg tablet 150 mg PO Q3D 2 doses #2 tabs 10/18/23 [Rx Last Taken Unknown] levothyroxine 125 mcg tablet (Synthroid) 125 mcg PO DAILY #14 tabs 01/25/24 [Rx Last Taken Unknown] Allergy/AdvReac Type Severity Reaction Status Date / Time bupropion [From Wellbutrin] Allergy Other Verified 01/25/24 11:43 celecoxib [From Celebrex] Allergy Hives Verified 01/25/24 11:43 erythromycin lactobionate AdvReac Nausea/Vom/ Verified 01/25/24 11:43 [From Erythrocin] Diarrhea rosuvastatin calcium AdvReac Other Verified 01/25/24 11:43 [From Crestor] zolpidem [From Ambien] AdvReac Other Verified 01/25/24 11:43 Family History Mother Breast cancer Depression Brother Diabetes Hypertension Father , Age 43 Heart disease Myocardial infarction Brother Diabetes Surgical History H/O arthroscopic knee surgery History of back surgery History of bilateral breast reduction surgery History of carpal tunnel release of both wrists History of cataract surgery History of tubal ligation Hx of section Hx of colonoscopy Hx of surgical procedure Hx of tonsillectomy S/P insertion of spinal cord stimulator Social History household members: none housing: apartment number of children: 2 Smoking Status: Current every day smoker tobacco type: cigarettes quit status: has quit before alcohol intake: never substance use type: does not use caffeine: No seatbelt use: always additional social history: Does Take Aspirin Daily Does Not Take Ibuprofen ROS ROS ED ROS Narrative Generalized weakness Constitutional Constitutional ED: Denies chills, fever(s) or sweats Eyes Eyes: Denies blurry vision or change in vision ENT ENT ED: Denies ear pain or sore throat Cardiovascular Cardiovascular: Denies chest pain, palpitations or racing heartbeat Respiratory/Chest Respiratory/Chest: Denies cough, dyspnea or sputum Gastrointestinal Gastrointestinal: Denies abdominal pain, constipation, diarrhea, nausea or vomiting Genitourinary Genitourinary ED: Denies dysuria, hematuria or urinary frequency Musculoskeletal Musculoskeletal: Denies arthralgias, myalgias or neck pain Integumentary Denies abscess, Abrasions or rash Neurologic Neurologic: Denies headache(s), paresthesias or weakness Psychiatric Psychiatric: Denies anxiety, depression, suicidal ideation or suicidal thoughts Endocrine Endocrinology: Denies polydipsia or polyuria EXAM Physical Exam Const Vital Signs: 01/25/24 11:41 01/25/24 11:44 01/25/24 13:23 Temperature 97.8 F Temperature Source Temporal Pulse Rate 50 L 54 L Respiratory Rate 18 16 Respiratory Effort Normal Respiratory Pattern Normal Blood Pressure 129/71 H 129/71 H Blood Pressure Mean 90 90 Pulse Ox 96 97 Oxygen Delivery Method Room Air Room Air 01/25/24 13:41 Temperature Temperature Source Pulse Rate 65 Respiratory Rate 20 H Respiratory Effort Respiratory Pattern Blood Pressure 117/65 Blood Pressure Mean 82 Pulse Ox 95 Oxygen Delivery Method Room Air Positive well nourished General Appearance ED: NAD; Negative for pallor HEENT Reports moist mucous membranes Eyes PERRL and EOMs intact bilaterally Neck no lymphadenopathy Chest Wall inspection of chest normal Resp normal respiratory effort and clear to auscultation bilaterally Auscultation: Negative for rales, rhonchi or wheezes Cardio regular rate and regular rhythm GI normal to inspection, nondistended, normoactive bowel sounds Neuro oriented x3 and CN's II-XII intact bilaterally Sensorium / Orientation: alert Psych mental status grossly normal Skin no rashes or lesions noted General Skin Exam: Negative for jaundice or pallor MDM MDM MDM Narrative Medical decision making narrative: Patient seen and examined for generalized weakness and fatigue. She thinks this is due to low thyroid because she has been off her medications since March of last year. Patient is eating Doritos and crackers in the room without any difficulty. She has not recent describing any eating abnormalities. She has not had any weight loss or weight gain. Patient states she is here to get her thyroid medication refilled although she also states she has not seen a doctor in several months and has not had any lab work since they. After about 15 minutes of talking with the patient and it does seem that she does not get any refills on Synthroid because she has not seen a doctor and since she does not see the doctor and has been off her medications she is feeling weaker. Differential includes dehydration, anemia, electrolyte normalities, low thyroid. CBC obtained to assess white blood cell count, hemoglobin, platelets. BMP to assess renal function, electrolytes, glucose. TSH, T3, T4 I did ask the patient what brought her to the emergency room today as she states she just needs a refill on her thyroid medication and she has been out of these since May with a last visit in March and no blood work since then and she states because she is weak and has had a couple falls, however she states she does not want to be admitted to the hospital and she is ambulatory at home with a walker. CBC shows normal white blood cell count 8.4. Hemoglobin 12.1. Platelets are normal at 352. Creatinine elevated at 1.42 today. This is elevated above baseline. Her last creatinine was 0.77. Patient given a liter IV fluids.TSH today is 129, T4.12, T3 is less than 0.5. Discussed with Dr. Mtahew who is covering for Dr. Dupont. He recommended starting her on Synthroid and she was given 125 mcg. She was given a 2-week supply of this. Patient counseled to drink more fluids at home. She is counseled take her medications as prescribed. She is close to the follow-up visit with Dr. Mathew this following week. Return precautions were discussed. Impression: 1. Hypothyroidism 2. Dehydration Lab Data Attestation: I reviewed the patient's lab results. Labs: Laboratory Results - last 24 hr 01/25/24 13:20 WBC 8.4 RBC 3.82 L Hgb 12.1 Hct 37.6 MCV 98.4 MCH 31.7 MCHC 32.2 RDW Std Deviation 57.6 H RDW Coeff of Zafar 16.1 H Plt Count 352 MPV 9.8 Immature Gran % (Auto) 0.500 Neut % (Auto) 60.3 Lymph % (Auto) 26.5 [place] % (Auto) 10.7 H Eos % (Auto) 1.4 Baso % (Auto) 0.6 Absolute Neuts (auto) 5.0 Absolute Lymphs (auto) 2.21 Nucleated RBC % 0 Sodium 140 Potassium 4.2 Chloride 107 Carbon Dioxide 29.0 Anion Gap 4 L BUN 12 Creatinine 1.42 H Est GFR (MDRD) Af Amer 47 L Est GFR (MDRD) Non-Af 39 L BUN/Creatinine Ratio 8.5 L Glucose 224 H Calcium 8.9 Total Bilirubin 0.90 AST 22 ALT 24 Alkaline Phosphatase 82 Total Protein 6.9 Albumin 3.5 Globulin 3.4 Albumin/Globulin Ratio 1.0 TSH 129.00 H Free T4 0.12 L Free T3 pg/dL < 0.5 L Discharge Plan Triage Chief Complaint: Fatigue ED Provider: Kash Daniel Dx/Rx/DC Orders Clinical Impression: Hypothyroidism, Dehydration Instructions: ED Dehydration (Adult), ED Hypothyroidism Prescriptions: New levothyroxine [Synthroid] 125 mcg tablet 125 mcg PO DAILY Qty: 14 0RF No Action pravastatin 40 mg tablet 40 mg PO DAILY benztropine 0.5 mg tablet 0.5 mg PO BID fluconazole 150 mg tablet 150 mg PO Q3D Qty: 2 0RF clonidine HCl 0.1 MG tablet 0.1 mg PO QHS hydrocodone-acetaminophen 1 EACH tablet 1 ea PO BID PRN PRN (Reason: Pain) pantoprazole 40 mg Tablet,Delayed Release (Dr/Ec) 40 mg PO DAILY aripiprazole 2 mg tablet 2 mg PO DAILY Patient Comments: take 1 tablet by mouth once daily furosemide 20 mg tablet 20 mg PO BID PRN (Reason: swelling) potassium chloride 20 mEq tablet extended release 20 meq PO DAILY PRN (Reason: if take a lasix ) Patient Comments: take 1 tablet by mouth once daily with food WHILE ON FUROSEMIDE metformin 1,000 mg tablet 1,000 mg PO BID aspirin 81 mg tablet,chewable 81 mg PO DAILY Qty: 30 0RF levothyroxine 125 mcg tablet 125 mcg PO DAILY gabapentin 400 mg capsule 400 mg PO TID Patient Comments: take 1 capsule by mouth three times a day venlafaxine 100 mg tablet 150 mg PO BID Patient Comments: take 1 and 1/2 tablets by mouth twice a day cholecalciferol (vitamin D3) [Vitamin D3] 25 mcg (1,000 unit) capsule 25 mcg PO DAILY ascorbic acid (vitamin C) [C-500] 500 mg tablet extended release 500 mg PO DAILY magnesium 250 mg tablet 250 mg PO DAILY nystatin 100,000 unit/gram powder 1 applic topical BID 14 Days Qty: 30 1RF Primary Care Provider: Cassia Dupont Referrals: Jason Mathew MD [Med Staff - Selling Specialist] - As soon as possible Cassia Dupont DO [Primary Care Provider] - Disposition Disposition: Home, Self Care
[2024-01-25 14:24] LABS: AST(SGOT) 22 U/L (15-37); Alanine Aminotransfer ALT/SGPT 24 U/L (13-56); Albumin, Serum 3.5 g/dL (3.2-5.0); Alkaline Phosphatase 82 U/L (45-117); Anion Gap 4 (5-15); BUN 12 mg/dL (7-18); BUN/Creat Ratio 8.5 RATIO (10-20); Calcium,Total 8.9 mg/dL (8.5-10.1); Chloride 107 mmol/L (98-107); Creatinine, Serum 1.42 mg/dL (0.55-1.02); EST Glomerular Filtration Rate 39 mL/min (>60); Est Glom Filt Rate - Afr Amer 47 mL/min (>60); Free T3 < 0.5 pg/mL (2.18-3.98); Globulin 3.4 g/dL (2.2-4.2); Glucose 224 mg/dL (74-106); Potassium 4.2 mmol/L (3.5-5.1); Protein, Total 6.9 g/dL (6.4-8.2); Sodium Level 140 mmol/L (136-145); T4 Free Direct 0.12 ng/dL (0.76-1.46)
[2024-01-25] MEDS: 0.9% Normal Saline (1000mL) 1,000 ML 999 ML IV (14:54)
[2024-01-25 15:00] VITALS: BP 113/79; PULSE 85; RESP 19; O2SAT 97
[2024-01-25] MEDS: Levothyroxine 125 MCG Tablet PO (15:13)
[2024-01-25 15:32] VITALS: BP 150/106; PULSE 60; RESP 18; TEMP 36.4; O2SAT 97
== END 2024-01-25 15:38 | disposition home or self-care (01) ==
PROVIDERS: Emergency Provider Student in an Organized Health Care Education/Training Program; PCP Family Medicine; Visit Provider Student in an Organized Health Care Education/Training Program
DX: E03.9 Hypothyroidism, unspecified (principal); E11.9 Type 2 diabetes mellitus without complications; E86.0 Dehydration; F17.210 Nicotine dependence, cigarettes, uncomplicated; Z86.73 Personal history of transient ischemic attack (TIA), and cerebral infarction without residual deficits
CPT/HCPCS: 80053; 84439; 84443; 84481; 85025; 99284; A4216

== ENCOUNTER → 2024-03-23 | Outpatient (CLI) | payer MEDICARE, SELFPAY ==
--- NOTE | 2024-03-23 09:05 | BI_ITS ---
MAMMOGRAPHY - BILATERAL DIAGNOSTIC REASON FOR EXAM: Female, 73 years old. right breast pain after breast reduction 09/04/23 -- path RT breast focal atypical lobular hyperplasia PERTINENT HISTORY: Non-contributory. TECHNIQUE: Digital examination. Mediolateral oblique (MLO) and craniocaudad (CC) views of both breasts were obtained. CAD: CAD was performed on this study. COMPARISON: 11/13/2022 FINDINGS: Breast Composition: There are scattered areas of fibroglandular density. There are no dominant masses or suspicious calcifications. No other significant abnormalities are identified. Interval breast reduction surgery. BI/DIAG MAMM W/CAD, BILAT IMPRESSION: Stable bilateral diagnostic mammogram. Interval breast reduction surgery. ASSESSMENT CATEGORY: BIRADS Category 1: Negative. A letter regarding these results will be sent to the patient by the facility within 30 days. FOLLOW UP RECOMMENDATION: Yearly follow up mammogram recommended. (A) Approximately 10% of breast cancers are not detected by mammography. A normal mammogram should not delay biopsy of a clinically suspicious abnormality. Electronically Signed: John Maria MD at 9:59 EDT ,
== END | disposition home or self-care (01) ==
PROVIDERS: Referring Provider Nurse Practitioner Family; Visit Provider Nurse Practitioner Family
DX: N64.4 Mastodynia (principal); E11.9 Type 2 diabetes mellitus without complications; N60.91 Unspecified benign mammary dysplasia of right breast; F17.200 Nicotine dependence, unspecified, uncomplicated; Z98.890 Other specified postprocedural states; Z80.3 Family history of malignant neoplasm of breast
CPT/HCPCS: 77062; 77066; G0279

== ENCOUNTER → 2024-07-01 | Outpatient (CLI) | payer MEDICARE, SELFPAY ==
[2024-07-01 18:11] LABS: Absolute Lymphocyte Count 2.93 X10^3/uL (0.83-4.51); Absolute Neutrophil Count 9.3 X10^3/uL (2.0-7.7); Basophil# 0.07 X10^3/uL; Basophil% 0.5 % (0-1); Eosinophil# 0.09 X10^3/uL; Eosinophils% 0.7 % (0-5); Hematocrit 44.7 % (37-47); Hemoglobin 14.8 g/dL (12.0-15.0); Lymphocyte # 2.93 X10^3/ul (0.83-4.51); Lymphocyte % 21.3 % (19-41); Mean Corp Hgb Conc 33.1 g/dL (32-36); Mean Corpuscular Hgb 31.6 pg (27.0-32.0); Mean Corpuscular Volume 95.5 fL (81-99); Mean Platelet Vol. 9.3 fl (6.2-12.0); Monocyte# 1.23 X10^3/uL; NRBC Flagged by Analyzer 0 % (0-5); Neutrophil % 67.7 % (47-70); Platelet Count 477 K/mm3 (150-450); RBC Distribution Width CV 14.5 % (11.6-14.6); RBC Distribution Width SD 50.4 fl (35.1-43.9); Red Blood Count 4.68 M/mm3 (4.2-5.4); White Blood Count 13.7 K/mm3 (4.4-11.0)
[2024-07-01 18:40] LABS: Vitamin D,25 Hydroxy 15.2 ng/mL
[2024-07-01 18:48] LABS: Ferritin 78 ng/mL (8-252); Iron 63 ug/dL (50-170); Iron Binding Capacity,Total 316 ug/dL (250-450); PERCENT IRON SATURATION 19.9 % (15.0-55.0); T4 Free Direct 1.14 ng/dL (0.76-1.46)
[2024-07-01 18:59] LABS: Hemoglobin A1c 10.6 % (3.8-5.6)
== END | disposition home or self-care (01) ==
LOC: MFPLAB 15:57
PROVIDERS: PCP Family Medicine; Visit Provider Family Medicine
DX: F32.9 Major depressive disorder, single episode, unspecified (principal); E11.9 Type 2 diabetes mellitus without complications; D64.9 Anemia, unspecified; E03.9 Hypothyroidism, unspecified; M85.80 Other specified disorders of bone density and structure, unspecified site
CPT/HCPCS: 36415; 82306; 82728; 83036; 83540; 83550; 84439; 84443; 85025

== ENCOUNTER → 2024-07-15 | Outpatient (CLI) | payer MEDICARE, SELFPAY ==
[2024-07-15 10:07] LABS: Absolute Lymphocyte Count 2.41 X10^3/uL (0.83-4.51); Absolute Neutrophil Count 6.7 X10^3/uL (2.0-7.7); Basophil# 0.05 X10^3/uL; Basophil% 0.5 % (0-1); Eosinophil# 0.09 X10^3/uL; Eosinophils% 0.9 % (0-5); Hematocrit 42.9 % (37-47); Hemoglobin 14.3 g/dL (12.0-15.0); Lymphocyte # 2.41 X10^3/ul (0.83-4.51); Lymphocyte % 23.3 % (19-41); Mean Corp Hgb Conc 33.3 g/dL (32-36); Mean Corpuscular Hgb 32.4 pg (27.0-32.0); Mean Corpuscular Volume 97.1 fL (81-99); Mean Platelet Vol. 9.7 fl (6.2-12.0); Monocyte# 0.93 X10^3/uL; NRBC Flagged by Analyzer 0 % (0-5); Neutrophil # 6.72 X10^3/uL (2.7-7.7); Platelet Count 434 K/mm3 (150-450); RBC Distribution Width CV 13.9 % (11.6-14.6); RBC Distribution Width SD 49.6 fl (35.1-43.9); Red Blood Count 4.42 M/mm3 (4.2-5.4); White Blood Count 10.3 K/mm3 (4.4-11.0)
[2024-07-15 10:40] LABS: Vitamin D,25 Hydroxy 16.2 ng/mL
[2024-07-15 10:47] LABS: Ferritin 97 ng/mL (8-252); Iron 81 ug/dL (50-170); Iron Binding Capacity,Total 317 ug/dL (250-450); PERCENT IRON SATURATION 25.6 % (15.0-55.0); T4 Free Direct 0.75 ng/dL (0.76-1.46)
[2024-07-15 11:04] LABS: Hemoglobin A1c 11.6 % (3.8-5.6)
== END | disposition home or self-care (01) ==
LOC: MTLAB 07:18
PROVIDERS: PCP Family Medicine; Referring Provider Family Medicine; Visit Provider Family Medicine
DX: D64.9 Anemia, unspecified (principal); E11.9 Type 2 diabetes mellitus without complications; F32.9 Major depressive disorder, single episode, unspecified
CPT/HCPCS: 36415; 82306; 82728; 83036; 83540; 83550; 84439; 84443; 85025

== ENCOUNTER 2024-09-04 12:30 | Inpatient (IN) | payer MEDICARE, MEDICAID, SELFPAY ==
[2024-09-04] VITALS (18 sets, daily range): BP systolic 93–227; BP diastolic 52–198; PULSE 84–101; RESP 16–36; TEMP 31.8–36.9; O2SAT 89–100; BMI 32.2; BMI 33.7
--- NOTE | 2024-09-04 12:51 | EKG12_ITS ---
Test Reason : Blood Pressure : */* mmHG Vent. Rate : 85 BPM Atrial Rate : 85 BPM P-R Int : 150 ms QRS Dur : 76 ms QT Int : 406 ms P-R-T Axes : 74 1 80 degrees QTcB Int : 483 ms Normal sinus rhythm with sinus arrhythmia Nonspecific ST and T wave abnormality Abnormal ECG Confirmed by CASPER SPENCER, BALDEMAR ([id number]), fashion editor ROZINA ARMSTRONG ([id number]) on 09/07/2024 9:35:36 AM Referred By: Earl Mederos Confirmed By: BALDEMAR SHIRLEY MD
--- NOTE | 2024-09-04 12:51 | CT_ITS ---
INDICATION: confusion EXAMINATION: CT BRAIN - CT Head or Brain W/O Contrast Injection TECHNIQUE: Multiple axial images were obtained of the head without intravenous contrast. A radiation dose optimization technique was used for this scan. IV Contrast dosage and agent: None. COMPARISON: 02/25/2023 FINDINGS: BRAIN PARENCHYMA: No intra- or extra-axial hemorrhage. No evidence of acute infarct. No intracranial mass or mass effect. There is preservation of the avery/white matter interface. Posterior fossa structures are unremarkable. Stable volume loss with low attenuation of the periventricular white matter typical of chronic small vessel disease. CSF SPACES: Stable. No hydrocephalus. Basal cisterns are patent. CALVARIUM, SKULL BASE, PARANASAL SINUSES AND MASTOID AIR CELLS: Clear. No discrete lytic or blastic abnormalities. CT/Brain/Head without Contrast IMPRESSION: Volume loss with chronic white matter changes. No acute intracranial findings. Electronically Signed: Kofi Salinas MD at 16:32 EDT ,
[2024-09-04 12:58] LABS: Blood Gas Specimen Type VEN; O2 Delivery Device Not entered; SITE Not entered; VBG BASE EXCESS -8 mmol/L (-1.0-3.5); VBG Bicarbonate 21 mmol/L (22-26); VBG PO2 45 mmHg (25-40); VBG SO2 65 % (50-70); VBG TCO2 23 mmol/L (23-33); VBG pCO2 63.6 mmHg (41-51); VBG pH 7.13 (7.32-7.42)
--- NOTE | 2024-09-04 12:59 | EX.ED.DYSGE1 ---
HPI <KRISTINE Dolan - Last Filed: 09/04/24 17:17> History of Present Illness Chief Complaint: Alt LOC Narrative Narrative: Patient is a 73-year-old female history of type 2 diabetes, history of some dementia, neuropathy tobacco use who presents to the emergency department for altered mental status. Patient's last seen well was Saturday morning. Patient was found on her deck, patient apparently has been laying there for the last 4 days. Patient is covered in cigarette colette. Patient does have abrasions to her knees elbows. Patient is not acting like herself. Patient is usually alert and oriented however she does have dementia, however per the brother, she is normal to have a conversation. Patient's brought in via EMS. PFSH <KRISTINE Dolan - Last Filed: 09/04/24 17:17> [facility] Medical History Ductal hyperplasia of breast Atypical ductal hyperplasia of right breast Atypical lobular hyperplasia (ALH) of right breast Other acute postprocedural pain Unsteady gait Wears dentures Wears glasses Post-menopausal Cancer Depression Anxiety Thyroid disease Walker as ambulation aid Ambulates with cane Arthritis High cholesterol Back pain Injury of back TIA (transient ischemic attack) Gastric reflux History of edema History of pain when walking History of echocardiogram History of stress test Cardiology follow-up encounter DM type 2, goal HbA1c < 8% Smoker Recent weight loss Family history of breast cancer Intertrigo Left shoulder pain Right shoulder pain Chronic thoracic back pain Chronic neck pain Macromastia DM type 2, goal HbA1c < 7% Neuropathy Cataracts, bilateral Carpal tunnel syndrome Vitamin D deficiency Encounter for screening for malignant neoplasm of lung Obesity Tobacco abuse Hyperlipidemia Hypothyroidism Type 2 diabetes mellitus History of CVA (cerebrovascular accident) (10/15/21) Essential hypertension Rotator cuff injury Contusion of right shoulder region Injury due to fall Hemiparesis of left dominant side Chronic post-operative pain Primary osteoarthritis of right knee Depression Arthritis Home Medications ?Medication ?Instructions ?Recorded ?Last Taken ?Type clonidine HCl 0.1 mg tablet 0.1 mg PO QHS HTN 01/11/17 10/14/21 22:00 History hydrocodone-acetaminophen 5-325mg 1 ea PO BID PRN PRN Pain 05/01/19 Unknown History 5mg-325mg aripiprazole 2 mg tablet 2 mg PO DAILY mental health 10/15/21 09/04/23 History furosemide 20 mg tablet 20 mg PO BID PRN swelling 10/15/21 Unknown History metformin 1,000 mg tablet 1,000 mg PO BID diabetes 10/15/21 Unknown History pantoprazole 40 mg tablet,delayed 40 mg PO DAILY reflux 10/15/21 09/04/23 History release potassium chloride 20 mEq 20 meq PO DAILY PRN if take a lasix 10/15/21 Unknown History tablet,extended release aspirin 81 mg chewable tablet 81 mg PO DAILY #30 tabs 10/17/21 08/28/23 Rx pravastatin 40 mg tablet 40 mg PO DAILY 12/13/21 Unknown History benztropine 0.5 mg tablet 0.5 mg PO BID 10/18/22 Unknown History ascorbic acid (vitamin C) 500 mg 500 mg PO DAILY 08/27/23 Unknown History tablet,extended release (C-500) cholecalciferol (vitamin D3) 25 25 mcg PO DAILY 08/27/23 Unknown History mcg (1,000 unit) capsule (Vitamin D3) gabapentin 400 mg capsule 400 mg PO TID 08/27/23 Unknown History levothyroxine 125 mcg tablet 125 mcg PO DAILY 08/27/23 09/04/23 History magnesium 250 mg tablet 250 mg PO DAILY 08/27/23 Unknown History venlafaxine 100 mg tablet 150 mg PO BID 08/27/23 09/04/23 History nystatin 100,000 unit/gram topical 1 applic topical BID 14 days #30 10/09/23 Unknown Rx powder grams insulin glargine-yfgn 100 unit/mL 10 unit (0.1 mL) subcut BID #15 mL 09/09/24 Unknown Rx (3 mL) subcutaneous pen sulfamethoxazole 800 1 tab PO BID #10 tabs 09/09/24 Unknown Rx mg-trimethoprim 160 mg tablet (Bactrim DS) Allergy/AdvReac Type Severity Reaction Status Date / Time bupropion (From Wellbutrin) Allergy Other Verified 09/04/24 12:45 celecoxib (From Celebrex) Allergy Hives Verified 09/04/24 12:45 erythromycin lactobionate AdvReac Nausea/Vom/ Verified 09/04/24 12:45 (From Erythrocin) Diarrhea rosuvastatin calcium (From AdvReac Other Verified 09/04/24 12:45 Crestor) zolpidem (From Ambien) AdvReac Other Verified 09/04/24 12:45 Family History Mother Breast cancer Depression Brother Diabetes Hypertension Father , Age 43 Heart disease Myocardial infarction Brother Diabetes Surgical History History of bilateral breast reduction surgery Hx of surgical procedure History of cataract surgery History of tubal ligation H/O arthroscopic knee surgery Hx of colonoscopy S/P insertion of spinal cord stimulator Hx of tonsillectomy History of carpal tunnel release of both wrists Hx of section History of back surgery Social History household members: none housing: apartment number of children: 2 Smoking Status: Current every day smoker tobacco type: cigarettes quit status: has quit before alcohol intake: never substance use type: does not use caffeine: No seatbelt use: always additional social history: Does Take Aspirin Daily Does Not Take Ibuprofen ROS <KRISTINE Dolan - Last Filed: 09/04/24 17:17> ROS ED ROS Narrative Secondary to the altered mental status, review of symptoms cannot be completed EXAM <KRISTINE Dolan - Last Filed: 09/04/24 17:17> Physical Exam Narrative Exam Narrative: Vital signs reviewed. Patient's core body temperature during rectal temp was 89.9, patient is tachycardic, tachypneic. Patient looks around the room however does not answer any questions. Severely dehydrated. Patient does have Colette as well as dark lips secondary to smoking. Patient is disheveled HEET: Head normocephalic atraumatic, TMs clear bilaterally. Posterior pharynx is clear. Extremely dry mucous membranes, dark black lips from smoking. Neck: Supple with no lymphadenopathy or tenderness. No signs of meningismus. Cardiac: Tachycardic no murmurs gallops or rubs, equal peripheral pulses bilaterally. Respiratory: Diminished to bilateral lower lungs. No chest tenderness. Abdomen: Soft, nontender, nondistended. No abdominal bruit or pulsatile masses. No hepatosplenomegaly Extremities: No peripheral edema, patient has abrasions to both elbows, both knees. Active full range of motion of all extremities. Neuro: Cranial nerves II through XII intact, no focal neurological deficits. Patient does not follow commands at this time. Skin: Skin has multiple abrasions, is dirty, patient does have asked for cigarettes throughout her entire body. No significant olivares. Purpura, petechiae, vesicles or pustules. Backs/flank: No CVA tenderness, no midline spinal tenderness, no deformity. Psych: Normal mood and affect. No SI, HI or acute psychosis. Const Vital Signs: 09/04/24 12:32 09/04/24 12:51 09/04/24 13:31 Temperature 89.3 F L Temperature Source Rectal Pulse Rate 86 86 Respiratory Rate 16 28 H Blood Pressure 153/115 H 227/198 H Blood Pressure Mean 127 207 Pulse Ox 96 94 Oxygen Delivery Method Room Air Room Air Oxygen Flow Rate (L/min) 09/04/24 14:00 09/04/24 15:00 09/04/24 16:00 Temperature Temperature Source Pulse Rate 86 92 94 Respiratory Rate 22 H 21 H 21 H Blood Pressure 210/168 H 132/85 H 104/63 Blood Pressure Mean 182 100 76 Pulse Ox 96 90 Oxygen Delivery Method Room Air Room Air Oxygen Flow Rate (L/min) 09/04/24 16:10 09/04/24 16:10 Temperature Temperature Source Pulse Rate Respiratory Rate Blood Pressure Blood Pressure Mean Pulse Ox 89 96 Oxygen Delivery Method Room Air Nasal Cannula Oxygen Flow Rate (L/min) 2 Positive unkempt General Appearance ED: unkempt Psych Appearance: unkempt <Dr. Earl Mederos, DO - Last Filed: 09/20/24 11:22> Physical Exam Const Vital Signs: 09/04/24 12:32 09/04/24 12:51 09/04/24 13:31 Temperature 89.3 F L Temperature Source Rectal Pulse Rate 86 86 Respiratory Rate 16 28 H Blood Pressure 153/115 H 227/198 H Blood Pressure Mean 127 207 Pulse Ox 96 94 Oxygen Delivery Method Room Air Room Air Oxygen Flow Rate (L/min) 09/04/24 14:00 09/04/24 15:00 09/04/24 16:00 Temperature Temperature Source Pulse Rate 86 92 94 Respiratory Rate 22 H 21 H 21 H Blood Pressure 210/168 H 132/85 H 104/63 Blood Pressure Mean 182 100 76 Pulse Ox 96 90 Oxygen Delivery Method Room Air Room Air Oxygen Flow Rate (L/min) 09/04/24 16:10 09/04/24 16:10 Temperature Temperature Source Pulse Rate Respiratory Rate Blood Pressure Blood Pressure Mean Pulse Ox 89 96 Oxygen Delivery Method Room Air Nasal Cannula Oxygen Flow Rate (L/min) 2 MDM <KULDEEP DolanC - Last Filed: 09/04/24 17:17> [facility] Lab Data Labs: Laboratory Results - last 24 hr 09/04/24 09/04/24 09/04/24 13:12 15:05 16:36 WBC 24.4 H RBC 5.07 Hgb 16.9 H Hct 50.6 H MCV 99.8 H MCH 33.3 H MCHC 33.4 RDW Std Deviation 49.0 H RDW Coeff of Zafar 13.2 Plt Count 563 H MPV 10.7 Immature Gran % (Auto) 1.400 H Neut % (Auto) 81.7 H Lymph % (Auto) 4.6 L [place] % (Auto) 12.0 H Eos % (Auto) 0.0 Baso % (Auto) 0.3 Absolute Neuts (auto) 20.0 H Absolute Lymphs (auto) 1.12 Nucleated RBC % 0 Differential Comment SCANNED Platelet Estimate MOD INC RBC Morphology NORM C+C PT 14.9 INR 1.2 APTT 22.5 L Sodium 146 H Potassium 4.9 Chloride 104 Carbon Dioxide 20.0 L Anion Gap 21 H BUN 98 H Creatinine 3.01 H Estim Creat Clear Calc 16.54 Est GFR (MDRD) Af Amer 20 L Est GFR (MDRD) Non-Af 16 L BUN/Creatinine Ratio 32.6 H Glucose 874 H* Lactic Acid 4.2 H* Calcium 9.8 Magnesium 4.1 H Total Bilirubin 0.80 AST 41 H ALT 38 Alkaline Phosphatase 175 H Total Creatine Kinase 1298 H Troponin I High Sens 15 Total Protein 8.4 H Albumin 3.8 Globulin 4.6 H Albumin/Globulin Ratio 0.8 L Lipase 213 H Urine Color Yellow Urine Clarity Sl. Cloudy Urine pH 6.0 Ur Specific [place] 1.015 Urine Protein 30 H Urine Glucose (UA) 1000 H Urine Ketones 15 H Urine Occult Blood 250 H Urine Nitrite Negative Urine Bilirubin Negative Urine Urobilinogen Normal Ur Leukocyte Esterase 25 H Urine RBC 5-10 SEEN Urine WBC 0-5 SEEN Ur Squamous Epith Cells 0-5 SEEN Urine Bacteria 1+ Urine Mucus 0 SEEN Acetone Level SMALL H POC Glucose > 500 H* > 500 H* ABG Data ABG results: ABG 09/04/24 13:54 Specimen Type GARIMA Sample Site Not entered VBG pH 7.13 L* VBG pO2 45 H VBG HCO3 21 L VBG Total CO2 23 VBG O2 Sat (Calc) 65 VBG Base Excess -8 L POC Mix VBG pCO2 Pt Tmp 63.6 H O2 Delivery Device Not entered Crit Call To/Read Back Yes Blood Gas Notified Whom BOYD UG Blood Gas Notified Time 13:55:37 Radiography Diagnostic Testing: Clinical Impression(s) from Imaging Studies Brain CT 09/04/24 12:51 IMPRESSION: Volume loss with chronic white matter changes. No acute intracranial findings. Electronically Signed: Kofi Salinas MD at 16:32 EDT Reading Location ID and State: [facility] / [place] Tel , Service support , Chest X-Ray 09/04/24 15:20 IMPRESSION: No radiographic evidence of acute cardiopulmonary disease. Electronically Signed: Kofi Salinas MD at 16:51 EDT Reading Location ID and State: [facility] / [place] Tel , Service support , Knee X-Ray 09/04/24 15:20 IMPRESSION: No acute bony injury. Electronically Signed: Kofi Salinas MD at 16:46 EDT , Knee X-Ray 09/04/24 15:20 IMPRESSION: Mild degenerative changes. No acute fracture or dislocation. Electronically Signed: Earl Kat MD at 16:11 EDT Reading Location ID and State: [facility] / [place] Tel , Service support , Pelvis X-Ray 09/04/24 15:20 IMPRESSION: No evidence of displaced pelvic or hip fracture. Electronically Signed: Kofi Salinas MD at 16:48 EDT , Hip X-Ray 09/04/24 17:00 IMPRESSION: No acute bony injury. Electronically Signed: Kofi Salinas MD at 17:23 EDT , EKG Sinus rhythm with sinus arrhythmia: Attestation: I personally reviewed and interpreted this EKG as follows: Comments: Sinus rhythm with sinus arrhythmia, rate of 85 bpm, [place] 150 ms, QRS duration 76 ms, no acute ST elevation, no acute infarct noted. Treatment and Re-Evaluation :: Differential diagnosis includes however is not limited to: TIA, CVA, closed head injury, intracranial bleeding, hypothermia, rhabdomyolysis, DKA Patient on my initial evaluation was alert x 1, patient mumbles, does not follow commands. Patient's eyes are open. Patient is currently receiving warm fluids, patient does have the bear hugger to increase her core temperature, it is now 89.9. Patient looks severely dehydrated. Patient received a full septic workup including CK, acetone, VBG is consistent with acidosis with a pH of 7.12, CO2 is 63.6, O2 is 44.8 with a bicarb of 21.1. Patient will receive a CT scan of the brain, cervical spine, x-rays of both knees, chest and pelvis. All radiologic examinations were read, reviewed by the emergency department attending. From these reads, a plan of care will be put in place. Patient's chemistries show a creatinine of 3.0, glucose 874, CO2 20 patient's troponin was 15 which is negative, CK total was 1298, this is significant for rhabdomyolysis, this also explains the patient's MINESH. Patient's lipase only elevated 213, patient's acetone level was small. Patient will be given a second liter of warm normal saline, patient will receive 12 units subcu insulin. Patient's blood pressure continues to be elevated, patient be given IV hydralazine. Patient on reevaluation was talking more however she was still altered. Patient's temperature is now 96 ?F. Patient's blood glucose is still high, I spoke with the admitting physician, Dr. paniagua. Patient will be admitted to ICU, I will start a insulin drip at 0.05 units/kg/h. I spoke with the patient's family, they are aware. At this time, patient is go back to the x-ray just to ensure there is no hip fracture, this is looking negative. CT scan of the brain showed no acute process. The other x-rays were negative. Patient at this time is stable ICU. <Dr. Earl Mederos, DO - Last Filed: 09/20/24 11:22> [facility] Narrative Medical decision making narrative: 1414 we attempted to speak to the hospitalist, Dr. Paniagua. He is not accepting the mission at this time, wanting the results of all the test to be resulted before he will discuss the case. 1435 repeat rectal exam is rectal temperature 93. Patient is receiving the second liter of IV warm fluid. Patient had a subcutaneous injection of insulin to help bring sugar down, patient did have a gap of 21, CO2 was 20, pH was 7.1. Patient continues to keep pushing off the covers, she is confused and altered. Patient is given 1 mg of Ativan IV to help with mild sedation so that she will not keep wearing the bear hugger off, also patient will be given 1 dose of Zofran prophylactically. I, Dr Mederos, have reviewed the above progress note and course of action in the ER; agree with the above. I have personally seen and evaluated this patient, gone over history and physical, and discussed disposition and treatment plan with the patient. Critical care time 55 minutes exclusive from separate billable procedures that were performed. The following was considered in the determination of critical care but not limited to the level of medical decision making, intensive cardiac and/or respiratory monitoring, frequent vital sign monitoring, evaluation of laboratory studies, evaluation of radiographic studies, oxygen monitoring, and constant monitoring and speaking to family at bedside Lab Data Labs: Laboratory Results - last 24 hr 09/04/24 09/04/24 09/04/24 13:12 15:05 16:36 WBC 24.4 H RBC 5.07 Hgb 16.9 H Hct 50.6 H MCV 99.8 H MCH 33.3 H MCHC 33.4 RDW Std Deviation 49.0 H RDW Coeff of Zafar 13.2 Plt Count 563 H MPV 10.7 Immature Gran % (Auto) 1.400 H Neut % (Auto) 81.7 H Lymph % (Auto) 4.6 L [place] % (Auto) 12.0 H Eos % (Auto) 0.0 Baso % (Auto) 0.3 Absolute Neuts (auto) 20.0 H Absolute Lymphs (auto) 1.12 Nucleated RBC % 0 Differential Comment SCANNED Platelet Estimate MOD INC RBC Morphology NORM C+C PT 14.9 INR 1.2 APTT 22.5 L Sodium 146 H Potassium 4.9 Chloride 104 Carbon Dioxide 20.0 L Anion Gap 21 H BUN 98 H Creatinine 3.01 H Estim Creat Clear Calc 16.54 Est GFR (MDRD) Af Amer 20 L Est GFR (MDRD) Non-Af 16 L BUN/Creatinine Ratio 32.6 H Glucose 874 H* Lactic Acid 4.2 H* Calcium 9.8 Magnesium 4.1 H Total Bilirubin 0.80 AST 41 H ALT 38 Alkaline Phosphatase 175 H Total Creatine Kinase 1298 H Troponin I High Sens 15 Total Protein 8.4 H Albumin 3.8 Globulin 4.6 H Albumin/Globulin Ratio 0.8 L Lipase 213 H Urine Color Yellow Urine Clarity Sl. Cloudy Urine pH 6.0 Ur Specific [place] 1.015 Urine Protein 30 H Urine Glucose (UA) 1000 H Urine Ketones 15 H Urine Occult Blood 250 H Urine Nitrite Negative Urine Bilirubin Negative Urine Urobilinogen Normal Ur Leukocyte Esterase 25 H Urine RBC 5-10 SEEN Urine WBC 0-5 SEEN Ur Squamous Epith Cells 0-5 SEEN Urine Bacteria 1+ Urine Mucus 0 SEEN Acetone Level SMALL H POC Glucose > 500 H* > 500 H* ABG Data ABG results: ABG 09/04/24 13:54 Specimen Type GARIMA Sample Site Not entered VBG pH 7.13 L* VBG pO2 45 H VBG HCO3 21 L VBG Total CO2 23 VBG O2 Sat (Calc) 65 VBG Base Excess -8 L POC Mix VBG pCO2 Pt Tmp 63.6 H O2 Delivery Device Not entered Crit Call To/Read Back Yes Blood Gas Notified Whom BOYD UG Blood Gas Notified Time 13:55:37 Radiography Diagnostic Testing: Clinical Impression(s) from Imaging Studies Brain CT 09/04/24 12:51 IMPRESSION: Volume loss with chronic white matter changes. No acute intracranial findings. Electronically Signed: Kofi Salinas MD at 16:32 EDT , Chest X-Ray 09/04/24 15:20 IMPRESSION: No radiographic evidence of acute cardiopulmonary disease. Electronically Signed: Kofi Salinas MD at 16:51 EDT , Knee X-Ray 09/04/24 15:20 IMPRESSION: No acute bony injury. Electronically Signed: Kofi Salinas MD at 16:46 EDT , Knee X-Ray 09/04/24 15:20 IMPRESSION: Mild degenerative changes. No acute fracture or dislocation. Electronically Signed: Earl Kat MD at 16:11 EDT , Pelvis X-Ray 09/04/24 15:20 IMPRESSION: No evidence of displaced pelvic or hip fracture. Electronically Signed: Kofi Salinas MD at 16:48 EDT , Hip X-Ray 09/04/24 17:00 IMPRESSION: No acute bony injury. Electronically Signed: Kofi Salinas MD at 17:23 EDT , Discharge Plan Dx/Rx/DC Orders Clinical Impression: Acute alteration in mental status, Rhabdomyolysis, MINESH (acute kidney injury), DKA, type 2 Disposition Disposition: Acute Care Hospital [facility] Discharge Date/Time: 09/04/24 18:00
[2024-09-04] MEDS: 0.9% Normal Saline (1000mL) 1,000 ML 999 ML IV ×3 (13:11→18:48)
[2024-09-04 13:22] LABS: Mucous, Urine 0 SEEN /hpf (<or=2+)
[2024-09-04 13:24] LABS: Absolute Lymphocyte Count 1.12 X10^3/uL (0.83-4.51); Basophil# 0.08 X10^3/uL; Basophil% 0.3 % (0-1); Hematocrit 50.6 % (37-47); Hemoglobin 16.9 g/dL (12.0-15.0); Lymphocyte # 1.12 X10^3/ul (0.83-4.51); Lymphocyte % 4.6 % (19-41); Mean Corp Hgb Conc 33.4 g/dL (32-36); Mean Corpuscular Hgb 33.3 pg (27.0-32.0); Mean Corpuscular Volume 99.8 fL (81-99); Mean Platelet Vol. 10.7 fl (6.2-12.0); Monocyte# 2.94 X10^3/uL; NRBC Flagged by Analyzer 0 % (0-5); Neutrophil # 19.96 X10^3/uL (2.7-7.7); Neutrophil % 81.7 % (47-70); POSITIVE DIFFERENTIAL YES; Platelet Count 563 K/mm3 (150-450); RBC Distribution Width CV 13.2 % (11.6-14.6); Red Blood Count 5.07 M/mm3 (4.2-5.4); White Blood Count 24.4 K/mm3 (4.4-11.0)
[2024-09-04 13:37] LABS: Lipase 213 U/L (13-75); Magnesium 4.1 mg/dL (1.6-2.6)
[2024-09-04 13:47] LABS: Color, Urine Yellow (Yellow); Glucose, Dipstick 1000 mg/dl (Normal); Ketone-Dipstick 15 mg/dl (Negative); Leukocyte Esterase-Dipstick 25 /ul (Negative); Nitrite-Dipstick Negative (Negative); Occult Blood-Urine 250 /ul (Negative); Protein-Dipstick 30 mg/dl (Negative); Specific Gravity, Urine 1.015 (1.002-1.030); Urine Bilirubin Dipstick Negative (Negative); Urine Clarity Sl. Cloudy (Clear); Urine Urobilinogen Normal (Normal)
[2024-09-04 13:48] LABS: International Normalized Ratio 1.2; Prothrombin Time (Protime)PT. 14.9 SECONDS (11.7-14.9)
[2024-09-04 13:49] LABS: Partial Thromboplast Time 22.5 Seconds (24.1-36.2)
[2024-09-04 13:55] LABS: ALB/GLOB Ratio 0.8 RATIO (0.9-2.4); AST(SGOT) 41 U/L (15-37); Alanine Aminotransfer ALT/SGPT 38 U/L (13-56); Albumin, Serum 3.8 g/dL (3.2-5.0); Alkaline Phosphatase 175 U/L (45-117); Anion Gap 21 (5-15); BUN 98 mg/dL (7-18); BUN/Creat Ratio 32.6 RATIO (10-20); Bacteria 1+ /hpf (None Seen); CPK Total, Creatine Kinase 1298 U/L (26-192); Calcium,Total 9.8 mg/dL (8.5-10.1); Chloride 104 mmol/L (98-107); Creatinine, Serum 3.01 mg/dL (0.55-1.02); EST Glomerular Filtration Rate 16 mL/min (>60); Est Glom Filt Rate - Afr Amer 20 mL/min (>60); Estimated Creatinine Clearance 16.54 ml/min; Globulin 4.6 g/dL (2.2-4.2); Glucose 874 mg/dL (74-106); Potassium 4.9 mmol/L (3.5-5.1); Protein, Total 8.4 g/dL (6.4-8.2); Sodium Level 146 mmol/L (136-145); Troponin-I HS 15 pg/mL (3.0-54.0); White Blood Cells 0-5 SEEN /hpf (0-5)
[2024-09-04 13:56] LABS: Red Blood Cells-Urine 5-10 SEEN /hpf (0-5); Squamous Epithelial Cells - UA 0-5 SEEN /hpf (5-10)
[2024-09-04 14:06] LABS: Lactic Acid 4.2 mmol/L (0.4-1.9)
[2024-09-04 14:28] LABS: Differential Indicated SCAN CRITERIA MET
[2024-09-04 14:31] LABS: Differential Comment SCANNED; Platelet Estimate MOD INC (ADEQ); Red Cell Morphology NORM C+C NORMAL (NORM C&C)
[2024-09-04] MEDS: Piperacil/Tazobactam 3.375 GM in 0.9% Normal Saline (50mL MB+) 50 ML IV ×2 (14:47→22:49)
[2024-09-04] MEDS: hydrALAZINE 20 MG/ML Vial 10 MG IV (14:48)
[2024-09-04] MEDS: LORazepam 2 MG/ML Syringe 1 MG IV (14:48)
[2024-09-04] MEDS: Insulin Lispro 100 UNIT/ML INSULN.PEN 12 UNIT SC (15:08)
--- NOTE | 2024-09-04 15:20 | RAD_ITS ---
INDICATION: cough EXAMINATION/TECHNIQUE: X-RAY - portable AP supine chest x-ray COMPARISON: 12/26/2022 FINDINGS: LINES/DEVICES: None. LUNGS: No consolidation, edema or effusion. No pneumothorax. MEDIASTINUM AND CARDIOVASCULAR STRUCTURES: Cardiac silhouette stable within upper normal limits. BONES AND SOFT TISSUES: No acute changes. RAD/Chest 1 View (Portable) IMPRESSION: No radiographic evidence of acute cardiopulmonary disease. Electronically Signed: Kofi Salinas MD at 16:51 EDT ,
--- NOTE | 2024-09-04 15:20 | RAD_ITS ---
STUDY: X-RAY - LEFT KNEE REASON FOR EXAM: Female, 73 years old. PAIN TECHNIQUE: AP and lateral view(s) of the knee. COMPARISON: None. FINDINGS: Normal visualized distal femur. Normal visualized proximal tibia and fibula. Normal proximal tibiofibular articulation. Narrowed medial femorotibial compartment. Normal lateral femorotibial compartment. Normal patellofemoral articulation. The soft tissue structures are unremarkable. RAD/Knee 1 or 2 Views IMPRESSION: Mild degenerative changes. No acute fracture or dislocation. Electronically Signed: Earl Kat MD at 16:11 EDT ,
--- NOTE | 2024-09-04 15:20 | RAD_ITS ---
INDICATION: Trauma, fall EXAMINATION/TECHNIQUE: X-RAY - XR Pelvis 1 or 2 Views COMPARISON: 11/29/2016 FINDINGS: PELVIC BONES: No displaced fracture, destructive or sclerotic lesions. Note that overlapping bowel shadows may however obscure fine detail. Sacroiliac joints are unremarkable. No widening of the pubic symphysis. HIPS: Hip joint spaces well-maintained bilaterally. No displaced fracture seen in this frontal view. SOFT TISSUES: Stable lumbar fusion hardware at L5-S1. Stable stimulator control unit over the right iliac wing. RAD/Pelvis 1 or 2 Views IMPRESSION: No evidence of displaced pelvic or hip fracture. Electronically Signed: Kofi Salinas MD at 16:48 EDT ,
--- NOTE | 2024-09-04 15:20 | RAD_ITS ---
INDICATION: Trauma, fall EXAMINATION/TECHNIQUE: X-RAY - RIGHT XR Knee 1 or 2 Views 2 VIEWS COMPARISON: 11/09/2019 FINDINGS: SOFT TISSUES: No soft tissue swelling or gas. Stable appearance right knee prosthesis. BONES/JOINTS: No acute fracture or pathologic lucency. Joint spaces anatomically aligned. No sclerotic or destructive changes observed. RAD/Knee 1 or 2 Views IMPRESSION: No acute bony injury. Electronically Signed: Kofi Salinas MD at 16:46 EDT ,
[2024-09-04 15:30] LABS: Bedside Glucose > 500 mg/dL (74-106)
[2024-09-04 16:54] LABS: Bedside Glucose > 500 mg/dL (74-106)
--- NOTE | 2024-09-04 17:00 | RAD_ITS ---
INDICATION: Trauma, fall, right hip injury EXAMINATION/TECHNIQUE: X-RAY - XR Hip Unilateral with Pelvis when performed; 2-3 Views COMPARISON: Prior study dated: AP pelvis earlier same date. FINDINGS: 2 views of the right hip show no acute fracture or dislocation. Joint spaces well-maintained. Stable lumbar fusion hardware and stimulator control unit. RAD/Hip Min 2 Views (Portable) IMPRESSION: No acute bony injury. Electronically Signed: Kofi Salinas MD at 17:23 EDT ,
[2024-09-04 17:19] LABS: Reflex Lactate? Y
--- NOTE | 2024-09-04 17:19 | HP.PCM.HOS_ITS ---
[facility] - General General Date of Service: 09/04/24 Chief Complaint: found down HPI Narrative TISHA HOFFMANN, is a 73 F who presents with history of stroke presents being found down. Last known well was this past Saturday when the daughter spoke with her mother. The patient had a stroke roughly 2 years ago and has a lot of confusion at baseline but she stated that the conversation she had with her mother on that Saturday was normal. But patient was found on her back porch of her apartment. Patient was apparently covered in Colette. Patient was noted to be confused and sent to the emergency room. Myriad of findings were noted, including a creatinine of 3, concern for DKA with anion gap of 21 venous blood gas pH is 7.13. And patient's blood sugar when she came in was 874. She received 12 units of regular insulin but her subsequent glucose check was greater than 500. Patient was then placed on an insulin drip. Patient also had a white count of 24.4. Patient received pip-tazo in the emergency room. She had a chest x-ray that was unremarkable, pelvic x-ray that was negative for any fracture. Head CT was also negative for any acute process. 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 of right breast Atypical lobular hyperplasia (ALH) of right breast Other acute postprocedural pain Unsteady gait Wears dentures Wears glasses Post-menopausal Cancer Depression Anxiety Thyroid disease Walker as ambulation aid Ambulates with cane Arthritis High cholesterol Back pain Injury of back TIA (transient ischemic attack) Gastric reflux History of edema History of pain when walking History of echocardiogram History of stress test Cardiology follow-up encounter DM type 2, goal HbA1c < 8% Smoker Recent weight loss Family history of breast cancer Intertrigo Left shoulder pain Right shoulder pain Chronic thoracic back pain Chronic neck pain Macromastia DM type 2, goal HbA1c < 7% Neuropathy Cataracts, bilateral Carpal tunnel syndrome Vitamin D deficiency Encounter for screening for malignant neoplasm of lung Obesity Tobacco abuse Hyperlipidemia Hypothyroidism Type 2 diabetes mellitus History of CVA (cerebrovascular accident) (10/15/21) Essential hypertension Rotator cuff injury Contusion of right shoulder region Injury due to fall Hemiparesis of left dominant side Chronic post-operative pain Primary osteoarthritis of right knee Depression Arthritis Home Medications ?Medication ?Instructions ?Recorded ?Last Taken ?Type clonidine HCl 0.1 mg tablet 0.1 mg PO QHS HTN 01/11/17 10/14/21 22:00 History hydrocodone-acetaminophen 5-325mg 1 ea PO BID PRN PRN Pain 05/01/19 Unknown History 5mg-325mg aripiprazole 2 mg tablet 2 mg PO DAILY mental health 10/15/21 09/04/23 History furosemide 20 mg tablet 20 mg PO BID PRN swelling 10/15/21 Unknown History metformin 1,000 mg tablet 1,000 mg PO BID diabetes 10/15/21 Unknown History pantoprazole 40 mg tablet,delayed 40 mg PO DAILY reflux 10/15/21 09/04/23 History release potassium chloride 20 mEq 20 meq PO DAILY PRN if take a lasix 10/15/21 Unknown History tablet,extended release aspirin 81 mg chewable tablet 81 mg PO DAILY #30 tabs 10/17/21 08/28/23 Rx pravastatin 40 mg tablet 40 mg PO DAILY 12/13/21 Unknown History benztropine 0.5 mg tablet 0.5 mg PO BID 10/18/22 Unknown History ascorbic acid (vitamin C) 500 mg 500 mg PO DAILY 08/27/23 Unknown History tablet,extended release (C-500) cholecalciferol (vitamin D3) 25 25 mcg PO DAILY 08/27/23 Unknown History mcg (1,000 unit) capsule (Vitamin D3) gabapentin 400 mg capsule 400 mg PO TID 08/27/23 Unknown History levothyroxine 125 mcg tablet 125 mcg PO DAILY 08/27/23 09/04/23 History magnesium 250 mg tablet 250 mg PO DAILY 08/27/23 Unknown History venlafaxine 100 mg tablet 150 mg PO BID 08/27/23 09/04/23 History nystatin 100,000 unit/gram topical 1 applic topical BID 14 days #30 10/09/23 Unknown Rx powder grams levothyroxine 125 mcg tablet 125 mcg PO DAILY #14 tabs 01/25/24 Unknown Rx (Synthroid) Allergy/AdvReac Type Severity Reaction Status Date / Time bupropion (From Wellbutrin) Allergy Other Verified 09/04/24 12:45 celecoxib (From Celebrex) Allergy Hives Verified 09/04/24 12:45 erythromycin lactobionate AdvReac Nausea/Vom/ Verified 09/04/24 12:45 (From Erythrocin) Diarrhea rosuvastatin calcium (From AdvReac Other Verified 09/04/24 12:45 Crestor) zolpidem (From Ambien) AdvReac Other Verified 09/04/24 12:45 Family History Mother Breast cancer Depression Brother Diabetes Hypertension Father , Age 43 Heart disease Myocardial infarction Brother Diabetes Surgical History History of bilateral breast reduction surgery Hx of surgical procedure History of cataract surgery History of tubal ligation H/O arthroscopic knee surgery Hx of colonoscopy S/P insertion of spinal cord stimulator Hx of tonsillectomy History of carpal tunnel release of both wrists Hx of section History of back surgery Social History household members: none housing: apartment number of children: 2 Smoking Status: Current every day smoker tobacco type: cigarettes quit status: has quit before alcohol intake: never substance use type: does not use caffeine: No seatbelt use: always additional social history: Does Take Aspirin Daily Does Not Take Ibuprofen ROS ROS Narrative Unable to obtain as patient is confused. Vital Signs Vital Signs Vital Signs: 09/04/24 12:32 09/04/24 12:51 09/04/24 13:31 Temperature 31.8 C L Temperature Source Rectal Pulse Rate 86 86 Respiratory Rate 16 28 H Blood Pressure 153/115 H 227/198 H Blood Pressure Mean 127 207 Pulse Ox 96 94 Oxygen Delivery Method Room Air Room Air Oxygen Flow Rate (L/min) 09/04/24 14:00 09/04/24 15:00 09/04/24 16:00 Temperature Temperature Source Pulse Rate 86 92 94 Respiratory Rate 22 H 21 H 21 H Blood Pressure 210/168 H 132/85 H 104/63 Blood Pressure Mean 182 100 76 Pulse Ox 96 90 Oxygen Delivery Method Room Air Room Air Oxygen Flow Rate (L/min) 09/04/24 16:10 09/04/24 16:10 09/04/24 17:00 Temperature Temperature Source Pulse Rate 97 Respiratory Rate 22 H Blood Pressure 133/102 H Blood Pressure Mean 112 Pulse Ox 89 96 97 Oxygen Delivery Method Room Air Nasal Cannula Nasal Cannula Oxygen Flow Rate (L/min) 2 2 Weight Weight: 79.9 kg Body Mass Index (BMI) 32.2 Physical Exam Const Constitutional Narrative: Confused. Patient able to answer yes to some questions but it is unclear if she actually understands them. Not able to tell me where she is nor the date. HEENT normocephalic HEENT Narrative: Mucous membranes dry. Eyes PERRL Eyes Narrative: No icterus Neck no lymphadenopathy Neck Narrative: No thyromegaly Resp normal respiratory effort, no retractions, no use of accessory muscles and clear to auscultation bilaterally Cardio regular rate, regular rhythm, S1 normal heart sound and S2 normal heart sound GI normal to inspection, nondistended, normoactive bowel sounds, soft to palpation, non-tender and non-distended Extremity no clubbing, cyanosis or edema Extremity Narrative: Patient has abrasions on her knees. Skin Skin Narrative: Patient is covered in dirt/colette from head to toe. Mostly confined on her fingers and on her feet. Patient also has some superficial abrasions on her knees bilaterally. Neuro moves all extremities Neuro Narrative: Difficult exam because the patient is so confused. Speech: Negative for speech normal Results Lab / Micro Data Attestation: I reviewed the patient's lab results. 09/04/24 13:12 09/04/24 13:12 Labs: Laboratory Results - last 24 hr 09/04/24 13:12: WBC 24.4 H, RBC 5.07, Hgb 16.9 H, Hct 50.6 H, MCV 99.8 H, MCH 33.3 H, MCHC 33.4, RDW Std Deviation 49.0 H, RDW Coeff of Zafar 13.2, Plt Count 563 H, MPV 10.7, Immature Gran % (Auto) 1.400 H, Neut % (Auto) 81.7 H, Lymph % (Auto) 4.6 L, [place] % (Auto) 12.0 H, Eos % (Auto) 0.0, Baso % (Auto) 0.3, A bsolute Neuts (auto) 20.0 H, Absolute Lymphs (auto) 1.12, Nucleated RBC % 0, Differential Comment SCANNED, Platelet Estimate MOD INC, RBC Morphology NORM C+C, PT 14.9, INR 1.2, APTT 22.5 L, Sodium 146 H, Potassium 4.9, Chloride 104, C arbon Dioxide 20.0 L, Anion Gap 21 H, BUN 98 H, Creatinine 3.01 H, Estim Creat Clear Calc 16.54, Est GFR (MDRD) Af Amer 20 L, Est GFR (MDRD) Non-Af 16 L, B UN/Creatinine Ratio 32.6 H, Glucose 874 H*, Lactic Acid 4.2 H*, Calcium 9.8, M agnesium 4.1 H, Total Bilirubin 0.80, AST 41 H, ALT 38, Alkaline Phosphatase 175 H, Total Creatine Kinase 1298 H, Troponin I High Sens 15, Total Protein 8.4 H, Albumin 3.8, Globulin 4.6 H, Albumin/Globulin Ratio 0.8 L, Lipase 213 H, Urine Color Yellow, Urine Clarity Sl. Cloudy, Urine pH 6.0, Ur Specific Ell[place] 1.015, Urine Protein 30 H, Urine Glucose (UA) 1000 H, Urine Ketones 15 H, Urine Occult Blood 250 H, Urine Nitrite Negative, Urine Bilirubin Negative, Urine Urobilinogen Normal, Ur Leukocyte Esterase 25 H, Urine RBC 5-10 SEEN, Urine WBC 0-5 SEEN, Ur Squamous Epith Cells 0-5 SEEN, Urine Bacteria 1+, Urine Mucus 0 SEEN, Acetone Level SMALL H 09/04/24 15:05: POC Glucose > 500 H* 09/04/24 16:36: POC Glucose > 500 H* ABG Data ABG results: ABG 09/04/24 13:54 Specimen Type GARIMA Sample Site Not entered VBG pH 7.13 L* VBG pO2 45 H VBG HCO3 21 L VBG Total CO2 23 VBG O2 Sat (Calc) 65 VBG Base Excess -8 L POC Mix VBG pCO2 Pt Tmp 63.6 H O2 Delivery Device Not entered Crit Call To/Read Back Yes Blood Gas Notified Whom BOYD UG Blood Gas Notified Time 13:55:37 Imaging Radiology Impression Brain CT 09/04/24 12:51 IMPRESSION: Volume loss with chronic white matter changes. No acute intracranial findings. Electronically Signed: Kofi Salinas MD at 16:32 EDT , Chest X-Ray 09/04/24 15:20 IMPRESSION: No radiographic evidence of acute cardiopulmonary disease. Electronically Signed: Kofi Salinas MD at 16:51 EDT , Knee X-Ray 09/04/24 15:20 IMPRESSION: No acute bony injury. Electronically Signed: Kofi Salinas MD at 16:46 EDT , Knee X-Ray 09/04/24 15:20 IMPRESSION: Mild degenerative changes. No acute fracture or dislocation. Electronically Signed: Earl Kat MD at 16:11 EDT , Pelvis X-Ray 09/04/24 15:20 IMPRESSION: No evidence of displaced pelvic or hip fracture. Electronically Signed: Kofi Salinas MD at 16:48 EDT , Assessment & Plan Assessment/Plan (1) DKA, type 2: PLAN: Previously, patient was a poorly controlled diabetic and had a most recent A1c of 11.6 on July 15. Patient takes metformin at home. Patient has been started on insulin drip in the emergency room and will continue on the floor. Continue give IV fluids and check serial BMPs. I suspect she will be able to get out of DKA relatively quickly. I suspect the patient will likely require insulin when she is finally out of her DKA and not resumption of her metformin as she was already poorly controlled on the metformin. (2) MINESH (acute kidney injury): PLAN: Suspect prerenal as patient clinically looks dry. IV fluids Reevaluate. If no significant improvement or if worse, check renal ultrasound and urine studies. (3) Rhabdomyolysis: PLAN: Secondary to being down for unknown period of time. CPK was 1298. Patient will be receiving IV fluids. Recheck in the morning. (4) Metabolic encephalopathy: PLAN: Suspect due to dehydration, DKA, MINESH in a patient with high likelihood of dementia Patient does though have a history of stroke. Daughter states that since her stroke 2 years ago she has had a big change in her mental status where she is confused at baseline. She has not been formally diagnosed with dementia but I would highly suspect that. These derangements that she is currently experiencing are only worsening that. Will do a limited stroke workup with an echocardiogram. No MRI as patient has a spinal cord stimulator. Check head CT. PT, OT, speech therapy If she does have stroke on her CAT scan or if she has worsening symptoms, may consider consulting neurology. As I feel that this is more likely metabolic we will hold off on that at this time. Additionally, hold potentiating agents: Will hold her Rip resolved, benztropine, gabapentin, [place] and venlafaxine. . (5) Sepsis: PLAN: qSOFA of 2 with encephalopathy and respiratory rate of 28. SIRS 3-4 with a temperature of 31.8 when she initially presented, respiratory rate of 28 and a white count of 24.4. Chest x-ray and urinalysis were unremarkable for infection. Unclear if the patient actually does have underlying infection but will treat her empirically. Patient did receive pip-tazo in the emergency room. On floor, will continue with pip-tazo but also add vancomycin. Blood cultures drawn in the ED. Will check a COVID-19, influenza and RSV. Patient is currently normotensive Her hypothermia, when she presented, was more likely due to exposure being that she was naked outside exposed for unknown period of time. PLAN: Plan Chronic conditions * Suspected dementia: Patient's daughter states that since her stroke patient's stroke 2 years ago that she has been very confused and has more bad days and good days. Recommend formal evaluation with geriatrics or neurology. * Hypothyroidism:: Continue levothyroxine once medications reconciled. Check TSH VTE prophylaxis with subcu heparin CODE STATUS: Addressed with the patient's daughter, who is her power of district attorney, patient is to be full code. Charges/Coding Visit Charges Inpatient E&M: 38637 Init Hosp L3
[2024-09-04] MEDS: Insulin Lispro 100 UNIT in 0.9% Normal Saline (100mL Bag) 99 ML CONT INF (17:29)
--- NOTE | 2024-09-04 18:15 | ECHOD_ITS ---
Reason For Study: TIA/CVA Procedure This was a 2D Doppler, Color Flow transthoracic echocardiogram. Exam performed portable in ICU/CCU. Left Ventricle Normal LV size. Left ventricular systolic function is normal. The left ventricular ejection fraction is 65 %. Stage 1 diastolic dysfunction. Right Ventricle Normal RV size. Normal systolic function. Atria Normal left atrium. Normal right atrium. Mitral Valve Normal mitral valve. Tricuspid Valve Normal tricuspid valve. Mild (1+) tricuspid valve insufficiency. Right ventricular systolic pressure estimated to be 33 mmHg. Aortic Valve Trisinus/trileaflet aortic valve. Pulmonic Valve Normal pulmonic valve. Great Vessels Normal aortic root. The pulmonary artery is normal size. Normal inferior vena cava. Pericardium/Pleural No pericardial effusion. Epicardial fat. MMode/2D Measurements & Calculations LVIDd: 4.5 cm IVSd: 1.1 cm asc Aorta Diam: 3.2 cm LVIDs: 2.9 cm LVPWd: 1.2 cm RVDd: 3.1 cm FS: 34.2 % LAV(MOD-bp): 29.3 ml LVAd ap4: 17.3 cm2 SV(MOD-sp4): 29.7 ml LAV(MOD-bp) Indexed: 16.2 ml/m2 LVLd ap4: 6.1 cm SI(MOD-sp4): 16.4 ml/m2 LAV(MOD-sp2): 29.8 ml EDV(MOD-sp4): 42.7 ml LAV(MOD-sp4): 24.6 ml EDV(sp4-el): 41.2 ml LVAs ap4: 8.5 cm2 LVLs ap4: 4.9 cm ESV(MOD-sp4): 13.0 ml ESV(sp4-el): 12.7 ml EF(MOD-sp4): 69.6 % EF(sp4-el): 69.3 % SV(sp4-el): 28.5 ml LA A4 area: 12.3 cm2 LA dimension(2D): 3.1 cm RA A4 area: 13.3 cm2 Time Measurements MV dec time: 0.15 sec Doppler Measurements & Calculations MV E max gilbert: 59.5 cm/sec Lat Peak E' Gilbert: 6.8 cm/sec Med Peak E' Gilbert: 4.1 cm/sec MV A max gilbert: 97.3 cm/sec E/E' lat: 8.8 E/E' med: 14.4 MV E/A: 0.61 Ao V2 max: 185.7 cm/sec LV V1 max: 123.8 cm/sec PA V2 max: 88.9 cm/sec Ao max P.8 mmHg LV V1 max P.1 mmHg Ao V2 mean: 122.0 cm/sec Ao mean P.6 mmHg Ao V2 VTI: 27.1 cm TR max gilbert: 274.3 cm/sec TR max P.1 mmHg ECHO/Echo Complete Interpretation Summary Normal LV size. Left ventricular systolic function is normal. The left ventricular ejection fraction is 65 %. Stage 1 diastolic dysfunction. Epicardial fat, normal variant Ordering Physician: Luther Paniagua Referring Physician: Rebeca Padgett Performed By: Yissel Aleman, KELLI, RVT
--- NOTE | 2024-09-04 18:35 | PCM.RX.CS ---
Consult Antibiotic Management Pharmacy has been consulted to manage selected antibiotic: Vancomycin Type of Intervention Type of Consult: New start Suspected Infection Suspected Infection: Sepsis Labs Labs: Sodium 146 mmol/L (136-145) H 09/04/24 13:12 Potassium 4.9 mmol/L (3.5-5.1) 09/04/24 13:12 Chloride 104 mmol/L (98-107) 09/04/24 13:12 Carbon Dioxide 20.0 mmol/L (21.0-32.0) L 09/04/24 13:12 Anion Gap 21 (5-15) H 09/04/24 13:12 BUN 98 mg/dL (7-18) H 09/04/24 13:12 Creatinine 3.01 mg/dL (0.55-1.02) H 09/04/24 13:12 Est GFR (MDRD) Af Amer 20 mL/min (>60) L 09/04/24 13:12 Est GFR (MDRD) Non-Af 16 mL/min (>60) L 09/04/24 13:12 BUN/Creatinine Ratio 32.6 RATIO (10-20) H 09/04/24 13:12 Glucose 874 mg/dL (74-106) H* 09/04/24 13:12 Goal Trough Goal Trough: 15-20 mcg/mL Pharmacy Plan for Drug Dosing Pharmacy Plan for Drug Dosing: NEW START IV VANCOMYCIN Consulting Physician: Dr. Paniagua Indication: Sepsis Goal Trough: 15-20 SrCr: 3.01 (Note: pt is not an ESRD patient, likely MINESH per H/P) CrCl: 16 mL/min Comments: Patient ordered a loading dose of 2000mg IV x1 to be administered Vancomycin Dose: Patient's estimated CrCl is 16 mL/min. Since this is less than 20 mL/min, will dose per random vancomycin levels until SCr improves/ stabilizes. No scheduled vancomycin dosing at this time. Pending Level: *RANDOM* level 09/06/24 @0600 Pharmacy Service will continue to monitor and adjust dosing as required.
[2024-09-04] MEDS: 0.9% Normal Saline (1000mL) 1,000 ML 150 ML IV (18:48)
[2024-09-04 19:11] LABS: Hemoglobin A1c 12.8 % (3.8-5.6)
[2024-09-04 19:20] LABS: Anion Gap 11 (5-15); BUN 93 mg/dL (7-18); BUN/Creat Ratio 40.3 RATIO (10-20); Chloride 121 mmol/L (98-107); Creatinine, Serum 2.31 mg/dL (0.55-1.02); EST Glomerular Filtration Rate 22 mL/min (>60); Est Glom Filt Rate - Afr Amer 27 mL/min (>60); Estimated Creatinine Clearance 20.37 ml/min; Glucose 591 mg/dL (74-106); Potassium 3.8 mmol/L (3.5-5.1); Sodium Level 154 mmol/L (136-145); Troponin-I HS 16 pg/mL (3.0-54.0)
[2024-09-04] MEDS: Vancomycin HCl 2,000 MG in 0.9% Normal Saline (500mL Bag) 500 ML 250 MG IV (20:17)
[2024-09-04] MEDS: 0.9% Normal Saline (1000mL) 1,000 ML 500 ML IV (21:15)
[2024-09-04] MEDS: Heparin Injection (Vial) 5,000 UNIT/ML VIAL 5000 UNIT SC (21:16)
[2024-09-04 22:12] LABS: Bedside Glucose 389 mg/dL (74-106)
[2024-09-04 22:12] LABS: Bedside Glucose 343 mg/dL (74-106)
[2024-09-04 22:12] LABS: Bedside Glucose 427 mg/dL (74-106)
[2024-09-04 22:21] LABS: Anion Gap 5 (5-15); BUN 85 mg/dL (7-18); BUN/Creat Ratio 46.4 RATIO (10-20); Calcium,Total 8.1 mg/dL (8.5-10.1); Chloride 131 mmol/L (98-107); Creatinine, Serum 1.83 mg/dL (0.55-1.02); EST Glomerular Filtration Rate 29 mL/min (>60); Est Glom Filt Rate - Afr Amer 35 mL/min (>60); Estimated Creatinine Clearance 25.72 ml/min; Glucose 370 mg/dL (74-106); Potassium 3.8 mmol/L (3.5-5.1); Sodium Level 158 mmol/L (136-145)
[2024-09-04 23:16] LABS: Bedside Glucose 277 mg/dL (74-106)
[2024-09-05] VITALS (26 sets, daily range): BP systolic 95–133; BP diastolic 52–110; PULSE 85–116; RESP 18–28; TEMP 36.8–37.9; O2SAT 91–99; BMI 34.0
[2024-09-05 00:01] LABS: Lactic Acid 1.7 mmol/L (0.4-1.9)
[2024-09-05 00:19] LABS: Bedside Glucose 263 mg/dL (74-106)
[2024-09-05 01:12] LABS: Bedside Glucose 282 mg/dL (74-106)
[2024-09-05 02:17] LABS: Bedside Glucose 300 mg/dL (74-106)
[2024-09-05 03:05] LABS: Anion Gap 5 (5-15); BUN 77 mg/dL (7-18); BUN/Creat Ratio 45.8 RATIO (10-20); Calcium,Total 8.3 mg/dL (8.5-10.1); Chloride 132 mmol/L (98-107); Creatinine, Serum 1.68 mg/dL (0.55-1.02); EST Glomerular Filtration Rate 32 mL/min (>60); Est Glom Filt Rate - Afr Amer 38 mL/min (>60); Estimated Creatinine Clearance 28.01 ml/min; Glucose 280 mg/dL (74-106); Potassium 3.9 mmol/L (3.5-5.1); Sodium Level 160 mmol/L (136-145)
[2024-09-05 03:13] LABS: Bedside Glucose 255 mg/dL (74-106)
[2024-09-05 04:22] LABS: Bedside Glucose 197 mg/dL (74-106)
[2024-09-05] MEDS: Potassium Chloride 20 MEQ in Dext 5%-0.45% NS 1,000 ML 150 MEQ IV (04:25)
[2024-09-05 05:25] LABS: Bedside Glucose 246 mg/dL (74-106)
[2024-09-05 06:21] LABS: Absolute Lymphocyte Count 1.36 X10^3/uL (0.83-4.51); Absolute Neutrophil Count 13.3 X10^3/uL (2.0-7.7); Basophil# 0.04 X10^3/uL; Basophil% 0.2 % (0-1); Eosinophil# 0.01 X10^3/uL; Eosinophils% 0.1 % (0-5); Hematocrit 39.2 % (37-47); Hemoglobin 13.5 g/dL (12.0-15.0); Lymphocyte # 1.36 X10^3/ul (0.83-4.51); Lymphocyte % 8.4 % (19-41); Mean Corp Hgb Conc 34.4 g/dL (32-36); Mean Corpuscular Hgb 33.6 pg (27.0-32.0); Mean Corpuscular Volume 97.5 fL (81-99); Mean Platelet Vol. 10.2 fl (6.2-12.0); Monocyte# 1.31 X10^3/uL; Monocyte% 8.1 % (0-10); NRBC Flagged by Analyzer 0 % (0-5); Neutrophil # 13.34 X10^3/uL (2.7-7.7); Neutrophil % 82.5 % (47-70); Platelet Count 417 K/mm3 (150-450); RBC Distribution Width CV 13.6 % (11.6-14.6); RBC Distribution Width SD 48.9 fl (35.1-43.9); Red Blood Count 4.02 M/mm3 (4.2-5.4); White Blood Count 16.2 K/mm3 (4.4-11.0)
[2024-09-05 06:29] LABS: Bedside Glucose 266 mg/dL (74-106)
[2024-09-05 06:55] LABS: ALB/GLOB Ratio 0.8 RATIO (0.9-2.4); AST(SGOT) 27 U/L (15-37); Alanine Aminotransfer ALT/SGPT 27 U/L (13-56); Albumin, Serum 2.7 g/dL (3.2-5.0); Alkaline Phosphatase 111 U/L (45-117); Anion Gap 5 (5-15); BUN 68 mg/dL (7-18); BUN/Creat Ratio 45.9 RATIO (10-20); CPK Total, Creatine Kinase 547 U/L (26-192); Chloride 134 mmol/L (98-107); Cholesterol 206 mg/dL (200); Creatinine, Serum 1.48 mg/dL (0.55-1.02); EST Glomerular Filtration Rate 37 mL/min (>60); Est Glom Filt Rate - Afr Amer 45 mL/min (>60); Estimated Creatinine Clearance 31.88 ml/min; Globulin 3.5 g/dL (2.2-4.2); Glucose 274 mg/dL (74-106); High Density Lipoprotein 32 mg/dL; Protein, Total 6.2 g/dL (6.4-8.2); Sodium Level 161 mmol/L (136-145); Triglycerides 299 mg/dL; Very Low Density Lipoprotein 60 mg/dL (5-40)
[2024-09-05 07:18] LABS: Bedside Glucose 268 mg/dL (74-106)
[2024-09-05] MEDS: Dextrose 5%-Water (1000mL Bag) 1,000 ML 125 ML IV (07:46)
[2024-09-05 08:37] LABS: Bedside Glucose 247 mg/dL (74-106)
[2024-09-05] MEDS: Piperacil/Tazobactam 3.375 GM in 0.9% Normal Saline (50mL MB+) 50 ML IV ×2 (10:17→20:08)
[2024-09-05] MEDS: Heparin Injection (Vial) 5,000 UNIT/ML VIAL 5000 UNIT SC ×2 (10:20→21:58)
--- NOTE | 2024-09-05 10:21 | CASEMGMT ---
DERIK PRINCE Assessment: Face to Face with pt for initial transition planning/care coordination assessment. DERIK PRINCE introduced self and role at [facility], pt voices understanding and consents to assessment. Pt is very confused and unable to answer questions, daughter in room and listed as pt medicare contact specialist. DERIK PRINCE discussed DC planning information with daughter. Care providers, pharmacy, and demographics verified/updated. Strata: 2 Admitting Dx: DKA, Hypothermia PCP: Lorin Specialists: None Preferred Pharmacy: [facility] Insurance: [employer] [facility] Prescription Benefit: yes LNOK: Sadi Muse Living Arrangements: Pt lives alone in a 1 story apartment with 1 step to enter. ADLs: Daughter reports pt is I with ADLs, has confusion at baseline. Pt does receive HH services to assist with cooking, cleaning, etc. Daughter does not know what agency/individual she uses for this. Transportation: Pt drives self, daughter concerned about pt driving. DME: Walker, cane, shower bench, glucometer and supplies. HHC/SNF: Uses HHC, denies Hx of SNF. Daughter states would like placement for pt at time of dc. SW or CM to follow. Advised pt to ask CM if any further question/concerns/needs arise, voices understanding. Pt Goal: SNF Plan: SNF [facility] CM
[2024-09-05 10:32] LABS: Bedside Glucose 202 mg/dL (74-106)
[2024-09-05 10:32] LABS: Bedside Glucose 168 mg/dL (74-106)
[2024-09-05 10:51] LABS: Anion Gap 2 (5-15); BUN 65 mg/dL (7-18); BUN/Creat Ratio 49.2 RATIO (10-20); Calcium,Total 8.4 mg/dL (8.5-10.1); Chloride 136 mmol/L (98-107); Creatinine, Serum 1.32 mg/dL (0.55-1.02); EST Glomerular Filtration Rate 42 mL/min (>60); Est Glom Filt Rate - Afr Amer 51 mL/min (>60); Estimated Creatinine Clearance 35.75 ml/min; Glucose 177 mg/dL (74-106); Potassium 3.6 mmol/L (3.5-5.1); Sodium Level 163 mmol/L (136-145)
--- NOTE | 2024-09-05 11:00 | PN_ITS ---
Subjective Subjective Patient seen and examined. She is quite confused though she is able to answer a few questions. She denied any cough, chest pain or shortness of breath, dizziness or any other symptoms. Anion gap was closed but her sodium has gone up and is 163 now. Objective Data Objective Data Vital Signs: Vital Signs Temp Pulse Resp BP Pulse Ox O2 Del Method O2 Flow Rate 99.3 F H 96 24 H 112/64 96 Room Air 1 09/05/24 10:00 09/05/24 10:00 09/05/24 10:00 09/05/24 10:00 09/05/24 10:00 09/05/24 10:00 09/05/24 04:00 Oxygen Flow Rate (L/min) 1 Oxygen Delivery Method Room Air Weight: 173 lb 8.061 oz Body Mass Index (BMI) 34.0 Intake & Output: Intake and Output for Last 24 Hours 09/03/24 09/04/24 09/05/24 23:59 23:59 23:59 Intake Total 5253.33 / 5255.33 1456.5 / 1456.5 Output Total 1000 / 1000 Balance 5253.33 / 5255.33 456.5 / 456.5 Lab / Micro Data 09/05/24 06:05 09/05/24 15:00 Labs: Laboratory Results - last 24 hr 09/04/24 13:12: WBC 24.4 H, RBC 5.07, Hgb 16.9 H, Hct 50.6 H, MCV 99.8 H, MCH 33.3 H, MCHC 33.4, RDW Std Deviation 49.0 H, RDW Coeff of Zafar 13.2, Plt Count 563 H, MPV 10.7, Immature Gran % (Auto) 1.400 H, Neut % (Auto) 81.7 H, Lymph % (Auto) 4.6 L, [place] % (Auto) 12.0 H, Eos % (Auto) 0.0, Baso % (Auto) 0.3, A bsolute Neuts (auto) 20.0 H, Absolute Lymphs (auto) 1.12, Nucleated RBC % 0, Differential Comment SCANNED, Platelet Estimate MOD INC, RBC Morphology NORM C+C, PT 14.9, INR 1.2, APTT 22.5 L, Sodium 146 H, Potassium 4.9, Chloride 104, C arbon Dioxide 20.0 L, Anion Gap 21 H, BUN 98 H, Creatinine 3.01 H, Estim Creat Clear Calc 16.54, Est GFR (MDRD) Af Amer 20 L, Est GFR (MDRD) Non-Af 16 L, B UN/Creatinine Ratio 32.6 H, Glucose 874 H*, Lactic Acid 4.2 H*, Calcium 9.8, M agnesium 4.1 H, Total Bilirubin 0.80, AST 41 H, ALT 38, Alkaline Phosphatase 175 H, Total Creatine Kinase 1298 H, Troponin I High Sens 15, Total Protein 8.4 H, Albumin 3.8, Globulin 4.6 H, Albumin/Globulin Ratio 0.8 L, Lipase 213 H, Urine Color Yellow, Urine Clarity Sl. Cloudy, Urine pH 6.0, Ur Specific [place] 1.015, Urine Protein 30 H, Urine Glucose (UA) 1000 H, Urine Ketones 15 H, Urine Occult Blood 250 H, Urine Nitrite Negative, Urine Bilirubin Negative, Urine Urobilinogen Normal, Ur Leukocyte Esterase 25 H, Urine RBC 5-10 SEEN, Urine WBC 0-5 SEEN, Ur Squamous Epith Cells 0-5 SEEN, Urine Bacteria 1+, Urine Mucus 0 SEEN, Acetone Level SMALL H 09/04/24 15:05: POC Glucose > 500 H* 09/04/24 16:36: POC Glucose > 500 H* 09/04/24 18:05: Lactic Acid 2.0 09/04/24 18:45: Sodium 154 H, Potassium 3.8, Chloride 121 H, Carbon Dioxide 22.0, Anion Gap 11, BUN 93 H, Creatinine 2.31 H, Estim Creat Clear Calc 20.37, E st GFR (MDRD) Af Amer 27 L, Est GFR (MDRD) Non-Af 22 L, BUN/Creatinine Ratio 40.3 H, Glucose 591 H*, Hemoglobin A1c 12.8 H, Calcium 9.0, Troponin I High Sens 16, TSH 4.960 H 09/04/24 19:48: POC Glucose 427 H 09/04/24 20:59: POC Glucose 389 H 09/04/24 21:50: Sodium 158 H, Potassium 3.8, Chloride 131 H*, Carbon Dioxide 23.0, Anion Gap 5, BUN 85 H, Creatinine 1.83 H, Estim Creat Clear Calc 25.72, E st GFR (MDRD) Af Amer 35 L, Est GFR (MDRD) Non-Af 29 L, BUN/Creatinine Ratio 46.4 H, Glucose 370 H, Calcium 8.1 L 09/04/24 21:55: POC Glucose 343 H 09/04/24 22:53: POC Glucose 277 H 09/04/24 23:25: Lactic Acid 1.7 09/04/24 23:57: POC Glucose 263 H 09/05/24 00:54: POC Glucose 282 H 09/05/24 01:58: POC Glucose 300 H 09/05/24 02:30: Sodium 160 H, Potassium 3.9, Chloride 132 H*, Carbon Dioxide 23.0, Anion Gap 5, BUN 77 H, Creatinine 1.68 H, Estim Creat Clear Calc 28.01, E st GFR (MDRD) Af Amer 38 L, Est GFR (MDRD) Non-Af 32 L, BUN/Creatinine Ratio 45.8 H, Glucose 280 H, Calcium 8.3 L 09/05/24 02:56: POC Glucose 255 H 09/05/24 04:01: POC Glucose 197 H 09/05/24 05:06: POC Glucose 246 H 09/05/24 06:05: WBC 16.2 H, RBC 4.02 L, Hgb 13.5, Hct 39.2, MCV 97.5, MCH 33.6 H , MCHC 34.4, RDW Std Deviation 48.9 H, RDW Coeff of Zafar 13.6, Plt Count 417, MPV 10.2, Immature Gran % (Auto) 0.700, Neut % (Auto) 82.5 H, Lymph % (Auto) 8.4 L, [place] % (Auto) 8.1, Eos % (Auto) 0.1, Baso % (Auto) 0.2, Absolute Neuts (auto) 13.3 H, Absolute Lymphs (auto) 1.36, Nucleated RBC % 0, Sodium 161 H*, Potassium 4.0, Chloride 134 H*, Carbon Dioxide 23.0, Anion Gap 5, BUN 68 H, Creatinine 1.48 H, Estim Creat Clear Calc 31.88, Est GFR (MDRD) Af Amer 45 L, Est GFR (MDRD) Non-Af 37 L, BUN/Creatinine Ratio 45.9 H, Glucose 274 H, Calcium 8.0 L, Total Bilirubin 1.00, AST 27, ALT 27, Alkaline Phosphatase 111, Total Creatine Kinase 547 H, Total Protein 6.2 L, Albumin 2.7 L, Globulin 3.5, Albumin/Globulin Ratio 0.8 L, Triglycerides 299 H, Cholesterol 206 H, LDL Cholesterol 114, VLDL Cholesterol 60 H, HDL Cholesterol 32 L, Acetone Level SMALL H 09/05/24 06:09: POC Glucose 266 H 09/05/24 07:01: POC Glucose 268 H 09/05/24 08:17: POC Glucose 247 H 09/05/24 09:19: POC Glucose 202 H 09/05/24 10:09: POC Glucose 168 H 09/05/24 10:10: Sodium 163 H*, Potassium 3.6, Chloride 136 H*, Carbon Dioxide 25.0, Anion Gap 2 L, BUN 65 H, Creatinine 1.32 H, Estim Creat Clear Calc 35.75, Est GFR (MDRD) Af Amer 51 L, Est GFR (MDRD) Non-Af 42 L, BUN/Creatinine Ratio 49.2 H, Glucose 177 H, Calcium 8.4 L, Acetone Level NEGATIVE Micro: Microbiology 09/04/24 13:12 Blood Culture (Wb) - Anticubital Left Blood Culture - Preliminary ABG Data ABG results: ABG 09/04/24 13:54 Specimen Type GARIMA Sample Site Not entered VBG pH 7.13 L* VBG pO2 45 H VBG HCO3 21 L VBG Total CO2 23 VBG O2 Sat (Calc) 65 VBG Base Excess -8 L POC Mix VBG pCO2 Pt Tmp 63.6 H O2 Delivery Device Not entered Crit Call To/Read Back Yes Blood Gas Notified Whom [facility] Blood Gas Notified Time 13:55:37 Radiography Diagnostic Testing: Radiology Impression Brain CT 09/04/24 12:51 IMPRESSION: Volume loss with chronic white matter changes. No acute intracranial findings. Electronically Signed: Kofi Salinas MD at 16:32 EDT , Chest X-Ray 09/04/24 15:20 IMPRESSION: No radiographic evidence of acute cardiopulmonary disease. Electronically Signed: Kofi Salinas MD at 16:51 EDT , Knee X-Ray 09/04/24 15:20 IMPRESSION: No acute bony injury. Electronically Signed: Kofi Salinas MD at 16:46 EDT , Knee X-Ray 09/04/24 15:20 IMPRESSION: Mild degenerative changes. No acute fracture or dislocation. Electronically Signed: Earl Kat MD at 16:11 EDT , Pelvis X-Ray 09/04/24 15:20 IMPRESSION: No evidence of displaced pelvic or hip fracture. Electronically Signed: Kofi Salinas MD at 16:48 EDT , Hip X-Ray 09/04/24 17:00 IMPRESSION: No acute bony injury. Electronically Signed: Kofi Salinas MD at 17:23 EDT , Physical Exam Const alert Orientation / Consciousness: confused and lethargic HEENT normocephalic and head/scalp atraumatic Mouth: dry mucous membranes Eyes PERRL and EOMs intact bilaterally Neck no lymphadenopathy and supple Lymph Lymphatic: no lymphadenopathy noted and no lymphedema noted Resp Resp Narrative: mildly diminished breath sounds bibasally, no wheezes or crackles. On room air. Mildly tachypneic Cardio regular rate, regular rhythm, S1 normal heart sound, S2 normal heart sound and no murmurs GI normal to inspection, nondistended, normoactive bowel sounds, soft to palpation and non-tender Extremity normal capillary refill, no clubbing, cyanosis or edema and no calf tenderness General Extremity: no tenderness to palpation of joints or extremities Skin Skin Narrative: has superficial abrasions Neuro Neuro Narrative: confused, moves all limbs spontaneously. Motor Exam: general weakness Psych Psych Narrative: confused Assessment & Plan Assessment/Plan (1) Sepsis: (2) DKA, type 2: (3) Metabolic encephalopathy: (4) MINESH (acute kidney injury): (5) Rhabdomyolysis: (6) Acute hypernatremia: PLAN: Plan #DKA * resolved. Anion gap has closed x 2 * A1C is >12 * start on lantus 10 units bid * High dose sliding scale * Accuchecks ACHS #Acute encephalopathy * Likely due to DKA and electrolyte abnormalities. Sodium has trended up to a peak of 163. Was 146 on admission continue trending upwards. DKA has resolved. * Will start patient on D5 water to bring down sodium. Consult nephrology on account of hyponatremia. * Patient also currently on broad-spectrum antibiotics for sepsis with unclear etiology. This may also be contributing to the encephalopathy. * PT OT on board. * CT of the brain showed no evidence of stroke. * All sedative medications held * #Hypernatremia * Sodium was 146 on admission and continued to trend upwards and has peaked at 163. * patient on D5W infusion. * nephrology consulted. * check urine sodium * consult critical care also * #Rhabdomyolysis * CPK was 1298 on admission. should improve with hydration * she was found down at home and this is likely contributing to the rhabdomyolysis * CPK is now down to 547 with hydration. #Sepsis * Patient met SIRS criteria with qSOFA score of 2 and she was tachypneic on admission also encephalopathic. Patient has had a mild fever of 99.2 this morning. She is still tachypneic and WBC is still elevated at 16, though it has trended down from 24 on admission. * Urinalysis showed no evidence of infection and chest x-ray also showed no evidence of pneumonia. * Patient currently on empiric antibiotics with vancomycin and Zosyn. * COVID, flu and RSV were negative. Blood cultures are growing gram-negative rods and preliminary read. Await speciation. * And cultures are negative. Continue IV vancomycin and Zosyn for now. Critical care consulted. #Hypothyroidism: On Synthroid. TSH is 4.96 which is actually down from 27 on 07/15/2024. TSH has been as high as 129 from January 2024. DVT prophylaxis; lovenox Charges/Coding Visit Charges Inpatient E&M: 16750 Subs Hosp L3
--- NOTE | 2024-09-05 12:55 | CT_ITS ---
EXAM: CT HEAD WITHOUT INTRAVENOUS CONTRAST CLINICAL INDICATION: Neuro deficit, acute, stroke suspected TECHNIQUE: Multiple axial images were obtained of the head without intravenous contrast. This CT exam was performed using one or more of the following dose reduction techniques: automated exposure control, adjustment of the mA and/or kV according to patient size, and/or use of iterative reconstruction technique. COMPARISON: No relevant prior studies available. FINDINGS: BRAIN AND EXTRA-AXIAL SPACES: Chronic lacunar infarcts again noted within the right internal capsule/basal ganglia again noted No hemorrhage or mass effect. No acute ischemia. Areas of diminished white matter density noted within both cerebral hemispheres suggestive of chronic microvascular change. Prominence of the cortical sulci and ventricles related to volume loss change. Posterior fossa is normal. Basilar cisterns are patent. BONES/JOINTS: Normal calvarium. SINUSES: No acute sinusitis. MASTOID AIR CELLS: Normal. Clear. SELLA: Stable size of the 7 mm dense soft tissue nodule noted within the sella turcica. Density is slightly increased which raises the possibility of intermittent hemorrhage. CT/Brain/Head without Contrast IMPRESSION: 1. Slightly denser 7 mm nodule within the sella turcica which may represent interval petechial hemorrhage within the pituitary adenoma. 2. Stable chronic microvascular changes. Electronically Signed: Jv Kyle MD at 15:08 EDT ,
[2024-09-05] MEDS: Insulin Glargine-YFGN 100 UNIT/ML Pen 10 UNIT SC ×2 (12:57→21:58)
--- NOTE | 2024-09-05 15:27 | PCMCONS.TICU ---
HPI Consult Data Date of Consult: 09/05/24 HPI Narrative Reason for Consultation: Acute encephalopathy, hypernatremia, sepsis HPI Narrative: 73F PMH CVA, DM, tobacco abuse, obesity, HTN who presented yesterday after being found down unresponsive with last known well time ~5d ago on Saturday. She was found on the back of her porch, unclothed and covered in colette. In the ED noted to be altered and in DKA. She received fluid boluses and was placed on an insulin drip. She was also noted to have WBC 24k and received empiric Zosyn. Initial Head CT was negative for any acute process. She was admitted to the ICU and continued receiving NS fluid replacement along with treatments above. DKA resolved but Na was up to 163 this AM. Given on-going altered mentation and electrolyte abnormalities a critical care consult was requested this afternoon. Pt is awake but unable to answer any questions appropriately. 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 Atypical lobular hyperplasia (ALH) of right breast Other acute postprocedural pain Unsteady gait Wears dentures Wears glasses Post-menopausal Cancer Depression Anxiety Thyroid disease Walker as ambulation aid Ambulates with cane Arthritis High cholesterol Back pain Injury of back TIA (transient ischemic attack) Gastric reflux History of edema History of pain when walking History of echocardiogram History of stress test Cardiology follow-up encounter DM type 2, goal HbA1c < 8% Smoker Recent weight loss Family history of breast cancer Intertrigo Left shoulder pain Right shoulder pain Chronic thoracic back pain Chronic neck pain Macromastia DM type 2, goal HbA1c < 7% Neuropathy Cataracts, bilateral Carpal tunnel syndrome Vitamin D deficiency Encounter for screening for malignant neoplasm of lung Obesity Tobacco abuse Hyperlipidemia Hypothyroidism Type 2 diabetes mellitus History of CVA (cerebrovascular accident) (10/15/21) Essential hypertension Rotator cuff injury Contusion of right shoulder region Injury due to fall Hemiparesis of left dominant side Chronic post-operative pain Primary osteoarthritis of right knee Depression Arthritis Home Medications ?Medication ?Instructions ?Recorded ?Last Taken ?Type clonidine HCl 0.1 mg tablet 0.1 mg PO QHS HTN 01/11/17 10/14/21 22:00 History hydrocodone-acetaminophen 5-325mg 1 ea PO BID PRN PRN Pain 05/01/19 Unknown History 5mg-325mg aripiprazole 2 mg tablet 2 mg PO DAILY mental health 10/15/21 09/04/23 History furosemide 20 mg tablet 20 mg PO BID PRN swelling 10/15/21 Unknown History metformin 1,000 mg tablet 1,000 mg PO BID diabetes 10/15/21 Unknown History pantoprazole 40 mg tablet,delayed 40 mg PO DAILY reflux 10/15/21 09/04/23 History release potassium chloride 20 mEq 20 meq PO DAILY PRN if take a lasix 10/15/21 Unknown History tablet,extended release aspirin 81 mg chewable tablet 81 mg PO DAILY #30 tabs 10/17/21 08/28/23 Rx pravastatin 40 mg tablet 40 mg PO DAILY 12/13/21 Unknown History benztropine 0.5 mg tablet 0.5 mg PO BID 10/18/22 Unknown History ascorbic acid (vitamin C) 500 mg 500 mg PO DAILY 08/27/23 Unknown History tablet,extended release (C-500) cholecalciferol (vitamin D3) 25 25 mcg PO DAILY 08/27/23 Unknown History mcg (1,000 unit) capsule (Vitamin D3) gabapentin 400 mg capsule 400 mg PO TID 08/27/23 Unknown History levothyroxine 125 mcg tablet 125 mcg PO DAILY 08/27/23 09/04/23 History magnesium 250 mg tablet 250 mg PO DAILY 08/27/23 Unknown History venlafaxine 100 mg tablet 150 mg PO BID 08/27/23 09/04/23 History nystatin 100,000 unit/gram topical 1 applic topical BID 14 days #30 10/09/23 Unknown Rx powder grams levothyroxine 125 mcg tablet 125 mcg PO DAILY #14 tabs 01/25/24 Unknown Rx (Synthroid) Allergy/AdvReac Type Severity Reaction Status Date / Time bupropion (From Wellbutrin) Allergy Other Verified 09/04/24 12:45 celecoxib (From Celebrex) Allergy Hives Verified 09/04/24 12:45 erythromycin lactobionate AdvReac Nausea/Vom/ Verified 09/04/24 12:45 (From Erythrocin) Diarrhea rosuvastatin calcium (From AdvReac Other Verified 09/04/24 12:45 Crestor) zolpidem (From Ambien) AdvReac Other Verified 09/04/24 12:45 Family History Mother Breast cancer Depression Brother Diabetes Hypertension Father , Age 43 Heart disease Myocardial infarction Brother Diabetes Surgical History History of bilateral breast reduction surgery Hx of surgical procedure History of cataract surgery History of tubal ligation H/O arthroscopic knee surgery Hx of colonoscopy S/P insertion of spinal cord stimulator Hx of tonsillectomy History of carpal tunnel release of both wrists Hx of section History of back surgery Social History household members: none housing: apartment number of children: 2 Smoking Status: Current every day smoker tobacco type: cigarettes quit status: has quit before alcohol intake: never substance use type: does not use caffeine: No seatbelt use: always additional social history: Does Take Aspirin Daily Does Not Take Ibuprofen ROS Review of Systems ROS Unobtainable: due to encephalopathy Objective Data Objective Data Vital Signs: Vital Signs Last response Temperature 37.4 C H 09/05/24 12:00 Temperature Source Temporal 09/05/24 12:00 Pulse Rate 116 H 09/05/24 14:00 Respiratory Rate 18 09/05/24 14:00 Respiratory Effort Normal, Non-Labored 09/05/24 08:00 Respiratory Depth Normal 09/05/24 08:00 Respiratory Pattern Normal 09/05/24 08:00 Blood Pressure 116/59 L 09/05/24 14:00 Blood Pressure Mean 78 09/05/24 14:00 Blood Pressure Source Monitor 09/05/24 14:00 Blood Pressure Position Supine 09/05/24 14:00 Blood Pressure Location Right Arm 09/05/24 14:00 Pulse Ox 98 09/05/24 14:00 Oxygen Delivery Method Room Air 09/05/24 14:00 Oxygen Flow Rate (L/min) 1 09/05/24 04:00 I&O: I&O Last 24 Hours 09/04/24 09/05/24 09/05/24 23:59 11:59 23:59 Intake Total 5253.33 / 5255.33 1943.65 / 1992.65 50 / 65 Output Total 1000 / 1000 Balance 5253.33 / 5255.33 943.65 / 993.65 50 / 993.65 I&O: Total Stay 09/04/24 12:30 thru 09/05/24 14:28 Intake Total 7246.98 Output Total 1000 Balance 6246.98 Current Meds Ordered / Administered: Current meds ordered / Administered Generic Name Dose Route Start Last Admin Trade Name Freq PRN Reason Stop Dose Admin Acetaminophen 650 mg 09/04/24 18:15 Acetaminophen 325 Mg Tablet PO Q6H PRN PRN Pain 1-10 Or Fever >100.7 Aspirin 81 mg 09/05/24 08:00 09/05/24 07:56 Aspirin 81 Mg Tab.Chew PO Not Given DAILYCM PATIENCE Glucagon 1 mg 09/05/24 11:01 Glucagon 1 Mg/Ml Syringe IM X1 PRN Hypoglycemia Protocol Heparin Sodium (Porcine) 5,000 unit 09/04/24 22:00 09/05/24 10:20 Heparin Injection (Vial) 5,000 Unit/Ml Vial SC 5,000 unit Q12 PATIENCE Administration Hydralazine HCl 5 mg 09/04/24 18:15 Hydralazine 20 Mg/Ml Vial IV 09/05/24 18:16 Q30M PRN maintain BP parameters with HR <60 Insulin Human Lispro 100 unit/ 100 mls @ 3.995 mls/hr 09/04/24 17:00 09/05/24 11:35 Sodium Chloride CONT INF Infused .Q25H2M PATIENCE Infusion Protocol 0.05 UNITS/KG/HR Dextrose 250 mls @ 999 mls/hr 09/04/24 18:15 Dextrose 10%-Water IV .Q16M PRN Hypoglycemic Protocol Protocol Dextrose 1,000 mls @ 150 mls/hr 09/05/24 07:20 09/05/24 11:35 IV 150 mls/hr .Q6H40M PATIENCE Infusion Dextrose 250 mls @ 0 mls/hr 09/05/24 11:01 Dextrose 10%-Water IV .Q0M PRN HYPOGLYCEMIA Protocol As Directed Piperacillin Sod/Tazobactam 50 mls @ 12.5 mls/hr 09/05/24 22:00 Sod 3.375 gm/ Sodium Chloride IV Q8 PATIENCE Insulin Glargine 10 unit 09/05/24 11:05 09/05/24 12:57 Insulin Glargine-Yfgn 100 Unit/Ml Pen SC 10 unit BID PATIENCE Administration Insulin Human Lispro 0 unit 09/05/24 16:00 Insulin Lispro 100 Unit/Ml Insuln.Pen SC [facility]S [facility] Protocol Labetalol HCl 10 - 20 mg 09/04/24 18:15 Labetalol (Prefilled) 20 Mg/4 Ml Vial IV 09/05/24 18:16 Q10M PRN PRN maintain BP parameters with HR >/=60 Ondansetron HCl 4 mg 09/04/24 18:15 Ondansetron 4 Mg/2 Ml Vial IV Q8H PRN PRN NAUSEA/VOMITING Prochlorperazine Edisylate 5 mg 09/04/24 18:15 Prochlorperazine 10 Mg/2 Ml Vial IV Q4H PRN PRN Breakthrough Nausea/Vomiting Sodium Chloride 10 - 40 ml 09/04/24 19:07 0.9% Saline Lock 10 Ml Syringe IV UD PRN SALINE FLUSH Lab / Micro Data 09/05/24 06:05 09/05/24 15:00 Labs: Laboratory Results - last 24 hr 09/04/24 15:05: POC Glucose > 500 H* 09/04/24 16:36: POC Glucose > 500 H* 09/04/24 18:05: Lactic Acid 2.0 09/04/24 18:45: Sodium 154 H, Potassium 3.8, Chloride 121 H, Carbon Dioxide 22.0, Anion Gap 11, BUN 93 H, Creatinine 2.31 H, Estim Creat Clear Calc 20.37, Est GFR (MDRD) Af Amer 27 L, Est GFR (MDRD) Non-Af 22 L, BUN/Creatinine Ratio 40.3 H, Glucose 591 H*, Hemoglobin A1c 12.8 H, Calcium 9.0, Troponin I High Sens 16, TSH 4.960 H 09/04/24 19:48: POC Glucose 427 H 09/04/24 20:59: POC Glucose 389 H 09/04/24 21:50: Sodium 158 H, Potassium 3.8, Chloride 131 H*, Carbon Dioxide 23.0, Anion Gap 5, BUN 85 H, Creatinine 1.83 H, Estim Creat Clear Calc 25.72, Est GFR (MDRD) Af Amer 35 L, Est GFR (MDRD) Non-Af 29 L, BUN/Creatinine Ratio 46.4 H, Glucose 370 H, Calcium 8.1 L 09/04/24 21:55: POC Glucose 343 H 09/04/24 22:53: POC Glucose 277 H 09/04/24 23:25: Lactic Acid 1.7 09/04/24 23:57: POC Glucose 263 H 09/05/24 00:54: POC Glucose 282 H 09/05/24 01:58: POC Glucose 300 H 09/05/24 02:30: Sodium 160 H, Potassium 3.9, Chloride 132 H*, Carbon Dioxide 23.0, Anion Gap 5, BUN 77 H, Creatinine 1.68 H, Estim Creat Clear Calc 28.01, Est GFR (MDRD) Af Amer 38 L, Est GFR (MDRD) Non-Af 32 L, BUN/Creatinine Ratio 45.8 H, Glucose 280 H, Calcium 8.3 L 09/05/24 02:56: POC Glucose 255 H 09/05/24 04:01: POC Glucose 197 H 09/05/24 05:06: POC Glucose 246 H 09/05/24 06:05: WBC 16.2 H, RBC 4.02 L, Hgb 13.5, Hct 39.2, MCV 97.5, MCH 33.6 H, MCHC 34.4, RDW Std Deviation 48.9 H, RDW Coeff of Zafar 13.6, Plt Count 417, MPV 10.2, Immature Gran % (Auto) 0.700, Neut % (Auto) 82.5 H, Lymph % (Auto) 8.4 L, [place] % (Auto) 8.1, Eos % (Auto) 0.1, Baso % (Auto) 0.2, Absolute Neuts (auto) 13.3 H, Absolute Lymphs (auto) 1.36, Nucleated RBC % 0, Sodium 161 H*, Potassium 4.0, Chloride 134 H*, Carbon Dioxide 23.0, Anion Gap 5, BUN 68 H, Creatinine 1.48 H, Estim Creat Clear Calc 31.88, Est GFR (MDRD) Af Amer 45 L, Est GFR (MDRD) Non-Af 37 L, BUN/Creatinine Ratio 45.9 H, Glucose 274 H, Calcium 8.0 L, Total Bilirubin 1.00, AST 27, ALT 27, Alkaline Phosphatase 111, Total Creatine Kinase 547 H, Total Protein 6.2 L, Albumin 2.7 L, Globulin 3.5, Albumin/Globulin Ratio 0.8 L, Triglycerides 299 H, Cholesterol 206 H, LDL Cholesterol 114, VLDL Cholesterol 60 H, HDL Cholesterol 32 L, Acetone Level SMALL H 09/05/24 06:09: POC Glucose 266 H 09/05/24 07:01: POC Glucose 268 H 09/05/24 08:17: POC Glucose 247 H 09/05/24 09:19: POC Glucose 202 H 09/05/24 10:09: POC Glucose 168 H 09/05/24 10:10: Sodium 163 H*, Potassium 3.6, Chloride 136 H*, Carbon Dioxide 25.0, Anion Gap 2 L, BUN 65 H, Creatinine 1.32 H, Estim Creat Clear Calc 35.75, Est GFR (MDRD) Af Amer 51 L, Est GFR (MDRD) Non-Af 42 L, BUN/Creatinine Ratio 49.2 H, Glucose 177 H, Calcium 8.4 L, Acetone Level NEGATIVE Micro: Microbiology 09/04/24 13:12 Urine Catheter - Cutler Urine Culture - Preliminary Culture exhibits no growth. 09/04/24 13:12 Blood Culture (Wb) - Anticubital Left Blood Culture - Preliminary Imaging Radiology Impression Brain CT 09/04/24 12:51 IMPRESSION: Volume loss with chronic white matter changes. No acute intracranial findings. Electronically Signed: Kofi Salinas MD at 16:32 EDT Reading Location ID and State: [facility] / [place] Tel , Service support , Chest X-Ray 09/04/24 15:20 IMPRESSION: No radiographic evidence of acute cardiopulmonary disease. Electronically Signed: Kofi Salinas MD at 16:51 EDT , Knee X-Ray 09/04/24 15:20 IMPRESSION: No acute bony injury. Electronically Signed: Kofi Salinas MD at 16:46 EDT , Knee X-Ray 09/04/24 15:20 IMPRESSION: Mild degenerative changes. No acute fracture or dislocation. Electronically Signed: Earl Kat MD at 16:11 EDT , Pelvis X-Ray 09/04/24 15:20 IMPRESSION: No evidence of displaced pelvic or hip fracture. Electronically Signed: Kofi Salinas MD at 16:48 EDT , Hip X-Ray 09/04/24 17:00 IMPRESSION: No acute bony injury. Electronically Signed: Kofi Salinas MD at 17:23 EDT , Echocardiogram 09/04/24 18:15 Interpretation Summary Normal LV size. Left ventricular systolic function is normal. The left ventricular ejection fraction is 65 %. Stage 1 diastolic dysfunction. Epicardial fat, normal variant Ordering Physician: Luther Paniagua Referring Physician: Rebeca Padgett Performed By: Yissel Aleman, KELLI, RVT Brain CT 09/05/24 12:55 IMPRESSION: 1. Slightly denser 7 mm nodule within the sella turcica which may represent interval petechial hemorrhage within the pituitary adenoma. 2. Stable chronic microvascular changes. Electronically Signed: Jv Kyle MD at 15:08 EDT , Assessment and Plan . Assessment and plan: PE: General: Well developed, acute on chronically ill appearing obese female HEENT: anicteric Sclera; nl nose; supple neck, no masses Cardiovascular: Regular Rate and Rhythm; No murmurs, rubs, gallops; no displaced PMI Respiratory: diminished; no crackles, wheezes, or rhonchi Abdominal: Non-tender; Non distended; hypoBS x 4; No Hepatosplenomegaly Extremities: Warm, pressure wounds to B/L knees/elbows and feet/toes; No clubbing, cyanosis; capillary refill < 2 sec Neurological: awake, oriented x0, LUE contracted across chest but no other focal deficits appreciated (limited exam) A/P: #Sepsis: sp fluid bolus; cont emp IV Abx; F/U Cx #?UTI: see above #Acute hypernatremia: iatrogenic 2* to NS infusion; on D5W, F/U repeat level, nephro consulted #MINESH: cont IVF, strict I/Os #Rhabdomyolysis, mild: improved and now ~500 #Acute encephalopathy: likely toxic/metabolic; cont treating above; if remains altered would get MRI + neuro consult; can check ammonia #DM2: SSI #Hx CVA: no acute infarct on head CT; F/U MRI Critical Care Time: 60 min The entirety of this encounter was done via Telemedicine
[2024-09-05 15:28] LABS: Anion Gap 8 (5-15); BUN 56 mg/dL (7-18); BUN/Creat Ratio 44.1 RATIO (10-20); Chloride 125 mmol/L (98-107); Creatinine, Serum 1.27 mg/dL (0.55-1.02); EST Glomerular Filtration Rate 44 mL/min (>60); Est Glom Filt Rate - Afr Amer 53 mL/min (>60); Estimated Creatinine Clearance 37.16 ml/min; Glucose 455 mg/dL (74-106); Potassium 3.9 mmol/L (3.5-5.1); Sodium Level 154 mmol/L (136-145)
[2024-09-05] MEDS: Dextrose 5%-Water (1000mL Bag) 1,000 ML 100 ML IV (15:58)
[2024-09-05 16:11] LABS: Urine Sodium 46 mmol/L (Not Establ.)
[2024-09-05] MEDS: Insulin Lispro 100 UNIT/ML INSULN.PEN SC ×2 (16:24→21:58)
[2024-09-05 16:43] LABS: Bedside Glucose 303 mg/dL (74-106)
[2024-09-05 22:23] LABS: Bedside Glucose 297 mg/dL (74-106)
[2024-09-06] VITALS (25 sets, daily range): BP systolic 100–146; BP diastolic 44–100; PULSE 58–90; RESP 16–32; TEMP 37.2–37.9; O2SAT 92–98; BMI 34.3
[2024-09-06] MEDS: Dextrose 5%-Water (1000mL Bag) 1,000 ML 100 ML IV ×2 (01:30→10:34)
[2024-09-06] MEDS: Piperacil/Tazobactam 3.375 GM in 0.9% Normal Saline (50mL MB+) 50 ML IV ×3 (05:26→21:43)
[2024-09-06 05:30] LABS: Absolute Lymphocyte Count 2.27 X10^3/uL (0.83-4.51); Absolute Neutrophil Count 8.5 X10^3/uL (2.0-7.7); Basophil# 0.04 X10^3/uL; Basophil% 0.3 % (0-1); Eosinophil# 0.04 X10^3/uL; Eosinophils% 0.3 % (0-5); Hemoglobin 12.3 g/dL (12.0-15.0); Lymphocyte # 2.27 X10^3/ul (0.83-4.51); Lymphocyte % 18.4 % (19-41); Mean Corp Hgb Conc 34.2 g/dL (32-36); Mean Corpuscular Hgb 33.8 pg (27.0-32.0); Mean Corpuscular Volume 98.9 fL (81-99); Monocyte# 1.47 X10^3/uL; Monocyte% 11.9 % (0-10); NRBC Flagged by Analyzer 0 % (0-5); Neutrophil # 8.45 X10^3/uL (2.7-7.7); Neutrophil % 68.5 % (47-70); Platelet Count 347 K/mm3 (150-450); RBC Distribution Width CV 13.6 % (11.6-14.6); RBC Distribution Width SD 49.1 fl (35.1-43.9); Red Blood Count 3.64 M/mm3 (4.2-5.4); White Blood Count 12.3 K/mm3 (4.4-11.0)
[2024-09-06 06:12] LABS: Anion Gap 3 (5-15); BUN 44 mg/dL (7-18); Calcium,Total 8.5 mg/dL (8.5-10.1); Chloride 127 mmol/L (98-107); Creatinine, Serum 1.19 mg/dL (0.55-1.02); EST Glomerular Filtration Rate 47 mL/min (>60); Est Glom Filt Rate - Afr Amer 57 mL/min (>60); Estimated Creatinine Clearance 39.95 ml/min; Glucose 318 mg/dL (74-106); Potassium 3.6 mmol/L (3.5-5.1); Sodium Level 154 mmol/L (136-145)
--- NOTE | 2024-09-06 07:30 | PN.CC_ITS ---
Objective Data Objective Data Vital Signs: Vital Signs Last response 3 Temperature 37.7 C H 09/06/24 06:00 Temperature Source Core 09/06/24 06:00 Pulse Rate 85 09/06/24 06:00 Pulse Strength Normal (2+) 09/05/24 22:00 Respiratory Rate 17 09/06/24 06:00 Respiratory Effort Accessory Muscle Use 09/06/24 06:00 Respiratory Depth Shallow 09/06/24 06:00 Respiratory Pattern Normal 09/06/24 06:00 Blood Pressure 142/69 H 09/06/24 06:00 Blood Pressure Mean 93 09/06/24 06:00 Blood Pressure Source Monitor 09/06/24 06:00 Blood Pressure Position Semi-Fowlers 09/06/24 06:00 Blood Pressure Location Right Forearm 09/06/24 06:00 Pulse Ox 97 09/06/24 06:00 Oxygen Delivery Method Room Air 09/06/24 06:00 Oxygen Flow Rate (L/min) 1 09/05/24 04:00 I&O: I&O Last 24 Hours 3 09/05/24 09/05/24 09/06/24 11:59 23:59 10:59 Intake Total 1943.65 / 2636.57 572.92 / 2636.57 1243.33 / 1243.33 Output Total 1000 / 1500 800 / 800 Balance 943.65 / 1136.57 572.92 / 1136.57 443.33 / 443.33 I&O: Total Stay 3 09/04/24 12:30 thru 09/06/24 06:00 Intake Total 9013.23 Output Total 1800 Balance 7213.23 Current Meds Ordered / Administered: Current meds ordered / Administered 3 Generic Name Dose Route Start Last Admin Trade Name Freq PRN Reason Stop Dose Admin Acetaminophen 650 mg 09/04/24 18:15 Acetaminophen 325 Mg Tablet PO Q6H PRN PRN Pain 1-10 Or Fever >100.7 Aspirin 81 mg 09/05/24 08:00 09/05/24 07:56 Aspirin 81 Mg Tab.Chew PO Not Given DAILYCM PATIENCE Glucagon 1 mg 09/05/24 11:01 Glucagon 1 Mg/Ml Syringe IM X1 PRN Hypoglycemia Protocol Heparin Sodium (Porcine) 5,000 unit 09/04/24 22:00 09/05/24 21:58 Heparin Injection (Vial) 5,000 Unit/Ml Vial SC 5,000 unit Q12 PATIENCE Administration Insulin Human Lispro 100 unit/ 100 mls @ 3.995 mls/hr 09/04/24 17:00 09/05/24 16:29 Sodium Chloride CONT INF Not Given .Q25H2M PATIENCE Protocol 0.05 UNITS/KG/HR Dextrose 250 mls @ 999 mls/hr 09/04/24 18:15 Dextrose 10%-Water IV .Q16M PRN Hypoglycemic Protocol Protocol Dextrose 1,000 mls @ 100 mls/hr 09/05/24 07:20 09/06/24 01:30 EDT IV 100 mls/hr .Q10H PATIENCE Administration Dextrose 250 mls @ 0 mls/hr 09/05/24 11:01 Dextrose 10%-Water IV .Q0M PRN HYPOGLYCEMIA Protocol As Directed Piperacillin Sod/Tazobactam 50 mls @ 12.5 mls/hr 09/05/24 22:00 09/06/24 05:26 Sod 3.375 gm/ Sodium Chloride IV 12.5 mls/hr Q8 PATIENCE Administration Insulin Glargine 10 unit 09/05/24 11:05 09/05/24 21:58 Insulin Glargine-Yfgn 100 Unit/Ml Pen SC 10 unit BID PATIENCE Administration Insulin Human Lispro 0 unit 09/05/24 16:00 09/05/24 21:58 Insulin Lispro 100 Unit/Ml Insuln.Pen SC 9 unit ACHS PATIENCE Administration Protocol Ondansetron HCl 4 mg 09/04/24 18:15 Ondansetron 4 Mg/2 Ml Vial IV Q8H PRN PRN NAUSEA/VOMITING Prochlorperazine Edisylate 5 mg 09/04/24 18:15 Prochlorperazine 10 Mg/2 Ml Vial IV Q4H PRN PRN Breakthrough Nausea/Vomiting Sodium Chloride 10 - 40 ml 09/04/24 19:07 0.9% Saline Lock 10 Ml Syringe IV UD PRN SALINE FLUSH Lab / Micro Data 09/06/24 05:22 09/06/24 05:22 Labs: Laboratory Results - last 24 hr 09/05/24 08:17: POC Glucose 247 H 09/05/24 09:19: POC Glucose 202 H 09/05/24 10:09: POC Glucose 168 H 09/05/24 10:10: Sodium 163 H*, Potassium 3.6, Chloride 136 H*, Carbon Dioxide 25.0, Anion Gap 2 L, BUN 65 H, Creatinine 1.32 H, Estim Creat Clear Calc 35.75, Est GFR (MDRD) Af Amer 51 L, Est GFR (MDRD) Non-Af 42 L, BUN/Creatinine Ratio 49.2 H, Glucose 177 H, Calcium 8.4 L, Acetone Level NEGATIVE 09/05/24 15:00: Sodium 154 H, Potassium 3.9, Chloride 125 H, Carbon Dioxide 21.0, Anion Gap 8, BUN 56 H, Creatinine 1.27 H, Estim Creat Clear Calc 37.16, E st GFR (MDRD) Af Amer 53 L, Est GFR (MDRD) Non-Af 44 L, BUN/Creatinine Ratio 44.1 H, Glucose 455 H*, Calcium 8.0 L 09/05/24 15:50: Ur Random Sodium 46 09/05/24 16:17: POC Glucose 303 H 09/05/24 21:56: POC Glucose 297 H 09/06/24 05:22: WBC 12.3 H, RBC 3.64 L, Hgb 12.3, Hct 36.0 L, MCV 98.9, MCH 33.8 H, MCHC 34.2, RDW Std Deviation 49.1 H, RDW Coeff of Zafar 13.6, Plt Count 347, MPV 10.0, Immature Gran % (Auto) 0.600, Neut % (Auto) 68.5, Lymph % (Auto) 18.4 L, [place] % (Auto) 11.9 H, Eos % (Auto) 0.3, Baso % (Auto) 0.3, Absolute Neuts (auto) 8.5 H, Absolute Lymphs (auto) 2.27, Nucleated RBC % 0, Sodium 154 H, Potassium 3.6, Chloride 127 H*, Carbon Dioxide 24.0, Anion Gap 3 L, BUN 44 H, C reatinine 1.19 H, Estim Creat Clear Calc 39.95, Est GFR (MDRD) Af Amer 57 L, Est GFR (MDRD) Non-Af 47 L, BUN/Creatinine Ratio 37.0 H, Glucose 318 H, Calcium 8.5 Micro: Microbiology 09/04/24 13:12 Blood Culture (Wb) - Anticubital Left Blood Culture - Preliminary Gram negative felix 09/04/24 13:12 Urine Catheter - Cutler Urine Culture - Preliminary Culture exhibits no growth. Imaging Radiology Impression Echocardiogram 09/04/24 18:15 Interpretation Summary Normal LV size. Left ventricular systolic function is normal. The left ventricular ejection fraction is 65 %. Stage 1 diastolic dysfunction. Epicardial fat, normal variant Ordering Physician: Luther Paniagua Referring Physician: Rebeca Padgett Performed By: Yissel Aleman, RDCS, RVT Brain CT 09/05/24 12:55 IMPRESSION: 1. Slightly denser 7 mm nodule within the sella turcica which may represent interval petechial hemorrhage within the pituitary adenoma. 2. Stable chronic microvascular changes. Electronically Signed: Jv Kyle MD at 15:08 EDT , Assessment and Plan . Assessment and plan: Critical Care Time: The entirety of this encounter was done via Telemedicine Subjective Subjective Pt seen and examined. More awake, remains confused/altered but speech clearer and is tolerating PO diet. D5 @ 100 PE: General: Well developed, acute on chronically ill appearing obese female HEENT: anicteric Sclera; nl nose; supple neck, no masses Cardiovascular: Regular Rate and Rhythm; No murmurs, rubs, gallops; no displaced PMI Respiratory: diminished; no crackles, wheezes, or rhonchi Abdominal: Non-tender; Non distended; hypoBS x 4; No Hepatosplenomegaly Extremities: Warm, pressure wounds to B/L knees/elbows and feet/toes; No clubbing, cyanosis; capillary refill < 2 sec Neurological: awake, oriented x0-1 (intermittently can state name), LUE contracted across chest but no other focal deficits appreciated (limited exam) A/P: #Sepsis: sp fluid bolus; cont emp IV Abx; F/U Cx #?UTI: see above #Acute hypernatremia: iatrogenic 2* to NS infusion; on D5W, F/U repeat level, nephro consulted yesterday by primary #MINESH: cont IVF, strict I/Os #Rhabdomyolysis, mild: improved and now ~500 #Acute encephalopathy: likely toxic/metabolic; cont treating above; unable to get MRI due to implant in back, repeat CT head yesterday no acute changes identified; can check ammonia in AM; suspect this will mostly take time to clear but if in a few days there is no significant improvement can request neuro eval #DM2: SSI #Hx CVA: no acute infarct on head CT; repeat CT yesterday unrevealing Can downgrade to stepdown. Will monitor her progress peripherally. The entirety of this encounter was done via Telemedicine
[2024-09-06] MEDS: Insulin Lispro 100 UNIT/ML INSULN.PEN SC ×4 (08:53→21:43)
[2024-09-06] MEDS: Heparin Injection (Vial) 5,000 UNIT/ML VIAL 5000 UNIT SC ×2 (08:54→21:43)
[2024-09-06] MEDS: Aspirin 81 MG TAB.CHEW PO (08:54)
[2024-09-06] MEDS: Insulin Glargine-YFGN 100 UNIT/ML Pen 10 UNIT SC ×2 (08:54→21:43)
--- NOTE | 2024-09-06 10:31 | PN_ITS ---
Subjective Subjective Patient seen and examined. She still remains confused and weak. Unable to do review of systems due to her confusion. Objective Data Objective Data Vital Signs: Vital Signs Temp Pulse Resp BP Pulse Ox O2 Del Method O2 Flow Rate 99.8 F H 58 L 20 H 141/77 H 92 Room Air 1 09/06/24 09:00 09/06/24 10:00 09/06/24 10:00 09/06/24 10:00 09/06/24 10:00 09/06/24 10:00 09/05/24 04:00 Oxygen Flow Rate (L/min) 1 Oxygen Delivery Method Room Air Weight: 175 lb 14.862 oz Body Mass Index (BMI) 34.3 Intake & Output: Intake and Output for Last 24 Hours 09/04/24 09/05/24 09/06/24 23:59 23:59 22:59 Intake Total 5253.33 / 5255.33 2516.57 / 2636.57 1293.33 / 1293.33 Output Total 1000 / 1500 800 / 800 Balance 5253.33 / 5255.33 1516.57 / 1136.57 493.33 / 493.33 Lab / Micro Data 09/06/24 05:22 09/06/24 05:22 Labs: Laboratory Results - last 24 hr 09/05/24 15:00: Sodium 154 H, Potassium 3.9, Chloride 125 H, Carbon Dioxide 21.0, Anion Gap 8, BUN 56 H, Creatinine 1.27 H, Estim Creat Clear Calc 37.16, E st GFR (MDRD) Af Amer 53 L, Est GFR (MDRD) Non-Af 44 L, BUN/Creatinine Ratio 44.1 H, Glucose 455 H*, Calcium 8.0 L 09/05/24 15:50: Ur Random Sodium 46 09/05/24 16:17: POC Glucose 303 H 09/05/24 21:56: POC Glucose 297 H 09/06/24 05:22: WBC 12.3 H, RBC 3.64 L, Hgb 12.3, Hct 36.0 L, MCV 98.9, MCH 33.8 H, MCHC 34.2, RDW Std Deviation 49.1 H, RDW Coeff of Zafar 13.6, Plt Count 347, MPV 10.0, Immature Gran % (Auto) 0.600, Neut % (Auto) 68.5, Lymph % (Auto) 18.4 L, [place] % (Auto) 11.9 H, Eos % (Auto) 0.3, Baso % (Auto) 0.3, Absolute Neuts (auto) 8.5 H, Absolute Lymphs (auto) 2.27, Nucleated RBC % 0, Sodium 154 H, Potassium 3.6, Chloride 127 H*, Carbon Dioxide 24.0, Anion Gap 3 L, BUN 44 H, C reatinine 1.19 H, Estim Creat Clear Calc 39.95, Est GFR (MDRD) Af Amer 57 L, Est GFR (MDRD) Non-Af 47 L, BUN/Creatinine Ratio 37.0 H, Glucose 318 H, Calcium 8.5 Micro: Microbiology 09/04/24 13:12 Urine Catheter - Cutler Urine Culture - Final Culture exhibits no growth. 09/04/24 13:12 Blood Culture (Wb) - Anticubital Left Blood Culture - Preliminary Gram negative felix Radiography Diagnostic Testing: Radiology Impression Echocardiogram 09/04/24 18:15 Interpretation Summary Normal LV size. Left ventricular systolic function is normal. The left ventricular ejection fraction is 65 %. Stage 1 diastolic dysfunction. Epicardial fat, normal variant Ordering Physician: Luther Paniagua Referring Physician: Rebeca Padgett Performed By: Yissel Aleman, KELLI, RVT Brain CT 09/05/24 12:55 IMPRESSION: 1. Slightly denser 7 mm nodule within the sella turcica which may represent interval petechial hemorrhage within the pituitary adenoma. 2. Stable chronic microvascular changes. Electronically Signed: Jv Kyle MD at 15:08 EDT , Physical Exam Const alert Constitutional Narrative: Confused. Orientation / Consciousness: confused HEENT normocephalic and head/scalp atraumatic Eyes PERRL and EOMs intact bilaterally Eyes Narrative: No icterus Neck no lymphadenopathy and supple Lymph Lymphatic: no lymphadenopathy noted and no lymphedema noted Resp no retractions, no use of accessory muscles and clear to auscultation bilaterally Resp Narrative: mildly diminished breath sounds bibasally, no wheezes or crackles. On room air. Cardio regular rate, regular rhythm, S1 normal heart sound, S2 normal heart sound and no murmurs GI normal to inspection, nondistended, normoactive bowel sounds, soft to palpation, non-tender and non-distended Extremity normal capillary refill, no clubbing, cyanosis or edema and no calf tenderness General Extremity: no tenderness to palpation of joints or extremities Skin Skin Narrative: has superficial abrasions General Skin Exam: no breakdown Neuro moves all extremities Neuro Narrative: confused, moves all limbs spontaneously. Speech: Negative for speech normal Motor Exam: general weakness Psych Psych Narrative: confused Assessment & Plan Assessment/Plan (1) Sepsis: (2) DKA, type 2: (3) Metabolic encephalopathy: (4) MINESH (acute kidney injury): (5) Rhabdomyolysis: (6) Acute hypernatremia: PLAN: Plan #DKA * resolved. Anion gap has closed x 2 * A1C is >12 * start on lantus 10 units bid * High dose sliding scale * Accuchecks ACHS #Acute encephalopathy * Likely due to DKA and electrolyte abnormalities. Sodium has trended up to a peak of 163. Was 146 on admission continue trending upwards. DKA has resolved. * Will start patient on D5 water to bring down sodium. Consult nephrology on account of hyponatremia. * Patient also currently on broad-spectrum antibiotics for sepsis with unclear etiology. This may also be contributing to the encephalopathy. * PT OT on board. * CT of the brain showed no evidence of stroke. * All sedative medications held * #Hypernatremia * Sodium was 146 on admission and continued to trend upwards and peaked at 163. * Sodium is down to 154 today. On D5 water infusion. * Nephrology on board. * Urine sodium was 46. * patient on D5W infusion. * nephrology consulted. * check urine sodium * consult critical care also * #Rhabdomyolysis * CPK was 1298 on admission. should improve with hydration * she was found down at home and this is likely contributing to the rhabdomyolysis * CPK is now down to 547 with hydration. #Sepsis * Patient met SIRS criteria with qSOFA score of 2 and she was tachypneic on admission also encephalopathic. Patient has had a mild fever of 99.2 this morning. She is still tachypneic and WBC is still elevated at 16, though it has trended down from 24 on admission. * Urinalysis showed no evidence of infection and chest x-ray also showed no evidence of pneumonia. * Patient currently on empiric antibiotics with vancomycin and Zosyn. * COVID, flu and RSV were negative. Blood cultures are growing gram-negative rods and preliminary read. Await speciation. * And cultures are negative. Continue IV vancomycin and Zosyn for now. Critical care consulted. #Hypothyroidism: On Synthroid. TSH is 4.96 which is actually down from 27 on 07/15/2024. TSH has been as high as 129 from January 2024. DVT prophylaxis; lovenox Charges/Coding Visit Charges Inpatient E&M: 95377 Subs Hosp L3
[2024-09-06 11:41] LABS: Bedside Glucose 309 mg/dL (74-106)
[2024-09-06 14:39] LABS: Anion Gap 2 (5-15); BUN 40 mg/dL (7-18); BUN/Creat Ratio 34.2 RATIO (10-20); Calcium,Total 8.4 mg/dL (8.5-10.1); Chloride 126 mmol/L (98-107); Creatinine, Serum 1.17 mg/dL (0.55-1.02); EST Glomerular Filtration Rate 48 mL/min (>60); Est Glom Filt Rate - Afr Amer 58 mL/min (>60); Estimated Creatinine Clearance 40.63 ml/min; Glucose 260 mg/dL (74-106); Potassium 3.5 mmol/L (3.5-5.1); Sodium Level 155 mmol/L (136-145)
[2024-09-06] MEDS: 0.45% Normal Saline 1,000 ML 125 ML IV (18:05)
--- NOTE | 2024-09-06 18:39 | PCM.CONS.R ---
Assessment & Plan Assessment/Plan (1) MINESH (acute kidney injury): (2) Acute hypernatremia: (3) Hypokalemia: PLAN: Plan In regards to her acute kidney injury serum creatinine peaked at 1.68 mg/dL improved to 1.19 mg/dL with volume expansion signifying prerenal azotemia. She does have significant hyper natremia with sodium peaking at 163 mmol/L on September 05, 2024. She is appropriately resuscitated currently on D5 half-normal at 154 mmol/L. Given elevated blood sugar we will change IV fluid to half-normal saline keep at 125 cc an hour. Goal of sodium will be around 150 by tomorrow. Acute replace potassium as needed Family is at bedside, all questions answered. Discussed with nursing staff. Thank you please call me at [phone] with any concerns HPI Consult Data Date of Consult: 09/06/24 HPI Narrative Reason for Consultation: Acute kidney injury, hyponatremia HPI Narrative: TISHA HOFFMANN, is a 73 F who presents with underlying history below who was brought into the hospital after being found down. Apparently patient is independent and found by her daughter. Upon workup noted to be in DKA pH of 7.13 with a blood sugar of 8 74. She also suffered from acute kidney injury with a serum creatinine of 1.68 With a sodium level peaking at 163. Subsequently is now off insulin drip nephrology is consulted for acute kidney injury or electrolyte derangement. On today's encounter she is awake but slow to response, family is at bedside. She does have a thirst drive. Still very weak. FORMERLY [facility], [facility] Medical History Ductal hyperplasia of breast Atypical ductal hyperplasia of right breast Atypical lobular hyperplasia (ALH) of right breast Other acute postprocedural pain Unsteady gait Wears dentures Wears glasses Post-menopausal Cancer Depression Anxiety Thyroid disease Walker as ambulation aid Ambulates with cane Arthritis High cholesterol Back pain Injury of back TIA (transient ischemic attack) Gastric reflux History of edema History of pain when walking History of echocardiogram History of stress test Cardiology follow-up encounter DM type 2, goal HbA1c < 8% Smoker Recent weight loss Family history of breast cancer Intertrigo Left shoulder pain Right shoulder pain Chronic thoracic back pain Chronic neck pain Macromastia DM type 2, goal HbA1c < 7% Neuropathy Cataracts, bilateral Carpal tunnel syndrome Vitamin D deficiency Encounter for screening for malignant neoplasm of lung Obesity Tobacco abuse Hyperlipidemia Hypothyroidism Type 2 diabetes mellitus History of CVA (cerebrovascular accident) (10/15/21) Essential hypertension Rotator cuff injury Contusion of right shoulder region Injury due to fall Hemiparesis of left dominant side Chronic post-operative pain Primary osteoarthritis of right knee Depression Arthritis Home Medications ?Medication ?Instructions ?Recorded ?Last Taken ?Type clonidine HCl 0.1 mg tablet 0.1 mg PO QHS HTN 01/11/17 10/14/21 22:00 History hydrocodone-acetaminophen 5-325mg 1 ea PO BID PRN PRN Pain 05/01/19 Unknown History 5mg-325mg aripiprazole 2 mg tablet 2 mg PO DAILY mental health 10/15/21 09/04/23 History furosemide 20 mg tablet 20 mg PO BID PRN swelling 10/15/21 Unknown History metformin 1,000 mg tablet 1,000 mg PO BID diabetes 10/15/21 Unknown History pantoprazole 40 mg tablet,delayed 40 mg PO DAILY reflux 10/15/21 09/04/23 History release potassium chloride 20 mEq 20 meq PO DAILY PRN if take a lasix 10/15/21 Unknown History tablet,extended release aspirin 81 mg chewable tablet 81 mg PO DAILY #30 tabs 10/17/21 08/28/23 Rx pravastatin 40 mg tablet 40 mg PO DAILY 12/13/21 Unknown History benztropine 0.5 mg tablet 0.5 mg PO BID 10/18/22 Unknown History ascorbic acid (vitamin C) 500 mg 500 mg PO DAILY 08/27/23 Unknown History tablet,extended release (C-500) cholecalciferol (vitamin D3) 25 25 mcg PO DAILY 08/27/23 Unknown History mcg (1,000 unit) capsule (Vitamin D3) gabapentin 400 mg capsule 400 mg PO TID 08/27/23 Unknown History levothyroxine 125 mcg tablet 125 mcg PO DAILY 08/27/23 09/04/23 History magnesium 250 mg tablet 250 mg PO DAILY 08/27/23 Unknown History venlafaxine 100 mg tablet 150 mg PO BID 08/27/23 09/04/23 History nystatin 100,000 unit/gram topical 1 applic topical BID 14 days #30 10/09/23 Unknown Rx powder grams levothyroxine 125 mcg tablet 125 mcg PO DAILY #14 tabs 01/25/24 Unknown Rx (Synthroid) Allergy/AdvReac Type Severity Reaction Status Date / Time bupropion (From Wellbutrin) Allergy Other Verified 09/04/24 12:45 celecoxib (From Celebrex) Allergy Hives Verified 09/04/24 12:45 erythromycin lactobionate AdvReac Nausea/Vom/ Verified 09/04/24 12:45 (From Erythrocin) Diarrhea rosuvastatin calcium (From AdvReac Other Verified 09/04/24 12:45 Crestor) zolpidem (From Ambien) AdvReac Other Verified 09/04/24 12:45 Family History Mother Breast cancer Depression Brother Diabetes Hypertension Father , Age 43 Heart disease Myocardial infarction Brother Diabetes Surgical History History of bilateral breast reduction surgery Hx of surgical procedure History of cataract surgery History of tubal ligation H/O arthroscopic knee surgery Hx of colonoscopy S/P insertion of spinal cord stimulator Hx of tonsillectomy History of carpal tunnel release of both wrists Hx of section History of back surgery Social History household members: none housing: apartment number of children: 2 Smoking Status: Current every day smoker tobacco type: cigarettes quit status: has quit before alcohol intake: never substance use type: does not use caffeine: No seatbelt use: always additional social history: Does Take Aspirin Daily Does Not Take Ibuprofen ROS ROS Narrative 10 review of system unable to fully obtain due to patient's current condition Physical Exam Narrative Patient is awake slow to respond Normocephalic atraumatic Oral mucosa is dry Neck is supple S1-S2 regular Abdomen is nontender No peripheral edema Medical Records Data Attestation: I reviewed the patient's medical records Lab / Micro Data 09/06/24 05:22 09/06/24 13:45 Labs: Laboratory Results - last 24 hr 09/05/24 21:56: POC Glucose 297 H 09/06/24 05:22: WBC 12.3 H, RBC 3.64 L, Hgb 12.3, Hct 36.0 L, MCV 98.9, MCH 33.8 H, MCHC 34.2, RDW Std Deviation 49.1 H, RDW Coeff of Zafar 13.6, Plt Count 347, MPV 10.0, Immature Gran % (Auto) 0.600, Neut % (Auto) 68.5, Lymph % (Auto) 18.4 L, [place] % (Auto) 11.9 H, Eos % (Auto) 0.3, Baso % (Auto) 0.3, Absolute Neuts (auto) 8.5 H, Absolute Lymphs (auto) 2.27, Nucleated RBC % 0, Sodium 154 H, Potassium 3.6, Chloride 127 H*, Carbon Dioxide 24.0, Anion Gap 3 L, BUN 44 H, Creatinine 1.19 H, Estim Creat Clear Calc 39.95, Est GFR (MDRD) Af Amer 57 L, Est GFR (MDRD) Non-Af 47 L, BUN/Creatinine Ratio 37.0 H, Glucose 318 H, Calcium 8.5 09/06/24 11:05: POC Glucose 309 H 09/06/24 13:45: Sodium 155 H, Potassium 3.5, Chloride 126 H, Carbon Dioxide 27.0, Anion Gap 2 L, BUN 40 H, Creatinine 1.17 H, Estim Creat Clear Calc 40.63, Est GFR (MDRD) Af Amer 58 L, Est GFR (MDRD) Non-Af 48 L, BUN/Creatinine Ratio 34.2 H, Glucose 260 H, Calcium 8.4 L Micro: Microbiology 09/04/24 13:12 Urine Catheter - Cutler Urine Culture - Final Culture exhibits no growth. 09/04/24 13:12 Blood Culture (Wb) - Anticubital Left Blood Culture - Preliminary Gram negative felix
[2024-09-06 19:05] LABS: Bedside Glucose 178 mg/dL (74-106)
[2024-09-06 22:07] LABS: Bedside Glucose 214 mg/dL (74-106)
[2024-09-07] VITALS (21 sets, daily range): BP systolic 89–155; BP diastolic 41–105; PULSE 56–77; RESP 15–25; TEMP 36–37.9; O2SAT 92–98; BMI 35.1
[2024-09-07 00:26] LABS: Anion Gap 1 (5-15); BUN 30 mg/dL (7-18); BUN/Creat Ratio 31.6 RATIO (10-20); Calcium,Total 7.9 mg/dL (8.5-10.1); Chloride 124 mmol/L (98-107); Creatinine, Serum 0.95 mg/dL (0.55-1.02); EST Glomerular Filtration Rate 61 mL/min (>60); Est Glom Filt Rate - Afr Amer 74 mL/min (>60); Estimated Creatinine Clearance 50.04 ml/min; Glucose 168 mg/dL (74-106); Potassium 3.4 mmol/L (3.5-5.1); Sodium Level 150 mmol/L (136-145)
[2024-09-07] MEDS: 0.45% Normal Saline 1,000 ML 125 ML IV (02:05)
[2024-09-07] MEDS: Acetaminophen 325 MG Tablet 650 MG PO ×2 (04:48→18:04)
[2024-09-07 05:11] LABS: Absolute Lymphocyte Count 2.57 X10^3/uL (0.83-4.51); Absolute Neutrophil Count 8.1 X10^3/uL (2.0-7.7); Basophil# 0.06 X10^3/uL; Basophil% 0.5 % (0-1); Eosinophil# 0.16 X10^3/uL; Eosinophils% 1.3 % (0-5); Hematocrit 35.4 % (37-47); Hemoglobin 11.7 g/dL (12.0-15.0); Lymphocyte # 2.57 X10^3/ul (0.83-4.51); Lymphocyte % 20.5 % (19-41); Mean Corp Hgb Conc 33.1 g/dL (32-36); Mean Corpuscular Hgb 33.1 pg (27.0-32.0); Mean Platelet Vol. 10.1 fl (6.2-12.0); NRBC Flagged by Analyzer 0 % (0-5); Neutrophil # 8.13 X10^3/uL (2.7-7.7); Neutrophil % 64.7 % (47-70); Platelet Count 261 K/mm3 (150-450); RBC Distribution Width CV 13.2 % (11.6-14.6); RBC Distribution Width SD 48.6 fl (35.1-43.9); Red Blood Count 3.54 M/mm3 (4.2-5.4); White Blood Count 12.5 K/mm3 (4.4-11.0)
[2024-09-07 05:25] LABS: Anion Gap 4 (5-15); BUN 28 mg/dL (7-18); BUN/Creat Ratio 33.3 RATIO (10-20); Calcium,Total 8.1 mg/dL (8.5-10.1); Chloride 121 mmol/L (98-107); Creatinine, Serum 0.84 mg/dL (0.55-1.02); EST Glomerular Filtration Rate 71 mL/min (>60); Est Glom Filt Rate - Afr Amer 85 mL/min (>60); Estimated Creatinine Clearance 57.28 ml/min; Glucose 100 mg/dL (74-106); Potassium 3.2 mmol/L (3.5-5.1); Sodium Level 149 mmol/L (136-145)
[2024-09-07] MEDS: Piperacil/Tazobactam 3.375 GM in 0.9% Normal Saline (50mL MB+) 50 ML IV (06:10)
[2024-09-07] MEDS: Heparin Injection (Vial) 5,000 UNIT/ML VIAL 5000 UNIT SC ×2 (08:18→21:30)
[2024-09-07] MEDS: Aspirin 81 MG TAB.CHEW PO (08:18)
[2024-09-07] MEDS: Potassium Chloride Oral Tablet 20 MEQ 40 MEQ PO (08:18)
[2024-09-07 09:09] LABS: Bedside Glucose 134 mg/dL (74-106)
--- NOTE | 2024-09-07 09:11 | PCM.PN.INT ---
Assessment & Plan Assessment/Plan (1) Sepsis: (2) Metabolic encephalopathy: (3) DKA, type 2: PLAN: Plan RECOMMENDATIONS: 1. Continue antimicrobials, pending finalized culture results. 2. Hypernatremia management per nephrology. 3. Continue basal and sliding scale insulin coverage. 4. Encourage incentive spirometer use and mobilize patient as tolerated. 5. The patient is medically stable for transfer out of the intensive care unit. Will sign off from a critical care perspective. IMPRESSIONS: 1. Sepsis Clinical concern for underlying bacteremia related to possible UTI. Cultures are currently pending. The patient remains hemodynamically stable. Continue empiric antimicrobials for now. 2. Hypernatremia Likely related to utilization of normal saline during fluid resuscitative efforts. Nephrology is currently following to assist with medical management. 3. DKA Resolved at this time. Continue basal and sliding scale insulin coverage. 4. Acute metabolic encephalopathy Likely related to #1 and 3, above. Continue current supportive measures as outlined above. 5. History of hypothyroidism/neuropathy/hypertension/hyperlipidemia Complicates care, management, recovery and prognosis. Continue home medications as indicated. This note was generated with [employer] dictation software. It may contain incorrect words, spelling, and punctuation that were not noted in checking the note before signing. Subjective Subjective The patient was seen and examined at the bedside this morning. Events from the last 24 hours have been reviewed. The patient is currently afebrile, hemodynamically stable and maintaining appropriate oxygen saturations on 2 L/min via nasal cannula. Sodium is elevated at 149 with a potassium of 3.2, chloride of 121 and normal creatinine. The patient is documented to be overall net +10 L for the hospitalization. No overnight issues were identified by the nursing staff. Objective Data Objective Data The patient's most recent lab work, culture data and imaging studies have all been personally reviewed. Surface echocardiogram completed on September 05 demonstrated stage I diastolic dysfunction with a right ventricular systolic pressure estimated to be 33 mmHg. Vital Signs: Vital Signs Temp Pulse Resp BP Pulse Ox O2 Del Method O2 Flow Rate 99.2 F H 59 L 22 H 113/48 L 97 Room Air 1 09/07/24 08:00 09/07/24 08:00 09/07/24 08:00 09/07/24 08:00 09/07/24 08:00 09/07/24 08:00 09/05/24 04:00 Oxygen Flow Rate (L/min) 1 Oxygen Delivery Method Room Air Weight: 179 lb 14.355 oz Body Mass Index (BMI) 35.1 Intake & Output: Intake and Output for Last 24 Hours 09/05/24 09/06/24 09/07/24 23:59 22:59 23:59 Intake Total 2516.57 / 2636.57 3118.33 / 3358.33 1390 / 1390 Output Total 1000 / 1500 1625 / 1875 575 / 575 Balance 1516.57 / 1136.57 1493.33 / 1483.33 815 / 815 Lab / Micro Data Attestation: I reviewed the patient's lab results. 09/07/24 05:05 09/07/24 05:05 Labs: Laboratory Results - last 24 hr 09/06/24 11:05: POC Glucose 309 H 09/06/24 13:45: Sodium 155 H, Potassium 3.5, Chloride 126 H, Carbon Dioxide 27.0, Anion Gap 2 L, BUN 40 H, Creatinine 1.17 H, Estim Creat Clear Calc 40.63, Est GFR (MDRD) Af Amer 58 L, Est GFR (MDRD) Non-Af 48 L, BUN/Creatinine Ratio 34.2 H, Glucose 260 H, Calcium 8.4 L 09/06/24 16:32: POC Glucose 178 H 09/06/24 21:42: POC Glucose 214 H 09/07/24 00:05: Sodium 150 H, Potassium 3.4 L, Chloride 124 H, Carbon Dioxide 25.0, Anion Gap 1 L, BUN 30 H, Creatinine 0.95, Estim Creat Clear Calc 50.04, Est GFR (MDRD) Af Amer 74, Est GFR (MDRD) Non-Af 61, BUN/Creatinine Ratio 31.6 H, Glucose 168 H, Calcium 7.9 L 09/07/24 05:05: WBC 12.5 H, RBC 3.54 L, Hgb 11.7 L, Hct 35.4 L, MCV 100.0 H, MCH 33.1 H, MCHC 33.1, RDW Std Deviation 48.6 H, RDW Coeff of Zafar 13.2, Plt Count 261, MPV 10.1, Immature Gran % (Auto) 1.000 H, Neut % (Auto) 64.7, Lymph % (Auto) 20.5, [place] % (Auto) 12.0 H, Eos % (Auto) 1.3, Baso % (Auto) 0.5, Absolute Neuts (auto) 8.1 H, Absolute Lymphs (auto) 2.57, Nucleated RBC % 0, Sodium 149 H, Potassium 3.2 L, Chloride 121 H, Carbon Dioxide 24.0, Anion Gap 4 L, BUN 28 H, Creatinine 0.84, Estim Creat Clear Calc 57.28, Est GFR (MDRD) Af Amer 85, Est GFR (MDRD) Non-Af 71, BUN/Creatinine Ratio 33.3 H, Glucose 100, Calcium 8.1 L, Ammonia 17.0 09/07/24 08:17: POC Glucose 134 H Micro: Microbiology 09/04/24 19:55 Blood Culture (Wb) - Anticubital Left Blood Culture - Preliminary No growth in 48 hours. 09/05/24 10:10 Blood Culture (Wb) - Left Forearm Blood Culture - Preliminary No growth in 48 hours. 09/04/24 13:12 Blood Culture (Wb) - Anticubital Left Blood Culture - Preliminary Leclercia adecarboxylata Escherichia coli 09/04/24 13:12 Urine Catheter - Cutler Urine Culture - Final Culture exhibits no growth. Physical Exam Const alert and no apparent distress Constitutional Narrative: Somnolent. General Appearance: lethargic and ill appearing HEENT normocephalic and head/scalp atraumatic Eyes PERRL, EOMs intact bilaterally and conjunctivae normal Neck supple General: trachea midline Chest inspection of chest normal Resp normal respiratory effort Auscultation: Negative for rales, rhonchi or wheezes Cardio regular rate and regular rhythm GI normal to inspection, nondistended, normoactive bowel sounds Extremity no clubbing, cyanosis or edema Skin no rashes or lesions noted Neuro CN's II-XII intact bilaterally and no focal motor deficits Psych Mood & Affect: flat affect Charges/Coding Visit Charges Inpatient E&M: 72992 Subs Hosp L2
--- NOTE | 2024-09-07 10:27 | PN_ITS ---
Subjective Subjective Patient seen and examined. She remains lethargic and weak. She is alert and oriented x 3, but not really able to answer any other questions. She has a mild fever of 99.7F. She is on 2L of oxygen. Objective Data Objective Data Vital Signs: Vital Signs Temp Pulse Resp BP Pulse Ox O2 Del Method O2 Flow Rate 99.7 F H 59 L 15 111/41 L 95 Nasal Cannula 2 09/07/24 10:00 09/07/24 10:00 09/07/24 10:00 09/07/24 10:00 09/07/24 10:00 09/07/24 10:00 09/07/24 10:00 Oxygen Flow Rate (L/min) 2 Oxygen Delivery Method Nasal Cannula Weight: 179 lb 14.355 oz Body Mass Index (BMI) 35.1 Intake & Output: Intake and Output for Last 24 Hours 09/05/24 09/06/24 09/07/24 23:59 22:59 23:59 Intake Total 2516.57 / 2636.57 3118.33 / 3358.33 2440 / 2440 Output Total 1000 / 1500 1625 / 1875 575 / 575 Balance 1516.57 / 1136.57 1493.33 / 1483.33 1865 / 1865 Lab / Micro Data 09/07/24 05:05 09/07/24 05:05 Labs: Laboratory Results - last 24 hr 09/06/24 11:05: POC Glucose 309 H 09/06/24 13:45: Sodium 155 H, Potassium 3.5, Chloride 126 H, Carbon Dioxide 27.0, Anion Gap 2 L, BUN 40 H, Creatinine 1.17 H, Estim Creat Clear Calc 40.63, Est GFR (MDRD) Af Amer 58 L, Est GFR (MDRD) Non-Af 48 L, BUN/Creatinine Ratio 34.2 H, Glucose 260 H, Calcium 8.4 L 09/06/24 16:32: POC Glucose 178 H 09/06/24 21:42: POC Glucose 214 H 09/07/24 00:05: Sodium 150 H, Potassium 3.4 L, Chloride 124 H, Carbon Dioxide 25.0, Anion Gap 1 L, BUN 30 H, Creatinine 0.95, Estim Creat Clear Calc 50.04, Est GFR (MDRD) Af Amer 74, Est GFR (MDRD) Non-Af 61, BUN/Creatinine Ratio 31.6 H , Glucose 168 H, Calcium 7.9 L 09/07/24 05:05: WBC 12.5 H, RBC 3.54 L, Hgb 11.7 L, Hct 35.4 L, MCV 100.0 H, MCH 33.1 H, MCHC 33.1, RDW Std Deviation 48.6 H, RDW Coeff of Zafar 13.2, Plt Count 261, MPV 10.1, Immature Gran % (Auto) 1.000 H, Neut % (Auto) 64.7, Lymph % (Auto) 20.5, [place] % (Auto) 12.0 H, Eos % (Auto) 1.3, Baso % (Auto) 0.5, Absolute Neuts (auto) 8.1 H, Absolute Lymphs (auto) 2.57, Nucleated RBC % 0, Sodium 149 H , Potassium 3.2 L, Chloride 121 H, Carbon Dioxide 24.0, Anion Gap 4 L, BUN 28 H, Creatinine 0.84, Estim Creat Clear Calc 57.28, Est GFR (MDRD) Af Amer 85, Est GFR (MDRD) Non-Af 71, BUN/Creatinine Ratio 33.3 H, Glucose 100, Calcium 8.1 L, Ammonia 17.0 09/07/24 08:17: POC Glucose 134 H Micro: Microbiology 09/04/24 19:55 Blood Culture (Wb) - Anticubital Left Blood Culture - Preliminary No growth in 48 hours. 09/05/24 10:10 Blood Culture (Wb) - Left Forearm Blood Culture - Preliminary No growth in 48 hours. 09/04/24 13:12 Blood Culture (Wb) - Anticubital Left Blood Culture - Preliminary Leclercia adecarboxylata Escherichia coli 09/04/24 13:12 Urine Catheter - Cutler Urine Culture - Final Culture exhibits no growth. Physical Exam Const alert Constitutional Narrative: Confused. Orientation / Consciousness: confused and lethargic HEENT normocephalic and head/scalp atraumatic Eyes PERRL and EOMs intact bilaterally Eyes Narrative: No icterus Neck no lymphadenopathy and supple Neck Narrative: No thyromegaly Lymph Lymphatic: no lymphadenopathy noted and no lymphedema noted Resp normal respiratory effort, no retractions, no use of accessory muscles and clear to auscultation bilaterally Resp Narrative: mildly diminished breath sounds bibasally, no wheezes or crackles. On room air. Cardio regular rate, regular rhythm, S1 normal heart sound, S2 normal heart sound and no murmurs GI normal to inspection, nondistended, normoactive bowel sounds, soft to palpation, non-tender and non-distended Extremity normal capillary refill, no clubbing, cyanosis or edema and no calf tenderness Extremity Narrative: General Extremity: no tenderness to palpation of joints or extremities Skin Skin Narrative: has superficial abrasions General Skin Exam: no breakdown Neuro moves all extremities Neuro Narrative: confused, moves all limbs spontaneously. Speech: Negative for speech normal Motor Exam: general weakness Psych Psych Narrative: confused Assessment & Plan Assessment/Plan (1) Sepsis: (2) DKA, type 2: (3) Metabolic encephalopathy: (4) MINESH (acute kidney injury): (5) Rhabdomyolysis: (6) Acute hypernatremia: PLAN: Plan #DKA * resolved. Anion gap has closed x 2 * A1C is >12 * on lantus 10 units bid * High dose sliding scale * Accuchecks ACHS #Acute encephalopathy * Likely due to DKA and electrolyte abnormalities. * sodium is down to 149 today * fluid switched to 1/2 NS @ 125cc/hr * CT of the brain showed no acute intracranial pathology. * Could not have an MRI of the brain due to patient having a spine implantation. * PT./OT on board. fall precautions * all sedative meds on hold. * #Hypernatremia * improving. Sodium is now 149. * Nephrology on board. * Urine sodium was 46. * fluid switched to 1/2 NS at 125cc/hr * nephrology consulted. * * #Rhabdomyolysis * CPK improving and trending downwards. * will monitor * #Sepsis * Patient met SIRS criteria with qSOFA score of 2 and she was tachypneic on admission also encephalopathic. * still having a mild fever of 99.7F. * Wbc is down to 12 today. * on IV vancomycin and zosyn * blood cultures grew E. coli and Leclercia adecarboxylata. * will narrow down antibiotics to IV ciprlfoxacin based on sensitivities * repeat blood culture pending * #Hypothyroidism: On Synthroid. TSH is 4.96 which is actually down from 27 on 07/15/2024. TSH has been as high as 129 from January 2024. DVT prophylaxis; lovenox Disposition: transfer to PCU Charges/Coding Visit Charges Inpatient E&M: 64499 Subs Hosp L2
[2024-09-07] MEDS: Insulin Glargine-YFGN 100 UNIT/ML Pen 10 UNIT SC ×2 (11:15→21:32)
[2024-09-07] MEDS: Insulin Lispro 100 UNIT/ML INSULN.PEN SC ×2 (11:16→21:31)
[2024-09-07 11:37] LABS: Bedside Glucose 212 mg/dL (74-106)
--- NOTE | 2024-09-07 11:45 | PN.RENAL_ITS ---
Subjective Subjective Resting in bed. No overnight events. Alert to name. Daughter at bedside. Objective Data Objective Data Vital Signs: Vital Signs Temp Pulse Resp BP Pulse Ox O2 Del Method O2 Flow Rate 99.7 F H 64 20 H 94/77 94 Room Air 2 09/07/24 10:00 09/07/24 11:00 09/07/24 11:00 09/07/24 11:00 09/07/24 11:00 09/07/24 11:00 09/07/24 10:00 Oxygen Flow Rate (L/min) 2 Oxygen Delivery Method Room Air Weight: 81.6 kg Body Mass Index (BMI) 35.1 Intake & Output: Intake and Output for Last 24 Hours 09/05/24 09/06/24 09/07/24 23:59 22:59 23:59 Intake Total 2516.57 / 2636.57 3118.33 / 3358.33 2440 / 2440 Output Total 1000 / 1500 1625 / 1875 575 / 575 Balance 1516.57 / 1136.57 1493.33 / 1483.33 1865 / 1865 Lab / Micro Data 09/07/24 05:05 09/07/24 05:05 Labs: Laboratory Results - last 24 hr 09/06/24 13:45: Sodium 155 H, Potassium 3.5, Chloride 126 H, Carbon Dioxide 27.0, Anion Gap 2 L, BUN 40 H, Creatinine 1.17 H, Estim Creat Clear Calc 40.63, Est GFR (MDRD) Af Amer 58 L, Est GFR (MDRD) Non-Af 48 L, BUN/Creatinine Ratio 34.2 H, Glucose 260 H, Calcium 8.4 L 09/06/24 16:32: POC Glucose 178 H 09/06/24 21:42: POC Glucose 214 H 09/07/24 00:05: Sodium 150 H, Potassium 3.4 L, Chloride 124 H, Carbon Dioxide 25.0, Anion Gap 1 L, BUN 30 H, Creatinine 0.95, Estim Creat Clear Calc 50.04, Est GFR (MDRD) Af Amer 74, Est GFR (MDRD) Non-Af 61, BUN/Creatinine Ratio 31.6 H , Glucose 168 H, Calcium 7.9 L 09/07/24 05:05: WBC 12.5 H, RBC 3.54 L, Hgb 11.7 L, Hct 35.4 L, MCV 100.0 H, MCH 33.1 H, MCHC 33.1, RDW Std Deviation 48.6 H, RDW Coeff of Zafar 13.2, Plt Count 261, MPV 10.1, Immature Gran % (Auto) 1.000 H, Neut % (Auto) 64.7, Lymph % (Auto) 20.5, [place] % (Auto) 12.0 H, Eos % (Auto) 1.3, Baso % (Auto) 0.5, Absolute Neuts (auto) 8.1 H, Absolute Lymphs (auto) 2.57, Nucleated RBC % 0, Sodium 149 H , Potassium 3.2 L, Chloride 121 H, Carbon Dioxide 24.0, Anion Gap 4 L, BUN 28 H, Creatinine 0.84, Estim Creat Clear Calc 57.28, Est GFR (MDRD) Af Amer 85, Est GFR (MDRD) Non-Af 71, BUN/Creatinine Ratio 33.3 H, Glucose 100, Calcium 8.1 L, Ammonia 17.0 09/07/24 08:17: POC Glucose 134 H 09/07/24 11:13: POC Glucose 212 H Micro: Microbiology 09/04/24 19:55 Blood Culture (Wb) - Anticubital Left Blood Culture - Preliminary No growth in 48 hours. 09/05/24 10:10 Blood Culture (Wb) - Left Forearm Blood Culture - Preliminary No growth in 48 hours. 09/04/24 13:12 Blood Culture (Wb) - Anticubital Left Blood Culture - Preliminary Leclercia adecarboxylata Escherichia coli 09/04/24 13:12 Urine Catheter - Cutler Urine Culture - Final Culture exhibits no growth. Physical Exam Narrative Patient is awake, slow to respond Normocephalic atraumatic Oral mucosa is dry Lung sounds clear anteriorly S1-S2 regular Abdomen soft, nontender No peripheral edema Assessment & Plan Assessment/Plan (1) MINESH (acute kidney injury): (2) Acute hypernatremia: (3) Hypokalemia: PLAN: Plan -MINESH with normal baseline creatinine (reviewed past serum creatinine trends which were normal however to note on 01/25/2024 creatinine 1.42; no labs to review until this admission). Serum creatinine 3.0 on admission (09/04). Renal function had been improving daily and today serum creatinine 0.84 mg/dL. Volume expansion signifying prerenal azotemia. - hypernatremia with sodium peaking at 163 mmol/L on September 05, 2024. She was appropriately resuscitated with D5 half-normal and then switched to half-normal saline at 125 mL an hour due to elevated blood sugars. Sodium improved to 149 this morning. Can continue on IV fluids, rate reduced today. Patient has been ordered a diet but taking little amounts of fluids and food via teaspoon. Oral intake is poor. Encourage increase free water intake. -DKA; resolved, off insulin drip. -Hypokalemia; potassium supplement ordered today
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
[2024-09-07] MEDS: 0.45% Normal Saline 1,000 ML 75 ML IV (13:13)
[2024-09-07] MEDS: Cefazolin 2 GM in Syringe IV ×2 (13:14→21:30)
[2024-09-07] MEDS: 0.9% Saline Lock 10 ML Syringe IV ×2 (13:16→21:32)
--- NOTE | 2024-09-07 13:34 | CASEMGMT ---
Addendum entered by Kenzie Mendez 09/07/24 15:58: [facility] has declined d/t no bed availability. Kenzie Mendez DC Planning Asst. Original Note: Discharge Planning Referral sent via [facility]Port to [facility]. Kenzie Mendez DC Planning Asst.
[2024-09-07 14:22] LABS: Pathologist Review Reviewed
[2024-09-07 17:30] LABS: Bedside Glucose 118 mg/dL (74-106)
[2024-09-08] VITALS (8 sets, daily range): BP systolic 121–142; BP diastolic 51–64; PULSE 60–64; RESP 18; TEMP 36.4–36.9; O2SAT 95–98; BMI 35.6
[2024-09-08 00:06] LABS: Bedside Glucose 160 mg/dL (74-106)
[2024-09-08] MEDS: 0.45% Normal Saline 1,000 ML 75 ML IV (02:50)
[2024-09-08] MEDS: Cefazolin 2 GM in Syringe IV ×3 (06:22→21:21)
[2024-09-08 06:47] LABS: Bedside Glucose 102 mg/dL (74-106)
[2024-09-08 07:22] LABS: Absolute Lymphocyte Count 2.04 X10^3/uL (0.83-4.51); Absolute Neutrophil Count 8.9 X10^3/uL (2.0-7.7); Basophil# 0.06 X10^3/uL; Basophil% 0.5 % (0-1); Eosinophil# 0.25 X10^3/uL; Eosinophils% 1.9 % (0-5); Hematocrit 34.7 % (37-47); Hemoglobin 11.6 g/dL (12.0-15.0); Lymphocyte # 2.04 X10^3/ul (0.83-4.51); Lymphocyte % 15.7 % (19-41); Mean Corp Hgb Conc 33.4 g/dL (32-36); Mean Corpuscular Hgb 33.2 pg (27.0-32.0); Mean Corpuscular Volume 99.4 fL (81-99); Mean Platelet Vol. 9.9 fl (6.2-12.0); Monocyte# 1.53 X10^3/uL; Monocyte% 11.8 % (0-10); NRBC Flagged by Analyzer 0 % (0-5); Neutrophil # 8.93 X10^3/uL (2.7-7.7); Neutrophil % 68.8 % (47-70); POSITIVE DIFFERENTIAL YES; Platelet Count 273 K/mm3 (150-450); RBC Distribution Width CV 13.1 % (11.6-14.6); RBC Distribution Width SD 46.9 fl (35.1-43.9); Red Blood Count 3.49 M/mm3 (4.2-5.4)
[2024-09-08 07:37] LABS: Differential Indicated SCAN CRITERIA MET
[2024-09-08 08:02] LABS: Anion Gap 8 (5-15); BUN 20 mg/dL (7-18); BUN/Creat Ratio 25.5 RATIO (10-20); Calcium,Total 8.4 mg/dL (8.5-10.1); Chloride 117 mmol/L (98-107); Creatinine, Serum 0.78 mg/dL (0.55-1.02); EST Glomerular Filtration Rate 77 mL/min (>60); Est Glom Filt Rate - Afr Amer 93 mL/min (>60); Estimated Creatinine Clearance 60.59 ml/min; Glucose 89 mg/dL (74-106); Potassium 3.5 mmol/L (3.5-5.1); Sodium Level 148 mmol/L (136-145)
--- NOTE | 2024-09-08 09:06 | SP.MBSS_ITS ---
Modified Barium Swallow Patient Information Study Date: 09/08/24 Study Time: 08:30 Direct Billable Minutes: 103 Total Minutes procedure & reportin Diagnosis: Sepsis A41.9, Metabolic encephalopathy G93.41 Referring Physician: Alicia Stephens Reason for Referral: Objectively assess swallow function, assess risk for aspiration, and determine recommendations for least restrictive diet textures and compensatory strategies to improve safety of swallow. Medical History: Pt was found down at home 09/04/2024 found down on her back porch of her apartment. Pt was confused and covered in colette. She was sent to [facility] ED. Pt has hx of CVA w/ a lot of confusion at baseline per hospitalist H&P. Last known well was Saturday before admission. Pt was admitted to [facility] ED for CVA work up, as well as management of DKA, sepsis, and encephalopathy amongst other comorbidities (MINESH, hypokalemia, hypernatremia). Pt was referred for ST consult as part of CVA work up. BSE was completed 09/05/24 and recommend puree textures / thin liquids. Pt was also recommended for assessment of cognitive linguistic abilities (managing finances and medications, living alone, driving at baseline s/p CVA in 2020) as she is currently demonstrating limited verbalizations and decreased comprehension. No formal cognitive-linguistic assessment has been completed at this time. Pt was recommended for MBSS by treating [employer]OKER INSTALLATION MECHANIC on 09/07/2024 due to concerns for aspiration w/ oral intake, especially w/ current metabolic encephalopathy. PMH: Ductal hyperplasia of breast, Atypical ductal hyperplasia of right breast, Atypical lobular hyperplasia (ALH) of right breast, Unsteady gait, Wears dentures/glasses, Cancer, Depression, Anxiety, Thyroid disease, Walker as ambulation aid, Arthritis, High cholesterol, Back pain, TIA, Gastric reflux, DM type 2, Vitamin D deficiency, HLD, Hypothyroidism, Hx of CVA (10/2021), HTN (See EMR for extensive PMH). Current Diet Ordered: Puree / Thin by tsp Dentition: Edentulous Mental Status: Impaired (Max verbal and tactile cues to maintain upright posture throughout assessment (leaning forward and door-hb-mpoa in chair)) Respiratory Status: Oxygenating on Room Air Penetration-Aspiration Scale Penetration-Aspiration Scale: OBJECTIVE ASSESSMENT OF SWALLOW FUNCTION (QUANTITATIVE ? PER TRIAL): PENETRATION / ASPIRATION SCALE (COTE): 1 = does not enter airway 2 = enters airway/above vocal folds/ejected 3 = enters airway/above vocal folds/not ejected 4 = enters airway/contacts vocal folds/ejected 5 = enters airway/contacts vocal folds/not ejected 6 = enters airway/below vocal folds/ejected 7 = enters airway/below vocal folds/not ejected despite effort 8 = enters airway/below vocal folds/no effort VIDEOFLOROSCOPIC SCALE SCORE (COTE): Grade I = aspiration of material that has penetrated into the laryngeal vestibule, intact cough reflex Grade II = aspiration < 10 % of the bolus, intact cough reflex Grade III = aspiration of < 10 % of the bolus, reduced cough reflex or aspiration of > 10 % of the bolus, intact cough reflex Grade IV = aspiration of > 10 % of the bolus, reduced cough reflex Penetration-Aspiration Scale Score Thin Liquid via teaspoon: Result: 2= enter airway/above vocal folds/ejected Thin Liquid via teaspoon Trial 2: Result: 4= enters airway/contacts vocal folds/ejected Thin Liquid via small single sip: cup: Result: 1= does not enter airway Comment: Attempted having pt feed herself, unable to both tip cup to take a drink due to UE weakness. Thin Liquid via single sip: straw: Result: 2= enter airway/above vocal folds/ejected Comment: large drink [place] Thick Liquid via small single sip: cup: Result: 1= does not enter airway Pudding via teaspoon: Result: 1= does not enter airway Comment: Esophageal screen - Complete clearance. 11/07 Cookie: Result: 1= does not enter airway Comment: Coughing between swallows. Difficult to PAS score cookie as the patient swallowed much of the barium pudding coating prior to chewing the cookie. Thin Liquid via single sip: straw Trial 2: Result: 2= enter airway/above vocal folds/ejected Comment: small sip Oral Phase Labial Seal: Escape progressing to mid-chin Tongue Control During Bolus Hold: Posterior escape of greater than half of bolus Bolus Preparation/Mastication: Slow prolonged chewing/mashing with complete recollection (Cookie appeared fully chewed, but required extended time for mastication) Bolus Transport/Lingual Motion: Slowed tongue motion Oral Residue: Residue collection on oral structures Pharyngeal Phase Initiation of Pharyngeal Swallow: Bolus head in pyriforms (thin by straw spilled to laryngeal vestibule 1X) Soft Palate Elevation: Trace column of contrast/air between soft palate and pharyngeal wall Laryngeal Elevation: Comp. Superior move thyroid cart w/comp. apprx arytenoid cart-epig pet Anterior Hyoid Excursion: Partial anterior movement Epiglottic Movement: Complete inversion Laryngeal Vestibule Closure at Height of Swallow: Incomplete; narrow column of air/contrast in laryngeal vestibule Pharyngeal Stripping Wave: Present - complete Pharyngoesophageal Segment Opening: Complete distension and complete duration; no obstruction of flow Tongue Base Retraction: Trace column of contrast between tongue base & post. p haryngeal wall Pharyngeal Residue: Trace residue within or on pharyngeal structures Esophageal Phase Esophageal Clearance: Complete clearance Diagnosis/Impression Diagnosis: Mild-moderate oropharyngeal dysphagia R13.12 Impression: The oral phase is primarily marked by... -Decreased bolus control w/ premature posterior loss of various trials to the pharynx prior to swallow onset. Thin by straw spilled to the laryngeal vestibule prior to swallow onset 1X, but fully ejected during the swallow. Pt is at risk for aspiration due to poor bolus control. -Slowed and delayed tongue motion for A-P transport. -Prolonged, but complete mastication of cookie requiring multiple swallows to clear ~1/4 Natasha Doone cookie from the oral cavity. -Mild liquid residue spilled to the vallecula after the swallow. The pharyngeal phase is primarily marked by... -Delayed swallow onset. -Laryngeal penetration during the swallow w/ thin and thickened liquids, likely due to deficits in bolus control, swallow onset, and mildly decreased anterior hyoid excursion; however, with all laryngeal penetration that occurred before and/or during the swallow, the barium appeared to fully eject after the swallow due to good laryngeal elevation. No aspiration was observed; however, it can't be definitively ruled out due to pt's body habitus. -With thin, thickened, and pudding thick trials, pt had trace post prandial penetration observed prior the pt swallowing the subsequent trial. This laryngeal penetration also appeared to fully eject after the swallow had been completed. Recommendations Diet: Puree Textures and Thin Liquids Compensatory Strategies: Small Bites, Small Sips (SIPS ONE AT A TIME), Slow Rate and Sitting upright Supervision: Total Feed Recommend Repeat Modified Barium Swallow: TBD Need for Skilled Speech Therapy Services: Yes Comment: -Train the patient and staff in use of strategies to decrease risk for aspiration. -Ongoing assessment of diet tolerance of recommended textures. Will recommend ST[employer] INSTALLATION MECHANIC trial minced and moist (IDDSI Level 5) and soft and bite size (IDDSI Level 6) textures at bedside to consider diet advancement if deemed clinically appropriate by treating [employer] INSTALLATION MECHANIC. -If improved command following abilities, train the patient in oropharyngeal exercise program to improve bolus control and swallow onset (lingual resistance, lingual coordination, Tristian if able to follow commands). Education Completed: 1. Described result of evaluation. and 7. Pt requires further education on strategies & risks. Status Active ST Patient: Active Contact Information [facility] Speech Therapy:: Siobhan Paez M.A. CCC-STOKER INSTALLATION MECHANIC? Speech-Language Pathologist?? [facility] [address] [place] [address]? [email or web address]?? [phone]
--- NOTE | 2024-09-08 09:50 | CASEMGMT ---
[facility] is full. SW called patient's daughter Micha. SW introduced self and role at [facility]. SW explained [facility] is full and SW needs a 2nd and third choice. Micha asked about [facility] TCU. SW can check. Micha said she is at work and does not have the list with her. SW read the names of the facilities in [place] as Micha wants patient to stay in [place]. The next choice after TCU is [facility]. YOSEF asked Kiki to look at referral. Fariba Ness PROCESS COACH VILLA
[2024-09-08] MEDS: Heparin Injection (Vial) 5,000 UNIT/ML VIAL 5000 UNIT SC ×2 (10:14→21:24)
[2024-09-08] MEDS: Insulin Glargine-YFGN 100 UNIT/ML Pen 10 UNIT SC ×2 (10:16→21:27)
[2024-09-08] MEDS: Aspirin 81 MG TAB.CHEW PO (10:17)
--- NOTE | 2024-09-08 10:20 | CASEMGMT ---
[facility] TCU is unable to take patient. SW asked Kenzie to please send a referral to PSYCHIATRIC. Fariba DRIVER
[2024-09-08] MEDS: Acetaminophen 325 MG Tablet 650 MG PO (10:23)
--- NOTE | 2024-09-08 10:25 | CASEMGMT ---
Addendum entered by Kenzie Mendez 09/08/24 11:19: [facility] has accepted and will submit for precert. Kenzie Mendez DC Planning Asst. Original Note: Discharge Planning Referral sent via [facility]Port to [facility]. Kenzie Mendez DC Planning Asst.
--- NOTE | 2024-09-08 10:45 | PN_ITS ---
Subjective Subjective Patient seen and examined. She was lying in the bed. She was lethargic but communicative and had no active complaints. She is alert and oriented x 3. Review of symptoms otherwise negative. Objective Data Objective Data Vital Signs: Vital Signs Temp Pulse Resp BP Pulse Ox O2 Del Method O2 Flow Rate 97.6 F L 64 18 121/51 H 96 Room Air 2 09/08/24 10:10 09/08/24 10:10 09/08/24 10:10 09/08/24 10:10 09/08/24 10:10 09/08/24 10:10 09/07/24 17:00 Oxygen Flow Rate (L/min) 2 Oxygen Delivery Method Room Air Weight: 182 lb 5.156 oz Body Mass Index (BMI) 35.6 Intake & Output: Intake and Output for Last 24 Hours 09/06/24 09/07/24 09/08/24 22:59 23:59 23:59 Intake Total 3118.33 / 3358.33 2660 / 2660 1422.5 / 1422.5 Output Total 1625 / 1875 1225 / 1575 850 / 850 Balance 1493.33 / 1483.33 1435 / 1085 572.5 / 572.5 Lab / Micro Data 09/08/24 07:09 09/08/24 07:09 Labs: Laboratory Results - last 24 hr 09/04/24 13:12: Diff Path Review Reviewed 09/07/24 11:13: POC Glucose 212 H 09/07/24 17:11: POC Glucose 118 H 09/07/24 21:26: POC Glucose 160 H 09/08/24 06:25: POC Glucose 102 09/08/24 07:09: WBC 13.0 H, RBC 3.49 L, Hgb 11.6 L, Hct 34.7 L, MCV 99.4 H, MCH 33.2 H, MCHC 33.4, RDW Std Deviation 46.9 H, RDW Coeff of Zafar 13.1, Plt Count 273, MPV 9.9, Immature Gran % (Auto) 1.300 H, Neut % (Auto) 68.8, Lymph % (Auto) 15.7 L, [place] % (Auto) 11.8 H, Eos % (Auto) 1.9, Baso % (Auto) 0.5, Absolute Neuts (auto) 8.9 H, Absolute Lymphs (auto) 2.04, Nucleated RBC % 0, Diff Path Review March, Sodium 148 H, Potassium 3.5, Chloride 117 H, Carbon Dioxide 22.0, Anion Gap 8, BUN 20 H, Creatinine 0.78, Estim Creat Clear Calc 60.59, Est GFR (MDRD) Af Amer 93, Est GFR (MDRD) Non-Af 77, BUN/Creatinine Ratio 25.5 H, Glucose 89, Calcium 8.4 L Micro: Microbiology 09/04/24 13:12 Blood Culture (Wb) - Anticubital Left Blood Culture - Final Leclercia adecarboxylata Escherichia coli 09/07/24 15:20 Stool Clostridioides difficile (PCR) - Final 09/07/24 11:30 Mucosa - Nasopharyngeal SARS-CoV-2, Influenza & RSV (PCR) - Final 09/04/24 19:55 Blood Culture (Wb) - Anticubital Left Blood Culture - Preliminary No growth in 48 hours. 09/05/24 10:10 Blood Culture (Wb) - Left Forearm Blood Culture - Preliminary No growth in 48 hours. 09/04/24 13:12 Urine Catheter - Cutler Urine Culture - Final Culture exhibits no growth. Physical Exam Const alert Constitutional Narrative: Confused. Orientation / Consciousness: confused HEENT normocephalic and head/scalp atraumatic Eyes PERRL and EOMs intact bilaterally Eyes Narrative: No icterus Neck no lymphadenopathy and supple Lymph Lymphatic: no lymphadenopathy noted and no lymphedema noted Resp normal respiratory effort, no retractions, no use of accessory muscles and clear to auscultation bilaterally Resp Narrative: mildly diminished breath sounds bibasally, no wheezes or crackles. On room air. Cardio regular rate, regular rhythm, S1 normal heart sound, S2 normal heart sound and no murmurs GI normal to inspection, nondistended, normoactive bowel sounds, soft to palpation, non-tender and non-distended Extremity normal capillary refill, no clubbing, cyanosis or edema and no calf tenderness Extremity Narrative: General Extremity: no tenderness to palpation of joints or extremities Skin Skin Narrative: has superficial abrasions over knees and arms General Skin Exam: no breakdown Neuro moves all extremities Neuro Narrative: confused, moves all limbs spontaneously. Speech: Negative for speech normal Motor Exam: general weakness Psych Psych Narrative: confused Mood & Affect: flat affect Assessment & Plan Assessment/Plan (1) Sepsis: (2) DKA, type 2: (3) Metabolic encephalopathy: (4) MINESH (acute kidney injury): (5) Rhabdomyolysis: (6) Acute hypernatremia: PLAN: Plan #DKA * resolved. Anion gap has closed x 2 * A1C is >12 * on lantus 10 units bid * High dose sliding scale * Accuchecks ACHS #Acute encephalopathy * Likely due to DKA and electrolyte abnormalities. * sodium is down to 148 today * Still remains confused * CT of the brain showed no acute intracranial pathology. * Could not have an MRI of the brain due to patient having a spine implantation. * PT./OT on board. fall precautions * all sedative meds on hold. * #Hypernatremia * improving. Sodium is now 148. * Nephrology on board. * Urine sodium was 46. * fluid switched to 1/2 NS at 125cc/hr * nephrology = on board * * #Rhabdomyolysis * Resolved. * #Sepsis * Patient met SIRS criteria with qSOFA score of 2 and she was tachypneic on admission also encephalopathic. * Wbc is 13 today * on IV vancomycin and zosyn * blood cultures grew E. coli and Leclercia adecarboxylata. * will narrow down antibiotics to IV ciprofloxacin based on sensitivities we will complete a 7-day course of antibiotic * repeat blood culture showed no growth after 48 hours. * #Hypothyroidism: On Synthroid. TSH is 4.96 which is actually down from 27 on 07/15/2024. TSH has been as high as 129 from January 2024. DVT prophylaxis; lovenox Disposition: awaiting placement Charges/Coding Visit Charges Inpatient E&M: 74671 Subs Hosp L2
[2024-09-08] MEDS: Insulin Lispro 100 UNIT/ML INSULN.PEN SC ×3 (11:24→21:28)
[2024-09-08 12:19] LABS: Bedside Glucose 179 mg/dL (74-106)
--- NOTE | 2024-09-08 13:02 | PCM.PN.REN ---
Subjective Subjective no new events Objective Data Objective Data Vital Signs: Vital Signs Temp Pulse Resp BP Pulse Ox O2 Del Method O2 Flow Rate 97.6 F L 64 18 121/51 H 96 Room Air 2 09/08/24 10:10 09/08/24 10:10 09/08/24 10:10 09/08/24 10:10 09/08/24 10:10 09/08/24 10:10 09/07/24 17:00 Oxygen Flow Rate (L/min) 2 Oxygen Delivery Method Room Air Weight: 82.7 kg Body Mass Index (BMI) 35.6 Intake & Output: Intake and Output for Last 24 Hours 09/06/24 09/07/24 09/08/24 22:59 23:59 23:59 Intake Total 3118.33 / 3358.33 2660 / 2660 1542.5 / 1542.5 Output Total 1625 / 1875 1225 / 1575 1200 / 1200 Balance 1493.33 / 1483.33 1435 / 1085 342.5 / 342.5 Lab / Micro Data 09/08/24 07:09 09/08/24 07:09 Labs: Laboratory Results - last 24 hr 09/04/24 13:12: Diff Path Review Reviewed 09/07/24 17:11: POC Glucose 118 H 09/07/24 21:26: POC Glucose 160 H 09/08/24 06:25: POC Glucose 102 09/08/24 07:09: WBC 13.0 H, RBC 3.49 L, Hgb 11.6 L, Hct 34.7 L, MCV 99.4 H, MCH 33.2 H, MCHC 33.4, RDW Std Deviation 46.9 H, RDW Coeff of Zafar 13.1, Plt Count 273, MPV 9.9, Immature Gran % (Auto) 1.300 H, Neut % (Auto) 68.8, Lymph % (Auto) 15.7 L, [place] % (Auto) 11.8 H, Eos % (Auto) 1.9, Baso % (Auto) 0.5, Absolute Neuts (auto) 8.9 H, Absolute Lymphs (auto) 2.04, Nucleated RBC % 0, Diff Path Review March, Sodium 148 H, Potassium 3.5, Chloride 117 H, Carbon Dioxide 22.0, Anion Gap 8, BUN 20 H, Creatinine 0.78, Estim Creat Clear Calc 60.59, Est GFR (MDRD) Af Amer 93, Est GFR (MDRD) Non-Af 77, BUN/Creatinine Ratio 25.5 H, Glucose 89, Calcium 8.4 L 09/08/24 11:22: POC Glucose 179 H Micro: Microbiology 09/04/24 13:12 Blood Culture (Wb) - Anticubital Left Blood Culture - Final Leclercia adecarboxylata Escherichia coli 09/07/24 15:20 Stool Clostridioides difficile (PCR) - Final 09/07/24 11:30 Mucosa - Nasopharyngeal SARS-CoV-2, Influenza & RSV (PCR) - Final 09/04/24 19:55 Blood Culture (Wb) - Anticubital Left Blood Culture - Preliminary No growth in 48 hours. 09/05/24 10:10 Blood Culture (Wb) - Left Forearm Blood Culture - Preliminary No growth in 48 hours. 09/04/24 13:12 Urine Catheter - Cutler Urine Culture - Final Culture exhibits no growth. Physical Exam Narrative Patient is awake, slow to respond Normocephalic atraumatic Oral mucosa is dry Lung sounds clear anteriorly S1-S2 regular Abdomen soft, nontender No peripheral edema Assessment & Plan Assessment/Plan (1) MINESH (acute kidney injury): (2) Acute hypernatremia: (3) Hypokalemia: PLAN: Plan -MINESH with normal baseline creatinine. Serum creatinine 3.0 on admission (09/04). Renal function better - hypernatremia with sodium peaking at 163 mmol/L on September 05, 2024. better
--- NOTE | 2024-09-08 13:51 | CASEMGMT ---
YOSEF spoke with patient's daughter Micha letting her know [facility] cannot take patient, but [facility] can. SW answered Micha's questions. YOSEF let Micha know when patient is medically ready and insurance has approved someone will notify her of d/c. Plan: d/c to [facility] pending insurance approval. Fariba Ness UX RESEARCH ASSOCIATE VILLA
--- NOTE | 2024-09-08 13:53 | CHAPLAIN ---
Type of Pastoral Visit _x__ Initial Visit ___ Follow-up Visit ___ On-call Visit ___ General Patient Visit ___ Spiritual Assessment ___ Family Conference ___ Bereavement ___ Rapid Response ___ Code Blue ___ Other (describe below) Pastoral Care Referral From _x__ Patient ___ Family ___ Nurse ___ Physician ___ House Shorer ___ Traveling Accountant ___ Other (describe below) Sacrament/Intervention _x__ Active listening ___ Anointing ___ Christian ___ Bereavement ___ Communion ___ Etta exploration ___ ___ Life review _x__ Prayer ___ Reconciliation ___ Sacrament of Sick _x__ Supportive presence ___ Wedding ___ Other (describe below) Pastoral Comments patient is awake but slow to make responses; pt is able to track the conversation and does make short answers to questions; pt is asked about what her needs are and what emotions she is feeling; pt states I just want to ; explored more about her thoughts that she has much suffering; pt identifies as a believer and asked for prayers; gave pt reminders of how there can be good in these days yet and that trusting in God is helpful;
[2024-09-08] MEDS: 0.9% Saline Lock 10 ML Syringe IV ×2 (15:04→21:34)
--- NOTE | 2024-09-08 15:57 | CASEMGMT ---
Discharge Planning [facility] has obtained auth to admit. SW updated. Kenzie Mendez DC Planning Asst.
--- NOTE | 2024-09-08 16:12 | EKG12_ITS ---
Test Reason : RHYTHM CHANGE Blood Pressure : */* mmHG Vent. Rate : 58 BPM Atrial Rate : 58 BPM P-R Int : 106 ms QRS Dur : 90 ms QT Int : 420 ms P-R-T Axes : 56 -6 122 degrees QTcB Int : 412 ms Sinus bradycardia with short TX Low voltage QRS T wave abnormality, consider lateral ischemia Abnormal ECG Confirmed by Ld Camacho ([id number]), sound editor JUAN DUNCAN ([id number]) on 09/09/2024 1:10:56 PM Referred By: Earl Mederos Confirmed By: Ld Camacho
[2024-09-08 16:31] LABS: Magnesium 1.8 mg/dL (1.6-2.6)
[2024-09-08] MEDS: Potassium Chloride Oral Tablet 20 MEQ 60 MEQ PO (16:45)
[2024-09-08 18:00] LABS: Bedside Glucose 154 mg/dL (74-106)
[2024-09-08 22:50] LABS: Bedside Glucose 150 mg/dL (74-106)
[2024-09-09 01:00] VITALS: BP 135/75; PULSE 60; RESP 18; TEMP 36.8; O2SAT 94
[2024-09-09] MEDS: Acetaminophen 325 MG Tablet 650 MG PO (02:57)
[2024-09-09 03:00] VITALS: BP 135/75; PULSE 60; RESP 18; TEMP 36.8; O2SAT 94
[2024-09-09 05:20] VITALS: BMI 36.5
[2024-09-09 05:25] LABS: Absolute Lymphocyte Count 2.05 X10^3/uL (0.83-4.51); Absolute Neutrophil Count 8.5 X10^3/uL (2.0-7.7); Basophil# 0.03 X10^3/uL; Basophil% 0.2 % (0-1); Eosinophil# 0.21 X10^3/uL; Eosinophils% 1.6 % (0-5); Hematocrit 34.8 % (37-47); Hemoglobin 11.8 g/dL (12.0-15.0); Lymphocyte # 2.05 X10^3/ul (0.83-4.51); Lymphocyte % 15.9 % (19-41); Mean Corp Hgb Conc 33.9 g/dL (32-36); Mean Corpuscular Hgb 33.1 pg (27.0-32.0); Mean Corpuscular Volume 97.5 fL (81-99); Mean Platelet Vol. 10.3 fl (6.2-12.0); Monocyte# 1.77 X10^3/uL; Monocyte% 13.8 % (0-10); NRBC Flagged by Analyzer 0 % (0-5); Neutrophil # 8.53 X10^3/uL (2.7-7.7); Neutrophil % 66.3 % (47-70); POSITIVE DIFFERENTIAL YES; Platelet Count 320 K/mm3 (150-450); RBC Distribution Width CV 12.7 % (11.6-14.6); RBC Distribution Width SD 45.9 fl (35.1-43.9); Red Blood Count 3.57 M/mm3 (4.2-5.4); White Blood Count 12.9 K/mm3 (4.4-11.0)
[2024-09-09 05:38] LABS: Differential Indicated SCAN CRITERIA MET
[2024-09-09] MEDS: Cefazolin 2 GM in Syringe IV ×2 (06:02→13:24)
[2024-09-09] MEDS: 0.9% Saline Lock 10 ML Syringe IV ×2 (06:02→13:23)
[2024-09-09 06:04] LABS: Anion Gap 4 (5-15); BUN 12 mg/dL (7-18); BUN/Creat Ratio 13.6 RATIO (10-20); Calcium,Total 8.4 mg/dL (8.5-10.1); Chloride 116 mmol/L (98-107); Creatinine, Serum 0.88 mg/dL (0.55-1.02); EST Glomerular Filtration Rate 67 mL/min (>60); Est Glom Filt Rate - Afr Amer 81 mL/min (>60); Estimated Creatinine Clearance 55.85 ml/min; Glucose 188 mg/dL (74-106); Potassium 3.1 mmol/L (3.5-5.1); Sodium Level 144 mmol/L (136-145)
[2024-09-09 06:53] LABS: Bedside Glucose 144 mg/dL (74-106)
[2024-09-09 07:00] VITALS: BP 135/75; PULSE 60; RESP 18; TEMP 36.8; O2SAT 94
[2024-09-09 07:07] LABS: Differential Comment SCANNED
[2024-09-09 07:26] VITALS: O2SAT 96
[2024-09-09 08:00] VITALS: BP 149/77; PULSE 66; RESP 18; TEMP 36.7; O2SAT 95
[2024-09-09] MEDS: Aspirin 81 MG TAB.CHEW PO (08:56)
[2024-09-09] MEDS: Heparin Injection (Vial) 5,000 UNIT/ML VIAL 5000 UNIT SC (08:56)
[2024-09-09] MEDS: Potassium Chloride Oral Tablet 20 MEQ 40 MEQ PO (08:56)
[2024-09-09] MEDS: Insulin Glargine-YFGN 100 UNIT/ML Pen 10 UNIT SC (08:57)
[2024-09-09] MEDS: Insulin Lispro 100 UNIT/ML INSULN.PEN SC (11:18)
[2024-09-09 11:52] LABS: Bedside Glucose 154 mg/dL (74-106)
--- NOTE | 2024-09-09 12:28 | TREXTCAR_ITS ---
Diet Diet Order/Speech Therapy: 09/07/24 13:21 Diet: Cardiac: Calorie-Controlled Food consistency:: Pureed Liquid Consistency:: Regular/Thin Diet Comments: SMALL sips one at a time, Meds crushed in How many daily calories?: 1600 calorie Routine Orders/Code Status Enema Type: Fleetz Enema Frequency: Daily PRN Suppository Type: Dulcolax 10mg Suppository Frequency: Daily PRN O2 Frequency: PRN Keep PO Greater than or Equal to (%): 90 Wound(s) bl elbows: Wound Type: Abrasion bl knees: Wound Type: Abrasion Therapies Weight Bearing: Weight bearing as tolerated Physical Therapy: Eval and Treat Occupational Therapy: Eval and Treat Problem/Diagnosis (1) MINESH (acute kidney injury): Status: Acute Code(s): N17.9 - Acute kidney failure, unspecified (2) Acute hypernatremia: Status: Acute Code(s): E87.0 - Hyperosmolality and hypernatremia (3) Hypokalemia: Status: Acute Code(s): E87.6 - Hypokalemia Plan #DKA * resolved. Anion gap has closed x 2 * A1C is >12 * on lantus 10 units bid * High dose sliding scale * Accuchecks ACHS #Acute encephalopathy * Likely due to DKA and electrolyte abnormalities. * sodium is down to 148 today * Still remains confused * CT of the brain showed no acute intracranial pathology. * Could not have an MRI of the brain due to patient having a spine implantation. * PT./OT on board. fall precautions * all sedative meds on hold. * #Hypernatremia * improving. Sodium is now 148. * Nephrology on board. * Urine sodium was 46. * fluid switched to 1/2 NS at 125cc/hr * nephrology = on board * * #Rhabdomyolysis * Resolved. * #Sepsis * Patient met SIRS criteria with qSOFA score of 2 and she was tachypneic on admission also encephalopathic. * Wbc is 13 today * on IV vancomycin and zosyn * blood cultures grew E. coli and Leclercia adecarboxylata. * will narrow down antibiotics to IV ciprofloxacin based on sensitivities we will complete a 7-day course of antibiotic * repeat blood culture showed no growth after 48 hours. * #Hypothyroidism: On Synthroid. TSH is 4.96 which is actually down from 27 on 07/15/2024. TSH has been as high as 129 from January 2024. DVT prophylaxis; lovenox Disposition: awaiting placement Allergies/Procedures Done in Hospital Allergies bupropion (From Wellbutrin) Allergy (Verified 09/04/24 12:45) Other INCREASED DEPRESSION celecoxib (From Celebrex) Allergy (Verified 09/04/24 12:45) Hives erythromycin lactobionate (From Erythrocin) Adverse Reaction (Verified 09/04/24 12:45) Nausea/Vom/Diarrhea rosuvastatin calcium (From Crestor) Adverse Reaction (Verified 09/04/24 12:45) Other NEAR SYNCOPE zolpidem (From Ambien) Adverse Reaction (Verified 09/04/24 12:45) Other DID THINGS WITHOUT KNOWING. Type of Care/Length of Stay Estimated LOS: Convalescent Care Less Than 30 days Type of Care Needed: Skilled Rehab Potential: Fair Prognosis: Fair Additional Orders/Day of Discharge Day of Discharge: 09/09/24 Dietary and Speech Recommendations Dietitian Recommendations/Changes: Adjust to cardiac; 1600 calorie controlled diet per MANUFACTURER'S SERVICE REPRESENTATIVE consistency/texture recommendations. Will monitor weight, as available. Reviewed and approved India Barrera, RD, LD. Discharge Plan Admission Admit Date/Time: 09/04/24 17:19 Primary Reason for Your Visit: DKA Attending Provider: Alicia Stephens Primary Care Provider: Rebeca Padgett Consulting Providers: Luther Paniagua; Patria Kern Instructions Patient Instructions: Ketoacidosis Discharge Orders/Prescriptions Prescriptions: New insulin glargine-yfgn 100 unit/mL (3 mL) Insulin Pen 10 unit subcut BID Qty: 15 2RF sulfamethoxazole-trimethoprim [Bactrim DS] 800-160 mg tablet 1 tab PO BID Qty: 10 0RF Continued pravastatin 40 mg tablet 40 mg PO DAILY benztropine 0.5 mg tablet 0.5 mg PO BID clonidine HCl 0.1 MG tablet 0.1 mg PO QHS hydrocodone-acetaminophen 1 EACH tablet 1 ea PO BID PRN PRN (Reason: Pain) pantoprazole 40 mg Tablet,Delayed Release (Dr/Ec) 40 mg PO DAILY aripiprazole 2 mg tablet 2 mg PO DAILY Patient Comments: take 1 tablet by mouth once daily furosemide 20 mg tablet 20 mg PO BID PRN (Reason: swelling) potassium chloride 20 mEq tablet extended release 20 meq PO DAILY PRN (Reason: if take a lasix ) Patient Comments: take 1 tablet by mouth once daily with food WHILE ON FUROSEMIDE metformin 1,000 mg tablet 1,000 mg PO BID aspirin 81 mg tablet,chewable 81 mg PO DAILY Qty: 30 0RF levothyroxine 125 mcg tablet 125 mcg PO DAILY gabapentin 400 mg capsule 400 mg PO TID Patient Comments: take 1 capsule by mouth three times a day venlafaxine 100 mg tablet 150 mg PO BID Patient Comments: take 1 and 1/2 tablets by mouth twice a day cholecalciferol (vitamin D3) [Vitamin D3] 25 mcg (1,000 unit) capsule 25 mcg PO DAILY ascorbic acid (vitamin C) [C-500] 500 mg tablet extended release 500 mg PO DAILY magnesium 250 mg tablet 250 mg PO DAILY nystatin 100,000 unit/gram powder 1 applic topical BID 14 Days Qty: 30 1RF Discontinued levothyroxine [Synthroid] 125 mcg tablet 125 mcg PO DAILY Qty: 14 0RF Referrals / Follow Up: Rebeca Padgett MD [Primary Care Provider] - Within 1 Month Disposition Disposition (needs filled in before D/C Order can be placed): Retirement Facility
--- NOTE | 2024-09-09 12:32 | DS.PCM_ITS ---
Providers Date of Admission: 09/04/24 Date of Discharge: 09/09/24 Primary Care Physician: Rebeca Padgett MD Consultations 09/05/24 10:59 Consult: Nephrology Routine Consulting Provider: Patria Kern Reason for Consult: hypernatremia EMERGENT Consult: No Notified: Yes Date Notified: 09/05/24 Time Notified: 10:59 Method of Notification: Text 09/05/24 11:25 Consult: Philosophy Faculty Member / Pulmonary Medicine Routine Consulting Provider: Intensivists/Pulmonary Med Reason for Consult: acute encephalopathy, hypernatremia EMERGENT Consult: No Notified: Yes Date Notified: 09/04/24 Time Notified: 18:25 Method of Notification: Answering Service Reason For Visit: DKA,HYPOTHERMIA Diagnosis Discharge Diagnosis (1) MINESH (acute kidney injury): Status: Acute Code(s): N17.9 - Acute kidney failure, unspecified (2) Acute hypernatremia: Status: Acute Code(s): E87.0 - Hyperosmolality and hypernatremia (3) Hypokalemia: Status: Acute Code(s): E87.6 - Hypokalemia Plan #DKA * resolved. Anion gap has closed x 2 * A1C is >12 * on lantus 10 units bid * High dose sliding scale * Accuchecks ACHS #Acute encephalopathy * Likely due to DKA and electrolyte abnormalities. * sodium is down to 148 today * Still remains confused * CT of the brain showed no acute intracranial pathology. * Could not have an MRI of the brain due to patient having a spine implantation. * PT./OT on board. fall precautions * all sedative meds on hold. * #Hypernatremia * improving. Sodium is now 148. * Nephrology on board. * Urine sodium was 46. * fluid switched to 1/2 NS at 125cc/hr * nephrology = on board * * #Rhabdomyolysis * Resolved. * #Sepsis * Patient met SIRS criteria with qSOFA score of 2 and she was tachypneic on admission also encephalopathic. * Wbc is 13 today * on IV vancomycin and zosyn * blood cultures grew E. coli and Leclercia adecarboxylata. * will narrow down antibiotics to IV ciprofloxacin based on sensitivities we will complete a 7-day course of antibiotic * repeat blood culture showed no growth after 48 hours. * #Hypothyroidism: On Synthroid. TSH is 4.96 which is actually down from 27 on 07/15/2024. TSH has been as high as 129 from January 2024. DVT prophylaxis; lovenox Disposition: awaiting placement Medications at Discharge Home Medications clonidine HCl 0.1 mg tablet 0.1 mg PO QHS HTN 01/11/17 hydrocodone-acetaminophen 5-325mg 5mg-325mg 1 ea PO BID PRN PRN Pain 05/01/19 aripiprazole 2 mg tablet 2 mg PO DAILY mental health 10/15/21 furosemide 20 mg tablet 20 mg PO BID PRN swelling 10/15/21 metformin 1,000 mg tablet 1,000 mg PO BID diabetes 10/15/21 pantoprazole 40 mg tablet,delayed release 40 mg PO DAILY reflux 10/15/21 potassium chloride 20 mEq tablet,extended release 20 meq PO DAILY PRN if take a lasix 10/15/21 aspirin 81 mg chewable tablet 81 mg PO DAILY #30 tabs 10/17/21 pravastatin 40 mg tablet 40 mg PO DAILY 12/13/21 benztropine 0.5 mg tablet 0.5 mg PO BID 10/18/22 ascorbic acid (vitamin C) 500 mg tablet,extended release (C-500) 500 mg PO DAILY 08/27/23 cholecalciferol (vitamin D3) 25 mcg (1,000 unit) capsule (Vitamin D3) 25 mcg PO DAILY 08/27/23 gabapentin 400 mg capsule 400 mg PO TID 08/27/23 levothyroxine 125 mcg tablet 125 mcg PO DAILY 08/27/23 magnesium 250 mg tablet 250 mg PO DAILY 08/27/23 venlafaxine 100 mg tablet 150 mg PO BID 08/27/23 nystatin 100,000 unit/gram topical powder 1 applic topical BID 14 days #30 grams 10/09/23 insulin glargine-yfgn 100 unit/mL (3 mL) subcutaneous pen 10 unit (0.1 mL) subcut BID #15 mL 09/09/24 sulfamethoxazole 800 mg-trimethoprim 160 mg tablet (Bactrim DS) 1 tab PO BID #10 tabs 09/09/24 Hospital Course Operations None Procedures None Summary of Care Provided Minutes Spent on Discharge: 55 Hospital Course: Patient is a 73-year-old female with a past medical history of CVA was admitted through the ED on 11/2023 after she was found down. Her last known well was a few days prior to admission when her daughter spoke to her. She had longstanding underlying confusion due to her previous stroke. She was found down on her back porch and was covered in [place]. They could not tell how long she had been down there. On admission she was found to be in DKA with elevated anion gap and blood sugars been elevated at 874. She was started on insulin drip and admitted to the ICU. Chest x-ray showed no acute cardiopulmonary process. CT of the brain showed no acute intracranial pathology and pelvic x- ray was also negative for any evidence of fracture. Her anion gap closed on the insulin drip and she was switched to subcu Lantus. Hospital course was complicated by hypernatremia and she was started on D5 water. Hypernatremia gradually resolved. She was transferred out of the ICU. PT OT were consulted and patient was deemed as needing skilled care. Nephrology was consulted on account of the high pair natremia and stated it resolved with fluids. Critical care was also consulted while she was in the ICU. MRI of the brain could not be done as she had a spinal implantation. Of note, patient was also managed for sepsis with blood cultures growing E. coli and Leclercia adecarboxylata. Antibiotics were narrowed down from IV vancomycin and Zosyn to IV ciprofloxacin based on sensitivity results. She was deemed as needing skilled care. She was discharged to care home facility on 09/09/2024. She was discharged on p.o. Bactrim for 5-day course also based on sensitivity results. She was also discharged with a prescription for subcu Lantus 10 units twice daily. She had no active complaints though she still remained weak and lethargic. Review of systems otherwise negative. Labs and vitals reviewed. Home medication reviewed and reconciled. Patient was seen and examined prior to discharge. Physical Exam Const alert Constitutional Narrative: Confused. Orientation / Consciousness: confused Exam Limitations: no limitations HEENT normocephalic, head/scalp atraumatic, hearing grossly normal bilaterally and moist oral mucous membranes Mouth: oral and palatal mucosa normal Eyes PERRL, EOMs intact bilaterally and conjunctivae normal Neck no lymphadenopathy and supple Neck Narrative: No thyromegaly Lymph Lymphatic: no lymphadenopathy noted and no lymphedema noted Resp normal respiratory effort Resp Narrative: mildly diminished breath sounds bibasally, no wheezes or crackles. On room air. Cardio regular rate, regular rhythm, S1 normal heart sound, S2 normal heart sound and no murmurs GI normal to inspection, nondistended, normoactive bowel sounds, soft to palpation, non-tender and non-distended Extremity normal to inspection, full ROM, normal capillary refill, no clubbing, cyanosis or edema and no calf tenderness Extremity Narrative: General Extremity: no tenderness to palpation of joints or extremities Skin Skin Narrative: has superficial abrasions over knees and arms General Skin Exam: no breakdown Neuro CN's II-XII intact bilaterally and moves all extremities Neuro Narrative: confused, moves all limbs spontaneously. Speech: Negative for speech normal Motor Exam: general weakness Psych Psych Narrative: confused Mood & Affect: flat affect Weight / BMI Weight Weight: 186 lb 15.232 oz Body Mass Index (BMI) 36.5 ABG / Lab / Microbiology Data 09/09/24 04:15 09/09/24 04:15 Laboratory: Laboratory Results - last 24 hr 09/08/24 07:09: Magnesium 1.8 09/08/24 16:37: POC Glucose 154 H 09/08/24 21:27: POC Glucose 150 H 09/09/24 04:15: WBC 12.9 H, RBC 3.57 L, Hgb 11.8 L, Hct 34.8 L, MCV 97.5, MCH 33.1 H, MCHC 33.9, RDW Std Deviation 45.9 H, RDW Coeff of Zafar 12.7, Plt Count 320, MPV 10.3, Immature Gran % (Auto) 2.200 H, Neut % (Auto) 66.3, Lymph % (Auto) 15.9 L, [place] % (Auto) 13.8 H, Eos % (Auto) 1.6, Baso % (Auto) 0.2, A bsolute Neuts (auto) 8.5 H, Absolute Lymphs (auto) 2.05, Nucleated RBC % 0, Differential Comment SCANNED, Diff Path Review March foll, Sodium 144, Potassium 3.1 L, Chloride 116 H, Carbon Dioxide 24.0, Anion Gap 4 L, BUN 12, Creatinine 0.88, Estim Creat Clear Calc 55.85, Est GFR (MDRD) Af Amer 81, Est GFR (MDRD) Non-Af 67, BUN/Creatinine Ratio 13.6, Glucose 188 H, Calcium 8.4 L 09/09/24 06:01: POC Glucose 144 H 09/09/24 11:17: POC Glucose 154 H Microbiology: Microbiology 09/04/24 13:12 Blood Culture (Wb) - Anticubital Left Blood Culture - Final Leclercia adecarboxylata Escherichia coli 09/07/24 15:20 Stool Clostridioides difficile (PCR) - Final 09/07/24 11:30 Mucosa - Nasopharyngeal SARS-CoV-2, Influenza & RSV (PCR) - Final 09/04/24 19:55 Blood Culture (Wb) - Anticubital Left Blood Culture - Preliminary No growth in 48 hours. 09/05/24 10:10 Blood Culture (Wb) - Left Forearm Blood Culture - Preliminary No growth in 48 hours. 09/04/24 13:12 Urine Catheter - Cutler Urine Culture - Final Culture exhibits no growth. D/C Instructions Discharge Diet: 1800 Calorie Control Diet Discharge Activity: Return to Normal Activity Weight Bearing Status: Weight bearing as tolerated Call your doctor if you observe: Fever of 101 or Higher, Shortness of breath, Dizziness, Swelling in the ankles and Chest pain Meaningful Use Info Meaningful Use Meaningful Use Diagnoses (Choose all that apply): None applicable Ischemic Stroke Statin Dosing Therapy Reference: STATIN DOSE THERAPY REFERENCE: * Patients > 75 years receive moderate or high dose statin therapy. * Patients 75 years or YOUNGER should receive HIGH intensity statin dose unless contraindicated. You will be required to document reason for non-treatment if statin daily dose does not meet guidelines. HIGH DOSE STATIN THERAPY DAILY Atorvastatin > than or = to 40 mg Rosuvastatin > than or = to 20 mg Amlodipine + Atorvastatin > than or = to 2.5/40 mg Ezetimibe + Simvastatin 10/80 mg Simvastatin 80mg Discharge Plan Admission Admit Date/Time: 09/04/24 17:19 Primary Reason for Your Visit: DKA Attending Provider: Alicia Stephens Primary Care Provider: Rebeca Padgett Consulting Providers: Luther Paniagua; Patria Kern Instructions Patient Instructions: Ketoacidosis Ch Discharge Orders/Prescriptions Prescriptions: New insulin glargine-yfgn 100 unit/mL (3 mL) Insulin Pen 10 unit subcut BID Qty: 15 2RF sulfamethoxazole-trimethoprim [Bactrim DS] 800-160 mg tablet 1 tab PO BID Qty: 10 0RF Continued pravastatin 40 mg tablet 40 mg PO DAILY benztropine 0.5 mg tablet 0.5 mg PO BID clonidine HCl 0.1 MG tablet 0.1 mg PO QHS hydrocodone-acetaminophen 1 EACH tablet 1 ea PO BID PRN PRN (Reason: Pain) pantoprazole 40 mg Tablet,Delayed Release (Dr/Ec) 40 mg PO DAILY aripiprazole 2 mg tablet 2 mg PO DAILY Patient Comments: take 1 tablet by mouth once daily furosemide 20 mg tablet 20 mg PO BID PRN (Reason: swelling) potassium chloride 20 mEq tablet extended release 20 meq PO DAILY PRN (Reason: if take a lasix ) Patient Comments: take 1 tablet by mouth once daily with food WHILE ON FUROSEMIDE metformin 1,000 mg tablet 1,000 mg PO BID aspirin 81 mg tablet,chewable 81 mg PO DAILY Qty: 30 0RF levothyroxine 125 mcg tablet 125 mcg PO DAILY gabapentin 400 mg capsule 400 mg PO TID Patient Comments: take 1 capsule by mouth three times a day venlafaxine 100 mg tablet 150 mg PO BID Patient Comments: take 1 and 1/2 tablets by mouth twice a day cholecalciferol (vitamin D3) [Vitamin D3] 25 mcg (1,000 unit) capsule 25 mcg PO DAILY ascorbic acid (vitamin C) [C-500] 500 mg tablet extended release 500 mg PO DAILY magnesium 250 mg tablet 250 mg PO DAILY nystatin 100,000 unit/gram powder 1 applic topical BID 14 Days Qty: 30 1RF Discontinued levothyroxine [Synthroid] 125 mcg tablet 125 mcg PO DAILY Qty: 14 0RF Referrals / Follow Up: Rebeca Padgett MD [Primary Care Provider] - Within 1 Month Disposition Disposition (needs filled in before D/C Order can be placed): Half-Way Facility Charges/Coding Visit Charges Inpatient E&M: 58589 Disch Hosp >30min
--- NOTE | 2024-09-09 12:57 | CASEMGMT ---
Discharge Planning Discharge orders, signed med list, and transport time sent via [facility] to [facility]. Physicians will transport patient by wheelchair at 3:30p. Nursing, SW, pt, and her daughter (Micha) updated. Kenzie Mendez DC Planning Asst.
[2024-09-09 13:10] VITALS: BP 149/77; PULSE 66; RESP 18; TEMP 36.7; O2SAT 95
--- NOTE | 2024-09-09 13:13 | CASEMGMT ---
Patient is ready for discharge to [facility]. YOSEF completed a 7000 in link bird system. Plan: d/c to [facility] under skilled level of care on a convalescent stay. Physicians will transport patient via wheelchair van. Fariba DRIVER
--- NOTE | 2024-09-09 13:40 | PHA.DC.MR.R ---
Pharmacy [place] Med Reconciliation Pharmacy Service has performed discharge medication reconciliation for this patient. The patient's discharge medication list was reviewed for discrepancies and discrepancies were resolved. Medications at Discharge Home Medications clonidine HCl 0.1 mg tablet 0.1 mg PO QHS HTN 01/11/17 hydrocodone-acetaminophen 5-325mg 5mg-325mg 1 ea PO BID PRN PRN Pain 05/01/19 aripiprazole 2 mg tablet 2 mg PO DAILY mental health 10/15/21 furosemide 20 mg tablet 20 mg PO BID PRN swelling 10/15/21 metformin 1,000 mg tablet 1,000 mg PO BID diabetes 10/15/21 pantoprazole 40 mg tablet,delayed release 40 mg PO DAILY reflux 10/15/21 potassium chloride 20 mEq tablet,extended release 20 meq PO DAILY PRN if take a lasix 10/15/21 aspirin 81 mg chewable tablet 81 mg PO DAILY #30 tabs 10/17/21 pravastatin 40 mg tablet 40 mg PO DAILY 12/13/21 benztropine 0.5 mg tablet 0.5 mg PO BID 10/18/22 ascorbic acid (vitamin C) 500 mg tablet,extended release (C-500) 500 mg PO DAILY 08/27/23 cholecalciferol (vitamin D3) 25 mcg (1,000 unit) capsule (Vitamin D3) 25 mcg PO DAILY 08/27/23 gabapentin 400 mg capsule 400 mg PO TID 08/27/23 levothyroxine 125 mcg tablet 125 mcg PO DAILY 08/27/23 magnesium 250 mg tablet 250 mg PO DAILY 08/27/23 venlafaxine 100 mg tablet 150 mg PO BID 08/27/23 nystatin 100,000 unit/gram topical powder 1 applic topical BID 14 days #30 grams 10/09/23 insulin glargine-yfgn 100 unit/mL (3 mL) subcutaneous pen 10 unit (0.1 mL) subcut BID #15 mL 09/09/24 sulfamethoxazole 800 mg-trimethoprim 160 mg tablet (Bactrim DS) 1 tab PO BID #10 tabs 09/09/24
[2024-09-09 14:39] LABS: Pathologist Review Reviewed
[2024-09-09 14:42] LABS: Pathologist Review Reviewed
== END 2024-09-09 15:50 | disposition skilled nursing facility (03) | DRG 638 ==
LOC: ED 17:17 → ICU 18:05 → PCU 09-07 14:39
PROVIDERS: Internal Medicine; Internal Medicine Pulmonary Disease; Nurse Practitioner; Emergency Provider Emergency Medicine; PCP Family Medicine; Referring Provider Emergency Medicine; Visit Provider Student in an Organized Health Care Education/Training Program
DX: E11.10 Type 2 diabetes mellitus with ketoacidosis without coma (principal); M62.82 Rhabdomyolysis; E87.0 Hyperosmolality and hypernatremia; I47.20 Ventricular tachycardia, unspecified; N17.9 Acute kidney failure, unspecified; N39.0 Urinary tract infection, site not specified; F03.90 Unspecified dementia, unspecified severity, without behavioral disturbance, psychotic disturbance, mood disturbance, and anxiety; E03.9 Hypothyroidism, unspecified; E11.65 Type 2 diabetes mellitus with hyperglycemia; I10 Essential (primary) hypertension; L89.019 Pressure ulcer of right elbow, unspecified stage; E11.40 Type 2 diabetes mellitus with diabetic neuropathy, unspecified; S50.312A Abrasion of left elbow, initial encounter; E87.6 Hypokalemia; S50.311A Abrasion of right elbow, initial encounter; E78.00 Pure hypercholesterolemia, unspecified; F17.210 Nicotine dependence, cigarettes, uncomplicated; L89.029 Pressure ulcer of left elbow, unspecified stage; W19.XXXA Unspecified fall, initial encounter; Z79.84 Long term (current) use of oral hypoglycemic drugs; Z79.1 Long term (current) use of non-steroidal anti-inflammatories (NSAID); Z79.82 Long term (current) use of aspirin; G89.29 Other chronic pain; Z79.2 Long term (current) use of antibiotics
CPT/HCPCS: 36415; 51702; 70450; 71045; 72170; 73502; 73560; 74230; 80048; 80053; 80061; 81001; 82009; 82140; 82550; 82803; 82962; 83036; 83605; 83690; 83735; 84300; 84443; 84484; 85025; 85610; 85730; 87040; 87086; 87186; 87493; 87631; 92507; 92526; 92610; 92611; 93005; 93306; 94762; 97162; 97167; 97530; 97535; 97802; 97803; 99285; A4216

== ENCOUNTER → 2024-09-24 | Outpatient (REF) | payer MEDICARE, SELFPAY ==
[2024-09-24 08:59] LABS: Hematocrit 38.2 % (37-47); Hemoglobin 11.7 g/dL (12.0-15.0); Mean Corp Hgb Conc 30.6 g/dL (32-36); Mean Corpuscular Hgb 31.3 pg (27.0-32.0); Mean Corpuscular Volume 102.1 fL (81-99); Mean Platelet Vol. 8.8 fl (6.2-12.0); Platelet Count 694 K/mm3 (150-450); RBC Distribution Width CV 13.6 % (11.6-14.6); RBC Distribution Width SD 51.1 fl (35.1-43.9); Red Blood Count 3.74 M/mm3 (4.2-5.4); White Blood Count 10.5 K/mm3 (4.4-11.0)
[2024-09-24 09:42] LABS: Anion Gap 6 (5-15); BUN 12 mg/dL (7-18); BUN/Creat Ratio 12.2 RATIO (10-20); Calcium,Total 9.4 mg/dL (8.5-10.1); Chloride 103 mmol/L (98-107); Creatinine, Serum 0.99 mg/dL (0.55-1.02); EST Glomerular Filtration Rate 59 mL/min (>60); Est Glom Filt Rate - Afr Amer 71 mL/min (>60); Glucose 143 mg/dL (74-106); Potassium 4.1 mmol/L (3.5-5.1); Sodium Level 138 mmol/L (136-145)
== END ==
LOC: OLS.SW 05:00
PROVIDERS: PCP Family Medicine; Visit Provider Internal Medicine
DX: E03.9 Hypothyroidism, unspecified (principal); E11.69 Type 2 diabetes mellitus with other specified complication; G93.41 Metabolic encephalopathy
CPT/HCPCS: 36415; 80048; 83735; 85027

== ENCOUNTER → 2024-09-29 05:00 | Outpatient (REF) | payer MEDICARE, SELFPAY | LOC: OLS.SW 05:00 | PROVIDERS: PCP Family Medicine; Visit Provider Internal Medicine | DX: E03.9 Hypothyroidism, unspecified (principal) | CPT/HCPCS: 36415; 84443 ==

== ENCOUNTER 2024-10-10 19:33 | Inpatient (IN) | payer MEDICARE, MEDICAID, SELFPAY ==
[2024-10-10 19:33] VITALS: BP 154/86; PULSE 83; RESP 16; TEMP 36.6; O2SAT 94; BMI 33.2
--- NOTE | 2024-10-10 20:08 | RAD_ITS ---
EXAM: XR LEFT FEMUR, 2 VIEWS CLINICAL INDICATION: fall TECHNIQUE: Frontal and lateral views of the left femur. COMPARISON: No relevant prior studies available. FINDINGS: BONES/JOINTS: There is an intertrochanteric fracture of the left femoral neck. Preservation of the joint space. No sclerotic or destructive changes observed. SOFT TISSUES: Unremarkable. No soft tissue swelling or gas. No radiopaque foreign body. RAD/Femur Min 2 Views IMPRESSION: Intertrochanteric fracture of the left femoral neck. Electronically Signed: Joselo Israel MD at 21:57 EST ,
--- NOTE | 2024-10-10 20:08 | RAD_ITS ---
EXAM: XR CHEST, 1 VIEW CLINICAL INDICATION: cough TECHNIQUE: Frontal view of the chest. COMPARISON: 09/04/2024 FINDINGS: LUNGS AND PLEURAL SPACES: There is minimal airspace disease in the right lung base. No pneumothorax. No effusion. HEART: Unremarkable. Cardiac silhouette not enlarged. MEDIASTINUM: Central airways and mediastinal contour are unremarkable. BONES/JOINTS: Unremarkable. No acute fracture. SOFT TISSUES: Unremarkable. TUBES, LINES AND DEVICES: Stimulator leads are seen overlying the lower thoracic spine. RAD/Chest 1 View (Portable) IMPRESSION: Minimal right infrahilar airspace disease which may represent atelectasis. No other abnormalities are identified. Electronically Signed: Joselo Israel MD at 21:53 EST ,
--- NOTE | 2024-10-10 20:08 | RAD_ITS ---
EXAM: XR PELVIS, 1 OR 2 VIEWS CLINICAL INDICATION: fall TECHNIQUE: Frontal view of the pelvis. COMPARISON: No relevant prior studies available. FINDINGS: BONES/JOINTS: There is an intertrochanteric fracture of the left femoral neck. There is a battery pack over the right iliac wing. There is hardware from posterior fusion of L5-S1. No destructive or sclerotic lesions. Note that overlapping bowel shadows may however obscure fine detail. Sacroiliac joints are unremarkable. No widening of the pubic symphysis. The articular structures are unremarkable. SOFT TISSUES: There are bilateral tubal ligation clips. No soft tissue swelling or gas. RAD/Pelvis 1 or 2 Views IMPRESSION: Intertrochanteric fracture of the left femoral neck. Electronically Signed: Joselo Israel MD at 21:54 EST ,
--- NOTE | 2024-10-10 20:17 | EX.ED.DYSGE1 ---
HPI <KRISTINE Dolan - Last Filed: 10/10/24 22:21> History of Present Illness Chief Complaint: Lower Extremity Injury Narrative Narrative: Patient 73-year-old female with history of type 2 diabetes, hypertension, history of CVA hyperlipidemia who presents to the emergency department for complaints of mechanical fall 7 hours ago, x-ray showed a possible hip fracture to the left side. Patient denies any head or neck injury. Patient was at [facility] for rehab. Patient is unable to get up, significant pain to the left hip <Dr. Phoenix Garcia, DO - Last Filed: 10/11/24 01:48> Narrative Narrative: 73-year-old female with history of type 2 diabetes, hypertension, history of CVA hyperlipidemia who presents to the emergency department for complaints of mechanical fall 7 hours ago, x-ray showed a possible hip fracture to the left side. Patient denies any head or neck injury. Patient was at [facility] for rehab. Patient is unable to get up, significant pain to the left hip. 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 breast Atypical lobular hyperplasia (ALH) of right breast Other acute postprocedural pain Unsteady gait Wears dentures Wears glasses Post-menopausal Cancer Depression Anxiety Thyroid disease Walker as ambulation aid Ambulates with cane Arthritis High cholesterol Back pain Injury of back TIA (transient ischemic attack) Gastric reflux History of edema History of pain when walking History of echocardiogram History of stress test Cardiology follow-up encounter DM type 2, goal HbA1c < 8% Smoker Recent weight loss Family history of breast cancer Intertrigo Left shoulder pain Right shoulder pain Chronic thoracic back pain Chronic neck pain Macromastia DM type 2, goal HbA1c < 7% Neuropathy Cataracts, bilateral Carpal tunnel syndrome Vitamin D deficiency Encounter for screening for malignant neoplasm of lung Obesity Tobacco abuse Hyperlipidemia Hypothyroidism Type 2 diabetes mellitus History of CVA (cerebrovascular accident) (10/15/21) Essential hypertension Rotator cuff injury Contusion of right shoulder region Injury due to fall Hemiparesis of left dominant side Chronic post-operative pain Primary osteoarthritis of right knee Depression Arthritis Home Medications ?Medication ?Instructions ?Recorded ?Last Taken ?Type clonidine HCl 0.1 mg tablet 0.1 mg PO QHS HTN 01/11/17 10/14/21 22:00 History furosemide 20 mg tablet 20 mg PO BID PRN swelling 10/15/21 Unknown History metformin 1,000 mg tablet 850 mg PO BID diabetes 10/15/21 Unknown History pantoprazole 40 mg tablet,delayed 40 mg PO DAILY reflux 10/15/21 09/04/23 History release potassium chloride 20 mEq 20 meq PO DAILY PRN if take a lasix 10/15/21 Unknown History tablet,extended release aspirin 81 mg chewable tablet 81 mg PO DAILY #30 tabs 10/17/21 08/28/23 Rx pravastatin 40 mg tablet 40 mg PO QHS 12/13/21 Unknown History benztropine 0.5 mg tablet 0.5 mg PO BID 10/18/22 Unknown History ascorbic acid (vitamin C) 500 mg 500 mg PO DAILY 08/27/23 Unknown History tablet,extended release (C-500) gabapentin 400 mg capsule 400 mg PO TID 08/27/23 Unknown History magnesium 250 mg tablet 250 mg PO DAILY 08/27/23 Unknown History venlafaxine 100 mg tablet 150 mg PO BID 08/27/23 09/04/23 History cyanocobalamin (vitamin B-12) 1,000 mcg PO DAILY 10/10/24 Unknown History 1,000 mcg capsule ergocalciferol (vitamin D2) 1,250 1,250 mcg PO QWEEK 10/10/24 Unknown History mcg (50,000 unit) capsule insulin glargine 100 unit/mL (3 12 unit subcut QHS 10/10/24 Unknown History mL) subcutaneous pen (Lantus Solostar U-100 Insulin) insulin glargine-yfgn 100 unit/mL 16 unit subcut DAILY 10/10/24 Unknown History (3 mL) subcutaneous pen levothyroxine 137 mcg tablet 137 mcg PO DAILY 10/10/24 Unknown History Allergy/AdvReac Type Severity Reaction Status Date / Time bupropion (From Wellbutrin) Allergy Other Verified 10/10/24 19:34 celecoxib (From Celebrex) Allergy Hives Verified 10/10/24 19:34 erythromycin lactobionate AdvReac Nausea/Vom/ Verified 10/10/24 19:34 (From Erythrocin) Diarrhea rosuvastatin calcium (From AdvReac Other Verified 10/10/24 19:34 Crestor) zolpidem (From Ambien) AdvReac Other Verified 10/10/24 19:34 Family History Mother Breast cancer Depression Brother Diabetes Hypertension Father , Age 43 Heart disease Myocardial infarction Brother Diabetes Surgical History History of bilateral breast reduction surgery Hx of surgical procedure History of cataract surgery History of tubal ligation H/O arthroscopic knee surgery Hx of colonoscopy S/P insertion of spinal cord stimulator Hx of tonsillectomy History of carpal tunnel release of both wrists Hx of section History of back surgery Social History household members: none housing: apartment number of children: 2 Smoking Status: Former smoker quit status: has quit before alcohol intake: never substance use type: does not use caffeine: No seatbelt use: always additional social history: Does Take Aspirin Daily Does Not Take Ibuprofen ROS <KRISTINE Dolan - Last Filed: 10/10/24 22:21> ROS ED ROS Narrative Constitutional: Negative for fever, chills, weight loss, weakness Eyes: Negative for vision loss, vision change, double vision ENT: Negative for any sore throat, ear pain, congestion Cardiovascular: Negative for any chest pain, tightness, palpitations Respiratory: Negative for any cough, sputum production, hemoptysis, dyspnea, dyspnea on exertion, orthopnea Gastrointestinal: Negative for any abdominal pain, nausea, vomiting, diarrhea, constipation, blood in stool, blood in vomit : Negative for any urinary frequency, dysuria, retention, blood in urine Muscle skeletal: Negative for any neck pain, back pain. Positive for left hip pain Neurological: Negative for any headache, syncope, dizziness Skin: Negative for any rashes, itching, abrasions, lacerations Psychiatric: Negative for any depression, anxiety, stress, suicidal ideation, homicidal ideation Hematologic: Negative for any excessive bruising, easy bleeding EXAM <KRISTINE Dolan - Last Filed: 10/10/24 22:21> Physical Exam Narrative Exam Narrative: Vital signs reviewed. HEET: Head normocephalic atraumatic, TMs clear bilaterally. Posterior pharynx is clear, moist mucous membranes. Nares clear bilaterally. Neck: Supple with no lymphadenopathy or tenderness. No signs of meningismus. Cardiac: Regular rate and rhythm no murmurs gallops or rubs, equal peripheral pulses bilaterally. Respiratory: Lungs clear to auscultation bilaterally. No chest tenderness. Abdomen: Soft, nontender, nondistended. No abdominal bruit or pulsatile masses. No hepatosplenomegaly Extremities: No peripheral edema. Patient has pain to the left hip/groin, there is some shortening, external rotation. +2 radial pulse. Neuro: Cranial nerves II through XII intact, no focal neurological deficits. Skin: Clean dry and intact with no rash, purpura, petechiae, vesicles or pustules. Backs/flank: No CVA tenderness, no midline spinal tenderness, no deformity. Psych: Normal mood and affect. No SI, HI or acute psychosis. Const Vital Signs: 10/10/24 19:33 10/10/24 21:33 10/10/24 21:53 Temperature 97.9 F 98.6 F Temperature Source Oral Pulse Rate 83 80 80 Respiratory Rate 16 18 18 Blood Pressure 154/86 H 145/87 H 159/87 H Blood Pressure Mean 108 106 111 Pulse Ox 94 93 92 Oxygen Delivery Method Nasal Cannula Oxygen Flow Rate (L/min) 2 <Dr. Phoenix Garcia DO - Last Filed: 10/11/24 01:48> Physical Exam Const Vital Signs: 10/10/24 19:33 10/10/24 21:33 10/10/24 21:53 Temperature 97.9 F 98.6 F Temperature Source Oral Pulse Rate 83 80 80 Respiratory Rate 16 18 18 Blood Pressure 154/86 H 145/87 H 159/87 H Blood Pressure Mean 108 106 111 Pulse Ox 94 93 92 Oxygen Delivery Method Nasal Cannula Oxygen Flow Rate (L/min) 2 [facility] <KRISTINE Dolan - Last Filed: 10/10/24 22:21> [facility] Lab Data Labs: Laboratory Results - last 24 hr 10/10/24 10/10/24 20:30 20:45 WBC 14.6 H RBC 4.02 L Hgb 12.9 Hct 38.2 MCV 95.0 MCH 32.1 H MCHC 33.8 RDW Std Deviation 46.9 H RDW Coeff of Zafar 13.2 Plt Count 517 H MPV 8.9 Immature Gran % (Auto) 0.700 Neut % (Auto) 69.9 Lymph % (Auto) 16.4 L Starr % (Auto) 12.0 H Eos % (Auto) 0.5 Baso % (Auto) 0.5 Absolute Neuts (auto) 10.2 H Absolute Lymphs (auto) 2.40 Nucleated RBC % 0 Differential Comment SEE COMMENT Diff Path Review May foll Platelet Estimate SLT INC RBC Morphology N CHROM Anisocytosis 1+ Macrocytosis 1+ Sodium 136 Potassium 3.8 Chloride 103 Carbon Dioxide 26.0 Anion Gap 6 BUN 13 Creatinine 0.85 Estim Creat Clear Calc 59.48 Est GFR (MDRD) Af Amer 84 Est GFR (MDRD) Non-Af 69 BUN/Creatinine Ratio 15.2 Glucose 161 H Calcium 9.1 Folate 6.30 TSH 8.460 H Urine Color Yellow Urine Clarity Cloudy Urine pH 6.0 Ur Specific [place] 1.010 Urine Protein 30 H Urine Glucose (UA) Normal Urine Ketones Negative Urine Occult Blood 150 H Urine Nitrite Negative Urine Bilirubin Negative Urine Urobilinogen Normal Ur Leukocyte Esterase 500 H Urine RBC 5-10 SEEN Urine WBC >100 SEEN Ur Squamous Epith Cells 0 SEEN Calcium Oxalate Crystal RARE Urine Bacteria 2+ Urine Mucus 0 SEEN Urine Yeast 1+ Radiography Diagnostic Testing: Clinical Impression(s) from Imaging Studies Chest X-Ray 10/10/24 20:08 IMPRESSION: Minimal right infrahilar airspace disease which may represent atelectasis. No other abnormalities are identified. Electronically Signed: Joselo Israel MD at 21:53 EST Reading Location ID and State: [facility] / [place] Tel , Service support , Femur X-Ray 10/10/24 20:08 IMPRESSION: Intertrochanteric fracture of the left femoral neck. Electronically Signed: Joselo Israel MD at 21:57 EST , Pelvis X-Ray 10/10/24 20:08 IMPRESSION: Intertrochanteric fracture of the left femoral neck. Electronically Signed: Joselo Israel MD at 21:54 EST , Treatment and Re-Evaluation :: Differential diagnosis includes however is not limited to: Hip fracture, pelvic fracture, femur fracture, hip contusion Patient appears generally well, vital signs are stable, patient is nontoxic-appearing. Presenting to the emergency department with complaints of left hip pain following a mechanical fall. Patient will see some basic laboratory values, chest x-ray, urinalysis as well as x-ray of the left hip, left femur. Patient be given IV morphine, Zofran. Patient will be reevaluated. CBC showed a leukocytosis with white blood count of 14.6, hemoglobin stable 12.9. Patient's chemistries showed no acute process. Patient's urinalysis was positive for infection, even though patient does have a indwelling catheter. 2+ bacteria greater than 100 white blood cells, 5 you are leukocytes. This was sent for culture. Patient's chest x-ray showed no acute process. X-ray of the pelvis and femur shows a intertrochanteric fracture of the left femoral neck. Secondary this finding, I did reach out to orthopedics. She will be n.p.o. after midnight tonight. I spoke with IM service. They will accept the patient MedSurg full. Stable for admission. <Dr. Phoenix Garcia, DO - Last Filed: 10/11/24 01:48> [facility] MDM Narrative Medical decision making narrative: Supervisory Physician Note Patient was seen and examined with the Advanced Practice Provider. Nursing notes and vital signs have been reviewed. Pertinent old records have been reviewed. I agree with the essential elements of the JOSE L's history, physical exam, assessment, and plan. The differential diagnosis and management options were discussed with the JOSE L. I participated in determining and agree with the management, procedures, final impression and disposition as documented. See changes noted by me. Please see addendum or separate note for any additional details. 73-year-old female presents for evaluation of possible left hip fracture. Patient had mechanical fall earlier today. Had outpatient x-ray that showed possible left-sided hip fracture. Endorses pain in the left hip. Denies any numbness or tingling. Denies injury elsewhere. Pertinent physical exam findings: Left lower extremity is shortened and externally rotated, DP/PT pulse plus 2 out of 4, good capillary refill, sensation intact, compartments soft, pain with manipulation of the hip Suspect left hip fracture. Basic labs, chest x-ray ordered for preoperative planning. X-ray left hip ordered. Morphine and Zofran ordered. CBC with a leukocytosis of 14.6. No anemia. BMP relatively unremarkable. X-rays show intertrochanteric fracture of the left femoral neck. Orthopedics consulted. Plan is for surgery and admission. Hospitalist accepted admission. UA positive for UTI patient does have a chronic indwelling catheter. Urine culture obtained. Rocephin ordered. Impression: 1. Closed left and trochanteric fracture of the femoral neck 2. UTI with chronic [place] 3. Mechanical fall Lab Data Labs: Laboratory Results - last 24 hr 10/10/24 10/10/24 20:30 20:45 WBC 14.6 H RBC 4.02 L Hgb 12.9 Hct 38.2 MCV 95.0 MCH 32.1 H MCHC 33.8 RDW Std Deviation 46.9 H RDW Coeff of Zafar 13.2 Plt Count 517 H MPV 8.9 Immature Gran % (Auto) 0.700 Neut % (Auto) 69.9 Lymph % (Auto) 16.4 L Starr % (Auto) 12.0 H Eos % (Auto) 0.5 Baso % (Auto) 0.5 Absolute Neuts (auto) 10.2 H Absolute Lymphs (auto) 2.40 Nucleated RBC % 0 Differential Comment SEE COMMENT Diff Path Review May foll Platelet Estimate SLT INC RBC Morphology N CHROM Anisocytosis 1+ Macrocytosis 1+ Sodium 136 Potassium 3.8 Chloride 103 Carbon Dioxide 26.0 Anion Gap 6 BUN 13 Creatinine 0.85 Estim Creat Clear Calc 59.48 Est GFR (MDRD) Af Amer 84 Est GFR (MDRD) Non-Af 69 BUN/Creatinine Ratio 15.2 Glucose 161 H Calcium 9.1 Folate 6.30 TSH 8.460 H Urine Color Yellow Urine Clarity Cloudy Urine pH 6.0 Ur Specific [place] 1.010 Urine Protein 30 H Urine Glucose (UA) Normal Urine Ketones Negative Urine Occult Blood 150 H Urine Nitrite Negative Urine Bilirubin Negative Urine Urobilinogen Normal Ur Leukocyte Esterase 500 H Urine RBC 5-10 SEEN Urine WBC >100 SEEN Ur Squamous Epith Cells 0 SEEN Calcium Oxalate Crystal RARE Urine Bacteria 2+ Urine Mucus 0 SEEN Urine Yeast 1+ Radiography Diagnostic Testing: Clinical Impression(s) from Imaging Studies Chest X-Ray 10/10/24 20:08 IMPRESSION: Minimal right infrahilar airspace disease which may represent atelectasis. No other abnormalities are identified. Electronically Signed: Joselo Israel MD at 21:53 EST , Femur X-Ray 10/10/24 20:08 IMPRESSION: Intertrochanteric fracture of the left femoral neck. Electronically Signed: Joselo Israel MD at 21:57 EST , Pelvis X-Ray 10/10/24 20:08 IMPRESSION: Intertrochanteric fracture of the left femoral neck. Electronically Signed: Joselo Israel MD at 21:54 EST , Discharge Plan Dx/Rx/DC Orders Clinical Impression: Fall, Acute UTI, Closed fracture of left hip Disposition Disposition: Acute Care Hospital [facility] Discharge Date/Time: 10/10/24 23:14
[2024-10-10 20:34] LABS: Absolute Neutrophil Count 10.2 X10^3/uL (2.0-7.7); Basophil# 0.07 X10^3/uL; Basophil% 0.5 % (0-1); Eosinophil# 0.08 X10^3/uL; Eosinophils% 0.5 % (0-5); Hematocrit 38.2 % (37-47); Hemoglobin 12.9 g/dL (12.0-15.0); Lymphocyte % 16.4 % (19-41); Mean Corp Hgb Conc 33.8 g/dL (32-36); Mean Corpuscular Hgb 32.1 pg (27.0-32.0); Mean Platelet Vol. 8.9 fl (6.2-12.0); Monocyte# 1.76 X10^3/uL; NRBC Flagged by Analyzer 0 % (0-5); Neutrophil # 10.23 X10^3/uL (2.7-7.7); Neutrophil % 69.9 % (47-70); POSITIVE DIFFERENTIAL YES; Platelet Count 517 K/mm3 (150-450); RBC Distribution Width CV 13.2 % (11.6-14.6); RBC Distribution Width SD 46.9 fl (35.1-43.9); Red Blood Count 4.02 M/mm3 (4.2-5.4); White Blood Count 14.6 K/mm3 (4.4-11.0)
[2024-10-10] MEDS: Ondansetron 4 MG/2 ML Vial IV (20:34)
[2024-10-10] MEDS: Morphine 4 MG/ML Syringe IV (20:34)
[2024-10-10 20:48] LABS: Anion Gap 6 (5-15); BUN 13 mg/dL (7-18); BUN/Creat Ratio 15.2 RATIO (10-20); Calcium,Total 9.1 mg/dL (8.5-10.1); Chloride 103 mmol/L (98-107); Creatinine, Serum 0.85 mg/dL (0.55-1.02); EST Glomerular Filtration Rate 69 mL/min (>60); Est Glom Filt Rate - Afr Amer 84 mL/min (>60); Estimated Creatinine Clearance 59.48 ml/min; Glucose 161 mg/dL (74-106); Potassium 3.8 mmol/L (3.5-5.1); Sodium Level 136 mmol/L (136-145)
[2024-10-10 20:50] LABS: Mucous, Urine 0 SEEN /hpf (<or=2+); Squamous Epithelial Cells - UA 0 SEEN /hpf (5-10)
[2024-10-10 21:06] LABS: Color, Urine Yellow (Yellow); Glucose, Dipstick Normal (Normal); Ketone-Dipstick Negative (Negative); Leukocyte Esterase-Dipstick 500 /ul (Negative); Nitrite-Dipstick Negative (Negative); Occult Blood-Urine 150 /ul (Negative); Protein-Dipstick 30 mg/dl (Negative); Urine Bilirubin Dipstick Negative (Negative); Urine Clarity Cloudy (Clear); Urine Urobilinogen Normal (Normal)
[2024-10-10 21:06] LABS: Differential Indicated SCAN CRITERIA MET
[2024-10-10 21:08] LABS: Anisocytosis 1+; Macrocytosis 1+; Platelet Estimate SLT INC (ADEQ); Red Cell Morphology N CHROM NORMAL (NORM C&C)
[2024-10-10 21:17] LABS: Calcium Oxalate Crystals Ur RARE /hpf (<or=2+); White Blood Cells >100 SEEN /hpf (0-5); Yeast-Urine 1+ /hpf (None Seen)
[2024-10-10 21:19] LABS: Bacteria 2+ /hpf (None Seen)
[2024-10-10 21:21] LABS: Red Blood Cells-Urine 5-10 SEEN /hpf (0-5)
[2024-10-10 21:33] VITALS: BP 145/87; PULSE 80; RESP 18; O2SAT 93
[2024-10-10 21:53] VITALS: BP 159/87; PULSE 80; RESP 18; TEMP 37; O2SAT 92
[2024-10-10] MEDS: Ceftriaxone 1 GM/50 ML BAG IV (21:55)
--- NOTE | 2024-10-10 22:19 | HP.PCM.HOS_ITS ---
[facility] - General General Date of Admission: 10/10/24 Date of Service: 10/10/24 Chief Complaint: Fall with Left Hip Pain and Inability to Ambulate. HPI Narrative TISHA HOFFMANN, is a 73 F with a past medical history of essential hypertension; on oral clonidine and as needed furosemide for swelling, hyperlipidemia; on pravastatin, hypothyroidism; on levothyroxine, obesity; with BMI of 33.2 this admission, DM-2; of unknown control on metformin, insulin glargine 12 units sq. HS and 16 units q. 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 coli and Lecleria adecarboxylata; with both organisms apparently sensitive to ciprofloxacin who presents to [facility] ER complaining of fall at her [facility] with Left hip pain and subsequent inability to ambulate. Ms. Hoffmann reports her symptoms began much earlier in the day while she was at [facility] for rehabilitation and then tried to stand up and had a mechanical fall approximately 7 hours prior to arrival. She was then ordered an x-ray at that facility which showed suspected Left hip fracture with patient then sent here for ongoing treatment. She denies loss of consciousness with her fall or significant head or neck injury. The pain in her Left hip is made worse with activity but is not completely relieved by rest. There was no report of fever, chills, nausea, vomiting, diarrhea, constipation, chest pain or SOB. In the ER she was noted to have X-ray evidence of Intertrochanteric Hip Fracture of the Left hip complicated by UA positive fo Acute Cystitis; with microscopic hematuria due to Chronic Cutler with a corresponding Leukocytosis of 14.6K present on admission and she was then admitted to the general medical floor for ongoing care for a stay that is expected to extend beyond 2 midnights. [facility] Medical History Hypokalemia Ductal hyperplasia of breast Atypical ductal hyperplasia of right breast Atypical lobular hyperplasia (ALH) of right breast Other acute postprocedural pain Unsteady gait Wears dentures Wears glasses Post-menopausal Cancer Depression Anxiety Thyroid disease Walker as ambulation aid Ambulates with cane Arthritis High cholesterol Back pain Injury of back TIA (transient ischemic attack) Gastric reflux History of edema History of pain when walking History of echocardiogram History of stress test Cardiology follow-up encounter DM type 2, goal HbA1c < 8% Smoker Recent weight loss Family history of breast cancer Intertrigo Left shoulder pain Right shoulder pain Chronic thoracic back pain Chronic neck pain Macromastia DM type 2, goal HbA1c < 7% Neuropathy Cataracts, bilateral Carpal tunnel syndrome Vitamin D deficiency Encounter for screening for malignant neoplasm of lung Obesity Tobacco abuse Hyperlipidemia Hypothyroidism Type 2 diabetes mellitus History of CVA (cerebrovascular accident) (10/15/21) Essential hypertension Rotator cuff injury Contusion of right shoulder region Injury due to fall Hemiparesis of left dominant side Chronic post-operative pain Primary osteoarthritis of right knee Depression Arthritis Home Medications ?Medication ?Instructions ?Recorded ?Last Taken ?Type clonidine HCl 0.1 mg tablet 0.1 mg PO QHS HTN 01/11/17 10/14/21 22:00 History furosemide 20 mg tablet 20 mg PO BID PRN swelling 10/15/21 Unknown History metformin 1,000 mg tablet 850 mg PO BID diabetes 10/15/21 Unknown History pantoprazole 40 mg tablet,delayed 40 mg PO DAILY reflux 10/15/21 09/04/23 History release potassium chloride 20 mEq 20 meq PO DAILY PRN if take a lasix 10/15/21 Unknown History tablet,extended release aspirin 81 mg chewable tablet 81 mg PO DAILY #30 tabs 10/17/21 08/28/23 Rx pravastatin 40 mg tablet 40 mg PO QHS 12/13/21 Unknown History benztropine 0.5 mg tablet 0.5 mg PO BID 10/18/22 Unknown History ascorbic acid (vitamin C) 500 mg 500 mg PO DAILY 08/27/23 Unknown History tablet,extended release (C-500) gabapentin 400 mg capsule 400 mg PO TID 08/27/23 Unknown History magnesium 250 mg tablet 250 mg PO DAILY 08/27/23 Unknown History venlafaxine 100 mg tablet 150 mg PO BID 08/27/23 09/04/23 History cyanocobalamin (vitamin B-12) 1,000 mcg PO DAILY 10/10/24 Unknown History 1,000 mcg capsule ergocalciferol (vitamin D2) 1,250 1,250 mcg PO QWEEK 10/10/24 Unknown History mcg (50,000 unit) capsule insulin glargine 100 unit/mL (3 12 unit subcut QHS 10/10/24 Unknown History mL) subcutaneous pen (Lantus Solostar U-100 Insulin) insulin glargine-yfgn 100 unit/mL 16 unit subcut DAILY 10/10/24 Unknown History (3 mL) subcutaneous pen levothyroxine 137 mcg tablet 137 mcg PO DAILY 10/10/24 Unknown History Allergy/AdvReac Type Severity Reaction Status Date / Time bupropion (From Wellbutrin) Allergy Other Verified 10/10/24 19:34 celecoxib (From Celebrex) Allergy Hives Verified 10/10/24 19:34 erythromycin lactobionate AdvReac Nausea/Vom/ Verified 10/10/24 19:34 (From Erythrocin) Diarrhea rosuvastatin calcium (From AdvReac Other Verified 10/10/24 19:34 Crestor) zolpidem (From Ambien) AdvReac Other Verified 10/10/24 19:34 Family History Mother Breast cancer Depression Brother Diabetes Hypertension Father , Age 43 Heart disease Myocardial infarction Brother Diabetes Surgical History History of bilateral breast reduction surgery Hx of surgical procedure History of cataract surgery History of tubal ligation H/O arthroscopic knee surgery Hx of colonoscopy S/P insertion of spinal cord stimulator Hx of tonsillectomy History of carpal tunnel release of both wrists Hx of section History of back surgery Social History household members: none housing: apartment number of children: 2 Smoking Status: Former smoker quit status: has quit before alcohol intake: never substance use type: does not use caffeine: No seatbelt use: always additional social history: Does Take Aspirin Daily Does Not Take Ibuprofen ROS ROS Narrative Review of Systems: Constitutional: Patient denies fever or chills. Eyes: Patient denies changes in vision or discharge from eyes. ENT: Patient denies runny nose, sore throat or ear pain. Resp: Patient denies shortness of breath or cough. CV: Patient denies chest pain, palpitations or heart racing. GI: Patient denies abdominal pain, nausea, vomiting, diarrhea or constipation. : Patient was noted to have cloudy foul-smelling urine in chronic Cutler as per HPI. MSK: Patient admits to severe left hip pain made worse with movement but not fully relieved by rest as per HPI. Skin: Patient denies rash, abscess or jaundice. Psych: Patient denies symptoms of uncontrolled depression or anxiety. Neuro: Patient denies headache, paresthesias or focal neurologic deficits. Allergy: Patient denies lip swelling, tongue swelling or urticaria. Hematology: Patient denies easy bleeding or easy bruisability. Endocrinology: Patient denies polyuria, polydipsia or polyphagia. 14 point review of systems otherwise negative except for positives noted above in HPI. Vital Signs Vital Signs Vital Signs: 10/10/24 19:33 10/10/24 21:33 10/10/24 21:53 Temperature 97.9 F 98.6 F Temperature Source Oral Pulse Rate 83 80 80 Respiratory Rate 16 18 18 Blood Pressure 154/86 H 145/87 H 159/87 H Blood Pressure Mean 108 106 111 Pulse Ox 94 93 92 Oxygen Delivery Method Nasal Cannula Oxygen Flow Rate (L/min) 2 Weight Weight: 181 lb 7.047 oz Body Mass Index (BMI) 33.2 Physical Exam Const alert, oriented x3, no apparent distress and average body habitus General Appearance: cooperative HEENT normocephalic, head/scalp atraumatic, hearing grossly normal bilaterally and moist oral mucous membranes Eyes PERRL and EOMs intact bilaterally Neck no lymphadenopathy and supple Resp normal respiratory effort, no retractions, no use of accessory muscles and clear to auscultation bilaterally Cardio regular rate and regular rhythm GI normal to inspection, nondistended, normoactive bowel sounds, soft to palpation, non-tender and non-distended Extremity Extremity Narrative: Left lower extremity shortened and externally rotated with positive logroll no signs of vascular compromise. Skin Skin Narrative: Patient has no evidence of rash, abscess or jaundice. Neuro oriented x3, CN's II-XII intact bilaterally, moves all extremities and no focal motor deficits Sensorium / Orientation: awake, alert, oriented to person, oriented to place and oriented to time Speech: speech normal Psych affect normal Results Medical Records Data Attestation: I reviewed the patient's medical records Lab / Micro Data Attestation: I reviewed the patient's lab results. 10/11/24 04:50 10/11/24 04:50 Labs: Laboratory Results - last 24 hr 10/10/24 20:30: WBC 14.6 H, RBC 4.02 L, Hgb 12.9, Hct 38.2, MCV 95.0, MCH 32.1 H , MCHC 33.8, RDW Std Deviation 46.9 H, RDW Coeff of Zafar 13.2, Plt Count 517 H, MPV 8.9, Immature Gran % (Auto) 0.700, Neut % (Auto) 69.9, Lymph % (Auto) 16.4 L , Leake % (Auto) 12.0 H, Eos % (Auto) 0.5, Baso % (Auto) 0.5, Absolute Neuts (auto) 10.2 H, Absolute Lymphs (auto) 2.40, Nucleated RBC % 0, Differential Comment SEE COMMENT, Diff Path Review Ellie kong, Platelet Estimate T INC, RBC Morphology N CHROM, Anisocytosis 1+, Macrocytosis 1+, Sodium 136, Potassium 3.8, Chloride 103, Carbon Dioxide 26.0, Anion Gap 6, BUN 13, Creatinine 0.85, Estim Creat Clear Calc 59.48, Est GFR (MDRD) Af Amer 84, Est GFR (MDRD) Non-Af 69, BUN/Creatinine Ratio 15.2, Glucose 161 H, Calcium 9.1 10/10/24 20:45: Urine Color Yellow, Urine Clarity Cloudy, Urine pH 6.0, Ur Specific [place] 1.010, Urine Protein 30 H, Urine Glucose (UA) Normal, Urine Ketones Negative, Urine Occult Blood 150 H, Urine Nitrite Negative, Urine Bilirubin Negative, Urine Urobilinogen Normal, Ur Leukocyte Esterase 500 H, Urine RBC 5-10 SEEN, Urine WBC >100 SEEN, Ur Squamous Epith Cells 0 SEEN, Calcium Oxalate Crystal RARE, Urine Bacteria 2+, Urine Mucus 0 SEEN, Urine Yeast 1+ Imaging Radiology Impression Chest X-Ray 10/10/24 20:08 IMPRESSION: Minimal right infrahilar airspace disease which may represent atelectasis. No other abnormalities are identified. Electronically Signed: Joselo D. Breckwoldt, MD at 21:53 EST , Femur X-Ray 10/10/24 20:08 IMPRESSION: Intertrochanteric fracture of the left femoral neck. Electronically Signed: Joselo Israel MD at 21:57 EST , Pelvis X-Ray 10/10/24 20:08 IMPRESSION: Intertrochanteric fracture of the left femoral neck. Electronically Signed: Joselo Israel MD at 21:54 EST , Assessment & Plan Assessment/Plan (1) Closed fracture of left hip: QUALIFIERS: Encounter type: initial encounter Qualified Code(s): S72.002A - Fracture of unspecified part of neck of left femur, initial encounter for closed fracture (2) Fall: QUALIFIERS: Encounter type: initial encounter Qualified Code(s): W19.XXXA - Unspecified fall, initial encounter (3) Acute UTI: (4) Chronic indwelling Cutler catheter: (5) History of CVA (cerebrovascular accident): (6) Obesity (BMI 30.0-34.9): (7) Type 2 diabetes mellitus: QUALIFIERS: Diabetes mellitus care home insulin use: without 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 X-ray evidence of Intertrochanteric Hip Fracture of the Left hip after mechanical fall - Admit to general medical floor. Keep n.p.o. for impending ORIF in the a.m. Give Tylenol as needed for [id number] (level 1-5/10) pain or fever. Give morphine IV as needed for severe (level 6-10/10) pain. Finally, orthopod was contacted by the ER with formal consultation pending in the a.m. and appreciated in advance. 2. UA positive fo Acute Cystitis; with microscopic hematuria due to Chronic Cutler with a corresponding Leukocytosis of 14.6K present on admission likely playing a role in the cause of #1 - Give empiric IV ciprofloxacin given patient's previous urine culture results. Await culture and sensitivity data. 3. Recent admission here from September 04, 2024 to September 11, 2024 for treatment of DKA complicated by MINESH with acute hyponatremia and hypokalemia Rhabdomyolysis and Sepsis with blood cultures growing out E. coli and Lecleria adecarboxylata; with both organisms apparently sensitive to ciprofloxacin compounding #1 & #2 - Noted. 4. History of TIA/CVA (2020); with residual Left hemiparesis - Noted. 5. Obesity; with BMI of 33.2 this admission - Weight loss will be recommended. Check TSH. This complicates her case and may hamper recovery. 6. Essential hypertension; on oral clonidine - Continue home regimen as previous. 7. Hyperlipidemia; on pravastatin - Resume statin as before. 8. Hypothyroidism; on levothyroxine - Maintain levothyroxine as before and check TSH. 9. DM-2; of unknown control on metformin, insulin glargine 12 units sq. HS and 16 units q. AM plus diabetic neuropathy; on gabapentin - Keep NPO until ORIF is completed. Cut insulin doses by ~70% to prevent hypoglycemia and give lowest- intensity SSI. 10. History of depression with anxiety; on venlafaxine - Restart home regimen as previous. 11. History of atypical ductal hyperplasia of the Right breast - Noted. 12. GERD; on Protonix - Continue PPI. 13. OA; with chronic back pain chronic debility - Give Tylenol prn. Total time: Approximately (but not less than) 75 minutes. Charges/Coding Visit Charges Inpatient E&M: 80623 Init Hosp L3
[2024-10-10 23:00] VITALS: BP 144/80; PULSE 82; RESP 18; O2SAT 93
[2024-10-10 23:40] VITALS: BMI 30.9
[2024-10-11] VITALS (27 sets, daily range): BP systolic 83–147; BP diastolic 58–88; PULSE 94–127; RESP 16–20; TEMP 36.4–37.3; O2SAT 2–695; BMI 30.9
[2024-10-11] MEDS: Morphine 2 MG/ML Syringe IV ×2 (00:33→05:08)
[2024-10-11] MEDS: Ciprofloxacin 200 MG/100 ML BAG 100 MG IV ×2 (00:34→10:34)
[2024-10-11] MEDS: 0.9% Saline Lock 10 ML Syringe IV ×4 (00:36→17:43)
[2024-10-11 05:35] LABS: Absolute Lymphocyte Count 1.81 X10^3/uL (0.83-4.51); Absolute Neutrophil Count 11.3 X10^3/uL (2.0-7.7); Basophil# 0.06 X10^3/uL; Basophil% 0.4 % (0-1); Eosinophil# 0.09 X10^3/uL; Eosinophils% 0.6 % (0-5); Hematocrit 38.4 % (37-47); Hemoglobin 12.4 g/dL (12.0-15.0); Lymphocyte # 1.81 X10^3/ul (0.83-4.51); Lymphocyte % 11.7 % (19-41); Mean Corp Hgb Conc 32.3 g/dL (32-36); Mean Corpuscular Hgb 31.1 pg (27.0-32.0); Mean Corpuscular Volume 96.2 fL (81-99); Mean Platelet Vol. 8.8 fl (6.2-12.0); Monocyte# 2.11 X10^3/uL; Monocyte% 13.6 % (0-10); NRBC Flagged by Analyzer 0 % (0-5); Neutrophil # 11.34 X10^3/uL (2.7-7.7); POSITIVE DIFFERENTIAL YES; Platelet Count 522 K/mm3 (150-450); RBC Distribution Width CV 13.2 % (11.6-14.6); RBC Distribution Width SD 47.3 fl (35.1-43.9); Red Blood Count 3.99 M/mm3 (4.2-5.4); White Blood Count 15.5 K/mm3 (4.4-11.0)
[2024-10-11 05:48] LABS: Differential Indicated SCAN CRITERIA MET
[2024-10-11 05:59] LABS: Anion Gap 5 (5-15); BUN 9 mg/dL (7-18); BUN/Creat Ratio 11.1 RATIO (10-20); Chloride 104 mmol/L (98-107); Creatinine, Serum 0.81 mg/dL (0.55-1.02); EST Glomerular Filtration Rate 74 mL/min (>60); Est Glom Filt Rate - Afr Amer 89 mL/min (>60); Estimated Creatinine Clearance 60.18 ml/min; Glucose 176 mg/dL (74-106); Sodium Level 136 mmol/L (136-145)
[2024-10-11 06:01] LABS: Vitamin B12 335 pg/mL (211-911)
[2024-10-11 06:28] LABS: Partial Thromboplast Time 26.9 Seconds (24.1-36.2)
[2024-10-11 06:58] LABS: Differential Comment SCANNED
[2024-10-11 07:00] LABS: International Normalized Ratio 1.1; Prothrombin Time (Protime)PT. 14.2 SECONDS (11.7-14.9)
[2024-10-11 08:39] LABS: Bedside Glucose 211 mg/dL (74-106)
--- NOTE | 2024-10-11 09:38 | CON.PCM.OR_ITS ---
HPI Consult Data Date of Consult: 10/11/24 HPI Narrative HPI Narrative: TISHA HOFFMANN, is a 73 F who presents with left hip pain after fall. I was consulted for x-ray findings of left hip intertrochanteric fracture last night. I saw the patient in 304 this morning. 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 After the stroke in late August, she had multiple decubitus ulcers as she was found at home after a while. She was then admitted and has not been able to ambulate since then and then was discharged to rehab. In the rehab after attempts of making her stand she tripped over her Cutler yesterday and had a fall onto her left hip. She denies any prior pain in the left hip. She has not been able to ambulate at least for the last 6 weeks since her last stroke. Physical therapy has been able to have her stand but because of her loss of balance she always falls back to her bed. She denies any other areas of injury or pain. She has healing scabs over bilateral knees and bilateral olecranon processes which the patient and her daughter say were labeled as pressure sores from the time that she was found 4 days after her stroke in late August. Since the stroke she has always had a Cutler as she has not been able to urinate spontaneously. Because of the chronic Cutler she has developed urinary tract infections which are currently in process of being treated. She is an uncontrolled diabetic and her last A1c in early September was more than 13. She is on aspirin possibly for the stroke. [facility] Medical History Hypokalemia Ductal hyperplasia of breast Atypical ductal hyperplasia of right breast Atypical lobular hyperplasia (ALH) of right breast Other acute postprocedural pain Unsteady gait Wears dentures Wears glasses Post-menopausal Cancer Depression Anxiety Thyroid disease Walker as ambulation aid Ambulates with cane Arthritis High cholesterol Back pain Injury of back TIA (transient ischemic attack) Gastric reflux History of edema History of pain when walking History of echocardiogram History of stress test Cardiology follow-up encounter DM type 2, goal HbA1c < 8% Smoker Recent weight loss Family history of breast cancer Intertrigo Left shoulder pain Right shoulder pain Chronic thoracic back pain Chronic neck pain Macromastia DM type 2, goal HbA1c < 7% Neuropathy Cataracts, bilateral Carpal tunnel syndrome Vitamin D deficiency Encounter for screening for malignant neoplasm of lung Obesity Tobacco abuse Hyperlipidemia Hypothyroidism Type 2 diabetes mellitus History of CVA (cerebrovascular accident) (10/15/21) Essential hypertension Rotator cuff injury Contusion of right shoulder region Injury due to fall Hemiparesis of left dominant side Chronic post-operative pain Primary osteoarthritis of right knee Depression Arthritis Home Medications ?Medication ?Instructions ?Recorded ?Last Taken ?Type clonidine HCl 0.1 mg tablet 0.1 mg PO QHS HTN 01/11/17 10/14/21 22:00 History furosemide 20 mg tablet 20 mg PO BID PRN swelling 10/15/21 Unknown History metformin 1,000 mg tablet 850 mg PO BID diabetes 10/15/21 Unknown History pantoprazole 40 mg tablet,delayed 40 mg PO DAILY reflux 10/15/21 09/04/23 History release potassium chloride 20 mEq 20 meq PO DAILY PRN if take a lasix 10/15/21 Unknown History tablet,extended release aspirin 81 mg chewable tablet 81 mg PO DAILY #30 tabs 10/17/21 08/28/23 Rx pravastatin 40 mg tablet 40 mg PO QHS 12/13/21 Unknown History benztropine 0.5 mg tablet 0.5 mg PO BID 10/18/22 Unknown History ascorbic acid (vitamin C) 500 mg 500 mg PO DAILY 08/27/23 Unknown History tablet,extended release (C-500) gabapentin 400 mg capsule 400 mg PO TID 08/27/23 Unknown History magnesium 250 mg tablet 250 mg PO DAILY 08/27/23 Unknown History venlafaxine 100 mg tablet 150 mg PO BID 08/27/23 09/04/23 History cyanocobalamin (vitamin B-12) 1,000 mcg PO DAILY 10/10/24 Unknown History 1,000 mcg capsule ergocalciferol (vitamin D2) 1,250 1,250 mcg PO QWEEK 10/10/24 Unknown History mcg (50,000 unit) capsule insulin glargine 100 unit/mL (3 12 unit subcut QHS 10/10/24 Unknown History mL) subcutaneous pen (Lantus Solostar U-100 Insulin) insulin glargine-yfgn 100 unit/mL 16 unit subcut DAILY 10/10/24 Unknown History (3 mL) subcutaneous pen levothyroxine 137 mcg tablet 137 mcg PO DAILY 10/10/24 Unknown History Allergy/AdvReac Type Severity Reaction Status Date / Time bupropion (From Wellbutrin) Allergy Other Verified 10/10/24 19:34 celecoxib (From Celebrex) Allergy Hives Verified 10/10/24 19:34 erythromycin lactobionate AdvReac Nausea/Vom/ Verified 10/10/24 19:34 (From Erythrocin) Diarrhea rosuvastatin calcium (From AdvReac Other Verified 10/10/24 19:34 Crestor) zolpidem (From Ambien) AdvReac Other Verified 10/10/24 19:34 Family History Mother Breast cancer Depression Brother Diabetes Hypertension Father , Age 43 Heart disease Myocardial infarction Brother Diabetes Surgical History History of bilateral breast reduction surgery Hx of surgical procedure History of cataract surgery History of tubal ligation H/O arthroscopic knee surgery Hx of colonoscopy S/P insertion of spinal cord stimulator Hx of tonsillectomy History of carpal tunnel release of both wrists Hx of section History of back surgery Social History household members: none housing: apartment number of children: 2 Smoking Status: Former smoker quit status: has quit before alcohol intake: never substance use type: does not use caffeine: No seatbelt use: always additional social history: Does Take Aspirin Daily Does Not Take Ibuprofen Vital Signs Vital Signs Vital Signs: 10/10/24 19:33 10/10/24 21:33 10/10/24 21:53 Temperature 97.9 F 98.6 F Temperature Source Oral Pulse Rate 83 80 80 Respiratory Rate 16 18 18 Respiratory Effort Respiratory Depth Respiratory Pattern Blood Pressure 154/86 H 145/87 H 159/87 H Blood Pressure Mean 108 106 111 Blood Pressure Source Blood Pressure Position Blood Pressure Location Pulse Ox 94 93 92 Oxygen Delivery Method Nasal Cannula Oxygen Flow Rate (L/min) 2 10/10/24 23:00 10/10/24 23:37 10/11/24 00:19 Temperature 98.8 F Temperature Source Oral Pulse Rate 82 97 Respiratory Rate 18 18 Respiratory Effort Normal Non-Labored Respiratory Depth Normal Respiratory Pattern Normal Blood Pressure 144/80 H 147/83 H Blood Pressure Mean 101 104 Blood Pressure Source Monitor Blood Pressure Position Semi-Fowlers Blood Pressure Location Left Arm Pulse Ox 93 95 Oxygen Delivery Method Nasal Cannula Nasal Cannula Nasal Cannula Oxygen Flow Rate (L/min) 2 2 2 10/11/24 02:19 10/11/24 05:00 10/11/24 05:06 Temperature 98.8 F Temperature Source Oral Pulse Rate 94 105 H 99 Respiratory Rate 20 H Respiratory Effort Respiratory Depth Respiratory Pattern Blood Pressure 128/72 H Blood Pressure Mean 90 Blood Pressure Source Monitor Blood Pressure Position Semi-Fowlers Blood Pressure Location Left Arm Pulse Ox 96 Oxygen Delivery Method Nasal Cannula Oxygen Flow Rate (L/min) 2 10/11/24 05:17 10/11/24 07:58 10/11/24 08:05 Temperature 99.1 F 99.1 F Temperature Source Oral Oral Pulse Rate 97 97 Respiratory Rate 18 18 Respiratory Effort Normal Non-Labored Respiratory Depth Normal Respiratory Pattern Normal Blood Pressure 135/88 H 135/88 H Blood Pressure Mean 103 103 Blood Pressure Source Monitor Monitor Blood Pressure Position Semi-Fowlers Semi-Fowlers Blood Pressure Location Right Arm Right Arm Pulse Ox 95 2 Oxygen Delivery Method Nasal Cannula Nasal Cannula Nasal Cannula Oxygen Flow Rate (L/min) 2 2 95 10/11/24 08:15 10/11/24 08:33 Temperature Temperature Source Pulse Rate 96 Respiratory Rate Respiratory Effort Normal Non-Labored Respiratory Depth Normal Respiratory Pattern Normal Blood Pressure Blood Pressure Mean Blood Pressure Source Blood Pressure Position Blood Pressure Location Pulse Ox Oxygen Delivery Method Nasal Cannula Oxygen Flow Rate (L/min) 2 Weight Weight: 169 lb Body Mass Index (BMI) 30.9 Physical Exam Narrative Exam to the left hip shows pain and tenderness along the lateral aspect. No bruising or skin breaks around the left hip. Scabbed sores over bilateral knee and bilateral ankles noticed. She has had a right total knee replacement. She is able to bend and extend her right knee. She is able to move her left bilateral upper extremities without significant pain. She has weakness in the left upper extremity compared to right likely from stroke. Medical Records Data Medical Nutrition Assessment Dietitian: Malnutrition Criteria Met Start: 10/11/24 09:21 Freq: Status: Active Protocol: Document 10/11/24 09:21 SLA (Rec: 10/11/24 09:21 SLA [email or web address]) Nutrition Malnutrition Evidence of Malnutrition Exists Yes Malnutrition (severe): Acute Illness/Injury Evidenced By Suboptimal Energy Intake ( Severe),Weight Loss (Severe) Clinical Problem Altered Nutrient-Related Laboratory Values Etiology related to diabetes Signs/Symptoms as evidenced by gluc 176 Status Active Problem Acute Disease or Injury Related Malnutrition Etiology related to suboptimal energy intake Signs/Symptoms as evidenced by po intake <50% of est nutritional needs and 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 Problem Recommendation Dietitian Recommendations/Changes As medically able, rec CHERISE to CHO Control, Cardiac As medically able, rec 120 ml glucerna shake 4x/day w/ medpass Will interview pt at time of follow up re: diet/wt hx, SMBG , etc and make additional rec/ provide diet education as indicated Lab / Micro Data 10/11/24 04:50 10/11/24 04:50 Labs: Laboratory Results - last 24 hr 10/10/24 20:30: WBC 14.6 H, RBC 4.02 L, Hgb 12.9, Hct 38.2, MCV 95.0, MCH 32.1 H , MCHC 33.8, RDW Std Deviation 46.9 H, RDW Coeff of Zafar 13.2, Plt Count 517 H, MPV 8.9, Immature Gran % (Auto) 0.700, Neut % (Auto) 69.9, Lymph % (Auto) 16.4 L , [place] % (Auto) 12.0 H, Eos % (Auto) 0.5, Baso % (Auto) 0.5, Absolute Neuts (auto) 10.2 H, Absolute Lymphs (auto) 2.40, Nucleated RBC % 0, Differential Comment SEE COMMENT, Diff Path Review Ellie kong, Platelet Estimate SLT INC, RBC Morphology N CHROM, Anisocytosis 1+, Macrocytosis 1+, Sodium 136, Potassium 3.8, Chloride 103, Carbon Dioxide 26.0, Anion Gap 6, BUN 13, Creatinine 0.85, Estim Creat Clear Calc 59.48, Est GFR (MDRD) Af Amer 84, Est GFR (MDRD) Non-Af 69, BUN/Creatinine Ratio 15.2, Glucose 161 H, Calcium 9.1, Folate 6.30, TSH 8.460 H 10/10/24 20:45: Urine Color Yellow, Urine Clarity Cloudy, Urine pH 6.0, Ur Specific [place] 1.010, Urine Protein 30 H, Urine Glucose (UA) Normal, Urine Ketones Negative, Urine Occult Blood 150 H, Urine Nitrite Negative, Urine Bilirubin Negative, Urine Urobilinogen Normal, Ur Leukocyte Esterase 500 H, Urine RBC 5-10 SEEN, Urine WBC >100 SEEN, Ur Squamous Epith Cells 0 SEEN, Calcium Oxalate Crystal RARE, Urine Bacteria 2+, Urine Mucus 0 SEEN, Urine Yeast 1+ 10/11/24 04:50: WBC 15.5 H, RBC 3.99 L, Hgb 12.4, Hct 38.4, MCV 96.2, MCH 31.1, MCHC 32.3, RDW Std Deviation 47.3 H, RDW Coeff of Zafar 13.2, Plt Count 522 H, MPV 8.8, Immature Gran % (Auto) 0.700, Neut % (Auto) 73.0 H, Lymph % (Auto) 11.7 L, [place] % (Auto) 13.6 H, Eos % (Auto) 0.6, Baso % (Auto) 0.4, Absolute Neuts (auto) 11.3 H, Absolute Lymphs (auto) 1.81, Nucleated RBC % 0, Differential Comment SCANNED, Diff Path Review March foll, PT 14.2, INR 1.1, APTT 26.9, Sodium 136, Potassium 4.0, Chloride 104, Carbon Dioxide 28.0, Anion Gap 5, BUN 9, Creatinine 0.81, Estim Creat Clear Calc 60.18, Est GFR (MDRD) Af Amer 89, Est GFR (MDRD) Non-Af 74, BUN/Creatinine Ratio 11.1, Glucose 176 H, Calcium 9.0, Vitamin B12 335, Blood Type A NEGATIVE, Antibody Screen NEGATIVE 10/11/24 08:20: POC Glucose 211 H Imaging Radiology Impression Chest X-Ray 10/10/24 20:08 IMPRESSION: Minimal right infrahilar airspace disease which may represent atelectasis. No other abnormalities are identified. Electronically Signed: Joselo Israel MD at 21:53 EST , Femur X-Ray 10/10/24 20:08 IMPRESSION: Intertrochanteric fracture of the left femoral neck. Electronically Signed: Joselo Israel MD at 21:57 EST , Pelvis X-Ray 10/10/24 20:08 IMPRESSION: Intertrochanteric fracture of the left femoral neck. Electronically Signed: Joselo Israel MD at 21:54 EST , Assessment & Plan Assessment/Plan (1) Intertrochanteric fracture of left hip: QUALIFIERS: Encounter type: initial encounter Fracture type: c losed Fracture alignment: displaced Qualified Code(s): S72.142A - Displaced intertrochanteric fracture of left femur, initial encounter for closed fracture PLAN: Plan I reviewed x-rays done in the ER yesterday. These show left hip intertrochanteric displaced fracture. Explained to her the imaging findings in detail. Explained to her that this is a surgical injury and will require open reduction internal fixation with gamma nailing in hopes of retaining her back to weightbearing and ambulation, although this may be delayed due to her weakness and recent stroke. All risk benefits and alternatives were discussed in detail. The risks include but are not limited to infection, bleeding, hematoma formation, need for further surgery, hardware failure, CLYDE implant fracture, DVT, pulm embolism, need for hip replacement, limb length discrepancy, cardiopulmonary event. Also discussed low bone density being the source of insufficiency fractures which will need to be treated. Patient understands and agrees to proceed with surgery. Consent will be signed. Charges/Coding Visit Charges Inpatient E&M: 43327 Init Hosp L3
--- NOTE | 2024-10-11 09:55 | PCM.PN.HOSP ---
Reason for Visit Reason for Visit: Diagnoses Type 2 diabetes mellitus without complications (10/10/24) Obesity, class 1 (10/10/24) Urinary tract infection, site not specified (10/10/24) Fracture of unspecified part of neck of left femur, initial encounter for closed fracture (10/10/24) Displaced intertrochanteric fracture of left femur, initial encounter for closed fracture (10/10/24) Unspecified fall, initial encounter (10/10/24) Personal history of transient ischemic attack (TIA), and cerebral infarction without residual deficits (10/10/24) Presence of other specified devices (10/10/24) Objective Data Objective Data Vital Signs: Vital Signs Temp Pulse Resp BP Pulse Ox O2 Del Method O2 Flow Rate 99.1 F 96 18 135/88 H 2 Nasal Cannula 2 10/11/24 08:05 10/11/24 08:33 10/11/24 08:05 10/11/24 08:05 10/11/24 08:05 10/11/24 08:15 10/11/24 08:15 Oxygen Flow Rate (L/min) 2 Oxygen Delivery Method Nasal Cannula Weight: 169 lb Body Mass Index (BMI) 30.9 Intake & Output: Intake and Output for Last 24 Hours 10/09/24 10/10/24 10/11/24 23:59 23:59 23:59 Intake Total 325 / 325 150 / 150 Output Total 800 / 800 650 / 650 Balance -475 / -475 -500 / -500 Medical Nutrition Assessment Dietitian: Malnutrition Criteria Met Start: 10/11/24 09:21 Freq: Status: Active Protocol: Document 10/11/24 09:21 SLA (Rec: 10/11/24 09:21 SLA [email or web address]) Nutrition Malnutrition Evidence of Malnutrition Exists Yes Malnutrition (severe): Acute Illness/Injury Evidenced By Suboptimal Energy Intake ( Severe),Weight Loss (Severe) Clinical Problem Altered Nutrient-Related Laboratory Values Etiology related to diabetes Signs/Symptoms as evidenced by gluc 176 Status Active Problem Acute Disease or Injury Related Malnutrition Etiology related to suboptimal energy intake Signs/Symptoms as evidenced by po intake <50% of est nutritional needs and 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 Problem Recommendation Dietitian Recommendations/Changes As medically able, rec CHERISE to CHO Control, Cardiac As medically able, rec 120 ml glucerna shake 4x/day w/ medpass Will interview pt at time of follow up re: diet/wt hx, SMBG , etc and make additional rec/ provide diet education as indicated Lab / Micro Data 10/11/24 04:50 10/11/24 04:50 Labs: Laboratory Results - last 24 hr 10/10/24 20:30: WBC 14.6 H, RBC 4.02 L, Hgb 12.9, Hct 38.2, MCV 95.0, MCH 32.1 H, MCHC 33.8, RDW Std Deviation 46.9 H, RDW Coeff of Zafar 13.2, Plt Count 517 H, MPV 8.9, Immature Gran % (Auto) 0.700, Neut % (Auto) 69.9, Lymph % (Auto) 16.4 L, [place] % (Auto) 12.0 H, Eos % (Auto) 0.5, Baso % (Auto) 0.5, Absolute Neuts (auto) 10.2 H, Absolute Lymphs (auto) 2.40, Nucleated RBC % 0, Differential Comment SEE COMMENT, Diff Path Review Ellie kong, Platelet Estimate SLT INC, RBC Morphology N CHROM, Anisocytosis 1+, Macrocytosis 1+, Sodium 136, Potassium 3.8, Chloride 103, Carbon Dioxide 26.0, Anion Gap 6, BUN 13, Creatinine 0.85, Estim Creat Clear Calc 59.48, Est GFR (MDRD) Af Amer 84, Est GFR (MDRD) Non-Af 69, BUN/Creatinine Ratio 15.2, Glucose 161 H, Calcium 9.1, Folate 6.30, TSH 8.460 H 10/10/24 20:45: Urine Color Yellow, Urine Clarity Cloudy, Urine pH 6.0, Ur Specific [place] 1.010, Urine Protein 30 H, Urine Glucose (UA) Normal, Urine Ketones Negative, Urine Occult Blood 150 H, Urine Nitrite Negative, Urine Bilirubin Negative, Urine Urobilinogen Normal, Ur Leukocyte Esterase 500 H, Urine RBC 5-10 SEEN, Urine WBC >100 SEEN, Ur Squamous Epith Cells 0 SEEN, Calcium Oxalate Crystal RARE, Urine Bacteria 2+, Urine Mucus 0 SEEN, Urine Yeast 1+ 10/11/24 04:50: WBC 15.5 H, RBC 3.99 L, Hgb 12.4, Hct 38.4, MCV 96.2, MCH 31.1, MCHC 32.3, RDW Std Deviation 47.3 H, RDW Coeff of Zafar 13.2, Plt Count 522 H, MPV 8.8, Immature Gran % (Auto) 0.700, Neut % (Auto) 73.0 H, Lymph % (Auto) 11.7 L, [place] % (Auto) 13.6 H, Eos % (Auto) 0.6, Baso % (Auto) 0.4, Absolute Neuts (auto) 11.3 H, Absolute Lymphs (auto) 1.81, Nucleated RBC % 0, Differential Comment SCANNED, Diff Path Review March foll, PT 14.2, INR 1.1, APTT 26.9, Sodium 136, Potassium 4.0, Chloride 104, Carbon Dioxide 28.0, Anion Gap 5, BUN 9, Creatinine 0.81, Estim Creat Clear Calc 60.18, Est GFR (MDRD) Af Amer 89, Est GFR (MDRD) Non-Af 74, BUN/Creatinine Ratio 11.1, Glucose 176 H, Calcium 9.0, Vitamin B12 335, Blood Type A NEGATIVE, Antibody Screen NEGATIVE 10/11/24 08:20: POC Glucose 211 H Radiography Diagnostic Testing: Radiology Impression Chest X-Ray 10/10/24 20:08 IMPRESSION: Minimal right infrahilar airspace disease which may represent atelectasis. No other abnormalities are identified. Electronically Signed: Joselo Israel MD at 21:53 EST , Femur X-Ray 10/10/24 20:08 IMPRESSION: Intertrochanteric fracture of the left femoral neck. Electronically Signed: Joselo Israel MD at 21:57 EST , Pelvis X-Ray 10/10/24 20:08 IMPRESSION: Intertrochanteric fracture of the left femoral neck. Electronically Signed: Joselo Israel MD at 21:54 EST , Physical Exam Narrative Seen and examined. Admitted with left intertrochanteric fracture. No fever. Patient complain of pain mainly over lateral aspect of left hip. Denies chronic heart disease or lung disease. Physical exam General: Alert, Oriented x3, Cooperative HEENT: Atraumatic, PERRLA, EOMI, Normocephalic Oral: No Gingival or Mucosal Lesions/ Ulcerations Neck: Supple, No JVD, Negative Carotid Bruits Chest wall/Lungs: Examined in the supine position as patient could not sit up because of hip fracture. Air entry diminished in bilateral lung bases. No crepitation/rhonchi Cardiovascular: Regular rate, Regular Rhythm, Normal S1, Normal S2, No M/G/R Abdomen: Bowel Sounds Present, Soft, Non Tender, Non-Distended : Chronic indwelling Cutler catheter. No renal angle tenderness. No suprapubic tenderness. Extremities: No edema, Capillary Refill Less than 3 Seconds Skin: No rashes, No breakdown Musculoskeletal: No Tenderness to Palpation of Joints or Extremities Neurological: Cranial nerves II-XII grossly intact, DTR 2+/4. No acute focal neurological deficit. Psych/Mental Status: Normal Affect, Appropriate. Assessment & Plan Assessment/Plan (1) Closed fracture of left hip: QUALIFIERS: Encounter type: initial encounter Qualified Code(s): S72.002A - Fracture of unspecified part of neck of left femur, initial encounter for closed fracture (2) Fall: QUALIFIERS: Encounter type: initial encounter Qualified Code(s): W19.XXXA - Unspecified fall, initial encounter (3) Acute UTI: (4) Chronic indwelling Cutler catheter: (5) History of CVA (cerebrovascular accident): (6) Obesity (BMI 30.0-34.9): (7) Type 2 diabetes mellitus: QUALIFIERS: Diabetes mellitus complication status: without complication Diabetes mellitus remote computer terminal operator insulin use: without remote computer terminal operator use Qualified Code(s): E11.9 - Type 2 diabetes mellitus without complications PLAN: Plan 79-year-old female was admitted with fall about prior to ED presentation from [facility] resulting into left hip intertrochanteric fracture. 1. Left hip intertrochanteric fracture: Patient being admitted [facility] floor. Left hip and pelvis x-ray, individually reviewed and showed x-ray Intertrochanteric Hip Fracture of the Left hip after mechanical fall - Patient is being taken to the OR. Orthopedic surgeon Dr. Marino. Pain control. PT and OT. Patient is moderate risk with no history of cardiac or pulmonary disease. 2. UA positive fo Acute Cystitis; with microscopic hematuria due to Chronic Cutler with a corresponding Leukocytosis of 14.6K present on admission: On empiric IV ciprofloxacin changed to IV ceftriaxone. Urine culture was negative on 09/04/2024. 3. Recent admission here from September 04, 2024 to September 11, 2024 for treatment of DKA complicated by MINESH with acute hyponatremia and hypokalemia, rhabdomyolysis and Sepsis with blood cultures growing out E. coli and Lecleria adecarboxylata; with both organisms apparently sensitive to ciprofloxacin. 4. Chronic TIA/CVA (2020); with residual Left hemiparesis - Noted. 5. Obesity; with BMI of 33.2 this admission - Weight loss will be recommended. 6. Essential hypertension; on oral clonidine - Continue home regimen as previous. 7. Hyperlipidemia; on pravastatin - Resume statin as before. 8. Hypothyroidism; on levothyroxine -TSH is elevated 8.4. It was much higher in September and . Levothyroxine dose increased to suppressed TSH. 9. DM-2; complicated with diabetic neuropathy on gabapentin: Patient will close his between 122-176. 10. History of depression with anxiety; on venlafaxine - Restart home regimen as previous. 11. History of atypical ductal hyperplasia of the Right breast - Noted. 12. GERD; on Protonix - Continue PPI. 13. OA; with chronic back pain chronic debility - Give Tylenol prn. Charges/Coding Visit Charges Inpatient E&M: 91837 Subs Hosp L2
--- NOTE | 2024-10-11 11:16 | PCM.PRE.AN2 ---
ASA Classification* ASA Classification ASA Classification: 3 Assessment & Plan Anesthesia* Anesthesia Assessment Anesthesia Assessment: Discussed sedation and/or anesthesia options, risks, benefits, and alternatives with patient/parents/legal guardian/POA. Questions invited. The patient/parents/legal guardian/POA seems to understand and agrees to proceed with anesthesia plan. Reviewed the physical assessment, medical history, allergy history and patient home medications list prior to surgery/procedure/anesthetic and documented any changes. Performed airway and anesthesia risk assessments. Anesthesia Type Anesthesia Type: General History Source History Obtained from:: Patient and Chart Anesthesia Focused Assessment* Temperature: 99.1 F Pulse Rate: 96 Blood Pressure: 135/88 Respiratory Rate: 18 Pulse Ox: 95 Oxygen Delivery Method: Nasal Cannula Airway Assessment Mouth opens: >3 cm Mallampati Score: IV Teeth Condition: Missing (Edentulous) Neck Range of motion (ROM): Limited ROM (Slight decrease in extension) Focused Labs Anesthesia Preop lab: CBC WBC 15.5 K/mm3 (4.4-11.0) H 10/11/24 04:50 RBC 3.99 M/mm3 (4.2-5.4) L 10/11/24 04:50 Hgb 12.4 g/dL (12.0-15.0) 10/11/24 04:50 Hct 38.4 % (37-47) 10/11/24 04:50 Plt Count 522 K/mm3 (150-450) H 10/11/24 04:50 CHEMISTRY Potassium 4.0 mmol/L (3.5-5.1) 10/11/24 04:50 Sodium 136 mmol/L (136-145) 10/11/24 04:50 Magnesium 2.0 mg/dL (1.6-2.6) 09/24/24 05:10 Phosphorus 1.4 mg/dL (2.5-4.9) L 09/07/23 06:27 BUN 9 mg/dL (7-18) 10/11/24 04:50 Creatinine 0.81 mg/dL (0.55-1.02) 10/11/24 04:50 Glucose 176 mg/dL (74-106) H 10/11/24 04:50 POC Glucose 211 mg/dL (74-106) H 10/11/24 08:20 TSH 8.460 uIU/mL (0.358-3.740) H 10/10/24 20:30 COAG PT 14.2 SECONDS (11.7-14.9) 10/11/24 04:50 Pre-Assessment Diagnosis/Proposed Procedure Planned Operative Procedure(s): Left hip gamma nail fixation Anesthesia History Anesthesia History - bond runner: Anesthesia History - bond runner Hx Hospitalization Yes: TIA 10/202211/08/23 11:04 Any Problems With Anesthesia No 10/11/24 05:52 Cholinesterase deficiency No 10/11/24 05:52 You/Your Family Experience No 10/11/24 05:52 fever (hyperthermia) with Relationship Recent Exposure to Contagious No 10/11/24 05:52 Disease Does patient have nerve No 10/11/24 05:52 stimulator Patient instructed to have No 10/11/24 05:52 device shut off --Does patient have Pacemaker No 10/11/24 08:05 or ICD? When Was Last Pacemaker Check QUESTION #4 FULL TEXT: You/Your Family Experience fever (hyperthermia) with Anesthesia Last Oral Intake Last Oral intake: Last Oral Intake NPO since 00:00 10/11/24 08:05 Meds taken in AM with sips of water? Meds patient instructed to take am of surgery PONV PONV - bond runner: PONV - bond runner Female HX of Motion Sickness HX of N/V After Surgery Non-Smoker Duration of Surgery greater than 60 minutes Number of Risk Factors PONV Score Height & Weight Height & Weight: Anesthesia: Height & Weight Height 5 ft 2 in 10/11/24 09:08 Weight: 76.657 kg 10/11/24 09:08 Body Mass Index (BMI) 30.9 10/11/24 08:05 Respiratory Assessment Respiratory Assessment - bond runner: Respiratory Tract Infection Hx - bond runner Hx Respiratory Tract Infection No 10/11/24 05:52 STOP Sleep Apnea STOP Sleep Apnea - bond runner: STOP Sleep Apnea - bond runner Hx Hypertension Yes 10/10/24 23:43 Hx Sleep Apnea No 10/10/24 23:43 CPAP No 09/04/24 18:22 BIPAP Do you snore loudly (louder No 10/10/24 23:43 than talking or can be heard Do you often feel tired/ No 10/10/24 23:43 fatigued/ sleepy during daytime? Has anyone observed you stop No 10/10/24 23:43 breathing during sleep? STOP Results Negative 10/10/24 23:43 QUESTION #5 FULL TEXT : Do you snore loudly (louder than talking or can be heard through closed doors)? 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 Specify any problems Hx of Preganancy in last 3 N/A 10/10/24 23:43 Months Nurse Filling Out Transfusion LSMITH 10/10/24 23:43 & Questions: Date: 10/10/24 10/10/24 23:43 Time: 23:46 10/10/24 23:43 Patient unable to answer at this time (ie. confused, unrespo /Reproduction History /Reproductive History - bond runner: /Reproductive Hx- bond runner Hx Now No 10/11/24 05:52 Gestational Age (in weeks): EDC: Hx Hx Para Hx Section SAB No 10/11/24 05:52 Active Medications Active Medications: Current Medications Generic Name Dose Route Start Last Admin Trade Name Freq PRN Reason Stop Dose Admin Ascorbic Acid 500 mg 10/11/24 10:00 10/11/24 10:29 Ascorbic Acid 500 Mg Tablet PO Not Given DAILY PATIENCE Aspirin 81 mg 10/11/24 08:00 10/11/24 07:36 Aspirin 81 Mg Tab.Chew PO Not Given DAILYCM PATIENCE Benztropine Mesylate 0.5 mg 10/11/24 10:00 Benztropine Mesylate 0.5 Mg Tablet PO BID [facility] Clonidine 0.1 mg 10/11/24 22:00 Clonidine Hcl 0.1 Mg Tablet PO QHS [facility] Protocol Cyanocobalamin 1,000 mcg 10/11/24 10:00 10/11/24 10:29 Cyanocobalamin 500 Mcg Tablet PO Not Given DAILY [facility] Ergocalciferol 1.25 mg 10/12/24 10:00 Ergocalciferol 1.25 Mg (50, 000 Unit) Capsule PO Mo@1000 PATIENCE Furosemide 20 mg 10/10/24 23:38 Furosemide 20 Mg Tablet PO BID PRN PRN swelling Protocol Gabapentin 400 mg 10/11/24 06:00 10/11/24 05:09 Gabapentin 400 Mg Capsule PO Not Given TID [facility] Ciprofloxacin 200 mg in 100 mls @ 100 mls/hr 10/10/24 22:50 10/11/24 10:34 Cipro IV 100 mls/hr Q12 PATIENCE Administration Insulin Glargine 7 unit 10/11/24 22:00 Insulin Glargine-Yfgn 100 Unit/Ml Pen SC QHS [facility] Levothyroxine Sodium 137 mcg 10/11/24 06:00 10/11/24 05:09 Levothyroxine 137 Mcg Tablet PO Not Given 0600 [facility] Magnesium Chloride 64 mg 10/11/24 10:00 10/11/24 10:29 Magnesium Chloride 64 Mg Delay Rel.Tablet PO Not Given DAILY [facility] Morphine Sulfate 2 mg 10/11/24 00:09 10/11/24 05:08 Morphine 2 Mg/Ml Syringe IV 2 mg Q4H PRN PRN Administration Pain Score 6-10 Nutritional Formula (Lactose Free) 120 ml 10/11/24 10:00 10/11/24 10:28 Glucerna Shake 120 Ml Liquid PO Not Given 4X/DAY [facility] Pantoprazole Sodium 40 mg 10/11/24 10:00 10/11/24 10:29 Pantoprazole Sodium 40 Mg Tablet PO Not Given DAILY [facility] Potassium Chloride 20 meq 10/10/24 23:38 Potassium Chloride Oral Tablet 20 Meq PO DAILY PRN PRN if take a lasix Pravastatin Sodium 40 mg 10/11/24 22:00 Pravastatin 40 Mg Tablet PO QHS [facility] Sodium Chloride 10 - 40 ml 10/10/24 23:49 10/11/24 10:33 0.9% Saline Lock 10 Ml Syringe IV 10 ml UD PRN Administration SALINE FLUSH Venlafaxine HCl 150 mg 10/11/24 10:00 Venlafaxine Hcl 75 Mg Tablet PO BID PATIENCE Zinc Sulfate 50 mg 10/11/24 10:00 10/11/24 10:29 Zinc Sulfate 50 Mg Zinc (220 Mg) Oral Capsule PO Not Given DAILY PATIENCE PFSH Medical History Hypokalemia Ductal hyperplasia of breast Atypical ductal hyperplasia of right breast Atypical lobular hyperplasia (ALH) of right breast Other acute postprocedural pain Unsteady gait Wears dentures Wears glasses Post-menopausal Cancer Depression Anxiety Thyroid disease Walker as ambulation aid Ambulates with cane Arthritis High cholesterol Back pain Injury of back TIA (transient ischemic attack) Gastric reflux History of edema History of pain when walking History of echocardiogram History of stress test Cardiology follow-up encounter DM type 2, goal HbA1c < 8% Smoker Recent weight loss Family history of breast cancer Intertrigo Left shoulder pain Right shoulder pain Chronic thoracic back pain Chronic neck pain Macromastia DM type 2, goal HbA1c < 7% Neuropathy Cataracts, bilateral Carpal tunnel syndrome Vitamin D deficiency Encounter for screening for malignant neoplasm of lung Obesity Tobacco abuse Hyperlipidemia Hypothyroidism Type 2 diabetes mellitus History of CVA (cerebrovascular accident) (10/15/21) Essential hypertension Rotator cuff injury Contusion of right shoulder region Injury due to fall Hemiparesis of left dominant side Chronic post-operative pain Primary osteoarthritis of right knee Depression Arthritis Home Medications ?Medication ?Instructions ?Recorded ?Last Taken ?Type clonidine HCl 0.1 mg tablet 0.1 mg PO QHS HTN 01/11/17 10/14/21 22:00 History furosemide 20 mg tablet 20 mg PO BID PRN swelling 10/15/21 Unknown History metformin 1,000 mg tablet 850 mg PO BID diabetes 10/15/21 Unknown History pantoprazole 40 mg tablet,delayed 40 mg PO DAILY reflux 10/15/21 09/04/23 History release potassium chloride 20 mEq 20 meq PO DAILY PRN if take a lasix 10/15/21 Unknown History tablet,extended release aspirin 81 mg chewable tablet 81 mg PO DAILY #30 tabs 10/17/21 08/28/23 Rx pravastatin 40 mg tablet 40 mg PO QHS 12/13/21 Unknown History benztropine 0.5 mg tablet 0.5 mg PO BID 10/18/22 Unknown History ascorbic acid (vitamin C) 500 mg 500 mg PO DAILY 08/27/23 Unknown History tablet,extended release (C-500) gabapentin 400 mg capsule 400 mg PO TID 08/27/23 Unknown History magnesium 250 mg tablet 250 mg PO DAILY 08/27/23 Unknown History venlafaxine 100 mg tablet 150 mg PO BID 08/27/23 09/04/23 History cyanocobalamin (vitamin B-12) 1,000 mcg PO DAILY 10/10/24 Unknown History 1,000 mcg capsule ergocalciferol (vitamin D2) 1,250 1,250 mcg PO QWEEK 10/10/24 Unknown History mcg (50,000 unit) capsule insulin glargine 100 unit/mL (3 12 unit subcut QHS 10/10/24 Unknown History mL) subcutaneous pen (Lantus Solostar U-100 Insulin) insulin glargine-yfgn 100 unit/mL 16 unit subcut DAILY 10/10/24 Unknown History (3 mL) subcutaneous pen levothyroxine 137 mcg tablet 137 mcg PO DAILY 10/10/24 Unknown History Allergy/AdvReac Type Severity Reaction Status Date / Time bupropion (From Wellbutrin) Allergy Other Verified 10/10/24 19:34 celecoxib (From Celebrex) Allergy Hives Verified 10/10/24 19:34 erythromycin lactobionate AdvReac Nausea/Vom/ Verified 10/10/24 19:34 (From Erythrocin) Diarrhea rosuvastatin calcium (From AdvReac Other Verified 10/10/24 19:34 Crestor) zolpidem (From Ambien) AdvReac Other Verified 10/10/24 19:34 Family History Mother Breast cancer Depression Brother Diabetes Hypertension Father , Age 43 Heart disease Myocardial infarction Brother Diabetes Surgical History History of bilateral breast reduction surgery Hx of surgical procedure History of cataract surgery History of tubal ligation H/O arthroscopic knee surgery Hx of colonoscopy S/P insertion of spinal cord stimulator Hx of tonsillectomy History of carpal tunnel release of both wrists Hx of section History of back surgery Social History household members: none housing: apartment number of children: 2 Smoking Status: Former smoker quit status: has quit before alcohol intake: never substance use type: does not use caffeine: No seatbelt use: always additional social history: Does Take Aspirin Daily Does Not Take Ibuprofen Review of Systems (Anesthesia) ROS Narrative System reviewed and no additional complaints, except as documented.
--- NOTE | 2024-10-11 11:41 | RAD_ITS ---
STUDY: X-RAY - PELVIS AND LEFT HIP REASON FOR EXAM: Female, 73 years old. hip fx TECHNIQUE: 2 views of the pelvis and hip. COMPARISON: 10/10/2024 FINDINGS: 98 seconds of fluoroscopy of the left hip was utilized during open reduction internal fixation of fracture of the intertrochanteric femur with a femoral neck compression screw and an intramedullary felix. . RAD/Hip Min 2 Views (Portable) IMPRESSION: Fluoroscopy during open reduction internal fixation. Electronically Signed: John Maria MD at 8:49 EST ,
--- NOTE | 2024-10-11 13:10 | PCM.OPRPT ---
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: Yes [employer] Storage Superintendent: Kirk Haddad Tasks completed by or first assist registered nurse: Closing, Implanting device and Retracting Type of Anesthesia: General RN Documented Start/Stop Times: Operation Date: 10/11/24 09:30 Case Time Anesthesia Start 10/11/24 11:19 Into Room 10/11/24 11:19 Procedure Start 10/11/24 12:01 Procedure Start Time: 12:01 Procedure Stop Time: 13:20 Select all DRAINS/GRAFTS/IMPLANTS that apply: Implanted device Implanted device details: Paige gamma short nail Estimated Blood Loss: 50 cc Specimen collected: No Description of surgery: Operative Report Pre-operative Diagnosis: Left intertrochanteric displaced femur Fracture Post-operative Diagnosis: Same Procedure(s) Performed: Left femur Cephalomedullary Nailing CPT 17785 Surgeon: Dr. Kenan Oseguera MD [employer] Flatbed Driver: None Estimated Blood Loss: 50 ml Anesthesia: General Drains: None Specimens: None Implants: [employer] [id number] Trochanteric Nail 180 x 11 mm, 130 degree angle, 100 mm lag screw Complications: None Condition: stable Indications: 73-year-old lady who had a ground-level fall and sustained a left displaced intertrochanteric femur Fracture. We discussed the benefits and risks of the procedure including but not limited to infection, bleeding, injury to nerves and vessels, limb length discrepancy, nonunion, malunion, hardware failure, herlinda-implant fracture, hip and knee stiffness, persistent pain, difficulty to ambulate, DVT, pulmonary embolism, cardiopulmonary event, need for further surgeries. The patient concurred with the proposed plan, giving informed consent. Procedure Details: The patient was seen in the pre-operative preparation area. The site of surgery was verbally confirmed and marked by the surgical team. The patient was properly identified by the unique identifiers and was then at that time transported to the operative theater by [facility]. A Time Out was held and the above information confirmed. Both lower extremities were placed on the fracture table with the contralateral extremity extended down to allow C-arm to come in. Close reduction maneuver was applied and AP and lateral x-rays were taken. Reduction was somewhat acceptable. Operative area was prepped and draped in a sterile fashion. Final timeout was performed. With the help of C-arm incision was marked. A 4 cm Incision was made proximal to the greater trochanter. An appropriate greater trochanter starting point was found using the starting wire under fluoroscopy. The wire was then drilled to the metadiaphyseal region of the femur. The opening reamer was then drilled into the metadiaphysis under fluoro. A ball tip guide wire was then placed down the femur. Sequential flexible reaming was performed up to 13 mm to allow an 11 mm short nail. 180 x 11 mm short Gamma Nail with 130 degree angle, due to the valgus noticed, was then placed into the intramedullary canal of the femur and placement was verified with fluoroscopy and advanced to an appropriate level to allow placement of the lag screw. Guidewire was removed. We then drilled the wire for the lag screw up the neck of the femur under fluoroscopic guidance. AP and lateral x-rays showed good positioning of the wire through the neck into the head with good tip apex distance. The wire was then measured. Cannulated drill was used to drill a channel for the lag screw and a 100 mm lag screw was placed up the neck of the femur. A distal static interlocking screw 32.5 mm was placed with the help of the short gamma jig. This was placed in the static hole position. Final fluorscopic images were then taken and the placement of the intramedullary device and fracture was deemed appropriate. The wounds were irrigated copiously with sterile solution. The deep fascia was closed with 0 vicryl suture. The deep dermal layer was closed with 2-0 vicryl suture. Reddy were used to close the skin. Aquacel dressing was used, the incisions. The patient was then awaken, extubated and taken to the PACU. I was present and scrubbed for the entire procedure. Postoperative plan: Patient will be WBAT. Recommend PT/OT evaluation Pain Control F/u Outpatient in 2 weeks Surgical Findings: See operative note Complications Complications: No
--- NOTE | 2024-10-11 13:36 | PCM.POST.ANE ---
Anesthesia: Postop Eval I Current Vital Signs Temperature: 97.6 F Pulse Rate: 121 Blood Pressure: 113/81 Respiratory Rate: 16 Pulse Ox: 100 Oxygen Delivery Method: Nasal Cannula Oxygen Flow Rate (L/min): 2 Assessment Airway patent: Yes Spontaneous unlabored respirations: Yes Mental status: Awake, Calm and Confused nausea: No Vomiting: No Anesthesia Complication: No Fluid Hydration Crystalloid volume administer (ml): 400 Total IV fluid infused: 400 Progress Note Anesthesia document: Postop Eval 1 completed: Yes
--- NOTE | 2024-10-11 13:51 | PCM.POSTANE2 ---
Anesthesia Postop Eval I Sum Postop Eval Completion status Anesthesia document: Postop Eval 1 completed: Yes Anesthesia Postop Eval I Summary Anesthesia Postop Eval I Summary: Anesthesia Postop Eval I: Assessment Summary Airway patent Yes 10/11/24 13:39 Spontaneous unlabored Yes 10/11/24 13:39 respirations Mental status Awake,Calm, 10/11/24 13:39 Confused nausea No 10/11/24 13:39 Vomiting No 10/11/24 13:39 Anesthesia Postop Eval I: Fluid Summary Crystalloid volume administer 400 10/11/24 13:39 (ml) Colloids volume administered ( ml) Blood Product volume administered (ml) Total IV fluid infused 400 10/11/24 13:39 Anesthesia Postop Eval I: Summary Notes Anesthesia Complication No 10/11/24 13:39 Anesthesia Complication Comment: Post-operative progress note Anesthesia: Postop Eval II Evaluation Mental status: Awake (Patient is moaning but cannot express herself at this time.) and Calm Pain Level: 4 nausea: No Vomiting: No Progress Note Post-operative progress note: FSBS = 229 Complications Anesthesia Complication: No
[2024-10-11] MEDS: LACTATED RINGERS 500 ML 999 ML IV (14:00)
[2024-10-11 14:07] LABS: Bedside Glucose 229 mg/dL (74-106)
[2024-10-11] MEDS: Lactated Ringers 1,000 ML 999 ML IV (15:05)
[2024-10-11] MEDS: KCL 40mEq in 0.9% NS 40 MEQ/1,000 ML IV.SOLN 75 MEQ IV (16:34)
[2024-10-11] MEDS: Insulin Lispro 100 UNIT/ML INSULN.PEN SC ×2 (17:09→22:16)
[2024-10-11 17:18] LABS: Bedside Glucose 279 mg/dL (74-106)
[2024-10-11] MEDS: Ketorolac 15 MG/ML Vial IV (17:43)
[2024-10-11 20:28] LABS: Hematocrit 35.6 % (37-47); Hemoglobin 11.6 g/dL (12.0-15.0)
[2024-10-11] MEDS: Insulin Glargine-YFGN 100 UNIT/ML Pen 7 UNIT SC (22:19)
[2024-10-11 23:31] LABS: Bedside Glucose 265 mg/dL (74-106)
[2024-10-12] VITALS (10 sets, daily range): BP systolic 102–135; BP diastolic 63–81; PULSE 88–106; RESP 16–20; TEMP 36.3–37.2; O2SAT 88–97
[2024-10-12] MEDS: Morphine 2 MG/ML Syringe IV ×4 (00:32→23:30)
[2024-10-12] MEDS: 0.9% Saline Lock 10 ML Syringe IV ×4 (00:32→13:37)
[2024-10-12] MEDS: Ketorolac 15 MG/ML Vial IV ×2 (04:18→10:52)
[2024-10-12] MEDS: KCL 40mEq in 0.9% NS 40 MEQ/1,000 ML IV.SOLN 75 MEQ IV (06:00)
[2024-10-12] MEDS: Insulin Lispro 100 UNIT/ML INSULN.PEN SC ×4 (06:03→21:33)
[2024-10-12 06:09] LABS: Absolute Lymphocyte Count 1.61 X10^3/uL (0.83-4.51); Absolute Neutrophil Count 15.9 X10^3/uL (2.0-7.7); Basophil# 0.09 X10^3/uL; Basophil% 0.4 % (0-1); Hematocrit 30.8 % (37-47); Lymphocyte # 1.61 X10^3/ul (0.83-4.51); Lymphocyte % 7.8 % (19-41); Mean Corp Hgb Conc 32.5 g/dL (32-36); Mean Corpuscular Hgb 31.7 pg (27.0-32.0); Mean Corpuscular Volume 97.8 fL (81-99); Mean Platelet Vol. 9.5 fl (6.2-12.0); Monocyte% 13.6 % (0-10); NRBC Flagged by Analyzer 0 % (0-5); Neutrophil # 15.89 X10^3/uL (2.7-7.7); POSITIVE DIFFERENTIAL YES; Platelet Count 499 K/mm3 (150-450); RBC Distribution Width CV 13.4 % (11.6-14.6); RBC Distribution Width SD 48.2 fl (35.1-43.9); Red Blood Count 3.15 M/mm3 (4.2-5.4); White Blood Count 20.6 K/mm3 (4.4-11.0)
[2024-10-12 06:15] LABS: Differential Indicated SCAN CRITERIA MET
[2024-10-12 06:47] LABS: Differential Comment SCANNED
[2024-10-12 06:49] LABS: Anion Gap 5 (5-15); BUN 19 mg/dL (7-18); BUN/Creat Ratio 14.6 RATIO (10-20); Calcium,Total 8.8 mg/dL (8.5-10.1); Chloride 106 mmol/L (98-107); EST Glomerular Filtration Rate 43 mL/min (>60); Est Glom Filt Rate - Afr Amer 52 mL/min (>60); Glucose 263 mg/dL (74-106); Potassium 5.6 mmol/L (3.5-5.1); Sodium Level 136 mmol/L (136-145)
[2024-10-12 07:12] LABS: Bedside Glucose 257 mg/dL (74-106)
[2024-10-12] MEDS: Ceftriaxone 1 GM/50 ML BAG IV (11:00)
[2024-10-12] MEDS: Ergocalciferol 1.25 MG (50, 000 UNIT) Capsule PO (11:03)
[2024-10-12] MEDS: Aspirin 81 MG TAB.CHEW PO (11:03)
[2024-10-12] MEDS: Ascorbic Acid 500 MG Tablet PO (11:04)
[2024-10-12] MEDS: Magnesium Chloride 64 MG Delay Rel.Tablet PO (11:04)
[2024-10-12] MEDS: Venlafaxine HCl 75 MG Tablet 150 MG PO ×2 (11:04→21:34)
[2024-10-12] MEDS: Pantoprazole Sodium 40 MG Tablet PO (11:04)
[2024-10-12] MEDS: Cyanocobalamin 500 MCG Tablet 1000 MCG PO (11:05)
[2024-10-12] MEDS: Benztropine Mesylate 0.5 MG TABLET PO ×2 (11:05→21:36)
[2024-10-12] MEDS: Calcium Carbonate 500 MG Tablet PO ×2 (11:11→16:02)
--- NOTE | 2024-10-12 11:18 | CASEMGMT ---
Addendum entered by Kenzie Mendez 10/12/24 11:24: [facility] will submit for precert today. Kenzie Mendez DC Planning Asst. Original Note: Discharge Planning Updates sent via [facility] to [facility]. Requested precert be started if needed. Kenzie Mendez DC Planning Asst.
--- NOTE | 2024-10-12 11:18 | CASEMGMT ---
Social Work SW met with pt to discuss preference at discharge. Pt reports that she has been at [facility] skilled and plans to return at d/c. DCA notified. SW remains available to follow. Plan: [facility]; skilled level of care TIFF Rodriguez
--- NOTE | 2024-10-12 11:28 | PN.ORTHO_ITS ---
Subjective Subjective Postop day 1 status post left hip gamma nailing. Patient doing well but does have significant pain from surgery. She sat in a chair with PT for about an hour this morning. Using [facility] ice to help with pain. Objective Data Objective Data Vital Signs: Vital Signs Temp Pulse Resp BP Pulse Ox O2 Del Method O2 Flow Rate 97.5 F L 101 H 18 113/64 96 Nasal Cannula 3 10/12/24 09:35 10/12/24 09:35 10/12/24 09:35 10/12/24 09:35 10/12/24 09:35 10/12/24 09:35 10/12/24 09:35 Oxygen Flow Rate (L/min) 3 Oxygen Delivery Method Nasal Cannula Weight: 169 lb Body Mass Index (BMI) 30.9 Intake & Output: Intake and Output for Last 24 Hours 10/10/24 10/11/24 10/12/24 23:59 23:59 23:59 Intake Total 325 / 325 1750 / 1750 1000 / 1000 Output Total 800 / 800 980 / 1130 350 / 350 Balance -475 / -475 770 / 620 650 / 650 Medical Nutrition Assessment Dietitian: Malnutrition Criteria Met Start: 10/11/24 09:21 Freq: Status: Active Protocol: Document 10/11/24 09:21 SLA (Rec: 10/11/24 09:21 SLA [id number]) Nutrition Malnutrition Evidence of Malnutrition Exists Yes Malnutrition (severe): Acute Illness/Injury Evidenced By Suboptimal Energy Intake ( Severe),Weight Loss (Severe) Clinical Problem Altered Nutrient-Related Laboratory Values Etiology related to diabetes Signs/Symptoms as evidenced by gluc 176 Status Active Problem Acute Disease or Injury Related Malnutrition Etiology related to suboptimal energy intake Signs/Symptoms as evidenced by po intake <50% of est nutritional needs and 6.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8, MCH 31.7, MCHC 32.5, RDW Std Deviation 48.2 H, RDW Coeff of Zafar 13.4, Plt Count 499 H, MPV 9.5, Immature Gran % (Auto) 1.200 H, Neut % (Auto) 77.0 H, Lymph % (Auto) 7.8 L, [place] % (Auto) 13.6 H, Eos % (Auto) 0.0, Baso % (Auto) 0.4, Absolute Neuts (auto) 15.9 H, Absolute Lymphs (auto) 1.61, Nucleated RBC % 0, Differential Comment SCANNED, Diff Path Review May foll, Sodium 136, Potassium 5.6 H, Chloride 106, Carbon Dioxide 25.0, Anion Gap 5, BUN 19 H, Creatinine 1.30 H, Estim Creat Clear Calc 37.50, Est GFR (MDRD) Af Amer 52 L, Est GFR (MDRD) Non-Af 43 L, BUN/Creatinine Ratio 14.6, Glucose 263 H, Calcium 8.8 10/12/24 05:56: POC Glucose 257 H Radiography Diagnostic Testing: Radiology Impression Hip X-Ray 10/11/24 11:41 IMPRESSION: Fluoroscopy during open reduction internal fixation. Electronically Signed: John Maria MD at 8:49 EST , Physical Exam Narrative Dressing CDI with mild staining. Distal neurovascular exam is intact. Assessment & Plan Assessment/Plan (1) Intertrochanteric fracture of left hip: QUALIFIERS: Encounter type: initial encounter Fracture type: c losed Fracture alignment: displaced Qualified Code(s): S72.142A - Displaced intertrochanteric fracture of left femur, initial encounter for closed fracture PLAN: Plan Postop day 1 status post left hip gamma nailing. Multimodal pain control, may add muscle relaxant to current pain regimen. PT OT mobilization as tolerated. Patient has baseline severe balance deficits from recent stroke about a month ago. Xarelto for DVT prophylaxis. Will continue to follow in-house, and follow-up in clinic in 2 weeks once discharged.
[2024-10-12 11:49] LABS: Bedside Glucose 254 mg/dL (74-106)
[2024-10-12] MEDS: Gabapentin 400 MG Capsule PO ×2 (13:34→21:29)
[2024-10-12] MEDS: Glucerna Shake 120 ML LIQUID PO ×3 (13:34→21:42)
[2024-10-12] MEDS: Lactobacillis Acidophilus 1 CAP PO ×2 (13:35→16:04)
[2024-10-12 14:41] LABS: Pathologist Review Reviewed
[2024-10-12 14:42] LABS: Pathologist Review Reviewed
[2024-10-12 14:44] LABS: Pathologist Review Reviewed
[2024-10-12] MEDS: Rivaroxaban 10 MG Tablet PO (16:04)
--- NOTE | 2024-10-12 17:03 | PCM.PN.HOSP ---
Reason for Visit Reason for Visit: Mechanical fall with resultant left hip pain Subjective Subjective Patient is a 73-year-old white female who presents emergency department [facility] on 10/10/2020 for status post fall with resultant left hip pain and inability ambulate. She has a complicated past medical history. Evidently she had had some issues taking care of herself at home and APS has been involved. She is currently residing at [facility] for rehab. Approximately 7 hours prior to presentation she tried to stand up and had a mechanical fall. X-ray was ordered at the facility and it showed a suspected left hip fracture and she was sent here for ongoing evaluation and treatment. Patient reported that her pain was worse with movement but not completely relieved by rest. She denied any other associated symptoms. Vital signs on admission were overtly unremarkable and she was stable on her baseline 2 L nasal cannula. CBC on admission showed leukocytosis with a white count of 14.6 and elevated platelet count which appears to be chronic at 517,000. No left shift was present. Coags were normal. Chemistry panel was overtly unremarkable. Blood sugar is 161. TSH was performed and found to be 8.46 but down from previous visit at which time it was 14.7. No follow-up free T4 was obtained at this time given improved status. UA on presentation was suggestive of infection with leuk esterase, greater than 100 white cells seen and 2+ bacteria. Urine was sent for culture and yeastlike organisms are growing at this time. Patient did have previous bacteremia. She was admitted to the medical floor and orthopedic surgery was consulted. She was taken to the OR on 10/11/2024 at which time a left hip ORIF via short gamma nailing was performed by Dr. Oseguera. She has multiple complaints today. She states that staffing was sarcastic with her and they made her get up and move around. I did discuss with her the importance of moving postoperatively and regaining her independence with mobility. She did seem disinterested in conversation. I did indicate to her we would alter her pain medication regimen to try to better control her pain postoperatively. Patient was also noted to be on oxygen which appears to be chronic however when I asked her she stated she did not know if she is on oxygen chronically. Objective Data Objective Data Vital Signs: Vital Signs Temp Pulse Resp BP Pulse Ox O2 Del Method O2 Flow Rate 97.4 F L 88 19 H 117/63 95 Nasal Cannula 2 10/12/24 16:00 10/12/24 16:00 10/12/24 16:00 10/12/24 16:00 10/12/24 16:00 10/12/24 16:00 10/12/24 16:00 FiO2 95 10/12/24 16:00 Oxygen Flow Rate (L/min) 2 Oxygen Delivery Method Nasal Cannula Weight: 76.657 kg Body Mass Index (BMI) 30.9 Intake & Output: Intake and Output for Last 24 Hours 10/10/24 10/11/24 10/12/24 23:59 23:59 23:59 Intake Total 325 / 325 1750 / 1750 1857.5 / 1857.5 Output Total 800 / 800 980 / 1130 600 / 600 Balance -475 / -475 770 / 620 1257.5 / 1257.5 Medical Nutrition Assessment Dietitian: Malnutrition Criteria Met Start: 10/11/24 09:21 Freq: Status: Active Protocol: Document 10/11/24 09:21 SLA (Rec: 10/11/24 09:21 SLA [id number]) Nutrition Malnutrition Evidence of Malnutrition Exists Yes Malnutrition (severe): Acute Illness/Injury Evidenced By Suboptimal Energy Intake ( Severe),Weight Loss (Severe) Clinical Problem Altered Nutrient-Related Laboratory Values Etiology related to diabetes Signs/Symptoms as evidenced by gluc 176 Status Active Problem Acute Disease or Injury Related Malnutrition Etiology related to suboptimal energy intake Signs/Symptoms as evidenced by po intake <50% of est nutritional needs and 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 Problem Recommendation Dietitian Recommendations/Changes As medically able, rec CHERISE to CHO Control, Cardiac As medically able, rec 120 ml glucerna shake 4x/day w/ medpass Will interview pt at time of follow up re: diet/wt hx, SMBG , etc and make additional rec/ provide diet education as indicated Lab / Micro Data 10/12/24 05:35 10/12/24 05:35 Labs: Laboratory Results - last 24 hr 10/10/24 20:30: Diff Path Review Reviewed 10/11/24 04:50: Diff Path Review Reviewed 10/11/24 16:30: POC Glucose 279 H 10/11/24 20:22: Hgb 11.6 L, Hct 35.6 L 10/11/24 22:09: POC Glucose 265 H 10/12/24 05:35: WBC 20.6 H, RBC 3.15 L, Hgb 10.0 L, Hct 30.8 L, MCV 97.8, MCH 31.7, MCHC 32.5, RDW Std Deviation 48.2 H, RDW Coeff of Zafar 13.4, Plt Count 499 H, MPV 9.5, Immature Gran % (Auto) 1.200 H, Neut % (Auto) 77.0 H, Lymph % (Auto) 7.8 L, Piatt % (Auto) 13.6 H, Eos % (Auto) 0.0, Baso % (Auto) 0.4, Absolute Neuts (auto) 15.9 H, Absolute Lymphs (auto) 1.61, Nucleated RBC % 0, Differential Comment SCANNED, Diff Path Review Reviewed, Sodium 136, Potassium 5.6 H, Chloride 106, Carbon Dioxide 25.0, Anion Gap 5, BUN 19 H, Creatinine 1.30 H, Estim Creat Clear Calc 37.50, Est GFR (MDRD) Af Amer 52 L, Est GFR (MDRD) Non-Af 43 L, BUN/Creatinine Ratio 14.6, Glucose 263 H, Calcium 8.8 10/12/24 05:56: POC Glucose 257 H 10/12/24 11:23: POC Glucose 254 H Micro: Microbiology 10/10/24 20:45 Urine Catheter - Cutler Urine Culture - Preliminary Yeast Like Organism Radiography Diagnostic Testing: Radiology Impression Hip X-Ray 10/11/24 11:41 IMPRESSION: Fluoroscopy during open reduction internal fixation. Electronically Signed: John Maria MD at 8:49 EST , Physical Exam Const alert, oriented x3 and no apparent distress; Negative for average body habitus, healthy appearing or well nourished Constitutional Narrative: Obese, older, white female, sitting up in bed, answers questions but does not seem interested in much conversation HEENT head/scalp atraumatic and moist oral mucous membranes HEENT Narrative: Mallampati 3, no thrush Head and Scalp: normocephalic Resp normal respiratory effort, no retractions, no use of accessory muscles and clear to auscultation bilaterally Auscultation: Negative for rales, rhonchi or wheezes Cardio regular rate, regular rhythm, S1 normal heart sound, S2 normal heart sound, no murmurs, no rub, no gallops and no clicks GI normal to inspection, nondistended, normoactive bowel sounds, soft to palpation and non-tender Extremity no clubbing, cyanosis or edema Extremity Narrative: Polar ice over left hip Neuro oriented x3 and no focal motor deficits Speech: speech normal Psych Psych Narrative: Patient is agitated and grumpy at this time Assessment & Plan Assessment/Plan (1) Abnormal finding on urinalysis: (2) Intertrochanteric fracture of left hip: QUALIFIERS: Encounter type: initial encounter Fracture type: closed Fracture alignment: displaced Qualified Code(s): S72.142A - Displaced intertrochanteric fracture of left femur, initial encounter for closed fracture (3) Chronic indwelling Cutler catheter: (4) MINESH (acute kidney injury): (5) Hyperkalemia: (6) Leukocytosis: PLAN: Plan Closed left intertrochanteric hip fracture -Postop day 1 -Bowel regimen with scheduled senna -Add as needed p.o. narcotics -Will schedule acetaminophen 1 g 3 times daily -Calcium carbonate added per orthopedic surgery -Continue home ergocalciferol -Rivaroxaban 10 mg daily per orthopedic surgery for DVT prophylaxis -Weightbearing as tolerated -PT/OT following -Case management/social work consultation and patient will need pre-CERT for discharge back to skilled facility Abnormal UA with chronic indwelling Cutler -Preliminary results on culture showed yeast -Will exchange Cutler -Hold antibiotics and monitor cultures MINESH -Serum creatinine today is 1.3 with a baseline of 0.8-1.0 -May be related to intraoperative hypotension -Hold home diuretics -Will hydrate with 2 L IV fluids normal saline -Recheck in a.m. -If not improved or worse will pursue further workup at that time -Not obstructive as patient has chronic indwelling Cutler Hyperkalemia -Discontinue LR with potassium -Diuretics on hold due to MINESH -Will repeat in a.m. Leukocytosis -Highly suspect reactive with injury and surgical procedure -Repeat lab in a.m. -Urine culture does not appear to be consistent with infection Thrombocytosis -Elevated but trending down even when compared to last admission values DM-2 uncontrolled -Hemoglobin A1c on 09/10/2024 was 13.1 -Since p.o. diet has been reinitiated will resume her home insulin regimen with basal insulin 16 units in the a.m. and 12 units at night -Continue SSI -Hold metformin while hospitalized -AM fasting glucose was 263 -Cardiac/carb controlled diet -Repeat lab in a.m. Essential hypertension/hyperlipidemia -Continue home clonidine -Lasix on hold -Continue home statin Chronic hypoxia -Suspect related to COPD however no formal diagnosis -As needed nebulizers -Patient appears to be on 2 L at baseline GERD -Continue home PPI Hypothyroidism -Continue levothyroxine 137 mcg -TSH is elevated but trending down -Outpatient TSH in 6 weeks Generalized weakness/failure to thrive -Multifactorial -Plan is for discharge back to skilled facility once pre-CERT is obtained Diabetic neuropathy -Continue gabapentin 400 3 times daily for now -If renal function does not improve may need to decrease dose due to renal clearance of drug History of stroke -Suffered in 2020 -Has some residual left-sided hemiparesis Obesity -BMI is 30.9 -Recommend weight loss -Complicates treatment, prognosis, outcomes Tobacco abuse -Nicotine patch made available -Highly recommend cessation DVT prophylaxis -Xarelto 10 mg daily for orthopedic surgery and will need to continue for 30 days after discharge CODE STATUS -Full code Charges/Coding Visit Charges Inpatient E&M: 42008 Subs Hosp L2
[2024-10-12 17:57] LABS: Bedside Glucose 206 mg/dL (74-106)
[2024-10-12] MEDS: 0.9% Normal Saline (1000mL) 1,000 ML 75 ML IV (18:00)
[2024-10-12] MEDS: oxyCODONE 5 MG Tablet PO (20:43)
[2024-10-12] MEDS: Insulin Glargine-YFGN 100 UNIT/ML Pen 12 UNIT SC (21:32)
[2024-10-12] MEDS: Acetaminophen 500 MG Tablet 1000 MG PO (21:34)
[2024-10-12] MEDS: cloNIDine HCl 0.1 MG Tablet PO (21:34)
[2024-10-12] MEDS: Senna/Docusate Sodium 1 Tablet 2 TABLET PO (21:34)
[2024-10-12] MEDS: Pravastatin 40 MG Tablet PO (21:35)
[2024-10-12 22:12] LABS: Bedside Glucose 160 mg/dL (74-106)
[2024-10-13] MEDS: oxyCODONE 5 MG Tablet PO ×2 (02:26→13:13)
[2024-10-13 02:30] VITALS: BP 111/60; PULSE 87; RESP 16; TEMP 36.6; O2SAT 94
[2024-10-13] MEDS: Gabapentin 400 MG Capsule PO ×2 (06:37→13:00)
[2024-10-13] MEDS: Acetaminophen 500 MG Tablet 1000 MG PO ×2 (06:37→13:02)
[2024-10-13] MEDS: 0.9% Normal Saline (1000mL) 1,000 ML 75 ML IV (06:38)
[2024-10-13] MEDS: Levothyroxine 150 MCG Tablet PO (06:38)
[2024-10-13 07:03] LABS: Bedside Glucose 132 mg/dL (74-106)
[2024-10-13 07:50] LABS: Absolute Lymphocyte Count 1.87 X10^3/uL (0.83-4.51); Absolute Neutrophil Count 9.4 X10^3/uL (2.0-7.7); Basophil# 0.04 X10^3/uL; Basophil% 0.3 % (0-1); Eosinophil# 0.15 X10^3/uL; Eosinophils% 1.1 % (0-5); Hematocrit 24.4 % (37-47); Hemoglobin 7.7 g/dL (12.0-15.0); Lymphocyte # 1.87 X10^3/ul (0.83-4.51); Lymphocyte % 13.5 % (19-41); Mean Corp Hgb Conc 31.6 g/dL (32-36); Mean Corpuscular Hgb 31.6 pg (27.0-32.0); Mean Platelet Vol. 9.5 fl (6.2-12.0); Monocyte# 2.26 X10^3/uL; Monocyte% 16.4 % (0-10); NRBC Flagged by Analyzer 0 % (0-5); Neutrophil # 9.39 X10^3/uL (2.7-7.7); Neutrophil % 67.9 % (47-70); POSITIVE DIFFERENTIAL YES; Platelet Count 382 K/mm3 (150-450); RBC Distribution Width CV 13.6 % (11.6-14.6); RBC Distribution Width SD 49.6 fl (35.1-43.9); Red Blood Count 2.44 M/mm3 (4.2-5.4); White Blood Count 13.8 K/mm3 (4.4-11.0)
[2024-10-13 07:52] LABS: Differential Indicated SCAN CRITERIA MET
[2024-10-13 07:55] VITALS: O2SAT 92
[2024-10-13 08:10] LABS: Phosphorus 2.1 mg/dL (2.5-4.9)
[2024-10-13 08:17] LABS: Anion Gap 3 (5-15); BUN 15 mg/dL (7-18); BUN/Creat Ratio 19.4 RATIO (10-20); Calcium,Total 8.5 mg/dL (8.5-10.1); Chloride 109 mmol/L (98-107); Creatinine, Serum 0.77 mg/dL (0.55-1.02); EST Glomerular Filtration Rate 78 mL/min (>60); Est Glom Filt Rate - Afr Amer 94 mL/min (>60); Estimated Creatinine Clearance 60.93 ml/min; Glucose 161 mg/dL (74-106); Magnesium 1.8 mg/dL (1.6-2.6); Potassium 4.4 mmol/L (3.5-5.1); Sodium Level 139 mmol/L (136-145)
[2024-10-13 08:27] LABS: Differential Comment SCANNED
[2024-10-13 09:00] VITALS: BP 110/57; PULSE 92; RESP 16; TEMP 36.8; O2SAT 94
[2024-10-13] MEDS: Calcium Carbonate 500 MG Tablet PO ×3 (09:51→17:58)
[2024-10-13] MEDS: Aspirin 81 MG TAB.CHEW PO (09:51)
[2024-10-13] MEDS: Glucerna Shake 120 ML LIQUID PO ×3 (09:51→17:58)
[2024-10-13] MEDS: Pantoprazole Sodium 40 MG Tablet PO (09:52)
[2024-10-13] MEDS: Benztropine Mesylate 0.5 MG TABLET PO (09:52)
[2024-10-13] MEDS: Venlafaxine HCl 75 MG Tablet 150 MG PO (09:53)
[2024-10-13] MEDS: Cyanocobalamin 500 MCG Tablet 1000 MCG PO (09:54)
[2024-10-13] MEDS: Ascorbic Acid 500 MG Tablet PO (09:55)
[2024-10-13] MEDS: Senna/Docusate Sodium 1 Tablet 2 TABLET PO (09:55)
[2024-10-13] MEDS: Magnesium Chloride 64 MG Delay Rel.Tablet PO (09:56)
[2024-10-13] MEDS: Insulin Glargine-YFGN 100 UNIT/ML Pen 16 UNIT SC (09:57)
[2024-10-13] MEDS: Morphine 2 MG/ML Syringe IV (10:06)
[2024-10-13] MEDS: 0.9% Saline Lock 10 ML Syringe IV (10:07)
[2024-10-13 12:25] LABS: Bedside Glucose 193 mg/dL (74-106)
[2024-10-13 12:44] LABS: Hemoglobin 8.4 g/dL (12.0-15.0)
[2024-10-13] MEDS: Na Biphos/Potassium Phosphate PACKET 1 PACKET PO (13:00)
[2024-10-13] MEDS: Insulin Lispro 100 UNIT/ML INSULN.PEN SC ×2 (13:02→18:02)
--- NOTE | 2024-10-13 13:28 | PCM.DC.SUM ---
Providers Date of Admission: 10/10/24 Date of Discharge: 10/13/24 Primary Care Physician: Rebeca Padgett MD Reason For Visit: LEFT HIP FX AND UTI 2/2 CARLTON Diagnosis Discharge Diagnosis (1) Abnormal finding on urinalysis: Status: Acute Code(s): R82.90 - Unspecified abnormal findings in urine (2) Intertrochanteric fracture of left hip: Status: Acute Code(s): S72.142A - Displaced intertrochanteric fracture of left femur, initial encounter for closed fracture Qualifiers: Encounter type: initial encounter Fracture type: closed Fracture alignment: displaced Qualified Code(s): S72.142A - Displaced intertrochanteric fracture of left femur, initial encounter for closed fracture (3) Chronic indwelling Carlton catheter: Status: Chronic Code(s): Z97.8 - Presence of other specified devices (4) MINESH (acute kidney injury): Status: Acute Code(s): N17.9 - Acute kidney failure, unspecified (5) Hyperkalemia: Status: Acute Code(s): E87.5 - Hyperkalemia (6) Leukocytosis: Status: Acute Code(s): D72.829 - Elevated white blood cell count, unspecified Plan Medications at Discharge Home Medications clonidine HCl 0.1 mg tablet 0.1 mg PO QHS HTN 01/11/17 furosemide 20 mg tablet 20 mg PO BID PRN swelling 10/15/21 metformin 1,000 mg tablet 850 mg PO BID diabetes 10/15/21 pantoprazole 40 mg tablet,delayed release 40 mg PO DAILY reflux 10/15/21 potassium chloride 20 mEq tablet,extended release 20 meq PO DAILY PRN if take a lasix 10/15/21 aspirin 81 mg chewable tablet 81 mg PO DAILY #30 tabs 10/17/21 pravastatin 40 mg tablet 40 mg PO QHS 12/13/21 benztropine 0.5 mg tablet 0.5 mg PO BID 10/18/22 ascorbic acid (vitamin C) 500 mg tablet,extended release (C-500) 500 mg PO DAILY 08/27/23 gabapentin 400 mg capsule 400 mg PO TID 08/27/23 magnesium 250 mg tablet 250 mg PO DAILY 08/27/23 venlafaxine 100 mg tablet 150 mg PO BID 08/27/23 cyanocobalamin (vitamin B-12) 1,000 mcg capsule 1,000 mcg PO DAILY 10/10/24 ergocalciferol (vitamin D2) 1,250 mcg (50,000 unit) capsule 1,250 mcg PO QWEEK 10/10/24 insulin glargine 100 unit/mL (3 mL) subcutaneous pen (Lantus Solostar U-100 Insulin) 12 unit subcut QHS 10/10/24 insulin glargine-yfgn 100 unit/mL (3 mL) subcutaneous pen 16 unit subcut DAILY 10/10/24 levothyroxine 137 mcg tablet 137 mcg PO DAILY 10/10/24 acetaminophen 500 mg tablet 1,000 mg (2 x 500 mg) PO Q8 #0 tabs 10/13/24 calcium carbonate 500 mg (2.5 x 200 mg calcium (500 mg)) PO TIDCM #0 tabs 10/13/24 nutrition tx glu intol,lac-free,soy-fiber 0.06 gram-1.2 kcal/mL liquid (Glucerna 1.2 Bernardo) 120 ml PO 4X/DAY #0 mL 10/13/24 oxycodone 5 mg tablet 5 mg PO Q4H PRN PRN Pain Score 4-5 Or Pre Pt/Ot 1 day #6 tabs 10/13/24 rivaroxaban 10 mg tablet (Xarelto) 10 mg PO DINNER #0 tabs 10/13/24 sennosides 8.6 mg-docusate sodium 50 mg tablet (Stimulant Laxative Plus) 2 tab PO BID #0 tabs 10/13/24 Hospital Course Operations - (ORIF-left hip gamma nail) Procedures - (Chest x-ray/femoral x-ray/pelvic x-ray/hip x-ray) Summary of Care Provided Minutes Spent on Discharge: 38 Hospital Course: Ms De La Cruz is a 73-year-old white female who presents emergency department [facility] on 10/10/2020 for status post fall with resultant left hip pain and inability ambulate. She has a complicated past medical history. Evidently she had had some issues taking care of herself at home and APS has been involved. She is currently residing at [facility] for rehab. Approximately 7 hours prior to presentation she tried to stand up and had a mechanical fall. X-ray was ordered at the facility and it showed a suspected left hip fracture and she was sent here for ongoing evaluation and treatment. Patient reported that her pain was worse with movement but not completely relieved by rest. She denied any other associated symptoms. Vital signs on admission were overtly unremarkable and she was stable on her baseline 2 L nasal cannula. CBC on admission showed leukocytosis with a white count of 14.6 and elevated platelet count which appears to be chronic at 517,000. No left shift was present. Coags were normal. Chemistry panel was overtly unremarkable. Blood sugar is 161. TSH was performed and found to be 8.46 but down from previous visit at which time it was 14.7. No follow-up free T4 was obtained at this time given improved status. UA on presentation was suggestive of infection with leuk esterase, greater than 100 white cells seen and 2+ bacteria. Urine was sent for culture and yeastlike organisms are growing at this time. With her urine culture being negative for any bacteria her scheduled antibiotics were discontinued and only perioperative antibiotics were utilized. She was admitted to the medical floor and orthopedic surgery was consulted. She was taken to the OR on 10/11/2024 at which time a left hip ORIF via short gamma nailing was performed by Dr. Oseguera. Patient did well postoperatively and intermittently requires oxygen however it appears previously she was on 2 L at discharge so we will continue as needed 2 L at the time of discharge at the skilled facility. She is still smoking we highly recommend she discontinue this as it could inhibit healing. Her white count trended down. Hemoglobin did drop after surgery likely related to hemodilution from fluids as well as put intraoperative losses. Hemoglobin was reassessed and stable at the time of discharge. Would recommend repeat BMP and CBC in 1 week. Patient is to be weightbearing as tolerated, continue PT and OT and utilize DVT prophylaxis with Xarelto for the next 30 days. After 38. This can be discontinued. She will need to follow-up with Dr. Oseguera's office in 2 weeks for postoperative assessment. Discharge diagnoses: Closed left intertrochanteric fracture postop day 2 ORIF with short gamma nailing Abnormal UA with chronic indwelling Carlton-colonized with Shameka -Patient refused Carlton change MINESH-resolved Hyperkalemia-resolved Leukocytosis trending down Thrombocytosis-resolved Severe malnutrition [id number] Essential hypertension Hyperlipidemia Chronic hypoxia secondary to COPD GERD Hypothyroidism Generalized weakness/failure to thrive Diabetic neuropathy History of stroke Obesity Tobacco abuse Physical Exam Const alert, oriented x3, no apparent distress and no limitations; Negative for average body habitus, healthy appearing or well nourished Constitutional Narrative: Obese, older, white female, sitting up in bed, answers questions but does not seem interested in much conversation General Appearance: cooperative, comfortable, well kempt and well developed Orientation / Consciousness: awake, oriented to person, oriented to place and oriented to time Nutritional Appearance: obese HEENT normocephalic, head/scalp atraumatic, hearing grossly normal bilaterally and moist oral mucous membranes HEENT Narrative: Mallampati 2, no thrush Eyes PERRL and EOMs intact bilaterally Eyes Narrative: Mild pale conjunctiva, no scleral icterus Neck no lymphadenopathy and supple Neck Narrative: Trachea midline, no thyroid enlargement Resp normal respiratory effort, no retractions, no use of accessory muscles and clear to auscultation bilaterally Auscultation: Negative for rales, rhonchi or wheezes Cardio regular rate, regular rhythm, S1 normal heart sound, S2 normal heart sound, no murmurs, no rub, no gallops and no clicks GI normal to inspection, nondistended, normoactive bowel sounds, soft to palpation and non-tender Extremity no clubbing, cyanosis or edema Extremity Narrative: Polar ice over left hip, incision is clean dry and intact Skin skin turgor normal and no jaundice Neuro oriented x3, moves all extremities and no focal motor deficits Speech: speech normal Psych affect normal Psych Narrative: Affect is flat, patient appears to be intermittently grumpy and agitated Medical Records Data Medical Nutrition Assessment Dietitian: Malnutrition Criteria Met Start: 10/11/24 09:21 Freq: Status: Active Protocol: Document 10/11/24 09:21 [facility] (Rec: 10/11/24 09:21 [facility] [id number]) Nutrition Malnutrition Evidence of Malnutrition Exists Yes Malnutrition (severe): Acute Illness/Injury Evidenced By Suboptimal Energy Intake ( Severe),Weight Loss (Severe) Clinical Problem Altered Nutrient-Related Laboratory Values Etiology related to diabetes Signs/Symptoms as evidenced by gluc 176 Status Active Problem Acute Disease or Injury Related Malnutrition Etiology related to suboptimal energy intake Signs/Symptoms as evidenced by po intake <50% of est nutritional needs and 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 Problem Recommendation Dietitian Recommendations/Changes As medically able, rec CHERISE to CHO Control, Cardiac As medically able, rec 120 ml glucerna shake 4x/day w/ medpass Will interview pt at time of follow up re: diet/wt hx, SMBG , etc and make additional rec/ provide diet education as indicated Weight / BMI Weight Weight: 76.657 kg Body Mass Index (BMI) 30.9 ABG / Lab / Microbiology Data 10/13/24 12:32 10/13/24 07:20 Laboratory: Laboratory Results - last 24 hr 10/10/24 20:30: Diff Path Review Reviewed 10/11/24 04:50: Diff Path Review Reviewed 10/12/24 05:35: Diff Path Review Reviewed 10/12/24 15:58: POC Glucose 206 H 10/12/24 21:32: POC Glucose 160 H 10/13/24 06:36: POC Glucose 132 H 10/13/24 07:20: WBC 13.8 H, RBC 2.44 L, Hgb 7.7 L, Hct 24.4 L, MCV 100.0 H, MCH 31.6, MCHC 31.6 L, RDW Std Deviation 49.6 H, RDW Coeff of Zafar 13.6, Plt Count 382, MPV 9.5, Immature Gran % (Auto) 0.800, Neut % (Auto) 67.9, Lymph % (Auto) 13.5 L, Forrest % (Auto) 16.4 H, Eos % (Auto) 1.1, Baso % (Auto) 0.3, Absolute Neuts (auto) 9.4 H, Absolute Lymphs (auto) 1.87, Nucleated RBC % 0, Differential Comment SCANNED, Diff Path Review March foll, Sodium 139, Potassium 4.4, Chloride 109 H, Carbon Dioxide 27.0, Anion Gap 3 L, BUN 15, Creatinine 0.77, Estim Creat Clear Calc 60.93, Est GFR (MDRD) Af Amer 94, Est GFR (MDRD) Non-Af 78, BUN/Creatinine Ratio 19.4, Glucose 161 H, Calcium 8.5, Phosphorus 2.1 L, Magnesium 1.8 10/13/24 11:26: POC Glucose 193 H 10/13/24 12:32: Hgb 8.4 L Microbiology: Microbiology 10/10/24 20:45 Urine Catheter - Carlton Urine Culture - Preliminary Yeast Like Organism D/C Instructions Discharge Diet: Low fat / Low cholesterol and 1800 Calorie Control Diet Discharge Activity: Return to Normal Activity Weight Bearing Status: Weight bearing as tolerated DC O2, CPAP, BIPAP Needs PSN CPAP & BiPAP: BiPAP & CPAP Settings per PSN Fraction of Inspired Oxygen ( 2 10/12/24 20:11 FIO2) Additional Home O2 Discharge instructions: Yes Type of respiratory needs?: Oxygen Oxygen frequency: Other Other oxygen liters per minute: 2 L Other oxygen frequency: PRN DC home with Oxygen: Yes Home O2 MD Review: I have reviewed the oxygen testing, and the patient qualifies for home oxygen equipment and portability. The patient is mobile in the home and the community. Meaningful Use Info Meaningful Use Meaningful Use Diagnoses (Choose all that apply): None applicable Ischemic Stroke Statin Dosing Therapy Reference: STATIN DOSE THERAPY REFERENCE: * Patients > 75 years receive moderate or high dose statin therapy. * Patients 75 years or YOUNGER should receive HIGH intensity statin dose unless contraindicated. You will be required to document reason for non-treatment if statin daily dose does not meet guidelines. HIGH DOSE STATIN THERAPY DAILY Atorvastatin > than or = to 40 mg Rosuvastatin > than or = to 20 mg Amlodipine + Atorvastatin > than or = to 2.5/40 mg Ezetimibe + Simvastatin 10/80 mg Simvastatin 80mg Discharge Plan Admission Admit Date/Time: 10/10/24 22:46 Primary Reason for Your Visit: Mechanical fall with resultant left hip pain Attending Provider: Keri Morrison Primary Care Provider: Rebeca Padgett Consulting Providers: Miguel Angel Basurto; Buzz Fuentes Discharge Orders/Prescriptions Prescriptions: New acetaminophen 500 mg Tablet 1,000 mg PO Q8 Qty: 0 0RF calcium carbonate 200 mg calcium (500 mg) Tablet,Chewable 500 mg PO TIDCM Qty: 0 0RF oxycodone 5 mg Tablet 5 mg PO Q4H PRN PRN (Reason: Pain Score 4-5 Or Pre Pt/Ot) 1 Days Qty: 6 0RF Glucerna 1.2 Bernardo 0.06-1.2 gram-kcal/mL Liquid 120 ml PO 4X/DAY Qty: 0 0RF Xarelto 10 mg Tablet 10 mg PO DINNER Qty: 0 0RF Rx Instructions: stop after 3 days sennosides-docusate sodium [Stimulant Laxative Plus] 8.6-50 mg Tablet 2 tab PO BID Qty: 0 0RF Continued pravastatin 40 mg tablet 40 mg PO QHS benztropine 0.5 mg tablet 0.5 mg PO BID clonidine HCl 0.1 MG tablet 0.1 mg PO QHS pantoprazole 40 mg Tablet,Delayed Release (Dr/Ec) 40 mg PO DAILY furosemide 20 mg tablet 20 mg PO BID PRN (Reason: swelling) potassium chloride 20 mEq tablet extended release 20 meq PO DAILY PRN (Reason: if take a lasix ) Patient Comments: take 1 tablet by mouth once daily with food WHILE ON FUROSEMIDE metformin 1,000 mg tablet 850 mg PO BID aspirin 81 mg tablet,chewable 81 mg PO DAILY Qty: 30 0RF gabapentin 400 mg capsule 400 mg PO TID Patient Comments: take 1 capsule by mouth three times a day venlafaxine 100 mg tablet 150 mg PO BID Patient Comments: take 1 and 1/2 tablets by mouth twice a day ascorbic acid (vitamin C) [C-500] 500 mg tablet extended release 500 mg PO DAILY magnesium 250 mg tablet 250 mg PO DAILY insulin glargine [Lantus Solostar U-100 Insulin] 100 unit/mL (3 mL) insulin pen 12 unit subcut QHS levothyroxine 137 mcg tablet 137 mcg PO DAILY cyanocobalamin (vitamin B-12) 1,000 mcg capsule 1,000 mcg PO DAILY ergocalciferol (vitamin D2) 1,250 mcg (50,000 unit) capsule 1,250 mcg PO QWEEK insulin glargine-yfgn 100 unit/mL (3 mL) Insulin Pen 16 unit subcut DAILY Referrals / Follow Up: Kenan Oseguera MD [Med Staff - Active Staff] - Within 2 Weeks Rebeca Padgett MD [Primary Care Provider] - Within 1 Month Disposition Disposition (needs filled in before D/C Order can be placed): [facility] Facility Charges/Coding Visit Charges Inpatient E&M: 48028 SNF Disch >30 Min
--- NOTE | 2024-10-13 13:45 | PHA.DC.MR.R ---
Pharmacy OR Med Reconciliation Pharmacy Service has performed discharge medication reconciliation for this patient. The patient's discharge medication list was reviewed for discrepancies and discrepancies were resolved. Medications at Discharge Home Medications clonidine HCl 0.1 mg tablet 0.1 mg PO QHS HTN 01/11/17 furosemide 20 mg tablet 20 mg PO BID PRN swelling 10/15/21 metformin 1,000 mg tablet 850 mg PO BID diabetes 10/15/21 pantoprazole 40 mg tablet,delayed release 40 mg PO DAILY reflux 10/15/21 potassium chloride 20 mEq tablet,extended release 20 meq PO DAILY PRN if take a lasix 10/15/21 aspirin 81 mg chewable tablet 81 mg PO DAILY #30 tabs 10/17/21 pravastatin 40 mg tablet 40 mg PO QHS 12/13/21 benztropine 0.5 mg tablet 0.5 mg PO BID 10/18/22 ascorbic acid (vitamin C) 500 mg tablet,extended release (C-500) 500 mg PO DAILY 08/27/23 gabapentin 400 mg capsule 400 mg PO TID 08/27/23 magnesium 250 mg tablet 250 mg PO DAILY 08/27/23 venlafaxine 100 mg tablet 150 mg PO BID 08/27/23 cyanocobalamin (vitamin B-12) 1,000 mcg capsule 1,000 mcg PO DAILY 10/10/24 ergocalciferol (vitamin D2) 1,250 mcg (50,000 unit) capsule 1,250 mcg PO QWEEK 10/10/24 insulin glargine 100 unit/mL (3 mL) subcutaneous pen (Lantus Solostar U-100 Insulin) 12 unit subcut QHS 10/10/24 insulin glargine-yfgn 100 unit/mL (3 mL) subcutaneous pen 16 unit subcut DAILY 10/10/24 levothyroxine 137 mcg tablet 137 mcg PO DAILY 10/10/24 acetaminophen 500 mg tablet 1,000 mg (2 x 500 mg) PO Q8 #0 tabs 10/13/24 calcium carbonate 500 mg (2.5 x 200 mg calcium (500 mg)) PO TIDCM #0 tabs 10/13/24 nutrition tx glu intol,lac-free,soy-fiber 0.06 gram-1.2 kcal/mL liquid (Glucerna 1.2 Bernardo) 120 ml PO 4X/DAY #0 mL 10/13/24 oxycodone 5 mg tablet 5 mg PO Q4H PRN PRN Pain Score 4-5 Or Pre Pt/Ot 1 day #6 tabs 10/13/24 rivaroxaban 10 mg tablet (Xarelto) 10 mg PO DINNER #0 tabs 10/13/24 sennosides 8.6 mg-docusate sodium 50 mg tablet (Stimulant Laxative Plus) 2 tab PO BID #0 tabs 24
--- NOTE | 2024-10-13 13:48 | TREXTCAR_ITS ---
Diet Diet Order/Speech Therapy: 10/12/24 11:21 Carb [Diet: Carbohydrate Controlled] Food consistency:: Pureed Liquid Consistency:: Regular/Thin Dietary Modifications:: Cardiac / Heart Healthy Diet Comments: Direct sup/feeding assist, Meds whole in 1 at a time Routine Orders/Code Status Suppository Frequency: Daily PRN Routine Lab Work: CBC (1 week) and BMP (1 week) Code Status: Full Code DC O2, CPAP, BIPAP needs PSN CPAP & BiPAP: BiPAP & CPAP Settings per PSN Fraction of Inspired Oxygen ( 2 10/12/24 20:11 FIO2) Home O2 Instructions: Home O2 discharge Instructions Type of respiratory needs? Oxygen 10/13/24 13:47 DC Oxygen Instruction Oxygen frequency Other 10/13/24 13:47 Other oxygen liters per minute 2 L 10/13/24 13:47 Other oxygen frequency PRN 10/13/24 13:47 Additional Home O2 Discharge instructions: Yes Type of respiratory needs?: Oxygen Oxygen frequency: Other Other oxygen liters per minute: 2 L Other oxygen frequency: PRN Wound(s) Bilateral Knees: Wound Type: Abrasion LEFT HIP: Wound Type: Surgical Incision lower left hip: Wound Type: Surgical Incision Suggestions for Active Care Change Position every (hours): 2 Hours to sit in a chair: 3 Times a day to sit in chair: 2 Therapies Weight Bearing: Weight bearing as tolerated Extremity Affected:: Left Lower Physical Therapy: Eval and Treat Occupational Therapy: Eval and Treat Problem/Diagnosis (1) Abnormal finding on urinalysis: Status: Acute Code(s): R82.90 - Unspecified abnormal findings in urine (2) Intertrochanteric fracture of left hip: Status: Acute Code(s): S72.142A - Displaced intertrochanteric fracture of left femur, initial encounter for closed fracture (3) Chronic indwelling Cutler catheter: Status: Chronic Code(s): Z97.8 - Presence of other specified devices (4) MINESH (acute kidney injury): Status: Acute Code(s): N17.9 - Acute kidney failure, unspecified (5) Hyperkalemia: Status: Acute Code(s): E87.5 - Hyperkalemia (6) Leukocytosis: Status: Acute Code(s): D72.829 - Elevated white blood cell count, unspecified Allergies/Procedures Done in Hospital Allergies bupropion (From Wellbutrin) Allergy (Verified 10/10/24 19:34) Other INCREASED DEPRESSION celecoxib (From Celebrex) Allergy (Verified 10/10/24 19:34) Hives erythromycin lactobionate (From Erythrocin) Adverse Reaction (Verified 10/10/24 19:34) Nausea/Vom/Diarrhea rosuvastatin calcium (From Crestor) Adverse Reaction (Verified 10/10/24 19:34) Other NEAR SYNCOPE zolpidem (From Ambien) Adverse Reaction (Verified 10/10/24 19:34) Other DID THINGS WITHOUT KNOWING. Procedures: - (Chest x-ray/femur x-ray/pelvic x-ray/hip x-ray) Type of Care/Length of Stay Estimated LOS: Convalescent Care Less Than 30 days Type of Care Needed: Skilled Rehab Potential: Fair Prognosis: Fair Additional Orders/Day of Discharge Day of Discharge: 10/13/24 Dietary and Speech Recommendations Dietitian Recommendations/Changes: As medically able, rec CHERISE to CHO Control, Cardiac As medically able, rec 120 ml glucerna shake 4x/day w/ medpass Will interview pt at time of follow up re: diet/wt hx, SMBG, etc and make add itional rec/provide diet education as indicated Discharge Plan Admission Admit Date/Time: 10/10/24 22:46 Primary Reason for Your Visit: Mechanical fall with resultant left hip pain Attending Provider: Keri Morrison Primary Care Provider: Rebeca Padgett Consulting Providers: Miguel Angel Basurto; Buzz Fuentes Discharge Orders/Prescriptions Prescriptions: New acetaminophen 500 mg Tablet 1,000 mg PO Q8 Qty: 0 0RF calcium carbonate 200 mg calcium (500 mg) Tablet,Chewable 500 mg PO TIDCM Qty: 0 0RF oxycodone 5 mg Tablet 5 mg PO Q4H PRN PRN (Reason: Pain Score 4-5 Or Pre Pt/Ot) 1 Days Qty: 6 0RF Glucerna 1.2 Bernardo 0.06-1.2 gram-kcal/mL Liquid 120 ml PO 4X/DAY Qty: 0 0RF Xarelto 10 mg Tablet 10 mg PO DINNER Qty: 0 0RF Rx Instructions: stop after 3 days sennosides-docusate sodium [Stimulant Laxative Plus] 8.6-50 mg Tablet 2 tab PO BID Qty: 0 0RF Continued pravastatin 40 mg tablet 40 mg PO QHS benztropine 0.5 mg tablet 0.5 mg PO BID clonidine HCl 0.1 MG tablet 0.1 mg PO QHS pantoprazole 40 mg Tablet,Delayed Release (Dr/Ec) 40 mg PO DAILY furosemide 20 mg tablet 20 mg PO BID PRN (Reason: swelling) potassium chloride 20 mEq tablet extended release 20 meq PO DAILY PRN (Reason: if take a lasix ) Patient Comments: take 1 tablet by mouth once daily with food WHILE ON FUROSEMIDE metformin 1,000 mg tablet 850 mg PO BID aspirin 81 mg tablet,chewable 81 mg PO DAILY Qty: 30 0RF gabapentin 400 mg capsule 400 mg PO TID Patient Comments: take 1 capsule by mouth three times a day venlafaxine 100 mg tablet 150 mg PO BID Patient Comments: take 1 and 1/2 tablets by mouth twice a day ascorbic acid (vitamin C) [C-500] 500 mg tablet extended release 500 mg PO DAILY magnesium 250 mg tablet 250 mg PO DAILY insulin glargine [Lantus Solostar U-100 Insulin] 100 unit/mL (3 mL) insulin pen 12 unit subcut QHS levothyroxine 137 mcg tablet 137 mcg PO DAILY cyanocobalamin (vitamin B-12) 1,000 mcg capsule 1,000 mcg PO DAILY ergocalciferol (vitamin D2) 1,250 mcg (50,000 unit) capsule 1,250 mcg PO QWEEK insulin glargine-yfgn 100 unit/mL (3 mL) Insulin Pen 16 unit subcut DAILY Referrals / Follow Up: Kenan Oseguera MD [Med Staff - Active Staff] - Within 2 Weeks Rebeca Padgett MD [Primary Care Provider] - Within 1 Month Disposition Disposition (needs filled in before D/C Order can be placed): [facility] (2) Intertrochanteric fracture of left hip Qualifiers: Encounter type: initial encounter Fracture type: closed Fracture alignment: displaced Qualified Code(s): S72.142A - Displaced intertrochanteric fracture of left femur, initial encounter for closed fracture
[2024-10-13 15:00] VITALS: BP 105/56; PULSE 85; RESP 16; TEMP 37.1; O2SAT 94
--- NOTE | 2024-10-13 15:21 | CASEMGMT ---
Addendum entered by Jamilah Burger 10/13/24 15:56: Pt was approved for [facility] retro-active to 09/04/24. Pt liability $3k. [facility] #: [id number] TIFF Rodriguez Addendum entered by Jamilah Burger 10/13/24 15:37: Pt and dtr notified of transport time of 18:30 Plan: [facility]; skilled level of care TIFF Rodriguez Original Note: Social Work- SW met with pt and dtr to discuss d/c plans. Physician feels pt is medically ready for discharge. DCA notified. Pt dtr reports that she has concerns regarding care at [facility]. SW provided support and also discussed that pt can transfer between facilities if dtr chooses to do so. Pt dtr reports that pt was approved for [facility] yesterday, but wasn't sure how to get that information. YOSEF provided contact for [facility] and also called and left a voicemail. SW also provided a list of SNF providers including quality and resource use data and consistent with the patient?s preferred geographic region, medical needs, and insurance network were provided from the [facility] Guide for pt dtr to utilize if she desires to change facilities at some point. YOSEF provided care patrol rack card, as pt dtr expressing overwhelm at having mom in SNF. SW provided support. Plan: [facility]; skilled level of care TIFF Rodriguez
--- NOTE | 2024-10-13 15:36 | CASEMGMT ---
Discharge Planning Discharge orders, signed med list, and transport time sent to [facility] via [facility]. Physicians will transport patient by cot at 6:30p. Nursing and SW updated. SW will updated pt and her daughter. Kenzie Mendez DC Planning Asst.
[2024-10-13] MEDS: Rivaroxaban 10 MG Tablet PO (17:58)
[2024-10-13 18:25] LABS: Bedside Glucose 161 mg/dL (74-106)
[2024-10-14 13:56] LABS: Pathologist Review Reviewed
== END 2024-10-13 19:45 | disposition skilled nursing facility (03) | DRG 481 ==
LOC: ED 22:25 → MS3 22:54
PROVIDERS: Anesthesiology; Internal Medicine; Nurse Practitioner; Orthopaedic Surgery Orthopaedic Surgery of the Spine; Admitting Provider Internal Medicine; Emergency Provider Surgery; PCP Family Medicine; Referring Provider Internal Medicine; Visit Provider Internal Medicine
PROC: 0QS706Z Reposition Left Upper Femur with Intramedullary Internal Fixation Device, Open Approach (ICD-10-PCS; CPT 27245; principal; 2024-10-11 09:00)
DX: S72.142A Displaced intertrochanteric fracture of left femur, initial encounter for closed fracture (principal); N17.9 Acute kidney failure, unspecified; I69.354 Hemiplegia and hemiparesis following cerebral infarction affecting left non-dominant side; B37.41 Candidal cystitis and urethritis; R62.7 Adult failure to thrive; D72.829 Elevated white blood cell count, unspecified; E11.40 Type 2 diabetes mellitus with diabetic neuropathy, unspecified; J44.9 Chronic obstructive pulmonary disease, unspecified; E03.9 Hypothyroidism, unspecified; I10 Essential (primary) hypertension; F32.A Depression, unspecified; E66.9 Obesity, unspecified; D75.839 Thrombocytosis, unspecified; E78.00 Pure hypercholesterolemia, unspecified; F41.9 Anxiety disorder, unspecified; K21.9 Gastro-esophageal reflux disease without esophagitis; E55.9 Vitamin D deficiency, unspecified; M17.11 Unilateral primary osteoarthritis, right knee; Z79.4 Long term (current) use of insulin; W19.XXXA Unspecified fall, initial encounter; M54.9 Dorsalgia, unspecified; E87.5 Hyperkalemia; E11.65 Type 2 diabetes mellitus with hyperglycemia; Y92.129 Unspecified place in nursing home as the place of occurrence of the external cause; R09.02 Hypoxemia; R53.81 Other malaise; G89.29 Other chronic pain; Z53.20 Procedure and treatment not carried out because of patient's decision for unspecified reasons; Z87.2 Personal history of diseases of the skin and subcutaneous tissue; Z79.84 Long term (current) use of oral hypoglycemic drugs; Z79.82 Long term (current) use of aspirin; Z79.890 Hormone replacement therapy; Z87.891 Personal history of nicotine dependence; Z68.33 Body mass index [BMI] 33.0-33.9, adult; Z86.19 Personal history of other infectious and parasitic diseases; Z87.448 Personal history of other diseases of urinary system; Z96.651 Presence of right artificial knee joint; Z79.899 Other long term (current) drug therapy; Z87.440 Personal history of urinary (tract) infections
CPT/HCPCS: 36415; 71045; 72170; 73502; 73552; 76000; 80048; 81001; 82607; 82746; 82962; 83735; 84100; 84443; 85014; 85018; 85025; 85610; 85730; 86850; 86900; 86901; 87086; 87088; 92610; 94668; 97116; 97162; 97166; 97530; 97535; 99285; 99406; C1713; A4216; J0744; J2405

== ENCOUNTER → 2024-11-11 | Outpatient (REF) | payer MEDICARE, MEDICAID, SELFPAY ==
[2024-11-11 08:07] LABS: Hemoglobin 11.9 g/dL (12.0-15.0); Mean Corp Hgb Conc 31.3 g/dL (32-36); Mean Corpuscular Hgb 29.8 pg (27.0-32.0); Mean Corpuscular Volume 95.2 fL (81-99); Mean Platelet Vol. 8.9 fl (6.2-12.0); Platelet Count 521 K/mm3 (150-450); RBC Distribution Width CV 14.4 % (11.6-14.6); RBC Distribution Width SD 50.6 fl (35.1-43.9); Red Blood Count 3.99 M/mm3 (4.2-5.4); White Blood Count 8.7 K/mm3 (4.4-11.0)
== END ==
LOC: OLS.SW 04:00
PROVIDERS: PCP Family Medicine; Referring Provider Internal Medicine; Visit Provider Internal Medicine
DX: E11.9 Type 2 diabetes mellitus without complications (principal)
CPT/HCPCS: 36415; 85027

== ENCOUNTER → 2024-11-16 05:00 | Outpatient (REF) | payer MEDICARE, MEDICAID, SELFPAY | LOC: OLS.SW 05:00 | PROVIDERS: PCP Family Medicine; Visit Provider Internal Medicine | DX: E03.9 Hypothyroidism, unspecified (principal) | CPT/HCPCS: 36415; 84443 ==

== ENCOUNTER → 2024-11-18 04:00 | Outpatient (REF) | payer MEDICARE, MEDICAID, SELFPAY ==
[2024-11-18 07:12] LABS: Hematocrit 38.5 % (37-47); Hemoglobin 11.8 g/dL (12.0-15.0); Mean Corp Hgb Conc 30.6 g/dL (32-36); Mean Corpuscular Hgb 29.3 pg (27.0-32.0); Mean Corpuscular Volume 95.5 fL (81-99); Mean Platelet Vol. 9.3 fl (6.2-12.0); Platelet Count 608 K/mm3 (150-450); RBC Distribution Width CV 14.5 % (11.6-14.6); RBC Distribution Width SD 50.8 fl (35.1-43.9); Red Blood Count 4.03 M/mm3 (4.2-5.4); White Blood Count 11.4 K/mm3 (4.4-11.0)
[2024-11-18 07:31] LABS: Anion Gap 6 (5-15); BUN 18 mg/dL (7-18); BUN/Creat Ratio 24.6 RATIO (10-20); Calcium,Total 9.3 mg/dL (8.5-10.1); Chloride 108 mmol/L (98-107); Creatinine, Serum 0.73 mg/dL (0.55-1.02); EST Glomerular Filtration Rate 83 mL/min (>60); Est Glom Filt Rate - Afr Amer 100 mL/min (>60); Glucose 81 mg/dL (74-106); Potassium 3.9 mmol/L (3.5-5.1); Sodium Level 142 mmol/L (136-145)
== END ==
LOC: OLS.SW 04:00
PROVIDERS: PCP Family Medicine; Referring Provider Internal Medicine; Visit Provider Internal Medicine
DX: D72.829 Elevated white blood cell count, unspecified (principal); N17.9 Acute kidney failure, unspecified; G93.41 Metabolic encephalopathy
CPT/HCPCS: 36415; 80048; 85027

== ENCOUNTER → 2024-11-25 | Outpatient (REF) | payer MEDICARE, MEDICAID, SELFPAY ==
[2024-11-25 07:40] LABS: Hematocrit 37.8 % (37-47); Hemoglobin 11.8 g/dL (12.0-15.0); Mean Corp Hgb Conc 31.2 g/dL (32-36); Mean Corpuscular Hgb 29.2 pg (27.0-32.0); Mean Corpuscular Volume 93.6 fL (81-99); Mean Platelet Vol. 9.4 fl (6.2-12.0); Platelet Count 509 K/mm3 (150-450); RBC Distribution Width CV 14.2 % (11.6-14.6); RBC Distribution Width SD 48.7 fl (35.1-43.9); Red Blood Count 4.04 M/mm3 (4.2-5.4); White Blood Count 9.9 K/mm3 (4.4-11.0)
== END ==
LOC: OLS.SW 05:40
PROVIDERS: PCP Family Medicine; Visit Provider Internal Medicine
DX: D72.829 Elevated white blood cell count, unspecified (principal); G93.41 Metabolic encephalopathy
CPT/HCPCS: 36415; 85027

== ENCOUNTER → 2024-12-02 | Outpatient (REF) | payer MEDICARE, MEDICAID, SELFPAY ==
[2024-12-02 06:31] LABS: Hematocrit 37.6 % (37-47); Hemoglobin 11.9 g/dL (12.0-15.0); Mean Corp Hgb Conc 31.6 g/dL (32-36); Mean Corpuscular Hgb 29.2 pg (27.0-32.0); Mean Corpuscular Volume 92.2 fL (81-99); Mean Platelet Vol. 9.2 fl (6.2-12.0); Platelet Count 454 K/mm3 (150-450); RBC Distribution Width SD 47.5 fl (35.1-43.9); Red Blood Count 4.08 M/mm3 (4.2-5.4); White Blood Count 10.5 K/mm3 (4.4-11.0)
== END ==
LOC: OLS.SW 05:00
PROVIDERS: PCP Family Medicine; Visit Provider Internal Medicine
DX: D72.829 Elevated white blood cell count, unspecified (principal); G93.41 Metabolic encephalopathy
CPT/HCPCS: 36415; 85027

== ENCOUNTER → 2024-12-09 05:14 | Outpatient (REF) | payer MEDICARE, MEDICAID, SELFPAY ==
[2024-12-09 06:45] LABS: Hematocrit 38.7 % (37-47); Hemoglobin 12.1 g/dL (12.0-15.0); Mean Corp Hgb Conc 31.3 g/dL (32-36); Mean Corpuscular Hgb 29.2 pg (27.0-32.0); Mean Corpuscular Volume 93.3 fL (81-99); Mean Platelet Vol. 9.3 fl (6.2-12.0); Platelet Count 470 K/mm3 (150-450); RBC Distribution Width CV 14.1 % (11.6-14.6); Red Blood Count 4.15 M/mm3 (4.2-5.4); White Blood Count 12.1 K/mm3 (4.4-11.0)
== END ==
LOC: OLS.SW 05:14
PROVIDERS: PCP Family Medicine; Visit Provider Internal Medicine
DX: D72.829 Elevated white blood cell count, unspecified (principal)
CPT/HCPCS: 36415; 85027

== ENCOUNTER → 2024-12-16 05:00 | Outpatient (REF) | payer MEDICARE, MEDICAID, SELFPAY ==
[2024-12-16 06:54] LABS: Hematocrit 41.7 % (37-47); Hemoglobin 12.9 g/dL (12.0-15.0); Mean Corp Hgb Conc 30.9 g/dL (32-36); Mean Corpuscular Hgb 28.1 pg (27.0-32.0); Mean Corpuscular Volume 90.8 fL (81-99); Mean Platelet Vol. 9.3 fl (6.2-12.0); Platelet Count 431 K/mm3 (150-450); RBC Distribution Width CV 14.2 % (11.6-14.6); RBC Distribution Width SD 47.3 fl (35.1-43.9); Red Blood Count 4.59 M/mm3 (4.2-5.4); White Blood Count 11.8 K/mm3 (4.4-11.0)
== END ==
LOC: OLS.SW 05:00
PROVIDERS: PCP Family Medicine; Visit Provider Internal Medicine
DX: D72.829 Elevated white blood cell count, unspecified (principal)
CPT/HCPCS: 36415; 85027

== ENCOUNTER → 2024-12-23 05:00 | Outpatient (REF) | payer MEDICARE, MEDICAID, SELFPAY ==
[2024-12-23 07:48] LABS: Hematocrit 37.3 % (37-47); Hemoglobin 11.7 g/dL (12.0-15.0); Mean Corp Hgb Conc 31.4 g/dL (32-36); Mean Corpuscular Hgb 28.1 pg (27.0-32.0); Mean Corpuscular Volume 89.4 fL (81-99); Mean Platelet Vol. 9.2 fl (6.2-12.0); Platelet Count 497 K/mm3 (150-450); RBC Distribution Width CV 14.1 % (11.6-14.6); RBC Distribution Width SD 46.1 fl (35.1-43.9); Red Blood Count 4.17 M/mm3 (4.2-5.4); White Blood Count 10.1 K/mm3 (4.4-11.0)
== END ==
LOC: OLS.SW 05:00
PROVIDERS: PCP Family Medicine; Visit Provider Internal Medicine
DX: E55.9 Vitamin D deficiency, unspecified (principal); D72.829 Elevated white blood cell count, unspecified; E11.9 Type 2 diabetes mellitus without complications
CPT/HCPCS: 36415; 85027

== ENCOUNTER → 2024-12-30 | Outpatient (REF) | payer MEDICARE, MEDICAID, SELFPAY ==
[2024-12-30 08:25] LABS: Hematocrit 37.3 % (37-47); Hemoglobin 11.7 g/dL (12.0-15.0); Mean Corp Hgb Conc 31.4 g/dL (32-36); Mean Corpuscular Hgb 27.9 pg (27.0-32.0); Mean Platelet Vol. 9.1 fl (6.2-12.0); Platelet Count 572 K/mm3 (150-450); RBC Distribution Width CV 14.3 % (11.6-14.6); RBC Distribution Width SD 46.3 fl (35.1-43.9); Red Blood Count 4.19 M/mm3 (4.2-5.4); White Blood Count 12.7 K/mm3 (4.4-11.0)
== END ==
LOC: OLS.SW 05:00
PROVIDERS: PCP Family Medicine; Visit Provider Internal Medicine
DX: D72.829 Elevated white blood cell count, unspecified (principal); G93.41 Metabolic encephalopathy
CPT/HCPCS: 36415; 85027

== ENCOUNTER → 2025-01-06 | Outpatient (REF) | payer MEDICAID, MEDICARE, SELFPAY ==
[2025-01-06 07:54] LABS: Hemoglobin 12.6 g/dL (12.0-15.0); Mean Corp Hgb Conc 31.5 g/dL (32-36); Mean Corpuscular Hgb 28.1 pg (27.0-32.0); Mean Corpuscular Volume 89.3 fL (81-99); Platelet Count 553 K/mm3 (150-450); RBC Distribution Width CV 14.5 % (11.6-14.6); RBC Distribution Width SD 46.6 fl (35.1-43.9); Red Blood Count 4.48 M/mm3 (4.2-5.4); White Blood Count 12.2 K/mm3 (4.4-11.0)
== END | disposition home or self-care (01) ==
LOC: OLS.SW 05:00
PROVIDERS: PCP Family Medicine; Visit Provider Internal Medicine
DX: E11.9 Type 2 diabetes mellitus without complications (principal)
CPT/HCPCS: 36415; 85027

== ENCOUNTER → 2025-01-13 | Outpatient (REF) | payer MEDICAID, SELFPAY ==
[2025-01-13 07:58] LABS: Hematocrit 39.4 % (37-47); Hemoglobin 12.6 g/dL (12.0-15.0); Mean Corpuscular Hgb 28.2 pg (27.0-32.0); Mean Corpuscular Volume 88.1 fL (81-99); Platelet Count 489 K/mm3 (150-450); RBC Distribution Width CV 14.5 % (11.6-14.6); RBC Distribution Width SD 46.5 fl (35.1-43.9); Red Blood Count 4.47 M/mm3 (4.2-5.4); White Blood Count 12.1 K/mm3 (4.4-11.0)
== END | disposition home or self-care (01) ==
LOC: OLS.SW 06:44
PROVIDERS: PCP Family Medicine; Visit Provider Internal Medicine
DX: D72.829 Elevated white blood cell count, unspecified (principal); G93.41 Metabolic encephalopathy
CPT/HCPCS: 36415; 85027

== ENCOUNTER → 2025-01-20 | Outpatient (REF) | payer MEDICAID, SELFPAY ==
[2025-01-20 07:48] LABS: Hematocrit 38.2 % (37-47); Hemoglobin 12.1 g/dL (12.0-15.0); Mean Corp Hgb Conc 31.7 g/dL (32-36); Mean Corpuscular Hgb 27.8 pg (27.0-32.0); Mean Corpuscular Volume 87.6 fL (81-99); Mean Platelet Vol. 9.2 fl (6.2-12.0); Platelet Count 532 K/mm3 (150-450); RBC Distribution Width CV 14.6 % (11.6-14.6); RBC Distribution Width SD 47.2 fl (35.1-43.9); Red Blood Count 4.36 M/mm3 (4.2-5.4); White Blood Count 12.3 K/mm3 (4.4-11.0)
[2025-01-25 04:29] LABS: Hemoglobin A1c 5.9 % (<=5.6)
== END | disposition home or self-care (01) ==
LOC: OLS.SW 05:00
PROVIDERS: PCP Family Medicine; Visit Provider Internal Medicine
DX: E11.9 Type 2 diabetes mellitus without complications (principal)
CPT/HCPCS: 36415; 83036; 85027

== ENCOUNTER → 2025-01-27 | Outpatient (REF) | payer MEDICARE, MEDICAID, SELFPAY ==
[2025-01-27 08:39] LABS: Hematocrit 38.5 % (37-47); Hemoglobin 12.3 g/dL (12.0-15.0); Mean Corp Hgb Conc 31.9 g/dL (32-36); Mean Corpuscular Volume 87.7 fL (81-99); Mean Platelet Vol. 9.2 fl (6.2-12.0); Platelet Count 563 K/mm3 (150-450); RBC Distribution Width CV 14.7 % (11.6-14.6); RBC Distribution Width SD 47.5 fl (35.1-43.9); Red Blood Count 4.39 M/mm3 (4.2-5.4); White Blood Count 12.1 K/mm3 (4.4-11.0)
== END ==
LOC: OLS.SW 05:00
PROVIDERS: PCP Family Medicine; Visit Provider Internal Medicine
DX: D72.829 Elevated white blood cell count, unspecified (principal); G93.41 Metabolic encephalopathy
CPT/HCPCS: 36415; 85027

== ENCOUNTER → 2025-02-03 | Outpatient (REF) | payer MEDICARE, MEDICAID, SELFPAY ==
[2025-02-03 09:53] LABS: Hematocrit 38.8 % (37-47); Hemoglobin 12.5 g/dL (12.0-15.0); Mean Corp Hgb Conc 32.2 g/dL (32-36); Platelet Count 639 K/mm3 (150-450); RBC Distribution Width CV 14.8 % (11.6-14.6); RBC Distribution Width SD 47.5 fl (35.1-43.9); Red Blood Count 4.46 M/mm3 (4.2-5.4); White Blood Count 10.8 K/mm3 (4.4-11.0)
== END ==
LOC: OLS.SW 05:00
PROVIDERS: PCP Family Medicine; Visit Provider Internal Medicine
DX: E11.9 Type 2 diabetes mellitus without complications (principal)
CPT/HCPCS: 36415; 85027

== ENCOUNTER → 2025-02-09 | Outpatient (REF) | payer MEDICARE, MEDICAID, SELFPAY ==
[2025-02-09 10:10] LABS: Vitamin B12 416 pg/mL (180-914); Vitamin D,25 Hydroxy 62.3 ng/mL (30-100)
== END ==
LOC: OLS.SW 04:00
PROVIDERS: PCP Family Medicine; Referring Provider Internal Medicine; Visit Provider Internal Medicine
DX: D51.8 Other vitamin B12 deficiency anemias (principal); E55.9 Vitamin D deficiency, unspecified
CPT/HCPCS: 36415; 82306; 82607

== ENCOUNTER → 2025-02-10 05:00 | Outpatient (REF) | payer MEDICAID, SELFPAY ==
[2025-02-10 08:38] LABS: Hematocrit 38.6 % (37-47); Hemoglobin 12.3 g/dL (12.0-15.0); Mean Corp Hgb Conc 31.9 g/dL (32-36); Mean Corpuscular Volume 87.7 fL (81-99); Platelet Count 571 K/mm3 (150-450); RBC Distribution Width CV 14.6 % (11.6-14.6); RBC Distribution Width SD 47.4 fl (35.1-43.9); White Blood Count 11.1 K/mm3 (4.4-11.0)
[2025-02-10 11:11] LABS: Vitamin B12 458 pg/mL (180-914); Vitamin D,25 Hydroxy 69.3 ng/mL (30-100)
== END ==
LOC: OLS.SW 05:00
PROVIDERS: PCP Family Medicine; Visit Provider Internal Medicine
DX: I10 Essential (primary) hypertension (principal); E11.9 Type 2 diabetes mellitus without complications; E78.5 Hyperlipidemia, unspecified; E03.9 Hypothyroidism, unspecified; E55.9 Vitamin D deficiency, unspecified; D51.8 Other vitamin B12 deficiency anemias; D72.829 Elevated white blood cell count, unspecified; G93.41 Metabolic encephalopathy
CPT/HCPCS: 36415; 82306; 82607; 85027

== ENCOUNTER → 2025-02-17 | Outpatient (REF) | payer MEDICARE, MEDICAID, SELFPAY ==
[2025-02-17 08:00] LABS: Hematocrit 37.9 % (37-47); Hemoglobin 12.1 g/dL (12.0-15.0); Mean Corp Hgb Conc 31.9 g/dL (32-36); Mean Corpuscular Volume 87.7 fL (81-99); Mean Platelet Vol. 8.9 fl (6.2-12.0); Platelet Count 529 K/mm3 (150-450); RBC Distribution Width CV 15.1 % (11.6-14.6); RBC Distribution Width SD 48.3 fl (35.1-43.9); Red Blood Count 4.32 M/mm3 (4.2-5.4); White Blood Count 10.2 K/mm3 (4.4-11.0)
== END ==
LOC: OLS.SW 05:00
PROVIDERS: PCP Family Medicine; Visit Provider Internal Medicine
DX: N17.9 Acute kidney failure, unspecified (principal); E11.65 Type 2 diabetes mellitus with hyperglycemia
CPT/HCPCS: 36415; 85027

== ENCOUNTER → 2025-02-24 | Outpatient (REF) | payer MEDICARE, MEDICAID, SELFPAY ==
[2025-02-24 09:12] LABS: Hematocrit 36.6 % (37-47); Hemoglobin 11.7 g/dL (12.0-15.0); Mean Corpuscular Hgb 28.2 pg (27.0-32.0); Mean Corpuscular Volume 88.2 fL (81-99); Mean Platelet Vol. 9.2 fl (6.2-12.0); Platelet Count 473 K/mm3 (150-450); RBC Distribution Width CV 15.3 % (11.6-14.6); RBC Distribution Width SD 49.4 fl (35.1-43.9); Red Blood Count 4.15 M/mm3 (4.2-5.4); White Blood Count 11.9 K/mm3 (4.4-11.0)
== END ==
LOC: OLS.SW 07:35
PROVIDERS: PCP Family Medicine; Visit Provider Internal Medicine
DX: E11.9 Type 2 diabetes mellitus without complications (principal); N17.9 Acute kidney failure, unspecified; J45.909 Unspecified asthma, uncomplicated
CPT/HCPCS: 36415; 85027

== ENCOUNTER → 2025-03-05 | Outpatient (REF) | payer MEDICAID, SELFPAY ==
[2025-03-05 06:17] LABS: Hematocrit 39.7 % (37-47); Hemoglobin 12.6 g/dL (12.0-15.0); Mean Corp Hgb Conc 31.7 g/dL (32-36); Mean Corpuscular Hgb 27.8 pg (27.0-32.0); Mean Corpuscular Volume 87.6 fL (81-99); Mean Platelet Vol. 8.9 fl (6.2-12.0); Platelet Count 509 K/mm3 (150-450); RBC Distribution Width CV 15.3 % (11.6-14.6); RBC Distribution Width SD 49.1 fl (35.1-43.9); Red Blood Count 4.53 M/mm3 (4.2-5.4); White Blood Count 12.1 K/mm3 (4.4-11.0)
[2025-03-05 06:46] LABS: Anion Gap 10 (5-15); BUN 14 mg/dL (4-19); BUN/Creat Ratio 14.8 RATIO (10-20); Calcium,Total 9.3 mg/dL (7.6-11.0); Carbon Dioxide 27.1 mmol/L (21.0-32.0); Chloride 106 mmol/L (98-108); Creatinine, Serum 0.93 mg/dL (0.70-1.20); EST Glomerular Filtration Rate 65 (>60); Glucose 99 mg/dL (70-99); Potassium 4.4 mmol/L (3.3-5.1); Sodium Level 143 mmol/L (133-145)
== END | disposition home or self-care (01) ==
LOC: OLS.SW 05:00
PROVIDERS: PCP Family Medicine; Visit Provider Internal Medicine
DX: E03.9 Hypothyroidism, unspecified (principal)
CPT/HCPCS: 36415; 80048; 82306; 84443; 85027

== ENCOUNTER → 2025-05-25 | Outpatient (REF) | payer MEDICAID, SELFPAY ==
[2025-05-25 08:40] LABS: Hematocrit 37.4 % (37-47); Hemoglobin 11.9 g/dL (12.0-15.0); Mean Corp Hgb Conc 31.8 g/dL (32-36); Mean Corpuscular Volume 89.3 fL (81-99); Mean Platelet Vol. 9.3 fl (6.2-12.0); Platelet Count 430 K/mm3 (150-450); RBC Distribution Width CV 14.4 % (11.6-14.6); RBC Distribution Width SD 46.5 fl (35.1-43.9); Red Blood Count 4.19 M/mm3 (4.2-5.4); White Blood Count 9.2 K/mm3 (4.4-11.0)
[2025-05-25 09:07] LABS: Anion Gap 10 (5-15); BUN 17 mg/dL (4-19); BUN/Creat Ratio 18.3 RATIO (10-20); Calcium,Total 9.1 mg/dL (7.6-11.0); Carbon Dioxide 26.8 mmol/L (21.0-32.0); Chloride 106 mmol/L (98-108); Cholesterol 131 mg/dL (<=200); Glucose 76 mg/dL (70-99); Low Density Lipoprotein Calc. 72 mg/dL; Potassium 4.1 mmol/L (3.3-5.1); Triglycerides 81 mg/dL; Very Low Density Lipoprotein 16 mg/dL (5-40); cholesterol:hdl ratio screen 3.07
== END | disposition home or self-care (01) ==
LOC: OLS.SW 05:00
PROVIDERS: PCP Family Medicine; Visit Provider Internal Medicine
DX: E03.9 Hypothyroidism, unspecified (principal); E11.9 Type 2 diabetes mellitus without complications
CPT/HCPCS: 36415; 80048; 80061; 83036; 84443; 85027

== ENCOUNTER → 2025-06-03 | Outpatient (REF) | payer MEDICAID, SELFPAY ==
[2025-06-04 14:03] LABS: Mucous, Urine 0 SEEN /hpf (<or=2+)
[2025-06-04 15:22] LABS: Color, Urine Yellow (Yellow); Glucose, Dipstick Normal (Normal); Ketone-Dipstick Negative (Negative); Leukocyte Esterase-Dipstick 500 /ul (Negative); Nitrite-Dipstick Positive (Negative); Occult Blood-Urine 50 /ul (Negative); Protein-Dipstick 30 mg/dl (Negative); Specific Gravity, Urine 1.025 (1.002-1.030); Urine Bilirubin Dipstick Negative (Negative)
[2025-06-04 15:56] LABS: Calcium Oxalate Crystals Ur 1+ /hpf (<or=2+); Red Blood Cells-Urine 0-5 SEEN /hpf (0-5); Squamous Epithelial Cells - UA 0-5 SEEN /hpf (5-10); Transitional Epithelial - Ur 0-5 SEEN /hpf (0-5)
== END | disposition home or self-care (01) ==
LOC: OLS.SW 14:20
PROVIDERS: PCP Family Medicine; Visit Provider Internal Medicine
DX: R41.0 Disorientation, unspecified (principal); R30.0 Dysuria; M54.50 Low back pain, unspecified
CPT/HCPCS: 81001; 87086; 87088; 87186

== ENCOUNTER → 2025-08-11 | Outpatient (REF) | payer MEDICAID, SELFPAY | END | disposition home or self-care (01) | LOC: OLS.SW 13:00 | PROVIDERS: PCP Family Medicine; Visit Provider Internal Medicine | DX: N89.8 Other specified noninflammatory disorders of vagina (principal) | CPT/HCPCS: 87070; 87205 ==

== ENCOUNTER → 2025-08-17 04:00 | Outpatient (REF) | payer MEDICAID, SELFPAY ==
[2025-08-17 09:13] LABS: Hematocrit 38.6 % (37-47); Hemoglobin 12.3 g/dL (12.0-15.0); Mean Corp Hgb Conc 31.9 g/dL (32-36); Mean Corpuscular Volume 90.0 fL (81-99); Mean Platelet Vol. 9.3 fl (6.2-12.0); Platelet Count 370 K/mm3 (150-450); RBC Distribution Width CV 13.9 % (11.6-14.6); RBC Distribution Width SD 45.3 fl (35.1-43.9); Red Blood Count 4.29 M/mm3 (4.2-5.4); White Blood Count 8.0 K/mm3 (4.4-11.0)
[2025-08-17 09:33] LABS: Anion Gap 8 (5-15); BUN 19 mg/dL (4-19); BUN/Creat Ratio 21.4 RATIO (10-20); Calcium,Total 9.1 mg/dL (7.6-11.0); Carbon Dioxide 29.5 mmol/L (21.0-32.0); Chloride 105 mmol/L (98-108); Glucose 106 mg/dL (70-99); Potassium 4.2 mmol/L (3.3-5.1)
== END ==
LOC: OLS.SW 04:00
PROVIDERS: PCP Family Medicine; Referring Provider Internal Medicine; Visit Provider Internal Medicine
DX: N39.0 Urinary tract infection, site not specified (principal); I82.409 Acute embolism and thrombosis of unspecified deep veins of unspecified lower extremity; E78.5 Hyperlipidemia, unspecified
CPT/HCPCS: 36415; 80048; 84443; 85027

== ENCOUNTER → 2025-10-18 | Outpatient (CLI) | payer MEDICARE, MEDICAID, SELFPAY ==
--- NOTE | 2025-10-18 14:08 | BI_ITS ---
EXAM: SCRN MAMM (CAD)W/ALCON BILAT DATE: 10/18/2025 CLINICAL HISTORY: F, Age 74 y/o , SCREENING TECHNIQUE: Procedure Code: [id number] Modality: MG Procedure: SCRN MAMM (CAD)W/ALCON BILAT COMPARISON: Prior exam(s) dated 03/23/2024 and 11/13/2022. FINDINGS: TISSUE DENSITY: There are scattered areas of fibroglandular density. Bilateral Breast Mammographic Findings: Benign-appearing round microcalcifications are seen in the right breast. No suspicious masses, suspicious clustered microcalcifications, architectural distortion or secondary sign of malignancy is identified in in the right breast. There is a 17 mm low-density heterogeneous mass in the superior medial aspect of the left breast. This mass most likely represents an area of fat necrosis and scar tissue from her prior breast reduction surgery however, since it is new, when compared to the 2022 study and more dense and has more mass effect when compared to the 2023 study, further workup will be performed for further evaluation. Benign-appearing round microcalcifications and a macrocalcification are seen in the left breast. BI/SCRN MAMM (CAD)W/ALCON BILAT IMPRESSION: The low density heterogeneous mass in the left breast requires additional imagi ng for further evaluation. Patient should return for an LM view of the right breast as well as spot compression CC and spot comp ression MLO view of the right breast mass. An ultrasound will also most likely be needed. OVERALL FINAL ASSESSMENT BI-RADS 0: INCOMPLETE - NEED ADDITIONAL IMAGING EVALUATION. RECOMMENDATION: Additional Views obtained/call backs Additional Recommendation none A letter with findings and recommendations will be mailed to the patient. Reading Location: [id number]
== END | disposition home or self-care (01) ==
PROVIDERS: PCP Family Medicine; Referring Provider Internal Medicine; Visit Provider Internal Medicine
DX: Z12.31 Encounter for screening mammogram for malignant neoplasm of breast (principal)
CPT/HCPCS: 77063; 77067